=== PATIENT | male | born 1940 | race Hispanic/Latino ===

== ENCOUNTER 2020-11-02 17:38 | Emergency (ER) | payer OTHER ==
--- OUTSIDE RECORDS SUMMARY | 2020-11-02 17:40 | XMS REPORT | Clinical Summary ---
:1940 Author Organization [facility] Address [address] [place] [address] Care Team Providers Name Role Phone Juliana Snell DO Primary Care Provider Allergies No Known Active Allergies Medications Medication Sig Dispensed Refills Start Date End Date Status amIODarone (PACERONE) Take 200 mg by 0 Active 200 MG tablet mouth daily. aspirin (ECOTRIN) 81 MG Take 81 mg by 0 Active enteric coated tablet mouth. clopidogrel (PLAVIX) 75 Take 75 mg by 0 Active mg tablet mouth daily. sacubitril-valsartan Take 1 tablet by 0 Active (ENTRESTO) 24-26 mg mouth 2 (two) tablet per tablet times a day. isosorbide mononitrate Take 10 mg by 0 Active (ISMO,MONOKET) 10 MG mouth daily. tablet metoprolol tartrate Take 100 mg by 0 Active (LOPRESSOR) 50 mg mouth 2 (two) tablet times a day. rosuvastatin (CRESTOR) Take 20 mg by 0 Active 20 MG tablet mouth daily. nitroglycerin Place 0.4 mg 0 Act yared (NITROSTAT) 0.4 MG SL under the tongue tablet every 5 (five) minutes as needed for chest pain. Active Problems No known active problems Surgical History Surgery Date Site/Laterality Comments CARDIAC SURGERY Defibrillator Me dtronic Social History Tobacco Use Types Packs/Day Years Used Date Former Smoker Alcohol Use Drinks/Week oz/Week Comments No Sex Assigned at Date Recorded Not on file Last Filed Vital Signs Not on file Plan of Treatment Health Maintenance Due Date Last Done Comments COVID-19 VACCINE (#1) 1955 SHINGLES VACCINES (#1) 1989 65+ PNEUMOCOCCAL VACCINE (1 of 1 - PPSV23) 2004 INFLUENZA VACCINE 06/16/2020 Results Not on fileafter 11/02/2019 (Home) [place] [address] Advance Directives For more information, please contact: [phone] Type Date Recorded Patient Manager Assisted Living Explanati on Advance Directives, Living Will and 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
--- OUTSIDE RECORDS SUMMARY | 2020-11-02 17:41 | XMS REPORT | Continuity of Care Document ---
:1940 Author Organization [employer] Care Team Providers Name Role Phone [employer] Unavailable Un available Problems Problem Status Onset Classification Date Comments Sourc e Date Reported CHRONIC AFIB Active [facility] [address] [facility] Medications Medication Details Route Status Patient Ordering Order Source Instructions Provider Date pantoprazole Notes: No Longer [facility] Tablet Active [facility] should not Center be chewed or crushed. (Same as: Protonix) Isosorbide Notes: (Same Inactive [facility] as:[place]) 016 Medical Take on Center empty stomach/ full glass of water Plavix Notes: (Same Inactive [facility] As: Plavix) [address] [place] [address] aspirin 81 mg Notes: Do Inactive [facility] tablet, enteric not crush or 016 Med ical coated chew. (Same Center As: Ecotrin) 24 HR Metoprolol Notes: (Same Inactive [facility] Tartrate 100 MG as: Toprol 016 Medic al Extended Release XL) May Center Tablet [Toprol] split tab, but do not crush. Lipitor Notes: (Same No Longer [facility] as: Lipitor) Active [address] [place] [address] Crestor 20 mg, Inactive [facility] Route: PO, [facility] Drug form: Center TAB, Bedtime, Dosing Weight 83.636, kg, Start date: 10/17/16 21:00:00 HEALTHCARE ADMINISTRATIVE ASSISTANT, Duration: 30 day, Stop date: 11/15/16 21:00:00 HEALTHCARE ADMINISTRATIVE ASSISTANT Saline Flush Notes: (Same No Longer [place] 0.9% as: BD Active [address] [place] [address] Posiflush) [place] Sucralfate Notes: May No Longer [facility] interfere Active [facility] w/enteral Center feeds - Take 1 hr before or 2 hr after antacids, dairy pdt, meals & minerals - On empty stomach. (Same As: Carafate) atorvastatin 40 40 mg = 1 Active [facility] as mg oral tablet tab, PO, 016 Medical Bedtime, 0 Center Refill(s) sacubitril 24 MG 1 tab, No Longer [place] / valsartan 26 Route: PO, Active 016 Medica l MG Oral Tablet Drug Form: Center [Entresto] TAB, Dosing Weight 83.636, kg, BID, Start date: 10/17/16 17:00:00 HEALTHCARE ADMINISTRATIVE ASSISTANT, Duration: 30 day, Stop date: 11/16/16 9:00:00 HEALTHCARE ADMINISTRATIVE ASSISTANT Furosemide 40 MG Notes: (Same No Longer [facility] Oral Tablet as: Lasix) Active 016 Medical May cause GI Center upset. Give with food or milk. Amiodarone Notes: (Same No Longer [facility] as as: Active 016 Medical Cordarone) Center Saline Flush Notes: (Same No Longer [place] 0.9% as: BD Active 016 Medical Posiflush) Center Morphine Notes: (Same No Longer [facility] as:MORPhine Active 016 Medical Sulfate) Center Ondansetron Notes: (Same Inactive [facility] as as: Zofran) [address] [place] [address] Phenergan Notes: (Same [place] Long[place] as: Active 016 [facility] Phenergan) Center Nitroglycerin Notes: (Same No Longer [facility] 0.4 MG as:Nitroquic Active 016 Medical Sublingual k, Center Tablet Nitrostat) "Do Not Crush" Sublingual tablet Ondansetron Notes: (Same Inactive [facility] as as: Zofran) 016 Medical Center MEDICATION WASTE Product Size: 4 mg Product Wasted: ___ mg AMIODarone 200 200 mg = 1 Active [facility] as mg oral tablet tab, PO, 016 Medical BID, # 180 Center tab, 0 Refill(s) Phenergan 25 mg 25 mg = 1 Active [facility] as oral tablet tab, PO, 016 Medical Q6H, PRN Center Nausea, # 15 tab, 0 Refill(s) Furosemide 40 MG 40 mg = 1 [place] Oral Tablet tab, PO, 016 Medical BID, # 30 Center tab, 0 Refill(s) sacubitril 24 MG 1 tab, PO, Active [place] / valsartan 26 BID, # 28 016 Medical MG Oral Tablet tab, 0 Center [Entresto] Refill(s) isosorbide 10 mg = 1 Active [facility] mononitrate 10 tab, PO, 016 Medical mg oral tablet Daily, # 60 Cente r tab, 0 Refill(s) pantoprazole 40 40 mg = 1 Active [facility] as mg oral enteric tab, PO, 016 Medical coated tablet Daily, # 30 Center tab, 0 Refill(s) Rosuvastatin 20 mg = 1 Active [facility] calcium 20 MG tab, PO, 016 Medical Oral Tablet Bedtime, # Center [Crestor] 30 tab, 0 Refill(s) aspirin 81 mg 81 mg = 1 Active [facility] tablet, enteric tab, PO, 016 Medical coated Daily, # 90 Center tab, 3 Refill(s) clopidogrel 75 75 mg = 1 [place] Oral Tablet tab, PO, 016 Medical [Plavix] Daily, # 30 Center tab, 0 Refill(s) Nitroglycerin 0.4 mg = 1 Active [place] 0.4 MG tab, SL, 016 Medical Sublingual Q5Min, PRN Center Tablet Chest pain, Give up to 3 doses. Call 911 if pain persists., # 100 tab, 0 Refill(s) metoprolol 100 mg = 1 Active [facility] tartrate 100 mg tab, PO, 016 Medical oral tablet BID, # 60 Center tab, 0 Refill(s) sodium chloride 1,000 mL, Inactive [place] 0.9% 1000 ml INJ Rate: 100 016 Medic al 1,000 mL ml/hr, Center Infuse over: 10 hr, Route: IV, Dosing Weight 83.636 kg, Total Volume: 1,000, Start date: 10/17/16 12:05:00 HEALTHCARE ADMINISTRATIVE ASSISTANT, Duration: 30 day, Stop date: 11/16/16 12:04:00 HEALTHCARE ADMINISTRATIVE ASSISTANT Allergies, Adverse Reactions, Alerts No Known Medication Allergies Immunizations No Data Provided for This Section Results Order Name Results Value Reference Date Interpretation Comments Leticia rce Range BLOOD BANK Antibody Negative 10/17 [facility] RESULTS Scrn (10/17/16 12:07 PM) /2016 Medic al Center BLOOD BANK ABO/Rh B POS 10/17 [place] RESULTS /[address] [facility] CHEM PANEL Magnesium 2.4 1.8 - 2.4 10/17 [place] Lvl /[address] [facility] ELECTROLYTES AGAP 13.2 10.0 - 10/17 [place] 20.0 /[address] [facility] ELECTROLYTES eGFR 28 10/17 Result Comment: The [facility] eGFR is Center calculated using the CKD-EPI formula. In most young, healthy individuals the eGFR will be >90 mL/min/1.73m2 . The eGFR declines with age. An eGFR of 60-89 may be normal in some populations, particularly the elderly, for whom the CKD-EPI formula has not been extensively validated. Use of the eGFR is not recommended in the following populations:< br/>
Beatriz viduals with unstable creatinine concentration s, including patients and those with serious co-morbid conditions.<b r/>
Patie nts with extremes in muscle mass or diet.

The data above are obtained from the National Kidney Disease Education Program (NKDEP) which additionally recommends that when the eGFR is used in patients with extremes of body mass index for purposes of drug dosing, the eGFR should be multiplied by the estimated BMI. ELECTROLYTES Calcium Lvl 8.8 8.5 - 10.5 10/[address] [place] [facility] ELECTROLYTES CO2 33 24 - 32 10/[address] [facility] ELECTROLYTES Chloride Lvl 104 95 - 109 10/17 [place] /[address] [facility] ELECTROLYTES Sodium Lvl 147 135 - 145 10/17 [place] as /[address] [facility] ELECTROLYTES Potassium 3.2 3.5 - 5.1 10/17 [place] L[place] /[address] [facility] ELECTROLYTES Glucose Lvl 77 70 - 99 10/17 [place] [facility] ELECTROLYTES BUN 38 7 - 22 10/[address] [facility] ELECTROLYTES Creatinine 2.20 0.50 - 10/17 [place] Lvl 1.40 /[address] [facility] HEMATOLOGY PTT 33.4 22.9 - 12 [place] 35.8 /[address] [facility] HEMATOLOGY INR 1.45 0.85 - 10/17 [place] 1.17 /2015 Medical [place] HEMATOLOGY PT 17.9 12.0 - 10/17 [place] 14.7 /[address] [facility] HEMATOLOGY MPV 8.4 7.4 - 10.4 10/17 Medical [place] HEMATOLOGY MCHC 32.4 32.0 - 10/17 [place] 36.0 /2015 [facility] HEMATOLOGY MCV 85.8 80.0 - 10/17 [place] 94.0 /2015 [facility] [place] HEMATOLOGY MCH 27.8 27.0 - 10/17 [place] 31.0 /2015 [facility] HEMATOLOGY Hct 42.0 42.0 - 10/17 [place] 54.0 /2015 [facility] [place] HEMATOLOGY WBC 6.8 3.7 - 10.4 10/[address] [facility] HEMATOLOGY Platelet 191 133 - 450 10/[address] [facility] HEMATOLOGY RDW 14.6 11.5 - 10/17 [place] 14.[address] [facility] HEMATOLOGY RBC 4.89 4.70 - 10/17 [place] 6.10 /[address] [facility] HEMATOLOGY Hgb 13.6 14.0 - 10/17 [place] 18.[address] [facility] HEMATOLOGY Basophils # 0.1 0.0 - 0.[address] [facility] HEMATOLOGY Eosinophils 0.1 0.0 - 0.5 10/[place] [facility] HEMATOLOGY Monocytes # 0.5 0.0 - 0.8 10/[address] [facility] HEMATOLOGY Lymphocytes 1.5 1.0 - 5.5 10/[address] [facility] HEMATOLOGY Eosinophils 1.2 0.0 - 4.0 10/[address] [facility] HEMATOLOGY Monocytes 7.5 2.0 - 12.0 10/[address] [facility] HEMATOLOGY Segs-Bands # 4.7 1.5 - 8.1 10/[address] [facility] HEMATOLOGY Basophils 1.2 0.0 - 1.0 10/[address] [facility] HEMATOLOGY Lymphocytes 21.5 20.0 - 10/17 [place] 40.[address] [facility] HEMATOLOGY Segs 68.6 45.0 - 10/[address] [place] [address] [facility] Pathology Reports No Data Provided for This Section Diagnostic Reports No Data Provided for This Section Consultation Notes No Data Provided for This Section Discharge Summaries No Data Provided for This Section History and Physicals No Data Provided for This Section Vital Signs Vital Sign Value Date Comments Source Systolic (mm Hg) 128 10/17/2016 [facility] Diastolic (mm Hg) 91 10/17/2016 [facility] Systolic (mm Hg) 127 10/17/2016 [facility] Diastolic (mm Hg) 93 10/17/2016 [facility] Systolic (mm Hg) 131 10/17/2016 [facility] Diastolic (mm Hg) 94 10/17/2016 [facility] Respitory Rate 17 10/17/2016 [facility] BMI Calculated 30.68 10/17/2016 [facility] Height 165.1 cm 10/17/2016 [facility] Weight 83.636 10/17/2016 [facility] Encounters Location Location Encounter Encounter Reason Attending ADM DC Stat us Source Details Type Number For Provider Date Date Visit [facility] [id number] [facility] 10/17 10/[address] [facility] Outpatient [facility] /2015 [facility] Procedures No Data Provided for This Section Assessment and Plan No Data Provided for This Section Plan of Care No Data Provided for This Section Social History Social History Date Source Social History TypeResponse 10/17/2016 [facility] Smoking Status Never smoker; Ready to change: No; Missy rns about tobacco use in household: No; Exposure to Tobacco Smoke None; Cigarette Smoking Last 365 Days No; Reg Smoking Cessation Counseling No Family History No Data Provided for This Section Advance Directives No Data Provided for This Section Functional Status No Data Provided for This Section
--- OUTSIDE RECORDS SUMMARY | 2020-11-02 17:41 | XMS REPORT | Clinical Summary ---
:1940 Author Organization [facility] Address [address] [place] [address] Care Team Providers Name Role Phone Danny Osuna MD Primary Care Provider Unavailable Allergies No Known Allergies Medications Medication Sig Dispensed Refills Start Date End Date Status aspirin 81 MG EC Take 81 mg by 0 Active tablet mouth daily. rosuvastatin (CRESTOR) Take 20 mg by 0 Active 20 MG tablet mouth daily. pantoprazole Take 40 mg by 0 Act yared (PROTONIX) 40 MG mouth daily. tablet promethazine Take 25 mg by 0 Act yared (PHENERGAN) 25 MG mouth every 6 tablet (six) hours as needed for Nausea. nitroglycerin Place 0.4 mg under 0 Active (NITROSTAT) 0.4 MG SL the tongue every 5 tablet (five) minutes as needed for Chest pain Put 1 pill under tongue every 5min as needed for chest pain.No more than 3 doses in 15min.Call 911 if pain is unrelieved 5min after 1st dose . clopidogrel (PLAVIX) Take 75 mg by 0 Active 75 mg tablet mouth daily. 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 Pacemaker 03/20/2017 History of atrial fibrillation 03/20/2017 Social History Tobacco Use Types Packs/Day Years Used Date Former Smoker Cigarettes 39 Quit: 11/16/19 13 Smokeless Tobacco: Never Used Tobacco Cessation: Counseling Given: Yes Alcohol Use Drinks/Week oz/Week Comments No Sex Assigned at Date Recorded Not on file Last Filed Vital Signs Not on file Plan of Treatment Not on file Implants Implanted Type Area Program Aide Group Work Device Shelf Model / Identifier Expiration Serial / Lot Date Cath Exp Silv Soak Zinc Plate Cutter 12.5cmx [id number] - [id number] Pain N/A: MONCHO 09/16/2019 [id number] / Implanted: Qty: 2 on 06/19/2017 by Hawk Rao MD at [facility] Mgmt/Stim Chest / ulator [id number] Ring Annulplsty Profile 3d 30m [id number] - [id number] Valves N/A: [employer]:STRUC 01/13/2022 [id number] / Implanted: Qty: 1 on 06/19/2017 by Hawk Rao MD at [facility] Chest TURAL HEART [id number] / Ring Semiflex 28mm Mounted [id number] - [id number] Valves N/A: [employer]:STRUC 03/15/2022 [id number] / Implanted: Qty: 1 on 06/19/2017 by Hawk Rao MD at [facility] Chest [employer]URAL HEART [id number] / [id number] [employer] Graft N/A: GORE 2020 [id number] / Implanted: Qty: 1 on 06/19/2017 by Hawk Rao MD at [facility] Chest [id number] / Results Not on fileafter 11/02/2019 Insurance Payer Benefit Plan / Subscriber ID Effective Phone Address T [facility] Group Dates MEDICAID - [facility] [id number] 2016-Katerina Najera dicaid MEDICAID MGD STAR PLAN nt Contrac [place] CARE [place] HMO [id number] 2008-Katerina Baldwin aps Contracted ALL nt MEDICAID MEDICAID OF [id number] 2017-[facility] Advance Directives For more information, please contact: [phone] Code Status Date Activated Date Inactivated Comments Full Code 06/27/2017 4:19 PM 06/29/2017 7:36 PM This code status was determined by: Patient Full Code 06/19/2017 12:50 PM 06/24/2017 2:52 PM This code status was determined by: Patient Full Code 06/19/2017 6:01 AM 06/19/2017 11:54 AM This code status was determined by: Patient Full Code 05/13/2017 9:36 AM 05/13/2017 9:00 PM This code status was determined by: Patient Full Code 03/20/2017 4:10 PM 03/25/2017 8:19 PM This code status was determined by: Patient
--- OUTSIDE RECORDS SUMMARY | 2020-11-02 17:44 | XMS REPORT | Continuity of Care Document ---
:1940 Author Organization [facility] t Address [address] [place] [address] Care Team Providers Name Role Phone Juliana Snell DO Primary Care Physician MERCEDES Attending Clinician Unavailable ADRIEL WHELAN Attending Clinician Unavailable PHYLICIA Attending Clinician Unavailable PETTY Attending Clinician Unavailable ADAM GARCIA Attending Clinician Unavailable Hematpomichele Attending Clinician Verenice NI Admitting Clinician Unavailable PHYLICIA Admitting Clinician Unavailable PETTY Admitting Clinician Unavailable ADAM GARCIA Admitting Clinician Unavailable Hematpomichele Admitting Clinician Problems Condition Condition Condition Status Onset Resolution Last Treating Co mments Source Name Details Category Date Date Treatment Clinician Date 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 8-04 S/p Jamila kes - ion ion 00:00: Tricuspid [facility] asty with Atrial appendage ligation( 06/19/2017) Stage 3 Stage 3 Disease [facility] kidney kidney 00:00: Medical disease disease 00 Center Hypertensi Hypertensi Disease Active [facility] on on 04-06 [facility] - 00:[facility] Medical 00 Center 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 04-06 [facility] - disease disease 00:00: Medical involving involving 00 Cent [place] coronary coronary artery artery Non-rheuma Non-rheuma Disease Active Overview : [facility] t[facility] mitral tic mitral 03-22 S/p Jamila kes - regurgitat regurgitat 00:00: mitral Me dical ion ion 00 valve Center repair with sling and ring procedure (06/19/2017 ) 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 00:00: Medica l (congestiv (congestiv 00 Ce nter e) and e) and diastolic diastolic (congestiv (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 Suprasella Disease Active [facility] r mass r mass 03-20 [facility] - 00:[facility]: Medical 00 Center Pacemaker Pacemaker Disease Active [facility] 03[facility]20 [facility] - [facility]: Medical 00 Center History of History of Disease Active [facility] atrial atrial 03-20 [facility] - fibrillati fibrillati 00:00: Me dical on on 00 Center CHRONIC Diagnosis Active [id number] Me moria AFIB 11 15:41:00 l CHRONIC 00:00: [place] AFIB 00 Active 09/26/2016 [facility] Allergies, Adverse Reactions, Alerts Allergy Allergy Status Severity Reaction(s) Onset Inactive Treating Comm ents Source Name Type Date Date Clinician Lisinopr Adverse Active Info Not [facility] Reaction Available [facility] Social History Social Habit Start Date Stop Date Quantity Comments Source Sex Assigned At [facility] Jamila rubin - [facility] Center Tobacco use and 2017-07-29 2017-07-29 Never used [facility] Jamila rubin - exposure 00:00:00 00:00:00 [facility] Center Alcohol intake 2017-07-29 2017-07-[address] [facility] [address] Gram[place] es - 00:00:00 00:00:00 non-drinker of Medical Ce nter alcohol (finding) History of 2012-11-16 Current smoker [facility] Rox es - tobacco use 00:00:00 Medical Mac morgan Smoking Status Start Date Stop Date Source Former smoker 2017-07-29 00:00:00 2017-07-29 00:00:[address] [facility] [address] [facility] Social History [facility] Medications Ordered Filled Start Stop Current Ordering Indication Dosage Frequency Signature Comments Components Source Medication Medication Date Date Medication? Clinician (SIG) Name Name Omeprazole Omeprazole Yes Na Snell [address] 4-24 [facility] - 00:[facility]: Memoria 00 l Outpati ent Clinics Triamcinolo Triamcinolo Yes Na Snell [address] [facility] [facility] ne ne 1-14 applicatio [facility] - Acetonide Acetonide 00:00: n to Mem oria 00 affected l area [facility] losartan 2016-[address] [facility] (COZAAR) 25 1-27 ONE-HALF Luke s - MG tablet 00:00: TABLET BY Med ical 00 MOUTH ONCE Center DAILY aspirin 81 Yes 81mg QD Take [address] MG EC 9-13 by mouth [facility] - tablet 12:51: daily. Medical 15 Center rosuvastati Yes 20mg QD Take [address] n (CRESTOR) 9-13 by mouth Luke s - 20 MG 12:51: daily. Medical tablet 15 Center pantoprazol Yes 40mg QD Take [address] e 9-13 by mouth [facility] - (PROTONIX) 12:51: daily. Medic al 40 MG 15 Center tablet promethazin Yes 25mg Take [address] e 9-13 by mouth [facility] - (PHENERGAN) 12:51: every 6 Med ical 25 MG 15 (six) Center tablet hours as needed for Nausea. nitroglycer Yes .4mg Place 0.[address] in 9-13 mg under [facility] - (NITROSTAT) 12:51: the tongue Medical 0.4 MG SL 15 every 5 Center tablet (five) minutes as needed for Chest pain Put 1 pill under tongue every 5min as needed for chest pain.No more than 3 doses in 15min.Call 911 if pain is unrelieved 5min after 1st dose . clopidogrel Yes 75mg QD Take [address] (PLAVIX) 75 9-13 by mouth Luke s - mg tablet 12:51: daily. Medica l 15 Center amIODarone 2017-0 Yes 200mg QD Take 200 [place] (PACERONE) 7-11 mg by Methodi 200 MG 09:06: mouth st tablet 30 daily. aspirin 20170 Yes 81mg Take 81 mg [place] (ECOTRIN) 7-11 by mouth. Metho di 81 MG 09:06: st enteric 30 coated tablet clopidogrel Yes 75mg QD Take 75 mg [place] (PLAVIX) 75 7-11 by mouth Meth [place] mg tablet 09:06: daily. st 30 sacubitril- 2017- Yes 1{tbl} Q.5D Take 1 [place] valsartan 7-11 tablet by Metho di (ENTRESTO) 09:06: mouth 2 st 24-26 mg 30 (two) tablet per times a tablet day. isosorbide Yes 10mg QD Take 10 mg [place] mononitrate 7-11 by mouth Meth [place] (ISMO,MONOK 09:06: daily. st ET) 10 MG 30 tablet metoprolol Yes 100mg Q.5D Take 100 [place] tartrate 7-11 mg by Methodi (LOPRESSOR) 09:06: mouth 2 st 50 mg 30 (two) tablet times a day. rosuvastati Yes 20mg QD Take 20 mg [place] n (CRESTOR) 7-11 by mouth Meth elkin 20 MG 09:06: daily. st tablet [address] 0.4 [place] in 7-11 mg under Methodi (NITROSTAT) 09:06: the tongue st 0.4 MG SL 30 every 5 tablet (five) minutes as needed for chest pain. pantoprazol 2015-11 No Notes: Torres sonia e 2-03 Tablet l 15:00: should not Ko 00 be chewed or crushed. (Same as: Protonix) Isosorbide 2015-11 No Notes: Memor ia 2-03 (Same l 15:00: as:[place] Ko 00 ) Take on empty stomach/ full glass of water Plavix 2015-11 No Notes: Memoria 2-03 (Same As: l 15:00: Plavix) [place] 00 aspirin 81 2015-11 No Notes: Do Me moria mg tablet, 2- not crush l enteric 15:00: or chew. Dennis n coated 00 (Same As: Ecotrin) 24 HR 2015-11 No Notes: Memoria Metoprolol 2-03 (Same as: l Tartrate 15:00: Toprol XL) Her wiley 100 MG 00 May split Extended tab, but Release do not Tablet crush. [Toprol] Lipitor 2015-11 No Notes: Memoria 2-03 (Same as: l 03:00: Lipitor) [place] 00 Crestor 2015-11 No 20 mg, Memoria 2- Route: PO, l 03:00: Drug form: Ko 00 TAB, Bedtime, Dosing Weight 83.636, kg, Start date: 10/17/16 21:00:00 HAND INSERTER OPERATOR, Duration: 30 day, Stop date: 11/15/16 21:00:00 HAND INSERTER OPERATOR Saline 2015-11 No Notes: Memoria Flush 0.9% -03 (Same as: l 03:00: BD [place] Posiflush) Sucralfate 2015-11 No Notes: March M emoria 2-03 interfere l 03:00: w/enteral Ko 00 feeds - Take 1 hr before or 2 hr after antacids, dairy pdt, meals & minerals - On empty stomach. (Same As: Carafate) atorvastati 2015-11 Yes 40 mg = 1 M emoria n 40 mg 2-02 tab, PO, l oral tablet 23:22: Bedtime, 0 Ko 00 Refill(s) sacubitril 2015-11 No 1 tab, Memor ia 24 MG / 2-02 Route: PO, l valsartan 23:00: Drug Form: Mahesh rmann 26 MG Oral 00 TAB, Tablet Dosing [Entresto] Weight 83.636, kg, BID, Start date: 10/17/16 17:00:00 HAND INSERTER OPERATOR, Duration: 30 day, Stop date: 11/16/16 9:00:00 HAND INSERTER OPERATOR Furosemide 2015-11 No Notes: Memor ia 40 MG Oral 2-02 (Same as: l Tablet 23:00: Lasix) Ko May cause GI upset. Give with food or milk. Amiodarone 2015-11 No Notes: Memor ia 2-02 (Same as: l 23:00: Cordarone) [place] Saline 2015-11 No Notes: Memoria Flush 0.9% 2- (Same as: l 20:40: BD [place] 00 Posiflush) Morphine 2015-11 No Notes: Memoria 2- (Same l 20:40: as:MORPhin Ko 00 e Sulfate) Ondansetron 2015-11 Yes Notes: Torres sonia 2- (Same as: l 20:38: Zofran) Phenergan 2015-11 No Notes: Memori a 2- (Same as: l 20:38: Phenergan) [place] 00 Nitroglycer 2015-11 No Notes: Torres sonia in 0.4 MG 12-18 (Same l Sublingual 20:37: as:Nitroqu H ermann Tablet 00 ick, Nitrostat) "Do Not Crush" Sublingual tablet Ondansetron 2015-11 Yes Notes: Torres sonia - (Same as: l 20:37: Zofran) MEDICATION WASTE Product Size: 4 mg Product Wasted: ___ mg AMIODarone 2015-11 Yes 200 mg = 1 M emoria 200 mg oral 2-02 tab, PO, l tablet 18:28: BID, # 180 Kavita nn 00 tab, 0 Refill(s) Phenergan 2015-11 Yes 25 mg = 1 Mem oria 25 mg oral 2-02 tab, PO, l tablet 18:28: Q6H, PRN [place] 00 Nausea, # 15 tab, 0 Refill(s) Furosemide 2015-11 Yes 40 mg = 1 Me moria 40 MG Oral 2-02 tab, PO, l Tablet 18:28: BID, # 30 Dennis n 00 tab, 0 Refill(s) sacubitril 2015-11 Yes 1 tab, PO, M emoria 24 MG / 2-02 BID, # 28 l valsartan 18:28: tab, 0 Dennis n 26 MG Oral 00 Refill(s) Tablet [Entresto] isosorbide 2015-11 Yes 10 mg = 1 Me moria mononitrate 2-02 tab, PO, l 10 mg oral 18:28: Daily, # Her wiley tablet 00 60 tab, 0 Refill(s) pantoprazol 2015-11 Yes 40 mg = 1 M emoria e 40 mg 2-02 tab, PO, l oral 18:28: Daily, # Ko enteric 00 30 tab, 0 coated Refill(s) tablet Rosuvastati 2015-11 Yes 20 mg = 1 M emoria n calcium 2-02 tab, PO, l 20 MG Oral 18:28: Bedtime, # H ermann Tablet 00 30 tab, 0 [Crestor] Refill(s) aspirin 81 2015-11 Yes 81 mg = 1 Me moria mg tablet, 2-02 tab, PO, l enteric 18:28: Daily, # Dennis n coated 00 90 tab, 3 Refill(s) clopidogrel 2015-11 Yes 75 mg = 1 M emoria 75 MG Oral 2-02 tab, PO, l Tablet 18:28: Daily, # Ko [Plavix] 00 30 tab, 0 Refill(s) Nitroglycer 2015-11 Yes 0.4 mg = 1 Memoria in 0.4 MG 2-02 tab, SL, l Sublingual 18:28: Q5Min, PRN H ermann Tablet 00 Chest pain, Give up to 3 doses. Call 911 if pain persists., # 100 tab, 0 Refill(s) metoprolol 2015-11 Yes 100 mg = 1 M emoria tartrate 2-02 tab, PO, l 100 mg oral 18:28: BID, # 60 H ermann tablet 00 tab, 0 Refill(s) sodium 2015-11 No 1,000 mL, Memori a chloride 12-18 Rate: 100 l 0.9% 1000 18:05: ml/hr, Dennis n ml INJ 00 Infuse 1,000 mL over: 10 hr, Route: IV, Dosing Weight 83.636 kg, Total Volume: 1,000, Start date: 10/17/16 12:05:00 HAND INSERTER OPERATOR, Duration: 30 day, Stop date: 11/16/16 12:04:00 HAND INSERTER OPERATOR Nitrostat Nitrostat Yes Na Snell [address] [facility] Carvedilol Carvedilol Yes Na Snell [address] [facility] Protonix Protonix Yes Na Snell [address] [facility] Potassium Potassium Yes Na Snell [address] Chloride ER Chloride ER with food [facility] Carvedilol Carvedilol Yes Na Snell TAKE ONE [facility] TABLET BY [facility] - MOUTH Memoria TWICE l DAILY [facility] Losartan Losartan Yes Na Snell [address] Potassium Potassium [facility] Tamsulosin Tamsulosin Yes Na Snell [address] HCl HCl [facility] Crestor Crestor Yes Na Snell [address] [facility] Rosuvastati Rosuvastati Yes Na Snell [address] [facility] n Calcium n Calcium [facility] Lasix Lasix Yes Na Snell [address] Losartan Losartan Yes Na Snell TAKE ONE [facility] Potassium Potassium TABLET BY [facility] - MOUTH ONCE Memoria DAILY l [facility] Coreg Coreg Yes Na Snell one tab [facility] Eliquis 2.5 Eliquis 2.5 Yes Na Snell one tablet [facility] mg mg [facility] Plavix Plavix Yes Na Snell [address] [facility] Vital Signs Vital Name Observation Time Observation Value Comments Source Systolic (mm Hg) 2016-10-17 23:00:00 Torres rial Ko Diastolic (mm Hg) 2016-10-17 23:00:00 Mem orial Ko Systolic (mm Hg) 2016-10-17 22:30:00 Torres rial Ko Diastolic (mm Hg) 2016-10-17 22:30:00 Mem orial Ko Systolic (mm Hg) 2016-10-17 22:00:00 Torres rial [place] Diastolic (mm Hg) 2016-10-17 22:00:00 Mem orial Ko Respitory Rate 2016-10-17 18:30:00 Debi Verduzco BMI Calculated 2016-10-17 18:04:00 Debi Verduzco Height 2016-10-17 18:04:00 165.1 cm [facility] Weight 2016-10-17 18:04:00 [facility] Procedures This patient has no known procedures. Plan of Care Planned Activity Planned Date Details Comments Source Future Scheduled 2020-06-16 INFLUENZA VACCINE [place] [facility] 00:00:00 [code = INFLUENZA VACCINE] Future Scheduled 2004 65+ PNEUMOCOCCAL [place] [facility] Test 00:00:00 VACCINE (1 of 1 - PPSV23) [code = 65+ PNEUMOCOCCAL VACCINE (1 of 1 - PPSV23)] Future Scheduled 1989 SHINGLES VACCINES (#1) H [place] [facility] Test 00:00:00 [code = SHINGLES VACCINES (#1)] Future Scheduled 1955 COVID-19 VACCINE (#1) Ho [place] [facility] Test 00:00:00 [code = COVID-19 VACCINE (#1)] Encounters Start End Encounter Admission Attending Care Care Encounter Source Date/Time Date/Time Type Type Clinicians Facility Department ID 2020-09-19 2020-09-19 Outpatient [facility] [id number] [facility] 2020-09-14 2020-09-14 Outpatient [facility] [id number] [facility] 2020-08-31 2020-08-31 Out[facility] [id number] [facility] 2020-08-24 2020-08-24 Out[facility] [id number] [facility] 2020-06-26 2020-06-26 [id number] [facility] 15:59[facility] 15:59:[address] [facility] - Drive [facility] Family Medicine l Medicine Outpati ent Clinics 2020-06-11 2020-06-11 [facility] [id number] 14:08:00 14:08:[address] Luke s - Drive [facility] Family Medicine l Medicine Outpati ent Clinics 2020-05-30 2020-05-30 [facility] [id number] 10:20:00 10:20:[address] Luke [facility] - Drive [facility] Family Medicine l Medicine Outpati ent Clinics 2020-04-16 2020-04-16 [facility] [id number] [address] 10:27:00 10:27:[address] Luke s - Drive [facility] Medicine Medicine Outpati ent Clinics 2020-03-09 2020-03-09 [facility] [id number] 15:00:00 15:00:00 [place] [employer] [facility] l Medicine Outpati ent Clinics 2020-02-28 2020-02-28 [facility] [id number] 08:00:00 08:00:00 [place] [employer] [facility] l Medicine Outpati ent Clinics 2020-01-12 2020-01-12 [facility] [id number] 16:30:00 16:30:00 [place] [employer] [facility] Medicine Outpati ent Clinics 2019-12-26 2019-12-26 [facility] [id number] 09:19:00 09:19:[address] [facility] Medicine Outpati ent Clinics 2019-12-23 2019-12-23 [facility] [id number] 17:21:00 17:21:[address] [place] [employer] [facility] Medicine Outpati ent Clinics 2019-11-29 2019-11-29 [facility] [id number] [address] 08:00:00 08:00:[address] [place] [employer] [facility] Medicine Outpati ent Clinics 2019-11-21 2019-11-21 [facility] [id number] [address] 16:38:00 16:38:00 [place] [employer] [facility] Medicine Outpati ent Clinics 2019-08-25 2019-08-25 [facility] [id number] 15:20:00 15:20:00 [place] [employer] [facility] Medicine Outpati ent Clinics 2019-08-08 2019-08-08 [facility] [id number] 14:59:00 14:59:00 [place] [employer] [facility] Medicine Outpati ent Clinics 2019-06-21 2019-06-21 [facility] [id number] 15:29:00 15:29:[address] [facility] Medicine Outpati ent Clinics 2019-06-03 2019-06-03 [facility] [id number] 13:40:00 13:40:00 [place] [employer] [facility] Outpati ent Clinics 2019-02-28 2019-02-28 [facility] [id number] [facility] 15:40:00 15:40:00 t [employer] [facility] Outpati ent Clinics 2019-01-03 2019-01-03 [facility] [id number] 15:15:00 15:15:00 t [employer] [facility] Outpati ent Clinics 2018-12-31 2018-12-31 [facility] [id number] 09:59:00 09:59:00 t Specialty/U Jamila kes - Specialty rology Memori a /Urology Clinic l Clinic Outpati ent Clinics 2018-12-28 2018-12-28 [facility] [id number] 13:00:00 13:00:00 t Specialty/U Jamila kes - Specialty rology Memori a /Urology Clinic l Clinic Outpati ent Clinics 2018-12-23 2018-12-23 [facility] [id number] 15:11:00 15:11:00 t Specialty/U Jamila kes - Specialty rology Memori a /Urology Clinic l Clinic Outpati ent Clinics 2018-12-20 2018-12-20 [facility] [id number] 11:04:00 11:04:00 t Urgent Urgent Care L ukes - Care Clinic [facility] Clinic l Outpati ent Clinics 2018-12-20 2018-12-20 [facility] [id number] 09:02:00 09:02:00 t [place] [employer] [facility] Outpati ent Clinics 2018-12-17 2018-12-17 [facility] [id number] 11:05:00 11:05:00 t Womens Womens Care L ukes - Care Clinic [facility] Clinic l Outpati ent Clinics 2018-12-17 2018-12-17 [facility] [id number] 10:57:00 10:57:00 t Specialty/U Jamila kes - Specialty rology Memori a /Urology Clinic l Clinic Outpati ent Clinics 2018-12-06 2018-12-06 [facility] [id number] 09:51:00 09:51:00 t [employer] [facility] Outpati ent Clinics 2018-12-01 2018-12-01 [facility] [id number] 10:00:00 10:00:00 t Specialty/U Jamila kes - Specialty rology Memori a /Urology Clinic l Clinic Outpati ent Clinics 2018-11-30 2018-11-30 [facility] [id number] 09:15:00 09:15:00 t [employer] [facility] Outpati ent Clinics 2018-08-17 2018-08-17 [facility] [id number] 14:43:00 14:43:00 t Specialty/U Jamila kes - Specialty rology Memori a /Urology Clinic l Clinic Outpati ent Clinics 2018-08-12 2018-08-12 [facility] [id number] 13:07:00 13:07:00 t Specialty/U Jamila kes - Specialty rology Memori a /Urology Clinic l Clinic Outpati ent Clinics 2018-08-12 2018-08-12 [facility] [id number] 09:15:00 09:15:00 t Specialty/U Jamila kes - Specialty rology Memori a /Urology Clinic l Clinic Outpati ent Clinics 2018-08-06 2018-08-06 [facility] [id number] 16:01:00 16:01:00 t [employer] [facility] Outpati ent Clinics 2018-06-24 2018-06-24 [facility] [id number] 14:45:00 14:45:00 t [employer] [facility] Outpati ent Clinics 2016-10-17 2016-10-17 Outpatient Hematpour, [facility] [id number] 11:55:00 17:37:00 Khashayar 00 Results Test Description Test Time Test Comments Results Result Comments Source B-TYPE NATRIURETIC FACTOR (BNP) 2017-07-29 15:05:00 Test Item Value Reference Range Interpretation Comme nts B-TYPE NATRIURETIC PEPTIDE (BEAKER) (test code = 700) 1331 pg/mL 0-100 H [id number] 14:58:00 Test Item Value Reference Range Interpretation Comments MAGNESIUM (BEAKER) (test code = 2.2 mg/dL 1.6-2.6 627) BASIC METABOLIC [id number] 14:58:00 Test Item Value Reference Range Interpretation Comments SODIUM (BEAKER) 143 meq/L 136-145 (test code = 381) POTASSIUM (BEAKER) 3.3 meq/L 3.5-5.1 L (test code = 379) CHLORIDE (BEAKER) 106 meq/L 98-107 (test code = 382) CO2 (BEAKER) (test 31 meq/L 22-29 H code = 355) BLOOD UREA NITROGEN 18 mg/dL 7-21 (BEAKER) (test code = 354) CREATININE (BEAKER) 1.08 mg/dL 0.57-1.25 (test code = 358) GLUCOSE RANDOM 80 mg/dL 70-105 (BEAKER) (test code = 652) CALCIUM (BEAKER) 9.0 mg/dL 8.4-10.2 (test code = 697) EGFR (BEAKER) (test 66 mL/min/1.73 ESTIMA SOBEIDA GFR IS code = 1092) sq m NOT ACCURATE CREATININE CLEARANCE IN PREDICTING GLOMERULAR FILTRATION RATE . ESTIMATED GFR I S NOT APPLICABLE FOR DIALYSIS PATIEN TS. POCT-GLUCOSE [id number] 12:54:00 Test Item Value Reference Range Interpretation Comments POC-GLUCOSE METER 108 mg/dL 70-[address] [facility] 6720 (BEAKER) (test code = KATHYA [place] 1538) [id number] POCT-GLUCOSE [id number] 08:45:00 Test Item Value Reference Range Interpretation Comments POC-GLUCOSE METER 114 mg/dL 70-[address] [facility] 6720 (BEAKER) (test code = KATHYA Mora [place] 1538) [id number] BASIC METABOLIC [id number] 06:04:00 Test Item Value Reference Range Interpretation Comments SODIUM (BEAKER) 142 meq/L 136-145 (test code = 381) POTASSIUM (BEAKER) 3.5 meq/L 3.5-5.1 (test code = 379) CHLORIDE (BEAKER) 108 meq/L 98-107 H (test code = 382) CO2 (BEAKER) (test 26 meq/L 22-29 code = 355) BLOOD UREA NITROGEN 24 mg/dL 7-21 H (BEAKER) (test code = 354) CREATININE (BEAKER) 0.82 mg/dL 0.57-1.25 (test code = 358) GLUCOSE RANDOM 89 mg/dL 70-105 (BEAKER) (test code = 652) CALCIUM (BEAKER) 8.2 mg/dL 8.4-10.2 L (test code = 697) EGFR (BEAKER) (test 91 mL/min/1.73 ESTIMA SOBEIDA GFR IS code = 1092) sq m NOT ACCURATE CREATININE CLEARANCE IN PREDICTING GLOMERULAR FILTRATION RATE . ESTIMATED GFR I S NOT APPLICABLE FOR DIALYSIS PATIEN TS. TROPONIN [id number] 22:40:00 Test Item Value Reference Range Interpretation Comments TROPONIN I (BEAKER) (test code = 1.42 ng/mL 0.00-0.03 HH 397) Effective 10/03/2014: Reference Range ChangeNew: 0.00-0.03 Previous 0.00- 0.15Troponin I (TnI) levels must be interpreted in the context of the presenting symptoms and the clinical findings. Elevated TnI levels indicate myocardial damage, but are not specific for ischemic heart disease. Elevated TnI levels are seen in patients with other cardiac conditions (including myocarditis and congestive heartfailure), and slight TnI elevations occur in patients with other conditions, including sepsis, renalfailure, acidosis, acute neurological disease, and persistent tachyarrhythmia.POCT-GLUCOSE [id number] 21:44:00 Test Item Value Reference Range Interpretation Comments POC-GLUCOSE METER 109 mg/dL 70-[address] [facility] 6720 ([facility]) (test code = KATHYA [place] 1538) [id number] POCT-GLUCOSE [id number] 20:16:00 Test Item Value Reference Range Interpretation Comments POC-GLUCOSE METER 113 mg/dL 70-[address] [facility] 6720 (BEAKER) (test code = KATHYA Mora [place] 1538) [id number] POCT-GLUCOSE [id number] 20:11:00 Test Item Value Reference Range Interpretation Comments POC-GLUCOSE METER 98 mg/dL 70-[address] [facility] 6720 (BEAKER) (test code = KATHYA Mora [facility] [id number] 1538) POCT-GLUCOSE [id number] 20:01:00 Test Item Value Reference Range Interpretation Comments POC-GLUCOSE METER 121 mg/dL 70-[address] [facility] 6720 (BEAKER) (test code = KATHYA Mora [facility] 1538) [id number] TROPONIN [id number] 12:06:00 Test Item Value Reference Range Interpretation Comments TROPONIN I (BEAKER) (test code = 1.72 ng/mL 0.00-0.03 HH 397) Effective 10/03/2014: Reference Range ChangeNew: 0.00-0.03 Previous 0.00- 0.15Troponin I (TnI) levels must be interpreted in the context of the presenting symptoms and the clinical findings. Elevated TnI levels indicate myocardial damage, but are not specific for ischemic heart disease. Elevated TnI levels are seen in patients with other cardiac conditions (including myocarditis and congestive heartfailure), and slight TnI elevations occur in patients with other conditions, including sepsis, renalfailure, acidosis, acute neurological disease, and persistent tachyarrhythmia.BASIC METABOLIC [id number] 12:05:00 Test Item Value Reference Range Interpretation Comments SODIUM (BEAKER) 142 meq/L 136-145 (test code = 381) POTASSIUM (BEAKER) 3.5 meq/L 3.5-5.1 (test code = 379) CHLORIDE (BEAKER) 107 meq/L 98-107 (test code = 382) CO2 (BEAKER) (test 26 meq/L 22-29 code = 355) BLOOD UREA NITROGEN 23 mg/dL 7-21 H (BEAKER) (test code = 354) CREATININE (BEAKER) 0.83 mg/dL 0.57-1.25 (test code = 358) GLUCOSE RANDOM 92 mg/dL 70-105 (BEAKER) (test code = 652) CALCIUM (BEAKER) 8.0 mg/dL 8.4-10.2 L (test code = 697) EGFR (BEAKER) (test 90 mL/min/1.73 ESTIMA SOBEIDA GFR IS code = 1092) sq m NOT ACCURATE CREATININE CLEARANCE IN PREDICTING GLOMERULAR FILTRATION RATE . ESTIMATED GFR I S NOT APPLICABLE FOR DIALYSIS PATIEN TS. CREATINE KINASE (CK), TOTAL AND [id number] 12:05:00 Test Item Value Reference Range Interpretation Comments CREATINE KINASE TOTAL (BEAKER) 43 U/L 29-200 (test code = 380) CREATINE KINASE-MB (BEAKER) (test 2.1 ng/mL 0.0-6.6 code = 750) CREATINE KINASE-MB INDEX (BEAKER) 4.9 % (test code = 395) Effective 10/03/2014: CK-MB Reference Range ChangeNew: 0.0-6.6 Previous: 0.0-4.9CK-MB Reference Range:<6.7 Normal6.7-10.0 Borderline>10.0 AbnormalCBC W/PLT COUNT & AUTO [id number] 05:21:00 Test Item Value Reference Range Interpretation Comments WHITE BLOOD CELL COUNT (BEAKER) 7.6 K/ L 3.5-10.5 (test code = 775) RED BLOOD CELL COUNT (BEAKER) 3.58 M/ L 4.63-6.08 L (test code = 761) HEMOGLOBIN (BEAKER) (test code = 9.7 GM/DL 13.7-17.5 L 410) HEMATOCRIT (BEAKER) (test code = 30.4 % 40.1-51.0 L 411) MEAN CORPUSCULAR VOLUME (BEAKER) 84.9 fL 79.0-92.2 (test code = 753) MEAN CORPUSCULAR HEMOGLOBIN 27.1 pg 25.7-32.2 (BEAKER) (test code = 751) MEAN CORPUSCULAR HEMOGLOBIN CONC 31.9 GM/DL 32.3-36.5 L (BEAKER) (test code = 752) RED CELL DISTRIBUTION WIDTH 15.9 % 11.6-14.4 H (BEAKER) (test code = 412) PLATELET COUNT (BEAKER) (test 228 K/CU MM 150-450 code = 756) MEAN PLATELET VOLUME (BEAKER) 9.1 fL 9.4-12.4 L (test code = 754) NEUTROPHILS RELATIVE PERCENT 82 % (BEAKER) (test code = 429) LYMPHOCYTES RELATIVE PERCENT 10 % (BEAKER) (test code = 430) MONOCYTES RELATIVE PERCENT 5 % (BEAKER) (test code = 431) EOSINOPHILS RELATIVE PERCENT 2 % (BEAKER) (test code = 432) BASOPHILS RELATIVE PERCENT 0 % (BEAKER) (test code = 437) NEUTROPHILS ABSOLUTE COUNT K/ L 1.78-5.38 (BEAKER) (test code = 670) LYMPHOCYTES ABSOLUTE COUNT K/ L 1.32-3.57 (BEAKER) (test code = 414) MONOCYTES ABSOLUTE COUNT (BEAKER) K/ L 0.30-0.82 (test code = 415) EOSINOPHILS ABSOLUTE COUNT K/ L 0.04-0.54 (BEAKER) (test code = 416) BASOPHILS ABSOLUTE COUNT (BEAKER) K/ L 0.01-0.08 (test code = 417) IMMATURE GRANULOCYTES-RELATIVE 1 % 0-1 PERCENT (BEAKER) (test code = 2801) URINALYSIS W/ [id number] 20:09:00 Test Item Value Reference Range Interpretation Comments COLOR (BEAKER) (test code = Yellow 470) CLARITY (BEAKER) (test code = Clear 469) SPECIFIC GRAVITY UA (BEAKER) 1.009 1.001-1.035 (test code = 468) PH UA (BEAKER) (test code = 6.0 5.0-8.0 467) PROTEIN UA (BEAKER) (test code Negative Negative = 464) GLUCOSE UA (BEAKER) (test code Negative Negative = 365) KETONES UA (BEAKER) (test code Negative Negative = 371) BILIRUBIN UA (BEAKER) (test Negative Negative code = 462) BLOOD UA (BEAKER) (test code = Negative Negative 461) NITRITE UA (BEAKER) (test code Negative Negative = 465) LEUKOCYTE ESTERASE UA (BEAKER) Negative Negative (test code = 466) UROBILINOGEN UA (BEAKER) (test 2.0 mg/dL 0.2-1.0 H code = 463) RBC UA (BEAKER) (test code = 0 /HPF 519) WBC UA (BEAKER) (test code = 0 /HPF 520) SOURCE(BEAKER) (test code = Urine, Voided 6493) TROPONIN [id number] 14:12:00 Test Item Value Reference Range Interpretation Comments TROPONIN I (BEAKER) (test code = 1.33 ng/mL 0.00-0.03 HH 397) Effective 10/03/2014: Reference Range ChangeNew: 0.00-0.03 Previous 0.00- 0.15Troponin I (TnI) levels must be interpreted in the context of the presenting symptoms and the clinical findings. Elevated TnI levels indicate myocardial damage, but are not specific for ischemic heart disease. Elevated TnI levels are seen in patients with other cardiac conditions (including myocarditis and congestive heartfailure), and slight TnI elevations occur in patients with other conditions, including sepsis, renalfailure, acidosis, acute neurological disease, and persistent tachyarrhythmia.CREATINE KINASE (CK), TOTAL AND MB 2017-06-27 13:49:00 Test Item Value Reference Range Interpretation Comments CREATINE KINASE TOTAL (BEAKER) 40 U/L 29-200 (test code = 380) CREATINE KINASE-MB (BEAKER) (test 1.7 ng/mL 0.0-6.6 code = 750) CREATINE KINASE-MB INDEX (BEAKER) 4.3 % (test code = 395) Effective 10/03/2014: CK-MB Reference Range ChangeNew: 0.0-6.6 Previous: 0.0-4.9CK-MB Reference Range:<6.7 Normal6.7-10.0 Borderline>10.0 AbnormalB-TYPE NATRIURETIC FACTOR (BNP)2017-06-27 13:44:00 Test Item Value Reference Range Interpretation Comments B-TYPE NATRIURETIC PEPTIDE 1497 pg/mL 0-100 H (BEAKER) (test code = 700) [id number] 13:42:00 Test Item Value Reference Range Interpretation Comments MAGNESIUM (BEAKER) (test code = 2.0 mg/dL 1.6-2.6 627) BASIC METABOLIC [id number] 13:42:00 Test Item Value Reference Range Interpretation Comments SODIUM (BEAKER) 142 meq/L 136-145 (test code = 381) POTASSIUM (BEAKER) 3.8 meq/L 3.5-5.1 (test code = 379) CHLORIDE (BEAKER) 105 meq/L 98-107 (test code = 382) CO2 (BEAKER) (test 28 meq/L 22-29 code = 355) BLOOD UREA NITROGEN 22 mg/dL 7-21 H (BEAKER) (test code = 354) CREATININE (BEAKER) 0.96 mg/dL 0.57-1.25 (test code = 358) GLUCOSE RANDOM 82 mg/dL 70-105 (BEAKER) (test code = 652) CALCIUM (BEAKER) 8.1 mg/dL 8.4-10.2 L (test code = 697) EGFR (BEAKER) (test 76 mL/min/1.73 ESTIMA SOBEIDA GFR IS code = 1092) sq m NOT ACCURATE CREATININE CLEARANCE IN PREDICTING GLOMERULAR FILTRATION RATE . ESTIMATED GFR I S NOT APPLICABLE FOR DIALYSIS PATIEN TS. CBC W/PLT COUNT & AUTO [id number] 13:18:00 Test Item Value Reference Range Interpretation Comments WHITE BLOOD CELL COUNT (BEAKER) 9.0 K/ L 3.5-10.5 (test code = 775) RED BLOOD CELL COUNT (BEAKER) 3.83 M/ L 4.63-6.08 L (test code = 761) HEMOGLOBIN (BEAKER) (test code = 10.6 GM/DL 13.7-17.5 L 410) HEMATOCRIT (BEAKER) (test code = 33.1 % 40.1-51.0 L 411) MEAN CORPUSCULAR VOLUME (BEAKER) 86.4 fL 79.0-92.2 (test code = 753) MEAN CORPUSCULAR HEMOGLOBIN 27.7 pg 25.7-32.2 (BEAKER) (test code = 751) MEAN CORPUSCULAR HEMOGLOBIN CONC 32.0 GM/DL 32.3-36.5 L (BEAKER) (test code = 752) RED CELL DISTRIBUTION WIDTH 16.5 % 11.6-14.4 H (BEAKER) (test code = 412) PLATELET COUNT (BEAKER) (test 232 K/CU MM 150-450 code = 756) MEAN PLATELET VOLUME (BEAKER) 9.2 fL 9.4-12.4 L (test code = 754) NUCLEATED RED BLOOD CELLS 0 /100 WBC 0-0 (BEAKER) (test code = 413) NEUTROPHILS RELATIVE PERCENT 82 % (BEAKER) (test code = 429) LYMPHOCYTES RELATIVE PERCENT 8 % (BEAKER) (test code = 430) MONOCYTES RELATIVE PERCENT 6 % (BEAKER) (test code = 431) EOSINOPHILS RELATIVE PERCENT 2 % (BEAKER) (test code = 432) BASOPHILS RELATIVE PERCENT 0 % (BEAKER) (test code = 437) NEUTROPHILS ABSOLUTE COUNT 7.40 K/ L 1.78-5.38 H (BEAKER) (test code = 670) LYMPHOCYTES ABSOLUTE COUNT 0.75 K/ L 1.32-3.57 L (BEAKER) (test code = 414) MONOCYTES ABSOLUTE COUNT (BEAKER) 0.57 K/ L 0.30-0.82 (test code = 415) EOSINOPHILS ABSOLUTE COUNT 0.18 K/ L 0.04-0.54 (BEAKER) (test code = 416) BASOPHILS ABSOLUTE COUNT (BEAKER) 0.02 K/ L 0.01-0.08 (test code = 417) IMMATURE GRANULOCYTES-RELATIVE 1 % 0-1 PERCENT (BEAKER) (test code = 2801) POCT-GLUCOSE [id number] 11:13:00 Test Item Value Reference Range Interpretation Comments POC-GLUCOSE METER 128 mg/dL 70-[address] [facility] 6720 (BEAKER) (test code = [facility] 1538) [id number] BASIC METABOLIC [id number] 05:46:00 Test Item Value Reference Range Interpretation Comments SODIUM (BEAKER) 140 meq/L 136-145 (test code = 381) POTASSIUM (BEAKER) 3.7 meq/L 3.5-5.1 (test code = 379) CHLORIDE (BEAKER) 107 meq/L 98-107 (test code = 382) CO2 (BEAKER) (test 25 meq/L 22-29 code = 355) BLOOD UREA NITROGEN 31 mg/dL 7-21 H (BEAKER) (test code = 354) CREATININE (BEAKER) 1.04 mg/dL 0.57-1.25 (test code = 358) GLUCOSE RANDOM 133 mg/dL 70-105 H (BEAKER) (test code = 652) CALCIUM (BEAKER) 7.6 mg/dL 8.4-10.2 L (test code = 697) EGFR (BEAKER) (test 69 mL/min/1.73 ESTIMA SOBEIDA GFR IS code = 1092) sq m NOT ACCURATE CREATININE CLEARANCE IN PREDICTING GLOMERULAR FILTRATION RATE . ESTIMATED GFR I S NOT APPLICABLE FOR DIALYSIS PATIEN TS. [id number] 05:40:00 Test Item Value Reference Range Interpretation Comments MAGNESIUM (BEAKER) (test code = 2.2 mg/dL 1.6-2.6 627) CBC W/PLT COUNT & AUTO [id number] 09:22:00 Test Item Value Reference Range Interpretation Comments WHITE BLOOD CELL COUNT (BEAKER) 20.7 K/ L 3.5-10.5 H (test code = 775) RED BLOOD CELL COUNT (BEAKER) 4.11 M/ L 4.63-6.08 L (test code = 761) HEMOGLOBIN (BEAKER) (test code = 11.4 GM/DL 13.7-17.5 L 410) HEMATOCRIT (BEAKER) (test code = 35.1 % 40.1-51.0 L 411) MEAN CORPUSCULAR VOLUME (BEAKER) 85.4 fL 79.0-92.2 (test code = 753) MEAN CORPUSCULAR HEMOGLOBIN 27.7 pg 25.7-32.2 (BEAKER) (test code = 751) MEAN CORPUSCULAR HEMOGLOBIN CONC 32.5 GM/DL 32.3-36.5 (BEAKER) (test code = 752) RED CELL DISTRIBUTION WIDTH 17.1 % 11.6-14.4 H (BEAKER) (test code = 412) PLATELET COUNT (BEAKER) (test code 87 K/CU MM 150-450 L = 756) MEAN PLATELET VOLUME (BEAKER) 10.2 fL 9.4-12.4 (test code = 754) NUCLEATED RED BLOOD CELLS (BEAKER) 0 /100 WBC 0-0 (test code = 413) NEUTROPHILS RELATIVE PERCENT 93 % (BEAKER) (test code = 429) LYMPHOCYTES RELATIVE PERCENT 3 % (BEAKER) (test code = 430) MONOCYTES RELATIVE PERCENT 3 % (BEAKER) (test code = 431) EOSINOPHILS RELATIVE PERCENT 0 % (BEAKER) (test code = 432) BASOPHILS RELATIVE PERCENT 0 % (BEAKER) (test code = 437) NEUTROPHILS ABSOLUTE COUNT 19.21 K/ L 1.78-5.38 H (BEAKER) (test code = 670) LYMPHOCYTES ABSOLUTE COUNT 0.55 K/ L 1.32-3.57 L (BEAKER) (test code = 414) MONOCYTES ABSOLUTE COUNT (BEAKER) 0.55 K/ L 0.30-0.82 (test code = 415) EOSINOPHILS ABSOLUTE COUNT 0.00 K/ L 0.04-0.54 L (BEAKER) (test code = 416) BASOPHILS ABSOLUTE COUNT (BEAKER) 0.02 K/ L 0.01-0.08 (test code = 417) IMMATURE GRANULOCYTES-RELATIVE 2 % 0-1 H PERCENT (BEAKER) (test code = 2801) [id number] 07:15:00 Test Item Value Reference Range Interpretation Comments MAGNESIUM (BEAKER) (test code = 1.9 mg/dL 1.6-2.6 627) BASIC METABOLIC [id number] 07:15:00 Test Item Value Reference Range Interpretation Comments SODIUM (BEAKER) 143 meq/L 136-145 (test code = 381) POTASSIUM (BEAKER) 4.0 meq/L 3.5-5.1 (test code = 379) CHLORIDE (BEAKER) 107 meq/L 98-107 (test code = 382) CO2 (BEAKER) (test 27 meq/L 22-29 code = 355) BLOOD UREA NITROGEN 22 mg/dL 7-21 H (BEAKER) (test code = 354) CREATININE (BEAKER) 0.93 mg/dL 0.57-1.25 (test code = 358) GLUCOSE RANDOM 98 mg/dL 70-105 (BEAKER) (test code = 652) CALCIUM (BEAKER) 8.2 mg/dL 8.4-10.2 L (test code = 697) EGFR (BEAKER) (test 79 mL/min/1.73 ESTIMA SOBEIDA GFR IS code = 1092) sq m NOT ACCURATE CREATININE CLEARANCE IN PREDICTING GLOMERULAR FILTRATION RATE . ESTIMATED GFR I S NOT APPLICABLE FOR DIALYSIS PATIEN TS. POCT-GLUCOSE [id number] 12:57:00 Test Item Value Reference Range Interpretation Comments POC-GLUCOSE METER 112 mg/dL 70-[address] [facility] 6720 (BEAKER) (test code = [facility] 1538) [id number] BASIC METABOLIC [id number] 04:32:00 Test Item Value Reference Range Interpretation Comments SODIUM (BEAKER) 143 meq/L 136-145 (test code = 381) POTASSIUM (BEAKER) 4.5 meq/L 3.5-5.1 (test code = 379) CHLORIDE (BEAKER) 114 meq/L 98-107 H (test code = 382) CO2 (BEAKER) (test 21 meq/L 22-29 L code = 355) BLOOD UREA NITROGEN 21 mg/dL 7-21 (BEAKER) (test code = 354) CREATININE (BEAKER) 1.18 mg/dL 0.57-1.25 (test code = 358) GLUCOSE RANDOM 133 mg/dL 70-105 H (BEAKER) (test code = 652) CALCIUM (BEAKER) 7.7 mg/dL 8.4-10.2 L (test code = 697) EGFR (BEAKER) (test 60 mL/min/1.73 ESTIMA SOBEIDA GFR IS code = 1092) sq m NOT ACCURATE CREATININE CLEARANCE IN PREDICTING GLOMERULAR FILTRATION RATE . ESTIMATED GFR I S NOT APPLICABLE FOR DIALYSIS PATIEN TS. [id number] 04:26:00 Test Item Value Reference Range Interpretation Comments PHOSPHORUS (BEAKER) (test code = 2.9 mg/dL 2.3-4.7 604) [id number] 04:26:00 Test Item Value Reference Range Interpretation Comments MAGNESIUM (BEAKER) (test code = 2.1 mg/dL 1.6-2.6 627) LACTIC ACID, ARTERIAL, WHOLE [id number] 04:18:00 Test Item Value Reference Range Interpretation Comments LACTATE BLOOD ARTERIAL (2) 1.8 mmol/L 0.5-2.2 (BEAKER) (test code = 2874) Effective 03/19/2016: Units/Reference Range ChangeNew: 0.5-2.2 mmol/L Previous: 5-20 mg/dLCBC W/PLT COUNT & AUTO [id number] 04:17:00 Test Item Value Reference Range Interpretation Comments WHITE BLOOD CELL COUNT (BEAKER) 14.5 K/ L 3.5-10.5 H (test code = 775) RED BLOOD CELL COUNT (BEAKER) 3.54 M/ L 4.63-6.08 L (test code = 761) HEMOGLOBIN (BEAKER) (test code = 9.8 GM/DL 13.7-17.5 L 410) HEMATOCRIT (BEAKER) (test code = 30.4 % 40.1-51.0 L 411) MEAN CORPUSCULAR VOLUME (BEAKER) 85.9 fL 79.0-92.2 (test code = 753) MEAN CORPUSCULAR HEMOGLOBIN 27.7 pg 25.7-32.2 (BEAKER) (test code = 751) MEAN CORPUSCULAR HEMOGLOBIN CONC 32.2 GM/DL 32.3-36.5 L (BEAKER) (test code = 752) RED CELL DISTRIBUTION WIDTH 16.5 % 11.6-14.4 H (BEAKER) (test code = 412) PLATELET COUNT (BEAKER) (test code 74 K/CU MM 150-450 L = 756) MEAN PLATELET VOLUME (BEAKER) 9.6 fL 9.4-12.4 (test code = 754) NUCLEATED RED BLOOD CELLS (BEAKER) 0 /100 WBC 0-0 (test code = 413) NEUTROPHILS RELATIVE PERCENT 93 % (BEAKER) (test code = 429) LYMPHOCYTES RELATIVE PERCENT 2 % (BEAKER) (test code = 430) MONOCYTES RELATIVE PERCENT 4 % (BEAKER) (test code = 431) EOSINOPHILS RELATIVE PERCENT 0 % (BEAKER) (test code = 432) BASOPHILS RELATIVE PERCENT 0 % (BEAKER) (test code = 437) NEUTROPHILS ABSOLUTE COUNT 13.51 K/ L 1.78-5.38 H (BEAKER) (test code = 670) LYMPHOCYTES ABSOLUTE COUNT 0.33 K/ L 1.32-3.57 L (BEAKER) (test code = 414) MONOCYTES ABSOLUTE COUNT (BEAKER) 0.56 K/ L 0.30-0.82 (test code = 415) EOSINOPHILS ABSOLUTE COUNT 0.00 K/ L 0.04-0.54 L (BEAKER) (test code = 416) BASOPHILS ABSOLUTE COUNT (BEAKER) 0.01 K/ L 0.01-0.08 (test code = 417) IMMATURE GRANULOCYTES-RELATIVE 1 % 0-1 PERCENT (BEAKER) (test code = 2804) OXYGEN SATURATION, [id number] 04:04:00 Test Item Value Reference Range Interpretation Comments O2 SATURATION (MEASURED) (BEAKER) 71.7 % (test code = 1455) [id number] 01:08:00 Test Item Value Reference Range Interpretation Comments MAGNESIUM (BEAKER) (test code = 2.2 mg/dL 1.6-2.6 627) POCT-GLUCOSE [id number] 00:49:00 Test Item Value Reference Range Interpretation Comments POC-GLUCOSE METER 128 mg/dL 70-110 H TESTED AT [place] [address] ([facility]) (test code = [facility] 1538) [address] POTASSIUM-STAT [id number] 00:22:00 Test Item Value Reference Range Interpretation Comments POTASSIUM (BEAKER) (test code = 3.0 meq/L 3.6-5.5 L 379) CALCIUM, [id number] 00:22:00 Test Item Value Reference Range Interpretation Comments CALCIUM IONIZED (AKER) (test 1.07 mmol/L 1.12-1.27 L code = 698) PH, BLOOD ([facility]) (test code = 7.36 1810) SODIUM NA-STAT [id number] 00:21:00 Test Item Value Reference Range Interpretation Comments SODIUM ([facility]) (test code = 381) 141 meq/L 135-148 POCT-GLUCOSE [id number] 23:43:00 Test Item Value Reference Range Interpretation Comments POC-GLUCOSE METER 118 mg/dL 70-110 H TESTED AT [place] [address] ([facility]) (test code = [facility] 1538) [address] POCT-GLUCOSE [id number] 22:19:00 Test Item Value Reference Range Interpretation Comments POC-GLUCOSE METER 131 mg/dL 70-110 H TESTED AT [place] [address] ([facility]) (test code = [facility]ATH[facility] 1538) [address] POCT-GLUCOSE [id number] 22:02:00 Test Item Value Reference Range Interpretation Comments POC-GLUCOSE METER 142 mg/dL 70-110 H TESTED AT [place] [address] ([facility]) (test code = [facility] 1538) [address] POCT-GLUCOSE [id number] 18:39:00 Test Item Value Reference Range Interpretation Comments POC-GLUCOSE METER 161 mg/dL 70-110 H TESTED AT [place] [address] ([facility]) (test code = [facility] 1538) [address] BLOOD GAS, [id number] 17:37:00 Test Item Value Reference Range Interpretation Comments PH ARTERIAL ([facility]) (test code = 7.37 7.35-7.45 383) PCO2 ARTERIAL ([facility]) (test code 33 mmHg 35-45 L = 384) PO2 ARTERIAL (BEAKER) (test code 149 mmHg 80-90 H = 385) O2 SATURATION ARTERIAL (BEAKER) 98.9 % 96.0-97.0 H (test code = 386) HCO3 ARTERIAL (BEAKER) (test code 19 mmol/L 21-29 L = 388) BASE EXCESS ARTERIAL (BEAKER) -5.9 mmol/L -2.0-3.0 L (test code = 387) PATIENT TEMPERATURE (BEAKER) 36.3 C (test code = 1818) FIO2 (BEAKER) (test code = 1819) 40.0 % POCT-GLUCOSE [id number] 17:12:00 Test Item Value Reference Range Interpretation Comments POC-GLUCOSE METER 163 mg/dL 70-110 H [facility] AT [place] [address] [facility] (test code = [facility] 1538) [address] POCT-GLUCOSE [id number] 16:18:00 Test Item Value Reference Range Interpretation Comments POC-GLUCOSE METER 175 mg/dL 70-110 H TESTED AT [place] [address] ([facility]) (test code = [facility] 1538) [address] POCT-GLUCOSE [id number] 14:39:00 Test Item Value Reference Range Interpretation Comments POC-GLUCOSE METER 157 mg/dL 70-110 H TESTED AT [place] [address] [facility] (test code = [facility] 1538) [address] [id number] 13:40:00 Test Item Value Reference Range Interpretation Comments PHOSPHORUS (BEAKER) (test code = 2.8 mg/dL 2.3-4.7 604) [id number] 13:40:00 Test Item Value Reference Range Interpretation Comments MAGNESIUM (BEAKER) (test code = 2.2 mg/dL 1.6-2.6 627) BASIC METABOLIC [id number] 13:40:00 Test Item Value Reference Range Interpretation Comments SODIUM (BEAKER) 142 meq/L 136-145 (test code = 381) POTASSIUM (BEAKER) 3.1 meq/L 3.5-5.1 L (test code = 379) CHLORIDE (BEAKER) 111 meq/L 98-107 H (test code = 382) CO2 (BEAKER) (test 20 meq/L 22-29 L code = 355) BLOOD UREA NITROGEN 22 mg/dL 7-21 H (BEAKER) (test code = 354) CREATININE (BEAKER) 1.22 mg/dL 0.57-1.25 (test code = 358) GLUCOSE RANDOM 161 mg/dL 70-105 H (BEAKER) (test code = 652) CALCIUM (BEAKER) 8.5 mg/dL 8.4-10.2 (test code = 697) EGFR (BEAKER) (test 58 mL/min/1.73 ESTIMA SOBEIDA GFR IS code = 1092) sq m NOT ACCURATE CREATININE CLEARANCE IN PREDICTING GLOMERULAR FILTRATION RATE . ESTIMATED GFR I S NOT APPLICABLE FOR DIALYSIS PATIEN TS. Specimen slightly ictericLACTIC ACID, ARTERIAL, WHOLE [id number] 13:32:00 Test Item Value Reference Range Interpretation Comments LACTATE BLOOD ARTERIAL (2) 3.1 mmol/L 0.5-2.2 H (BEAKER) (test code = 2874) Effective 03/19/2016: Units/Reference Range ChangeNew: 0.5-2.2 mmol/L Previous: 5-20 mg/dLCBC W/PLT COUNT & AUTO [id number] 13:14:00 Test Item Value Reference Range Interpretation Comments WHITE BLOOD CELL COUNT (BEAKER) 17.9 K/ L 3.5-10.5 H (test code = 775) RED BLOOD CELL COUNT (BEAKER) 4.37 M/ L 4.63-6.08 L (test code = 761) HEMOGLOBIN (BEAKER) (test code = 12.0 GM/DL 13.7-17.5 L 410) HEMATOCRIT (BEAKER) (test code = 37.5 % 40.1-51.0 L 411) MEAN CORPUSCULAR VOLUME (BEAKER) 85.8 fL 79.0-92.2 (test code = 753) MEAN CORPUSCULAR HEMOGLOBIN 27.5 pg 25.7-32.2 (BEAKER) (test code = 751) MEAN CORPUSCULAR HEMOGLOBIN CONC 32.0 GM/DL 32.3-36.5 L (BEAKER) (test code = 752) RED CELL DISTRIBUTION WIDTH 16.7 % 11.6-14.4 H (BEAKER) (test code = 412) PLATELET COUNT (BEAKER) (test 102 K/CU MM 150-450 L code = 756) MEAN PLATELET VOLUME (BEAKER) 9.6 fL 9.4-12.4 (test code = 754) NUCLEATED RED BLOOD CELLS 0 /100 WBC 0-0 (BEAKER) (test code = 413) NEUTROPHILS RELATIVE PERCENT 80 % (BEAKER) (test code = 429) LYMPHOCYTES RELATIVE PERCENT 14 % (BEAKER) (test code = 430) MONOCYTES RELATIVE PERCENT 4 % (BEAKER) (test code = 431) EOSINOPHILS RELATIVE PERCENT 0 % (BEAKER) (test code = 432) BASOPHILS RELATIVE PERCENT 0 % (BEAKER) (test code = 437) NEUTROPHILS ABSOLUTE COUNT 14.41 K/ L 1.78-5.38 H (BEAKER) (test code = 670) LYMPHOCYTES ABSOLUTE COUNT 2.54 K/ L 1.32-3.57 (BEAKER) (test code = 414) MONOCYTES ABSOLUTE COUNT (BEAKER) 0.66 K/ L 0.30-0.82 (test code = 415) EOSINOPHILS ABSOLUTE COUNT 0.07 K/ L 0.04-0.54 (BEAKER) (test code = 416) BASOPHILS ABSOLUTE COUNT (BEAKER) 0.08 K/ L 0.01-0.08 (test code = 417) IMMATURE GRANULOCYTES-RELATIVE 1 % 0-1 PERCENT (BEAKER) (test code = 2801) BLOOD GAS, [id number] 13:07:00 Test Item Value Reference Range Interpretation Comments PH ARTERIAL (BEAKER) (test code = 7.41 7.35-7.45 383) PCO2 ARTERIAL (BEAKER) (test code 33 mmHg 35-45 L = 384) PO2 ARTERIAL (BEAKER) (test code 216 mmHg 80-90 H = 385) O2 SATURATION ARTERIAL (BEAKER) 99.5 % 96.0-97.0 H (test code = 386) HCO3 ARTERIAL (BEAKER) (test code 21 mmol/L 21-29 = 388) BASE EXCESS ARTERIAL (BEAKER) -3.7 mmol/L -2.0-3.0 L (test code = 387) PATIENT TEMPERATURE (BEAKER) 35.1 C (test code = 1818) FIO2 (BEAKER) (test code = 1819) 60.0 % OXYGEN SATURATION, [id number] 13:06:00 Test Item Value Reference Range Interpretation Comments O2 SATURATION (MEASURED) (BEAKER) 77.4 % (test code = 1455) POTASSIUM-STAT [id number] 13:02:00 Test Item Value Reference Range Interpretation Comments POTASSIUM (BEAKER) (test code = 3.0 meq/L 3.6-5.5 L 379) GLUCOSE-STAT [id number] 13:02:00 Test Item Value Reference Range Interpretation Comments GLUCOSE RANDOM (BEAKER) (test code 155 mg/dL 70-110 H = 652) HGB/HCT (H&H) - STAT [id number] 13:02:00 Test Item Value Reference Range Interpretation Comments HEMOGLOBIN (BEAKER) (test code = 12.8 g/dL 13.0-16.8 L 410) HEMATOCRIT (BEAKER) (test code = 38.0 % 40.0-50.0 L 411) SODIUM NA-STAT [id number] 13:01:00 Test Item Value Reference Range Interpretation Comments SODIUM (BEAKER) (test code = 381) 141 meq/L 135-148 [id number] 12:21:00 Test Item Value Reference Range Interpretation Comments ACTIVATED CLOTTING TIME 125 sec TEST ED AT [place] [address] ([facility]) (test code = [place] [address]) [id number] 12:21:00 Test Item Value Reference Range Interpretation Comments ACTIVATED CLOTTING TIME 510 sec TEST ED AT [place] [address] ([facility]) (test code = [place] [address]) [id number] 12:21:00 Test Item Value Reference Range Interpretation Comments ACTIVATED CLOTTING TIME 555 sec TEST ED AT [place] [address] ([facility]) (test code = [place] [address]) [id number] 12:21:00 Test Item Value Reference Range Interpretation Comments ACTIVATED CLOTTING TIME 643 sec TEST ED AT [place] [address] ([facility]) (test code = [place] [address]) [id number] 12:21:00 Test Item Value Reference Range Interpretation Comments ACTIVATED CLOTTING TIME 692 sec TEST ED AT [place] [address] ([facility]) (test code = [place] [address]) [id number] 12:21:00 Test Item Value Reference Range Interpretation Comments ACTIVATED CLOTTING TIME 543 [address] [facility] [address] (BEAKER) (test code = [place] [address]) [address] CALCIUM, [id number] 11:29:00 Test Item Value Reference Range Interpretation Comments CALCIUM IONIZED (BEAKER) (test 1.08 mmol/L 1.12-1.27 L code = 698) PH, BLOOD (BEAKER) (test code = 7.43 1810) SODIUM NA-STAT [id number] 11:28:00 Test Item Value Reference Range Interpretation Comments SODIUM (BEAKER) (test code = 381) 141 meq/L 135-148 BLOOD GAS, [id number] 11:28:00 Test Item Value Reference Range Interpretation Comments PH ARTERIAL (BEAKER) (test code = 7.45 7.35-7.45 383) PCO2 ARTERIAL (BEAKER) (test code 32 mmHg 35-45 L = 384) PO2 ARTERIAL (BEAKER) (test code 211 mmHg 80-90 H = 385) O2 SATURATION ARTERIAL (BEAKER) 99.5 % 96.0-97.0 H (test code = 386) HCO3 ARTERIAL (BEAKER) (test code 22 mmol/L 21-29 = 388) BASE EXCESS ARTERIAL (BEAKER) -1.8 mmol/L -2.0-3.0 (test code = 387) PATIENT TEMPERATURE (BEAKER) 36.0 C (test code = 1818) FIO2 (BEAKER) (test code = 1819) 100.0 % POTASSIUM-STAT [id number] 11:28:00 Test Item Value Reference Range Interpretation Comments POTASSIUM (BEAKER) (test code = 3.2 meq/L 3.6-5.5 L 379) GLUCOSE-STAT [id number] 11:28:00 Test Item Value Reference Range Interpretation Comments GLUCOSE RANDOM (BEAKER) (test code 146 mg/dL 70-110 H = 652) HGB/HCT (H&H) - STAT [id number] 11:28:00 Test Item Value Reference Range Interpretation Comments HEMOGLOBIN (BEAKER) (test code = 10.2 g/dL 13.0-16.8 L 410) HEMATOCRIT (BEAKER) (test code = 30.0 % 40.0-50.0 L 411) GLUCOSE-STAT [id number] 10:41:00 Test Item Value Reference Range Interpretation Comments GLUCOSE RANDOM (BEAKER) (test code 109 mg/dL 70-110 = 652) SODIUM NA-STAT [id number] 10:41:00 Test Item Value Reference Range Interpretation Comments SODIUM (BEAKER) (test code = 381) 140 meq/L 135-148 POTASSIUM-STAT [id number] 10:41:00 Test Item Value Reference Range Interpretation Comments POTASSIUM (BEAKER) (test code = 4.1 meq/L 3.6-5.5 379) BLOOD GAS, [id number] 10:41:00 Test Item Value Reference Range Interpretation Comments PH ARTERIAL (BEAKER) (test code = 7.46 7.35-7.45 H 383) PCO2 ARTERIAL (BEAKER) (test code 36 mmHg 35-45 = 384) PO2 ARTERIAL (BEAKER) (test code = 321 mmHg 80-90 H 385) O2 SATURATION ARTERIAL (BEAKER) 99.8 % 96.0-97.0 H (test code = 386) HCO3 ARTERIAL (BEAKER) (test code 25 mmol/L 21-29 = 388) BASE EXCESS ARTERIAL (BEAKER) 0.6 mmol/L -2.0-3.0 (test code = 387) PATIENT TEMPERATURE (BEAKER) (test 34.4 C code = 1818) FIO2 (BEAKER) (test code = 1819) 80.0 % HGB/HCT (H&H) - STAT [id number] 10:41:00 Test Item Value Reference Range Interpretation Comments HEMOGLOBIN (BEAKER) (test code = 10.4 g/dL 13.0-16.8 L 410) HEMATOCRIT (BEAKER) (test code = 31.0 % 40.0-50.0 L 411) SODIUM NA-STAT [id number] 10:08:00 Test Item Value Reference Range Interpretation Comments SODIUM (BEAKER) (test code = 381) 141 meq/L 135-148 POTASSIUM-STAT [id number] 10:08:00 Test Item Value Reference Range Interpretation Comments POTASSIUM (BEAKER) (test code = 4.0 meq/L 3.6-5.5 379) BLOOD GAS, [id number] 10:08:00 Test Item Value Reference Range Interpretation Comments PH ARTERIAL (BEAKER) (test code = 7.44 7.35-7.45 383) PCO2 ARTERIAL (BEAKER) (test code 38 mmHg 35-45 = 384) PO2 ARTERIAL (BEAKER) (test code = 311 mmHg 80-90 H 385) O2 SATURATION ARTERIAL (BEAKER) 99.7 % 96.0-97.0 H (test code = 386) HCO3 ARTERIAL (BEAKER) (test code 26 mmol/L 21-29 = 388) BASE EXCESS ARTERIAL (BEAKER) 1.3 mmol/L -2.0-3.0 (test code = 387) PATIENT TEMPERATURE (BEAKER) (test 34.3 C code = 1818) FIO2 (BEAKER) (test code = 1819) 70.0 % GLUCOSE-STAT [id number] 10:08:00 Test Item Value Reference Range Interpretation Comments GLUCOSE RANDOM (BEAKER) (test code 112 mg/dL 70-110 H = 652) HGB/HCT (H&H) - STAT [id number] 10:08:00 Test Item Value Reference Range Interpretation Comments HEMOGLOBIN (BEAKER) (test code = 10.3 g/dL 13.0-16.8 L 410) HEMATOCRIT (BEAKER) (test code = 30.0 % 40.0-50.0 L 411) BLOOD GAS, [id number] 09:46:00 Test Item Value Reference Range Interpretation Comments PH ARTERIAL (BEAKER) (test code = 7.45 7.35-7.45 383) PCO2 ARTERIAL (BEAKER) (test code 38 mmHg 35-45 = 384) PO2 ARTERIAL (BEAKER) (test code = 316 mmHg 80-90 H 385) O2 SATURATION ARTERIAL (BEAKER) 99.7 % 96.0-97.0 H (test code = 386) HCO3 ARTERIAL (BEAKER) (test code 26 mmol/L 21-29 = 388) BASE EXCESS ARTERIAL (BEAKER) 1.3 mmol/L -2.0-3.0 (test code = 387) PATIENT TEMPERATURE (BEAKER) (test 34.3 C code = 1818) FIO2 (BEAKER) (test code = 1819) 70.0 % HGB/HCT (H&H) - STAT [id number] 09:46:00 Test Item Value Reference Range Interpretation Comments HEMOGLOBIN (BEAKER) (test code = 10.2 g/dL 13.0-16.8 L 410) HEMATOCRIT (BEAKER) (test code = 30.0 % 40.0-50.0 L 411) GLUCOSE-STAT [id number] 09:45:00 Test Item Value Reference Range Interpretation Comments GLUCOSE RANDOM (BEAKER) (test code 104 mg/dL 70-110 = 652) SODIUM NA-STAT [id number] 09:45:00 Test Item Value Reference Range Interpretation Comments SODIUM (BEAKER) (test code = 381) 140 meq/L 135-148 POTASSIUM-STAT [id number] 09:45:00 Test Item Value Reference Range Interpretation Comments POTASSIUM (BEAKER) (test code = 4.0 meq/L 3.6-5.5 379) BLOOD GAS, [id number] 09:27:00 Test Item Value Reference Range Interpretation Comments PH ARTERIAL (BEAKER) (test code = 7.45 7.35-7.45 383) PCO2 ARTERIAL (BEAKER) (test code 34 mmHg 35-45 L = 384) PO2 ARTERIAL (BEAKER) (test code 362 mmHg 80-90 H = 385) O2 SATURATION ARTERIAL (BEAKER) 99.8 % 96.0-97.0 H (test code = 386) HCO3 ARTERIAL (BEAKER) (test code 24 mmol/L 21-29 = 388) BASE EXCESS ARTERIAL (BEAKER) -0.3 mmol/L -2.0-3.0 (test code = 387) PATIENT TEMPERATURE (BEAKER) 33.9 C (test code = 1818) FIO2 (BEAKER) (test code = 1819) 75.0 % HGB/HCT (H&H) - STAT [id number] 09:27:00 Test Item Value Reference Range Interpretation Comments HEMOGLOBIN (BEAKER) (test code = 9.6 g/dL 13.0-16.8 L 410) HEMATOCRIT (BEAKER) (test code = 28.0 % 40.0-50.0 L 411) GLUCOSE-STAT [id number] 09:26:00 Test Item Value Reference Range Interpretation Comments GLUCOSE RANDOM (BEAKER) (test code = 93 mg/dL 70-110 652) SODIUM NA-STAT [id number] 09:26:00 Test Item Value Reference Range Interpretation Comments SODIUM (BEAKER) (test code = 381) 138 meq/L 135-148 POTASSIUM-STAT [id number] 09:26:00 Test Item Value Reference Range Interpretation Comments POTASSIUM (BEAKER) (test code = 4.1 meq/L 3.6-5.5 379) BLOOD GAS, [id number] 08:31:00 Test Item Value Reference Range Interpretation Comments PH ARTERIAL (BEAKER) (test code = 7.48 7.35-7.45 H 383) PCO2 ARTERIAL (BEAKER) (test code 33 mmHg 35-45 L = 384) PO2 ARTERIAL (BEAKER) (test code = 361 mmHg 80-90 H 385) O2 SATURATION ARTERIAL (BEAKER) 99.8 % 96.0-97.0 H (test code = 386) HCO3 ARTERIAL (BEAKER) (test code 25 mmol/L 21-29 = 388) BASE EXCESS ARTERIAL (BEAKER) 1.2 mmol/L -2.0-3.0 (test code = 387) PATIENT TEMPERATURE (BEAKER) (test 36.0 C code = 1818) FIO2 (BEAKER) (test code = 1819) 100.0 % POTASSIUM-STAT [id number] 08:31:00 Test Item Value Reference Range Interpretation Comments POTASSIUM (BEAKER) (test code = 3.3 meq/L 3.6-5.5 L 379) HGB/HCT (H&H) - STAT [id number] 08:31:00 Test Item Value Reference Range Interpretation Comments HEMOGLOBIN (BEAKER) (test code = 11.5 g/dL 13.0-16.8 L 410) HEMATOCRIT (BEAKER) (test code = 34.0 % 40.0-50.0 L 411) CALCIUM, [id number] 08:31:00 Test Item Value Reference Range Interpretation Comments CALCIUM IONIZED (BEAKER) (test 1.00 mmol/L 1.12-1.27 L code = 698) PH, BLOOD (BEAKER) (test code = 7.47 1810) GLUCOSE-STAT [id number] 08:29:00 Test Item Value Reference Range Interpretation Comments GLUCOSE RANDOM (BEAKER) (test code = 95 mg/dL 70-110 652) SODIUM NA-STAT [id number] 08:29:00 Test Item Value Reference Range Interpretation Comments SODIUM (BEAKER) (test code = 381) 141 meq/L 135-148 URINALYSIS W/ [id number] 13:01:00 Test Item Value Reference Range Interpretation Comments COLOR (BEAKER) (test code = 470) Yellow CLARITY (BEAKER) (test code = 469) Clear SPECIFIC GRAVITY UA (BEAKER) (test 1.020 1.001-1.035 code = 468) PH UA (BEAKER) (test code = 467) 5.5 5.0-8.0 PROTEIN UA (BEAKER) (test code = 50 mg/dL Negative A 464) GLUCOSE UA (BEAKER) (test code = Negative Negative 365) KETONES UA (BEAKER) (test code = Negative Negative 371) BILIRUBIN UA (BEAKER) (test code = Negative Negative 462) BLOOD UA (BEAKER) (test code = Negative Negative 461) NITRITE UA (BEAKER) (test code = Negative Negative 465) LEUKOCYTE ESTERASE UA (BEAKER) Negative Negative (test code = 466) UROBILINOGEN UA (BEAKER) (test 2.0 mg/dL 0.2-1.0 H code = 463) RBC UA (BEAKER) (test code = 519) 1 /HPF WBC UA (BEAKER) (test code = 520) 3 /HPF BACTERIA (BEAKER) (test code = Rare 517) MUCUS (BEAKER) (test code = 1574) Occasional HYALINE CASTS (BEAKER) (test code 7 /LPF = 514) CRYSTALS, URINE (BEAKER) (test Rare code = 1521) SOURCE(BEAKER) (test code = 2795) CBC W/PLT COUNT & AUTO [id number] 12:22:00 Test Item Value Reference Range Interpretation Comments WHITE BLOOD CELL COUNT (BEAKER) 6.9 K/ L 3.5-10.5 (test code = 775) RED BLOOD CELL COUNT (BEAKER) 4.58 M/ L 4.63-6.08 L (test code = 761) HEMOGLOBIN (BEAKER) (test code = 12.5 GM/DL 13.7-17.5 L 410) HEMATOCRIT (BEAKER) (test code = 39.8 % 40.1-51.0 L 411) MEAN CORPUSCULAR VOLUME (BEAKER) 86.9 fL 79.0-92.2 (test code = 753) MEAN CORPUSCULAR HEMOGLOBIN 27.3 pg 25.7-32.2 (BEAKER) (test code = 751) MEAN CORPUSCULAR HEMOGLOBIN CONC 31.4 GM/DL 32.3-36.5 L (BEAKER) (test code = 752) RED CELL DISTRIBUTION WIDTH 16.7 % 11.6-14.4 H (BEAKER) (test code = 412) PLATELET COUNT (BEAKER) (test 195 K/CU MM 150-450 code = 756) MEAN PLATELET VOLUME (BEAKER) 10.8 fL 9.4-12.4 (test code = 754) NUCLEATED RED BLOOD CELLS 0 /100 WBC 0-0 (BEAKER) (test code = 413) NEUTROPHILS RELATIVE PERCENT 71 % (BEAKER) (test code = 429) LYMPHOCYTES RELATIVE PERCENT 20 % (BEAKER) (test code = 430) MONOCYTES RELATIVE PERCENT 7 % (BEAKER) (test code = 431) EOSINOPHILS RELATIVE PERCENT 1 % (BEAKER) (test code = 432) BASOPHILS RELATIVE PERCENT 1 % (BEAKER) (test code = 437) NEUTROPHILS ABSOLUTE COUNT 4.85 K/ L 1.78-5.38 (BEAKER) (test code = 670) LYMPHOCYTES ABSOLUTE COUNT 1.37 K/ L 1.32-3.57 (BEAKER) (test code = 414) MONOCYTES ABSOLUTE COUNT (BEAKER) 0.47 K/ L 0.30-0.82 (test code = 415) EOSINOPHILS ABSOLUTE COUNT 0.07 K/ L 0.04-0.54 (BEAKER) (test code = 416) BASOPHILS ABSOLUTE COUNT (BEAKER) 0.09 K/ L 0.01-0.08 H (test code = 417) IMMATURE GRANULOCYTES-RELATIVE 0 % 0-1 PERCENT (BEAKER) (test code = 2801) BASIC METABOLIC [id number] 12:16:00 Test Item Value Reference Range Interpretation Comments SODIUM (BEAKER) 141 meq/L 136-145 (test code = 381) POTASSIUM (BEAKER) 3.7 meq/L 3.5-5.1 (test code = 379) CHLORIDE (BEAKER) 106 meq/L 98-107 (test code = 382) CO2 (BEAKER) (test 26 meq/L 22-29 code = 355) BLOOD UREA NITROGEN 25 mg/dL 7-21 H (BEAKER) (test code = 354) CREATININE (BEAKER) 1.36 mg/dL 0.57-1.25 H (test code = 358) GLUCOSE RANDOM 94 mg/dL 70-105 (BEAKER) (test code = 652) CALCIUM (BEAKER) 8.6 mg/dL 8.4-10.2 (test code = 697) EGFR (BEAKER) (test 51 mL/min/1.73 ESTIMA SOBEIDA GFR IS code = 1092) sq m NOT ACCURATE CREATININE CLEARANCE IN PREDICTING GLOMERULAR FILTRATION RATE . ESTIMATED GFR I S NOT APPLICABLE FOR DIALYSIS PATIEN TS. Specimen slightly [id number] 11:54:00 Test Item Value Reference Range Interpretation Comments PARTIAL THROMBOPLASTIN TIME 33.4 seconds 22.5-36.0 (BEAKER) (test code = 760) PROTHROMBIN [id number] 11:53:00 Test Item Value Reference Range Interpretation Comments PROTIME (BEAKER) (test code = 17.3 seconds 11.7-14.7 H 759) INR (BEAKER) (test code = 370) 1.4 <=5.9 RECOMMENDED COUMADIN/WARFARIN INR THERAPY RANGESSTANDARD DOSE: 2.0 - 3.0 Includes: PROPHYLAXIS forvenous thrombosis, systemic embolization; TREATMENT for venous thrombosis and/or pulmonary embolus.HIGH RISK: Target INR is 2.5-3.5 for patients with mechanical heart valves.BASIC METABOLIC [id number] 11:47:00 Test Item Value Reference Range Interpretation Comments SODIUM (BEAKER) 139 meq/L 136-145 (test code = 381) POTASSIUM (BEAKER) 3.7 meq/L 3.5-5.1 Specimen slightly (test code = 379) hemolyzed CHLORIDE (BEAKER) 101 meq/L 98-107 (test code = 382) CO2 (BEAKER) (test 32 meq/L 22-29 H code = 355) BLOOD UREA NITROGEN 16 mg/dL 7-21 (BEAKER) (test code = 354) CREATININE (BEAKER) 1.34 mg/dL 0.57-1.25 H Specimen slightly (test code = 358) hemolyzed GLUCOSE RANDOM 83 mg/dL 70-105 (BEAKER) (test code = 652) CALCIUM (BEAKER) 8.7 mg/dL 8.4-10.2 (test code = 697) EGFR (BEAKER) (test 52 mL/min/1.73 ESTIMA SOBEIDA GFR IS code = 1092) sq m NOT ACCURATE CREATININE CLEARANCE IN PREDICTING GLOMERULAR FILTRATION RATE . ESTIMATED GFR I S NOT APPLICABLE FOR DIALYSIS PATIEN TS. Specimen slightly ictericCBC W/PLT COUNT & AUTO [id number] 11:36:00 Test Item Value Reference Range Interpretation Comments WHITE BLOOD CELL COUNT (BEAKER) 6.7 K/ L 4.0-10.0 (test code = 775) RED BLOOD CELL COUNT (BEAKER) 4.78 M/ L 4.20-5.80 (test code = 761) HEMOGLOBIN (BEAKER) (test code = 13.6 GM/DL 13.0-16.8 410) HEMATOCRIT (BEAKER) (test code = 42.5 % 40.0-50.0 411) MEAN CORPUSCULAR VOLUME (BEAKER) 88.9 fL 82.0-98.0 (test code = 753) MEAN CORPUSCULAR HEMOGLOBIN 28.3 pg 27.0-33.0 (BEAKER) (test code = 751) MEAN CORPUSCULAR HEMOGLOBIN CONC 31.9 GM/DL 32.0-36.0 L (BEAKER) (test code = 752) RED CELL DISTRIBUTION WIDTH 16.4 % 10.3-14.2 H (BEAKER) (test code = 412) PLATELET COUNT (BEAKER) (test 188 K/CU MM 150-430 code = 756) MEAN PLATELET VOLUME (BEAKER) 7.1 fL 6.5-10.5 (test code = 754) NUCLEATED RED BLOOD CELLS 0 /100 WBC 0-0 (BEAKER) (test code = 413) NEUTROPHILS RELATIVE PERCENT 67 % (BEAKER) (test code = 429) LYMPHOCYTES RELATIVE PERCENT 24 % (BEAKER) (test code = 430) MONOCYTES RELATIVE PERCENT 7 % (BEAKER) (test code = 431) EOSINOPHILS RELATIVE PERCENT 2 % (BEAKER) (test code = 432) BASOPHILS RELATIVE PERCENT 1 % (BEAKER) (test code = 437) NEUTROPHILS ABSOLUTE COUNT 4.46 K/ L 1.80-8.00 (BEAKER) (test code = 670) LYMPHOCYTES ABSOLUTE COUNT 1.58 K/ L 1.48-4.50 (BEAKER) (test code = 414) MONOCYTES ABSOLUTE COUNT (BEAKER) 0.47 K/ L 0.00-1.30 (test code = 415) EOSINOPHILS ABSOLUTE COUNT 0.13 K/ L 0.00-0.50 (BEAKER) (test code = 416) BASOPHILS ABSOLUTE COUNT (BEAKER) 0.04 K/ L 0.00-0.20 (test code = 417) 0.00PT/[id number] 11:35:00 Test Item Value Reference Range Interpretation Comments PROTIME (BEAKER) (test code = 15.5 seconds 11.7-14.7 H 759) INR (BEAKER) (test code = 370) 1.2 <=5.9 PARTIAL THROMBOPLASTIN TIME 32.9 seconds 22.5-36.0 (BEAKER) (test code = 760) RECOMMENDED COUMADIN/WARFARIN INR THERAPY RANGESSTANDARD DOSE: 2.0 - 3.0 Includes: PROPHYLAXIS forvenous thrombosis, systemic embolization; TREATMENT for venous thrombosis and/or pulmonary embolus.HIGH RISK: Target INR is 2.5-3.5 for patients with mechanical heart valves.B-TYPE NATRIURETIC FACTOR (BNP)[id number] 14:43:00 Test Item Value Reference Range Interpretation Comments B-TYPE NATRIURETIC PEPTIDE 4794 pg/mL 0-100 H (BEAKER) (test code = 700) [id number] 14:35:00 Test Item Value Reference Range Interpretation Comments MAGNESIUM (BEAKER) (test code = 2.6 mg/dL 1.6-2.6 627) BASIC METABOLIC [id number] 14:35:00 Test Item Value Reference Range Interpretation Comments SODIUM (BEAKER) 143 meq/L 136-145 (test code = 381) POTASSIUM (BEAKER) 3.5 meq/L 3.5-5.1 (test code = 379) CHLORIDE (BEAKER) 103 meq/L 98-107 (test code = 382) CO2 (BEAKER) (test 31 meq/L 22-29 H code = 355) BLOOD UREA NITROGEN 16 mg/dL 7-21 (BEAKER) (test code = 354) CREATININE (BEAKER) 1.22 mg/dL 0.57-1.25 (test code = 358) GLUCOSE RANDOM 82 mg/dL 70-105 (BEAKER) (test code = 652) CALCIUM (BEAKER) 8.6 mg/dL 8.4-10.2 (test code = 697) EGFR (BEAKER) (test 58 mL/min/1.73 ESTIMA SOBEIDA GFR IS code = 1092) sq m NOT ACCURATE CREATININE CLEARANCE IN PREDICTING GLOMERULAR FILTRATION RATE . ESTIMATED GFR I S NOT APPLICABLE FOR DIALYSIS PATIEN TS. MISCELLANEOUS LAB [id number] 10:09:00 Test Item Value Reference Range Interpretation Comments SCAN RESULT (test code = 0099263) BASIC METABOLIC [id number] 11:29:00 Test Item Value Reference Range Interpretation Comments SODIUM (BEAKER) 143 meq/L 136-145 (test code = 381) POTASSIUM (BEAKER) 4.1 meq/L 3.5-5.1 (test code = 379) CHLORIDE (BEAKER) 102 meq/L 98-107 (test code = 382) CO2 (BEAKER) (test 34 meq/L 22-29 H code = 355) BLOOD UREA NITROGEN 20 mg/dL 7-21 (BEAKER) (test code = 354) CREATININE (BEAKER) 1.31 mg/dL 0.57-1.25 H (test code = 358) GLUCOSE RANDOM 91 mg/dL 70-105 (BEAKER) (test code = 652) CALCIUM (BEAKER) 9.0 mg/dL 8.4-10.2 (test code = 697) EGFR (BEAKER) (test 53 mL/min/1.73 ESTIMA SOBEIDA GFR IS code = 1092) sq m NOT ACCURATE CREATININE CLEARANCE IN PREDICTING GLOMERULAR FILTRATION RATE . ESTIMATED GFR I S NOT APPLICABLE FOR DIALYSIS PATIEN TS. [id number] 17:50:00 Test Item Value Reference Range Interpretation Comments CORTISOL, TOTAL (BEAKER) (test code 7.4 ug/dL 3.7-19.4 = 2755) [id number] 07:17:00 Test Item Value Reference Range Interpretation Comments CORTISOL, TOTAL (BEAKER) (test code 8.2 ug/dL 3.7-19.4 = 2755) PROTEIN ELECTROPHORESIS, [id number] 12:58:00 Test Item Value Reference Range Interpretation Comments ALBUMIN FRACTION 3.3 g/dL 3.5-5.5 L (BEAKER) (test code = 405) ALPHA 1 FRACTION 0.3 g/dL 0.2-0.4 (BEAKER) (test code = 389) ALPHA 2 FRACTION 0.6 g/dL 0.5-0.9 (BEAKER) (test code = 390) BETA FRACTION (BEAKER) 0.8 g/dL 0.6-1.1 (test code = 392) GAMMA GLOBULIN 1.2 g/dL 0.7-1.7 FRACTION (BEAKER) (test code = 391) INTERPRETATION-119 Slight decrease in (BEAKER) (test code = albumin; all globulin 2615) fractions are present in their expected distribution. No monoclonal bands detected. [id number] Shanthi Gee MD (BEAKER) (test code = (electronic signature) 9697) PROTEIN TOTAL SERUM, 6.1 gm/dL 6.0-8.3 SPEP (BEAKER) (test code = 2610) [id number] 06:14:00 Test Item Value Reference Range Interpretation Comments PROLACTIN (BEAKER) (test code = 17.86 ng/mL 3.46-19.40 758) [id number] 05:26:00 Test Item Value Reference Range Interpretation Comments CORTISOL, TOTAL (BEAKER) (test code 8.5 ug/dL 3.7-19.4 = 2755) T3, [id number] 05:26:00 Test Item Value Reference Range Interpretation Comments T3 FREE (BEAKER) (test code = 908) 1.88 pg/mL 1.71-3.71 TSH/FREE T4 IF [id number] 05:26:00 Test Item Value Reference Range Interpretation Comments THYROID STIMULATING HORMONE 0.47 uIU/mL 0.35-4.94 (BEAKER) (test code = 772) PROTHROMBIN [id number] 04:56:00 Test Item Value Reference Range Interpretation Comments PROTIME (BEAKER) (test code = 15.7 seconds 11.7-14.7 H 759) INR (BEAKER) (test code = 370) 1.3 <=5.9 RECOMMENDED COUMADIN/WARFARIN INR THERAPY RANGESSTANDARD DOSE: 2.0 - 3.0 Includes: PROPHYLAXIS forvenous thrombosis, systemic embolization; TREATMENT for venous thrombosis and/or pulmonary embolus.HIGH RISK: Target INR is 2.5-3.5 for patients with mechanical heart valves.[id number] 07:01:00 Test Item Value Reference Range Interpretation Comments MAGNESIUM (BEAKER) (test code = 2.0 mg/dL 1.6-2.6 627) BASIC METABOLIC [id number] 07:01:00 Test Item Value Reference Range Interpretation Comments SODIUM (BEAKER) 146 meq/L 136-145 H (test code = 381) POTASSIUM (BEAKER) 3.3 meq/L 3.5-5.1 L (test code = 379) CHLORIDE (BEAKER) 106 meq/L 98-107 (test code = 382) CO2 (BEAKER) (test 29 meq/L 22-29 code = 355) BLOOD UREA NITROGEN 22 mg/dL 7-21 H (BEAKER) (test code = 354) CREATININE (BEAKER) 1.17 mg/dL 0.57-1.25 (test code = 358) GLUCOSE RANDOM 89 mg/dL 70-105 (BEAKER) (test code = 652) CALCIUM (BEAKER) 8.6 mg/dL 8.4-10.2 (test code = 697) EGFR (BEAKER) (test 60 mL/min/1.73 ESTIMA SOBEIDA GFR IS code = 1092) sq m NOT ACCURATE CREATININE CLEARANCE IN PREDICTING GLOMERULAR FILTRATION RATE . ESTIMATED GFR I S NOT APPLICABLE FOR DIALYSIS PATIEN TS. PROTHROMBIN [id number] 06:39:00 Test Item Value Reference Range Interpretation Comments PROTIME (BEAKER) (test code = 15.8 seconds 11.7-14.7 H 759) INR (BEAKER) (test code = 370) 1.3 <=5.9 RECOMMENDED COUMADIN/WARFARIN INR THERAPY RANGESSTANDARD DOSE: 2.0 - 3.0 Includes: PROPHYLAXIS forvenous thrombosis, systemic embolization; TREATMENT for venous thrombosis and/or pulmonary embolus.HIGH RISK: Target INR is 2.5-3.5 for patients with mechanical heart valves.SEDIMENTATION [id number] 10:07:00 Test Item Value Reference Range Interpretation Comments SEDIMENTATION RATE, ERYTHROCYTE 10 mm/HR 0-40 (BEAKER) (test code = 766) [id number] 06:12:00 Test Item Value Reference Range Interpretation Comments MAGNESIUM (BEAKER) (test code = 2.1 mg/dL 1.6-2.6 627) BASIC METABOLIC [id number] 06:12:00 Test Item Value Reference Range Interpretation Comments SODIUM (BEAKER) 147 meq/L 136-145 H (test code = 381) POTASSIUM (BEAKER) 3.2 meq/L 3.5-5.1 L (test code = 379) CHLORIDE (BEAKER) 108 meq/L 98-107 H (test code = 382) CO2 (BEAKER) (test 29 meq/L 22-29 code = 355) BLOOD UREA NITROGEN 23 mg/dL 7-21 H (BEAKER) (test code = 354) CREATININE (BEAKER) 1.09 mg/dL 0.57-1.25 (test code = 358) GLUCOSE RANDOM 80 mg/dL 70-105 (BEAKER) (test code = 652) CALCIUM (BEAKER) 8.3 mg/dL 8.4-10.2 L (test code = 697) EGFR (BEAKER) (test 66 mL/min/1.73 ESTIMA SOBEIDA GFR IS code = 1092) sq m NOT ACCURATE CREATININE CLEARANCE IN PREDICTING GLOMERULAR FILTRATION RATE . ESTIMATED GFR I S NOT APPLICABLE FOR DIALYSIS PATIEN TS. Specimen slightly ictericLIPID [id number] 06:12:00 Test Item Value Reference Range Interpretation Comments TRIGLYCERIDES (BEAKER) (test code = 79 mg/dL 540) CHOLESTEROL (BEAKER) (test code = 95 mg/dL 631) HDL CHOLESTEROL (BEAKER) (test code 26 mg/dL = 976) LDL CHOLESTEROL CALCULATED (BEAKER) 53 mg/dL (test code = 633) Triglyceride Reference Range: Low Risk <150 Borderline 150-199 High Risk 200-499 Very High Risk >=500Cholesterol Reference Range: Low Risk <200 Borderline 200-239 High Risk >240HDL Cholesterol Reference Range: Low Risk >=60 High Risk <40LDL Cholesterol Reference Range: Optimal <100 Near Optimal 100-129 Borderline 130-159 High 160-189 Very High >=190 Specimen slightly ictericPROTHROMBIN [id number] 05:57:00 Test Item Value Reference Range Interpretation Comments PROTIME (BEAKER) (test code = 16.7 seconds 11.7-14.7 H 759) INR (BEAKER) (test code = 370) 1.4 <=5.9 RECOMMENDED COUMADIN/WARFARIN INR THERAPY RANGESSTANDARD DOSE: 2.0 - 3.0 Includes: PROPHYLAXIS forvenous thrombosis, systemic embolization; TREATMENT for venous thrombosis and/or pulmonary embolus.HIGH RISK: Target INR is 2.5-3.5 for patients with mechanical heart valves.POCT-GLUCOSE [id number] 21:23:00 Test Item Value Reference Range Interpretation Comments POC-GLUCOSE METER 116 mg/dL 70-[address] [facility] 67[address] (BEAKER) (test code = KATHYA [place] 1538) [address] URINALYSIS W/ [id number] 20:08:00 Test Item Value Reference Range Interpretation Comments COLOR (BEAKER) (test code = Yellow 470) CLARITY (BEAKER) (test code = Clear 469) SPECIFIC GRAVITY UA (BEAKER) 1.011 1.001-1.035 (test code = 468) PH UA (BEAKER) (test code = 6.5 5.0-8.0 467) PROTEIN UA (BEAKER) (test code 30 mg/dL Negative A = 464) GLUCOSE UA (BEAKER) (test code Negative Negative = 365) KETONES UA (BEAKER) (test code 10 mg/dL Negative A = 371) BILIRUBIN UA (BEAKER) (test Negative Negative code = 462) BLOOD UA (BEAKER) (test code = Trace Negative A 461) NITRITE UA (BEAKER) (test code Negative Negative = 465) LEUKOCYTE ESTERASE UA (BEAKER) Negative Negative (test code = 466) UROBILINOGEN UA (BEAKER) (test 2.0 mg/dL 0.2-1.0 H code = 463) RBC UA (BEAKER) (test code = < /HPF 519) WBC UA (BEAKER) (test code = 1 /HPF 520) SOURCE(BEAKER) (test code = Urine, Voided 1309) HEPATITIS B [id number] 20:06:00 Test Item Value Reference Range Interpretation Comments HEPATITIS B CORE TOTAL ANTIBODY Nonreactive Nonreactive (BEAKER) (test code = 497) HEPATITIS B SURFACE ANTIBODY < mIU/mL <8.0 (BEAKER) (test code = 647) HEPATITIS B SURFACE ANTIGEN (2) Nonreactive Nonreactive (BEAKER) (test code = 2585) HEPATITIS C [id number] 20:04:00 Test Item Value Reference Range Interpretation Comments HEPATITIS C ANTIBODY ([employer]) Nonreactive Nonreactive (test code = 367) HIV-1 ANTIGEN WITH HIV-1/2 [id number] 20:04:00 Test Item Value Reference Range Interpretation Comments HIV-1 ANTIGEN WITH HIV 1\\T\\2 Nonreactive Nonreactive ANTIBODY (2) ([facility] [employer] [facility]) (test code = 2586) HEMOGLOBIN [id number] 19:57:00 Test Item Value Reference Range Interpretation Comments HEMOGLOBIN A1C ([facility] [employer] [facility]) (test code = 5.6 % 4.3-6.1 368) T4, [id number] 19:06:00 Test Item Value Reference Range Interpretation Comments FREE T4 ([facility] [employer] [facility]) (test code = 655) 1.08 ng/dL 0.70-1.48 TSH/FREE T4 IF [id number] 18:35:00 Test Item Value Reference Range Interpretation Comments THYROID STIMULATING HORMONE 0.03 uIU/mL 0.35-4.94 L ([facility] [employer] [facility]) (test code = 772) FOLATE, [id number] 18:33:00 Test Item Value Reference Range Interpretation Comments FOLATE ([facility] [employer] [facility]) (test code = 362) 10.5 ng/mL >=7.0 Effective 10/03/2014: Folate Reference Range ChangeNew: >=7.0 Previous: >=5.4VITAMIN [id number] 18:27:00 Test Item Value Reference Range Interpretation Comments VITAMIN B12 ([facility] [employer] [facility]) (test code = 394 pg/mL 213816 774) B-TYPE NATRIURETIC FACTOR (BNP)2017-03-20 18:20:00 Test Item Value Reference Range Interpretation Comments B-TYPE NATRIURETIC PEPTIDE 8044 pg/mL 0-100 H ([facility] [employer] [facility]) (test code = 700) POCT-GLUCOSE [id number] 17:18:00 Test Item Value Reference Range Interpretation Comments POC-GLUCOSE METER 96 mg/dL 70-[address] [facility] [address] ([facility]) (test code = KATHYA PERERA [id number] 9278) [id number] 17:06:00 Test Item Value Reference Range Interpretation Comments MAGNESIUM ([facility] [employer]) (test code = 2.1 mg/dL 1.6-2.6 627) BASIC METABOLIC [id number] 17:06:00 Test Item Value Reference Range Interpretation Comments SODIUM (BEAKER) 146 meq/L 136-145 H (test code = 381) POTASSIUM (BEAKER) 2.9 meq/L 3.5-5.1 L (test code = 379) CHLORIDE (BEAKER) 103 meq/L 98-107 (test code = 382) CO2 (BEAKER) (test 32 meq/L 22-29 H code = 355) BLOOD UREA NITROGEN 23 mg/dL 7-21 H (BEAKER) (test code = 354) CREATININE (BEAKER) 1.10 mg/dL 0.57-1.25 (test code = 358) GLUCOSE RANDOM 92 mg/dL 70-105 (BEAKER) (test code = 652) CALCIUM (BEAKER) 8.4 mg/dL 8.4-10.2 (test code = 697) EGFR (BEAKER) (test 65 mL/min/1.73 ESTIMA SOBEIDA GFR IS code = 1092) sq m NOT ACCURATE CREATININE CLEARANCE IN PREDICTING GLOMERULAR FILTRATION RATE . ESTIMATED GFR I S NOT APPLICABLE FOR DIALYSIS PATIEN TS. Specimen slightly ictericCBC W/PLT COUNT & AUTO [id number] 16:55:00 Test Item Value Reference Range Interpretation Comments WHITE BLOOD CELL COUNT (BEAKER) 6.4 K/ L 4.0-10.0 (test code = 775) RED BLOOD CELL COUNT (BEAKER) 4.49 M/ L 4.20-5.80 (test code = 761) HEMOGLOBIN (BEAKER) (test code = 12.8 GM/DL 13.0-16.8 L 410) HEMATOCRIT (BEAKER) (test code = 39.6 % 40.0-50.0 L 411) MEAN CORPUSCULAR VOLUME (BEAKER) 88.2 fL 82.0-98.0 (test code = 753) MEAN CORPUSCULAR HEMOGLOBIN 28.5 pg 27.0-33.0 (BEAKER) (test code = 751) MEAN CORPUSCULAR HEMOGLOBIN CONC 32.3 GM/DL 32.0-36.0 (BEAKER) (test code = 752) RED CELL DISTRIBUTION WIDTH 16.8 % 10.3-14.2 H (BEAKER) (test code = 412) PLATELET COUNT (BEAKER) (test 143 K/CU MM 150-430 L code = 756) MEAN PLATELET VOLUME (BEAKER) 7.2 fL 6.5-10.5 (test code = 754) NUCLEATED RED BLOOD CELLS 0 /100 WBC 0-0 (BEAKER) (test code = 413) NEUTROPHILS RELATIVE PERCENT 72 % (BEAKER) (test code = 429) LYMPHOCYTES RELATIVE PERCENT 18 % (BEAKER) (test code = 430) MONOCYTES RELATIVE PERCENT 8 % (BEAKER) (test code = 431) EOSINOPHILS RELATIVE PERCENT 1 % (BEAKER) (test code = 432) BASOPHILS RELATIVE PERCENT 1 % (BEAKER) (test code = 437) NEUTROPHILS ABSOLUTE COUNT 4.62 K/ L 1.80-8.00 (BEAKER) (test code = 670) LYMPHOCYTES ABSOLUTE COUNT 1.17 K/ L 1.48-4.50 L (BEAKER) (test code = 414) MONOCYTES ABSOLUTE COUNT (BEAKER) 0.49 K/ L 0.00-1.30 (test code = 415) EOSINOPHILS ABSOLUTE COUNT 0.09 K/ L 0.00-0.50 (BEAKER) (test code = 416) BASOPHILS ABSOLUTE COUNT (BEAKER) 0.04 K/ L 0.00-0.20 (test code = 417) 0.00BLOOD BANK [id number] 18:07:00Negative (10/17/16 12:07 PM)[facility] [id number] 18:07:002.4[facility] IncqwdpFZPDAKGXMVRG9976-51-58 18:07:0013.2[facility] HryjulmLVEANZZQZYCS8161-08-72 18:07:0028[facility] UIWZKBVQOEVG9489-63-57 18:07:008.8[facility] YacvcjiUCGEQONIOEDV9249-01-54 18:07:0033[facility] LwmnsvfDLFMFXDDYITI7901-97-73 18:07:69617Ltevwikf [place] ZFCTMSFMJRMU7682-27-97 18:07:91954Ngejvkbg WnidqucXKZNAQWUNBHF0355-67-84 18:07:003.2[facility] MzohfktLQGVPSDOWGFN3882-03-27 18:07:0077[facility] [place] DKCLMCXXSZND1256-85-09 18:07:0038[facility] JohylkwBLKZNWBKZGQH8617-43-59 18:07:00 2.20[facility] ApldtwdWMBBRNZGRS3828-85-76 18:07:00 Test Item Value Reference Range Interpretation Comments PTT (test code = PTT) 33.4 s 22.9-35.8 [facility] RyqtvwnNANSMDQAMG8865-06-16 18:07:001.45[facility]ann[facility]MATOLOGY 2016-10-17 18:07:00 Test Item Value Reference Range Interpretation Comments PT (test code = PT) 17.9 s 12.0-14.7 [facility] FlayamyNKQGXWWSLG1053-86-70 18:07:008.4[facility]ann[facility]MATOLOGY 2016-10-17 18:07:0032.4[facility] ShiaqaoRFPSOAZKWP6865-68-06 18:07:0085.8[facility] VlmigrlQASTNAIECV3277-13-90 18:07:00 Test Item Value Reference Range Interpretation Comments MCH (test code = MCH) 27.8 pg 27.0-31.0 [facility] ExuigwuXXVLHPVMMU2513-22-20 18:07:0042.0[facility]ann[facility]MATOLOGY 2016-10-17 18:07:006.8[facility] AexfgvgYGNILBOHNN6503-85-72 18:07:21094Hfkuotds CxleinwSNFHALKGKG4727-75-83 18:07:0014.6[facility] SkbhodmHOEDTNEMBS9130-93-79 18:07:004.89[facility] HtctxxkEFYKNUJLPG5301-38-37 18:07:0013.6[facility] Ko DAOKKZEBYR6953-86-36 18:07:000.1[facility] VhhrhhrMXGBCZIWVZ6636-17-93 18:07:000.1 [facility] ZifnhcjFQAIURYRPD4612-93-41 18:07:000.5[facility]annHEMATOLOGY 2016-10-17 18:07:001.5[facility] OsylpotDOEKNQEKQV6659-87-17 18:07:001.2[facility] SlxnxjrODHZOZQMZT8471-29-74 18:07:007.5[facility] JhyytjiLGEYFNBOLR5669-54-82 18:07:004.7[facility] LumftgqFTEEOQEOXV8040-92-49 18:07:001.2[facility] [place] QZZJMOGZZO6058-89-84 18:07:0021.5[facility] KvthdjyUZLPNZKZXC0565-50-78 18:07:00 68.6[facility]
--- OUTSIDE RECORDS SUMMARY | 2020-11-02 17:44 | XMS REPORT ---
:1940 Author Organization [facility] Address [address] [place], [facility] [address] [place] [address] Care Team Providers Name Role Phone Juliana Snell Unavailable [phone] PROBLEMS Type Condition ICD9-CM [id number] Onset Condition SNOMED Code Notes Code Code Dates Status Problem Dizziness and R42 Active 075228628 giddiness Problem Pituitary adenoma D35.2 Active 173985553 Problem HTN (hypertension) I10 Active 52918452 Problem Mixed E78.2 Active 021486099 hyperlipidemia Problem Benign essential I10 Active 48570183 HTN Problem GERD K21.9 Active 423149644 (gastroesophageal reflux disease) Problem Blood tests for Z00.00 Active 852055186 routine general physical examination Problem Screening for Z12.5 Active 403847651 prostate cancer Problem Chronic fatigue R53.82 Active 37638189 Problem 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 Active 091125798 obs/LUTS Problem Small pleural J90 Active 94161267 effusion Problem CKD (chronic kidney N18.3 Active 660571782 disease) stage 3, GFR 30-59 ml/min Problem Visual disturbance H53.9 Active 19892618 Problem Chronic atrial I48.2 Active 472766750 fibrillation Problem 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 356506834 both eyes Problem 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 242190265 osteoarthritis involving multiple joints Problem 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 Active 324458147 failure, systolic, left NYHA class 4 Problem 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 353580609 in situ Problem Hypokalemia E87.6 Active 60002545 Problem Prostate cancer C61 Active 372788372 Problem Elevated PSA R97.20 Active 761209485 Problem Gastroesophageal K21.9 Active 407127299 reflux disease, esophagitis presence not specified ALLERGIES Allergen (clinical drug Drug/Non Drug Allergy Reaction Allergy Type Onset Date Status ingredient) documented on EMR lisinopril Lisinopril([facility] Unknown Drug Allergy Active Code:[address]-39) ENCOUNTERS from 1940 to 2020-09-16 Encounter Location Date Provider Diagnosis [facility] [address], Juliana Snell HTN (hypertension) I10 ; Family [facility] [address], [facility] [place] [address] failure, systo lic, left NYHA class 4 I5 0.20 ; Mixed hyperlipi demia E78.2 ; Chronic atrial fibrillation I4 8.2 ; CKD (chronic kidney disease) stage 3, GFR 30 -59 ml/min N18.3 ; Decreased vision in both eyes H54.3 and Pitui tary adenoma D35.2 IMMUNIZATIONS No Information SOCIAL HISTORY Tobacco Use: Social History Observation Description Date Details (start date - stop date) Former Smoker Sex Assigned At : Social History Observation Description Sex Assigned At Unknown Tobacco Use/Smoking Question Answer Notes Are you a former smoker REASON FOR REFERRAL No Information VITAL SIGNS Height 65.00 in Aug, Weight 193.4 lbs Aug, Temperature 97.8 degrees Fahrenheit Aug, BMI 32.18 kg/m2 Aug, Oximetry 96 % Aug, Respiratory Rate 18 /min Aug, Blood pressure systolic 184 mm Hg Aug, Blood pressure diastolic 108 mm Hg Aug, MEDICATIONS Medication SIG (Take, Route, Start Date End Date Status Frequency, Duration) Coreg 3.125 MG one tab Orally twice a day Active for 90 days Potassium Chloride ER 20 MEQ 2 tablets with food Orally Active Twice a day for 90 days Omeprazole 40 MG Take 1 capsule by mouth Active once daily for 90 days for 90 Lasix 20 MG 1 tablet Orally once a day A ctive for 30 days Carvedilol 12.5 MG 1 tablet Orally Twice a Active day for 90 days Losartan Potassium 100 MG 1 tablet Orally Once a day Active for 90 days Plavix 75 MG 1 tablet Orally Once a day A ctive for 90 days Triamcinolone Acetonide 0.1 % 1 application to affected Nov, 0 Active area Externally Twice a day for 90 days Losartan Potassium 25 MG TAKE ONE TABLET BY MOUTH Unknown ONCE DAILY Tamsulosin HCl 0.4 MG 1 capsule Orally Once a Active day for 90 days Crestor 20 MG 1 tablet Orally Once a day Unknown Eliquis 2.5 mg 2.5 mg one tablet by mouth twice Active daily for 90 days Protonix 40 MG 1 tablet Orally Once a day Unknown Rosuvastatin Calcium 20 MG 1 tablet Orally Once a day Active for 90 days Carvedilol 3.125 MG TAKE ONE TABLET BY MOUTH Unknown TWICE DAILY Nitrostat 0.4 MG 1 tab under tongue every 5 Active min as needed for chest pain. Do not exceed total of 3 doses in 15 min Go to ER if no improvement for 90 days PROCEDURES No Information RESULTS No Results REASON FOR VISIT 2 week f/u for blood pressure MEDICAL (GENERAL) HISTORY Type Description Date Medical History HTN (hypertension) Medical History Mixed hyperlipidemia Medical History Chronic atrial fibrillation Medical History Current use of anticoagulant therapy Medical History Cardiac pacemaker in situ Medical History Obesity Medical History Congestive heart failure, systolic, left NYHA class 4 Medical History Secondary pulmonary arterial hypertensio n Medical History Hiatal hernia Medical History GERD (gastroesophageal reflux disease) Medical History Renal disease Medical History Educational maladjustment 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 discord [facility]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 Surgical History No Surgical history information Goals Section No Information Health Concerns No Information MEDICAL EQUIPMENT No Information MENTAL STATUS No Information FUNCTIONAL STATUS No Information ASSESSMENTS Encounter Date Diagnosis Notes Aug, Mixed hyperlipidemia (ICD-10 - E78.2) Aug, Congestive heart failure, systolic, left NYHA class 4 (ICD-10 - I50.20) Aug, CKD (chronic kidney disease) stage 3, GF R 30-59 ml/min (ICD-10 - N18.3) Aug, Chronic atrial fibrillation (ICD-10 - I4 8.2) Aug, HTN (hypertension) (ICD-10 - I10) Aug, Pituitary adenoma (ICD-10 - D35.2) Aug, Decreased vision in both eyes (ICD-10 - H54.3) PLAN OF TREATMENT Medication Medication Name Sig Start Date Stop Date Plavix 75 MG 1 tablet Orally Once a day for 90 days Rosuvastatin Calcium 20 MG 1 tablet Orally Once a day for 90 days Losartan Potassium 100 MG 1 tablet Orally Once a day for 90 days Carvedilol 12.5 MG 1 tablet Orally Twice a day for 90 days Eliquis 2.5 mg 2.5 mg one tablet by mouth twice daily for 90 days Lasix 20 MG 1 tablet Orally once a day for 30 days Treatment Notes Assessment Notes Clinical Notes HTN (hypertension) Maintian a low salt DASH diet, exercise, weight loss and decrease stress recommended. Keep BP log and will review next visit. If blood pressure consistently above 140/90 return to clinic for adjustment of meds. Try to quit smoking if you currently smoke. Decrease caffeine intake if possible.- continue losartan 100mg daily for better control of BP Congestive heart failure, -low salt diet. -limit water systolic, left NYHA class 4 intake to no more than 1.5L per day - Weigh yourself daily. If increase swelling in legs and ankles or weight gain of more than 2-3 lbs in one day then call clinic because you are likely retaining fluid. - Go to ER if you develop any sob or chest pain. -May increase lasix for about 3 days to decrease edema.-- continue f/u with cardiology.-- continue potassium Mixed hyperlipidemia low fat diet, decrease fast food and fried foods. Increase fruit and vegetable intake. exercise as tolerated 30minutes per day at least 3 days a week. May take fish oil 1000mg twice daily to help increase good cholesterol (HDL). low fat diet, decrease fast food and fried foods. Increase fruit and vegetable intake. exercise as tolerated 30minutes per day at least 3 days a week. May take fish oil 1000mg twice daily to help increase good cholesterol (HDL). Chronic atrial fibrillation continue current anticoagulation. monitor HR. continue f/u with cardiology. Go to ER if your HR is above 130 consistently if you feel dizziness or sob continue current anticoagulation. monitor HR. continue f/u with cardiology. Go to ER if your HR is above 130 consistently if you feel dizziness or sob continue current anticoagulation. monitor HR. continue f/u with cardiology. Go to ER if your HR is above 130 consistently if you feel dizziness or sob continue current anticoagulation. monitor HR. continue f/u with cardiology. Go to ER if your HR is above 130 consistently if you feel dizziness or sob CKD (chronic kidney disease) will monitor kidney stage 3, GFR 30-59 ml/min function.- Avoid NSAIDs ( such as ibuprofen, motrin, aleive)- Hydrate your kidneys by drinking plenty of water. Pituitary adenoma will need to f/u wit h neurologist. Next Appt Details 4 weeks Reason: Provider Name:Juliana Snell, 2020-09-27 01:0 0:00 PM, [address], [address], [place], [address], Provider Name:Juliana Snell, 2020-11-27 09:0 0:00 AM, [address], [address], [place], [address], Provider Name:Juliana Snell, 2020-12-04 11:2 0:00 AM, [address], [address], [place], [address], Insurance Providers Payer Name Payer Payer Insured Patient Coverage Coverage End Address Phone Name Relationship to Start Date Dany e Insured [facility] [phone] [place] self [address] [facility] [id number] [place] [address]
--- OUTSIDE RECORDS SUMMARY | 2020-11-02 17:44 | XMS REPORT ---
:1940 Author Organization [facility] Address [address] [place], [facility] [address] [place] [address] Care Team Providers Name Role Phone Juliana Snell Unavailable [phone] PROBLEMS Type Condition ICD9-CM [id number] Onset Condition SNOMED Code Notes Code Code Dates Status Problem Pituitary adenoma D35.2 Active 009779523 Problem 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 513163780 in situ Problem Mixed E78.2 Active 897997101 hyperlipidemia Problem Dizziness and R42 Active 074531981 giddiness Problem GERD K21.9 Active 466052063 (gastroesophageal reflux disease) Problem HTN (hypertension) I10 Active 89678068 Problem Screening for Z12.5 Active 512907097 prostate cancer Problem Benign essential I10 Active 99834945 HTN Problem Visual disturbance H53.9 Active 86123423 Problem Chronic fatigue R53.82 Active 60681100 Problem 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 Active 486759692 obs/LUTS Problem Gastroesophageal K21.9 Active 869042913 reflux disease, esophagitis presence not specified Problem 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 843441748 osteoarthritis involving multiple joints Problem 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 Active 687498163 failure, systolic, left NYHA class 4 Problem CKD (chronic kidney N18.3 Active 778379389 disease) stage 3, GFR 30-59 ml/min Problem Blood tests for Z00.00 Active 876098076 routine general physical examination Problem Chronic atrial I48.2 Active 303200126 fibrillation Problem Small pleural J90 Active 10258595 effusion Problem Hypokalemia E87.6 Active 36697326 Problem Prostate cancer C61 Active 991688584 Problem Elevated PSA R97.20 Active 091820644 ALLERGIES Allergen (clinical drug Drug/Non Drug Allergy Reaction Allergy Type Onset Date Status ingredient) documented on EMR lisinopril Lisinopril([facility] Unknown Drug Allergy Active Code:[address]-97) ENCOUNTERS from 1940 to 2020-08-30 Encounter Location Date Provider Diagnosis [facility] [address] [facility] [address], [place] [address] IMMUNIZATIONS No Information SOCIAL HISTORY Tobacco Use: Social History Observation Description Date Details (start date - stop date) Former Smoker Sex Assigned At : Social History Observation Description Sex Assigned At Unknown Tobacco Use/Smoking Question Answer Notes Are you a former smoker REASON FOR REFERRAL No Information VITAL SIGNS No information MEDICATIONS Medication SIG (Take, Route, Start Date End Date Status Frequency, Duration) Rosuvastatin Calcium 20 MG 1 tablet Orally Once a day Active for 90 days Plavix 75 MG 1 tablet Orally Once a day A ctive for 90 days Losartan Potassium 25 MG TAKE ONE TABLET BY MOUTH Unknown ONCE DAILY Lasix 20 MG 1 tablet Orally once a day A ctive for 30 days Eliquis 2.5 mg 2.5 mg one tablet by mouth twice Active daily for 90 days Potassium Chloride ER 20 MEQ 2 tablets with food Orally Active Twice a day for 90 days Carvedilol 3.125 MG TAKE ONE TABLET BY MOUTH Unknown TWICE DAILY Tamsulosin HCl 0.4 MG 1 capsule Orally Once a Active day for 90 days Coreg 3.125 MG one tab Orally twice a day Active for 90 days Losartan Potassium 100 MG 1 tablet Orally Once a day Active for 90 days Crestor 20 MG 1 tablet Orally Once a day Unknown Protonix 40 MG 1 tablet Orally Once a day Unknown Nitrostat 0.4 MG 1 tab under tongue every 5 Active min as needed for chest pain. 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 Surgical History No Surgical history information Goals Section No Information Health Concerns No Information MEDICAL EQUIPMENT No Information MENTAL STATUS No Information FUNCTIONAL STATUS No Information ASSESSMENTS No Information PLAN OF TREATMENT Medication Medication Name Sig Start Date Stop Date Eliquis 2.5 mg 2.5 mg one tablet by mouth twice daily for 90 days Omeprazole 40 MG Take 1 capsule by mouth once daily for 90 days for 90 Losartan Potassium 100 MG 1 tablet Orally Once a day for 90 days Lasix 20 MG 1 tablet Orally once a day for 30 days Carvedilol 12.5 MG 1 tablet Orally Twice a day for 90 days Tamsulosin HCl 0.4 MG 1 capsule Orally Once a day for 90 days Rosuvastatin Calcium 20 MG 1 tablet Orally Once a day for 90 days Plavix 75 MG 1 tablet Orally Once a day for 90 days Next Appt Details Provider Name:Juliana Snell, 2020-08-31 10:0 0:00 AM, [address], [address], [place], [address], Insurance Providers Payer Name Payer Payer Insured Patient Coverage Coverage End Address Phone Name Relationship to Start Date Dany e Insured [phone] [place]remieubaldo self [address] [facility] [address] [place] [address]
--- OUTSIDE RECORDS SUMMARY | 2020-11-02 17:44 | XMS REPORT ---
:1940 Author Organization [facility] Address [address] [place], [facility] [address] [place] [address] Care Team Providers Name Role Phone Juliana Snell Unavailable [phone] PROBLEMS Type Condition ICD9-CM [id number] Onset Condition SNOMED Code Notes Code Code Dates Status Problem Pituitary adenoma D35.2 Active 988613245 Problem 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 030021265 in situ Problem Mixed E78.2 Active 143146005 hyperlipidemia Problem Dizziness and R42 Active 383098867 giddiness Problem GERD K21.9 Active 845001206 (gastroesophageal reflux disease) Problem HTN (hypertension) I10 Active 94470835 Problem Screening for Z12.5 Active 591039281 prostate cancer Problem Benign essential I10 Active 31002518 HTN Problem Visual disturbance H53.9 Active 64989170 Problem Chronic fatigue R53.82 Active 96951639 Problem 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 Active 448560723 obs/LUTS Problem Gastroesophageal K21.9 Active 081803575 reflux disease, esophagitis presence not specified Problem 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 836295037 osteoarthritis involving multiple joints Problem 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 Active 049043775 failure, systolic, left NYHA class 4 Problem CKD (chronic kidney N18.3 Active 760751633 disease) stage 3, GFR 30-59 ml/min Problem Blood tests for Z00.00 Active 304947761 routine general physical examination Problem Chronic atrial I48.2 Active 651576384 fibrillation Problem Small pleural J90 Active 77552553 effusion Problem Hypokalemia E87.6 Active 77701141 Problem Prostate cancer C61 Active 458223296 Problem Elevated PSA R97.20 Active 798390242 ALLERGIES Allergen (clinical drug Drug/Non Drug Allergy Reaction Allergy Type Onset Date Status ingredient) documented on EMR lisinopril Lisinopril([facility] Unknown Drug Allergy Active Code:[address]-66) ENCOUNTERS from 1940 to 2020-09-06 Encounter Location Date Provider Diagnosis [facility] [address] [facility] [address] [place] Aug, Juliana [facility] [address], failure , systolic, [place] [address] NYHA class 4 I 50.20 ; HTN (hypertensi on) I10 ; Mixed hyperlipi demia E78.2 ; Chronic atrial fibrillation I4 8.2 ; CKD (chronic kidney disease) stage 3, GFR 30 -59 ml/min N18.3 ; Prostate cancer C61 ; El evated PSA R97.20 ; Ed boo, unspecified typ e R60.9 ; Hypokalemia E87 .6 and Cardiac pacemak er in situ Z95.0 IMMUNIZATIONS No Information SOCIAL HISTORY Tobacco Use: Social History Observation Description Date Details (start date - stop date) Former Smoker Sex Assigned At : Social History Observation Description Sex Assigned At Unknown Tobacco Use/Smoking Question Answer Notes Are you a former smoker REASON FOR REFERRAL No Information VITAL SIGNS Height 65.00 in Aug, Weight 195.2 lbs Aug, Temperature 98.0 degrees Fahrenheit Aug, BMI 32.48 kg/m2 Aug, Oximetry 97 % Aug, Respiratory Rate 16 /min Aug, Blood pressure systolic 185 mm Hg Aug, Blood pressure diastolic 96 mm Hg Aug, MEDICATIONS Medication SIG (Take, Route, Start Date End Date Status Frequency, Duration) Losartan Potassium 100 MG 1 tablet Orally Once a day Active for 90 days Plavix 75 MG 1 tablet Orally Once a day A ctive for 90 days Triamcinolone Acetonide 0.1 % 1 application to affected Nov, 0 Active area Externally Twice a day for 90 days Crestor 20 MG 1 tablet Orally Once a day Unknown Potassium Chloride ER 20 MEQ 2 tablets with food Orally Active Twice a day for 90 days Eliquis 2.5 mg 2.5 mg one tablet by mouth twice Active daily for 90 days Rosuvastatin Calcium 20 MG 1 tablet Orally Once a day Active for 90 days Losartan Potassium 25 MG TAKE ONE TABLET BY MOUTH Unknown ONCE DAILY Tamsulosin HCl 0.4 MG 1 capsule Orally Once a Active day for 90 days Omeprazole 40 MG Take 1 capsule by mouth Active once daily for 90 days for 90 Coreg 3.125 MG one tab Orally twice a day Active for 90 days Protonix 40 MG 1 tablet Orally Once a day Unknown Carvedilol 3.125 MG TAKE ONE TABLET BY MOUTH Unknown TWICE DAILY Nitrostat 0.4 MG 1 tab under tongue every 5 Active min as needed for chest pain. 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 0) Aug, HTN (hypertension) (ICD-10 - I10) Aug, Congestive heart failure, systolic, left NYHA class 4 (ICD-10 - I50.20) Aug, Edema, unspecified type (ICD-10 - R60.9) Aug, Elevated PSA (ICD-10 - R97.20) Aug, Hypokalemia (ICD-10 - E87.6) PLAN OF TREATMENT Medication Medication Name Sig Start Date Stop Date Potassium Chloride ER 20 MEQ 2 tablets with food Orally Twice a day for 90 days Rosuvastatin Calcium 20 MG 1 tablet Orally Once a day for 90 days Lasix 20 MG 1 tablet Orally once a day for 30 days Eliquis 2.5 mg 2.5 mg one tablet by mouth twice daily for 90 days Carvedilol 12.5 MG 1 tablet Orally Twice a day for 90 days Tamsulosin HCl 0.4 MG 1 capsule Orally Once a day for 90 days Losartan Potassium 100 MG 1 tablet Orally Once a day for 90 days Plavix 75 MG 1 tablet Orally Once a day for 90 days Treatment Notes Assessment Notes Clinical Notes Congestive heart failure, -low salt diet. -limit [...] edema.-- continue f/u with cardiology.-- continue potassium HTN (hypertension) Maintian a low salt DASH diet, exercise, weight loss and decrease stress recommended. Keep BP log and will review next visit. If blood pressure consistently above 140/90 return to clinic for adjustment of meds. Try to quit smoking if you currently smoke. Decrease caffeine intake if possible.- continue losartan 100mg daily for better control of BP Mixed hyperlipidemia low fat diet, decrease fast [...] cholesterol (HDL). Chronic atrial fibrillation continue current anticoagulation . monitor HR. continue f/u with cardiology. Go [...] CKD (chronic kidney disease) will monitor kidney function.- stage 3, GFR 30-59 ml/min Avoid NSAIDs ( such as ibuprofen, motrin, aleive)- Hydrate your kidneys by drinking plenty of water. Prostate cancer Patient declining treatment with PSA inc reased from 61.5 chemo/radiation but is taking 11/2018 to 80.6 08/2019 tamsulosin. Had appt with PSA increased from 61.5 01/06/19 scheduled for 11/2018 to 80.6 08/2019 chemo and radiation bone scan on 02/02/19 but declined treatement states he does not want to go through with chemo or radiation.--monitor PSA continue f/u with urology continue tamsulosin/ Elevated PSA continue tamsulosin and f/u with urology Hypokalemia continue potassium kcl 20MEQ to twice daily as likely losing potassium due to diuretic lasix. continue potassium kcl 20MEQ to twice daily as likely losing potassium due to diuretic lasix. Cardiac pacemaker in situ f/u with cardio EP specialistDrLianne Pham [place] [facility] [address] Treatment Notes Test Name Order Date Lipid Panel w/ Chol/HDL Ratio 2020-09-06 Comp. Metabolic Panel (14) (CMP) 2020-09-06 CBC With Differential/Platelet 2020-09-06 Next Appt Details 3 Months labs 1 week Reason: Provider Name:Juliana Snell, 2020-09-14 11:4 0:00 AM, [address], [address], [place], [address], Provider Name:Juliana Snell, 2020-11-27 09:0 0:00 AM, [address], [address], [place], [address], Provider Name:Juliana Snell, 2020-12-04 11:2 0:00 AM, [address], [address], [place], [address], Insurance Providers Payer Name Payer Payer Insured Patient Coverage Coverage End Address Phone Name Relationship to Start Date Dany e Insured [facility] [phone] [place] self [address] [facility] [id number] [address] [place] [address]
--- OUTSIDE RECORDS SUMMARY | 2020-11-02 17:44 | XMS REPORT ---
:1940 Author Organization [facility] Address [address] [place], [facility] [[email or web address] [address] [place] [address] Care Team Providers Name Role Phone Juliana Snell Unavailable [phone] PROBLEMS Type Condition ICD9-CM BRE53-NR Onset Condition SNOMED Code Notes Code Code Dates Status Problem Dizziness and R42 Active 354064059 giddiness Problem Pituitary adenoma D35.2 Active 564580552 Problem HTN (hypertension) I10 Active 70812673 Problem Mixed E78.2 Active 561948646 hyperlipidemia Problem Benign essential I10 Active 25655300 HTN Problem GERD K21.9 Active 412390268 (gastroesophageal reflux disease) Problem Blood tests for Z00.00 Active 963087083 routine general physical examination Problem Screening for Z12.5 Active 664324285 prostate cancer Problem Chronic fatigue R53.82 Active 56323849 Problem 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 Active 439449669 obs/LUTS Problem Small pleural J90 Active 34408022 effusion Problem CKD (chronic kidney N18.3 Active 090456902 disease) stage 3, GFR 30-59 ml/min Problem Visual disturbance H53.9 Active 66539200 Problem Chronic atrial I48.2 Active 857786315 fibrillation Problem 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 343822095 both eyes Problem 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 869951986 osteoarthritis involving multiple joints Problem 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 Active 711811936 failure, systolic, left NYHA class 4 Problem 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 463693978 in situ Problem Hypokalemia E87.6 Active 64711660 Problem Prostate cancer C61 Active 735682107 Problem Elevated PSA R97.20 Active 755095499 Problem Gastroesophageal K21.9 Active 832922865 reflux disease, esophagitis presence not specified ALLERGIES Allergen (clinical drug Drug/Non Drug Allergy Reaction Allergy Type Onset Date Status ingredient) documented on EMR lisinopril Lisinopril([facility] Unknown Drug Allergy Active Code:[address]-40) ENCOUNTERS from 1940 to 2020-09-19 Encounter Location Date Provider Diagnosis [facility] [address] [facility] [address], [place] [address] IMMUNIZATIONS No Information SOCIAL HISTORY Tobacco Use: [...] Information RESULTS No Results REASON FOR VISIT Blood pressure machine MEDICAL (GENERAL) HISTORY Type Description Date Medical [...] Orally once a day for 30 days Next Appt Details Provider Name:Juliana Snell 2020-09-27 01:0 0:00 PM, [address], [address], [place], [address], Provider Name:Juliana Snell 2020-11-27 09:0 0:00 AM, [address], [address], [place], [address], Provider Name:Juliana Snell 2020-12-04 11:2 0:00 AM, [address], [address], [place], [address], Insurance Providers Payer Name Payer Payer Insured Patient Coverage Coverage End Address Phone Name Relationship to Start Date Dany e Insured [phone] VivianJeremieubaldo colby [address] [facility] [address] [address] o MEDICARE [facility] [phone]
[2020-11-02 19:01] LABS: Absolute Lymphocytes (CBC) 1.4 K/uL (0.7-4.9); Basophils % 1.2 % (0-1.3); Hematocrit 39.7 % (39.6-49.0); Lymphocytes % 20.8 % (15.3-44.8); MPV 7.9 fL (7.6-11.3); Protime INR 1.24; RBC Red Blood Cell Count 4.72 M/uL (4.33-5.43)
--- NOTE | 2020-11-02 19:15 | RAD REPORT ---
EXAM DESCRIPTION: CT - Head Brain Wo Cont - 11/02/2020 6:52 pm CLINICAL HISTORY: Headache COMPARISON: 2017 TECHNIQUE: Computed axial tomography of the head was obtained. IV contrast was not requested. All CT scans are performed using dose optimization technique as appropriate and may include automated exposure control or mA/KV adjustment according to patient size. FINDINGS: A sellar/ suprasellar mass is present. An intracranial bleed is not seen . The ventricles are normal in caliber. No extra-axial fluid collection is noted. Mild to moderate low-density areas within periventricular, deep and subcortical white matter likely r epresent ischemic changes secondary to small vessel disease. Fluid within the sinuses/ mastoids is not seen. IMPRESSION: Sellar/suprasellar mass. MRI pituitary gland recommended
--- NOTE | 2020-11-02 19:21 | RAD REPORT ---
EXAM DESCRIPTION: Alicia Single View11/02/2020 6:56 pm CLINICAL HISTORY: Chest pain COMPARISON: 2019 FINDINGS: Small pleural effusions. Right basilar atelectasis. Upper lobes appear clear. The heart is moderately enlarged. Pacemaker leads are in place.
[2020-11-02 19:26] LABS: ALT/SGPT 23 U/L (12-78); AST/SGOT 26 U/L (15-37); Albumin 3.4 g/dL (3.4-5.0); Alkaline Phosphatase 96 U/L (45-117); BUN Blood Urea Nitrogen 18 mg/dL (7-18); Bicarbonate 33 mmol/L (21-32); Bilirubin Direct 0.2 mg/dL (0-0.2); Glucose Level 96 mg/dL (74-106); Magnesium 2.6 mg/dL (1.8-2.4); NT PRO-BNP 2716 pg/mL (<450); Potassium 3.5 mmol/L (3.5-5.1); Protein, Total 7.2 g/dL (6.4-8.2); Sodium Level 143 mmol/L (136-145); Troponin (Emerg Dept Use Only) < 0.02 ng/mL (0.0-0.045)
--- NOTE | 2020-11-02 20:04 | EDPHYS ---
Physician Documentation [facility] Name: Giuliano Park Age: 80 yrs Sex: Male : 1940 Arrival Date: 11/02/2020 Time: 17:43 Bed 20 Private MD: ED Physician Tulio Kaur HPI: 11/02 18:52 This 80 yrs old Male presents to ER via Wheelchair with complaints of kdr Headache, Dizziness, Chest Pain. 18:52 The patient has multiple c/o including FUNEZ, CP and dizziness.. Onset: The kdr symptoms/episode began/occurred gradually, yesterday. Severity of symptoms: At their worst the symptoms were mild in the emergency department the symptoms have improved mildly. The patient has not experienced similar symptoms in the past. The patient has not recently seen a physician. The patient states that since last night, he has had bilateral chest wall pain, moderate FUNEZ, slight dizziness and blurry vision. Historical: - Allergies: 17:51 Lisinopril; aa5 - PMHx: 17:51 Atrial Fib; CHF; enlarged prostate; Hypertension; Myocardial infarction; Pacemaker; aa5 - PSHx: 17:51 pacemaker; abscess removal; aa5 - Immunization history:: Adult Immunizations unknown. - Social history:: Smoking status: Patient denies any tobacco usage or history of. ROS: 18:52 Constitutional: Negative for fever, chills, and weight loss, Eyes: Negative for injury, kdr pain, redness, and discharge, ENT: Negative for injury, pain, and discharge, Neck: Negative for injury, pain, and swelling, Respiratory: Negative for shortness of breath, cough, wheezing, and pleuritic chest pain, Abdomen/GI: Negative for abdominal pain, nausea, vomiting, diarrhea, and constipation, Back: Negative for injury and pain, : Negative for injury, bleeding, discharge, and swelling, MS/Extremity: Negative for injury and deformity, Skin: Negative for injury, rash, and discoloration, Psych: Negative for depression, anxiety, suicide ideation, homicidal ideation, and hallucinations, Allergy/Immunology: Negative for hives, rash, and allergies, Endocrine: Negative for neck swelling, polydipsia, polyuria, polyphagia, and marked weight changes, Hematologic/Lymphatic: Negative for swollen nodes, abnormal bleeding, and unusual bruising. 18:52 Cardiovascular: Positive for chest pain, with movement, of the right lateral anterior chest and left lateral anterior chest. 18:52 Neuro: Positive for dizziness, headache, visual changes, Negative for altered mental status, gait disturbance, hearing loss, loss of consciousness, numbness. Exam: 19:57 Constitutional: This is a well developed, well nourished patient who is awake, alert, mh7 and in no acute distress. Head/Face: Normocephalic, atraumatic. Eyes: Pupils equal round and reactive to light, extra-ocular motions intact. Lids and lashes normal. Conjunctiva and sclera are non-icteric and not injected. Cornea within normal limits. Periorbital areas with no swelling, redness, or edema. Neck: Trachea midline, no thyromegaly or masses palpated, and no cervical lymphadenopathy. Supple, full range of motion without nuchal rigidity, or vertebral point tenderness. No Meningismus. Chest/axilla: Normal chest wall appearance and motion. Nontender with no deformity. No lesions are appreciated. Cardiovascular: Regular rate and rhythm with a normal S1 and S2. No gallops, murmurs, or rubs. Normal PMI, no JVD. No pulse deficits. 19:57 Abdomen/GI: Soft, non-tender, with normal bowel sounds. No distension or tympany. No guarding or rebound. No evidence of tenderness throughout. Back: No spinal tenderness. No costovertebral tenderness. Full range of motion. Skin: Warm, dry with normal turgor. Normal color with no rashes, no lesions, and no evidence of cellulitis. MS/ Extremity: Pulses equal, no cyanosis. Neurovascular intact. Full, normal range of motion. Neuro: Awake and alert, GCS 15, oriented to person, place, time, and situation. Cranial nerves II-XII grossly intact. Motor strength 5/5 in all extremities. Sensory grossly intact. Cerebellar exam normal. Normal gait. Psych: Awake, alert, with orientation to person, place and time. Behavior, mood, and affect are within normal limits. 19:57 ECG was reviewed by the Attending Physician. 19:57 Respiratory: the patient does not display signs of respiratory distress, Respirations: normal, Breath sounds: rhonchi, that are mild, are scattered, Respiratory rate: 18 Vital Signs: 17:51 BP 186 / 90; Pulse 82; Resp 18 S; Temp 98.6(O); Pulse Ox 100% on R/A; Weight 82.55 kg aa5 (R); Height 5 ft. 5 in. (165.10 cm) (R); Pain 5/10; 19:58 BP 166 / 90; Pulse 68; Resp 20; Pulse Ox 99% on R/A; wh 17:51 Body Mass Index 30.29 (82.55 kg, 165.10 cm) aa5 MDM: 19:57 Differential Diagnosis Chest pain, Acute [place], CHF exacerbation, Dizziness, Vertigo, mh7 Headache. Data reviewed: vital signs, nurses notes, old medical records, lab test result(s), cardiac enzymes, CBC, electrolytes, EKG, radiologic studies, CT scan, plain films. Data interpreted: Pulse oximetry: on room air is 99 %. Interpretation: normal. Counseling: I had a detailed discussion with the patient and/or guardian regarding: the historical points, exam findings, and any diagnostic results supporting the discharge/admit diagnosis, the presence of at least one elevated blood pressure reading (>120/80) during this emergency department visit, lab results, radiology results. Counseling: I had a detailed discussion with the patient and/or guardian regarding: the need for further work-up and treatment in the hospital. Response to treatment: the patient's symptoms have markedly improved after treatment. Refusal of service: The patient/guardian displays adequate decision making capability and despite a detailed discussion of alternatives, benefits, risks, and consequences refuses: Admission to the hospital for further work-up and treatment. 20:[address] [facility] 11/03 03:44 ED course: Patient was signed out to me at change of shift to check pending studies and [facility] reevaluate for disposition. NAD, VSS, no focal neurological deficits. Discussed all test results and findings with the patient and recommended admission for further care and evaluation. Patient declined and wanted to leave against medical advice. He has a normal mental status and neurological exam. Explained the possibility of permanent disability and/or if serious condition is present and goes untreated. He verbalized that he understood this information as presented. He knows that he can return to the ED if he has any concerns.. 11/02 18:30 Order name: Basic Metabolic Panel; Complete Time: 19:44 kdr 12/18 18:30 Order name: CBC with Diff; Complete Time: 19:22 kdr 1218 18:30 Order name: LFT's; Complete Time: 19:44 kdr 18 18:30 Order name: Magnesium; Complete Time: 19:44 kdr 18 18:30 Order name: NT PRO-BNP; Complete Time: 19:44 kdr 1218 18:30 Order name: PT-INR; Complete Time: 19:22 kdr 18 18:30 Order name: Troponin (emerg Dept Use Only); Complete Time: 19:44 kdr 18 18:30 Order name: XRAY Chest (1 view); Complete Time: 19:22 kdr 1218 18:30 Order name: EKG; Complete Time: 18:31 kdr 18 18:30 Order name: Cardiac monitoring; Complete Time: 19:00 kdr 1218 18:30 Order name: EKG - Nurse/Tech; Complete Time: 19:00 kdr 1218 18:30 Order name: IV Saline Lock; Complete Time: 18:36 kdr 11/02 18:30 Order name: Labs collected and sent; Complete Time: 18:36 kdr 18 18:30 Order name: CT Head Brain wo Cont; Complete Time: 19:22 kdr 1218 18:30 Order name: O2 Per Protocol; Complete Time: 18:36 kdr 18 18:30 Order name: O2 Sat Monitoring; Complete Time: 18:36 kdr EC/18 19:57 Rate is 75 beats/min. Rhythm is regular. Clinical impression: Paced rhythm. mh7 Administered Medications: No medications were administered Disposition: 11/02/20 20:04 Patient has left against medical advice. Impression: Chest pain, unspecified, Dizziness and giddiness, Headache, Suprasellar Brain Mass-Chronic. - Patients states they are going to Home. - Condition is Stable. - Discharge Instructions: Dizziness, General Headache Without Cause, Nonspecific Chest Pain, [id number]. Follow up: Juliana Snell MD; When: 24 Hours; Reason: Worsening of condition, Recheck today's complaints, Continuance of care, Re-evaluation by your physician. Follow up: Wayne Ferguson MD; When: 24 Hours; Reason: Worsening of condition, Recheck today's complaints. - Problem is new. - Symptoms have improved. Signatures: Dispatcher [employer] EDDuncan Levine MD MD [facility] Arianna Barton, RN RN aa5 Pavan Cornejo Maurice, MD MD 7 Corrections: (The following items were deleted from the chart) 20:25 20:04 11/02/2020 20:04 Patients has left against medical advice. Impression: Chest wh pain, unspecified; Dizziness and giddiness; Headache; Suprasellar Brain Mass-Chronic. Patient states they are going to Home. Condition is Stable. Follow up: Juliana Snell; When: 24 Hours; Reason: Worsening of condition, Recheck today's complaints, Continuance of care, Re-evaluation by your physician. Follow up: Wayne Ferguson; When: 24 Hours; Reason: Worsening of condition, Recheck today's complaints. Problem is new. Symptoms have improved. mh7
--- NOTE | 2020-11-02 20:04 | ER ---
Nurse's Notes [facility] Name: Giuliano Park Age: 80 yrs Sex: Male : 1940 Arrival Date: 11/02/2020 Time: 17:43 Bed 20 Private MD: Diagnosis: Chest pain, unspecified;Dizziness and giddiness;Headache;Suprasellar Brain Mass-Chronic Presentation: 11/02 17:51 Onset of symptoms was October 2020. aa5 17:51 Acuity: CALEB 2 aa5 17:51 Chief complaint: Patient states: headache to back of head, dizziness, nausea, blurry aa5 vision, and aleksandra shoulder pain radiating to chest. Pt denies cough, denies vomiting, denies diarrhea. 17:51 Coronavirus screen: headache, nausea, Client presents with at least one sign or symptom aa5 that may indicate coronavirus-19. Standard/surgical mask placed on the client. Provider contacted for isolation considerations. Ebola Screen: Patient negative for fever greater than or equal to 101.5 degrees Fahrenheit, and additional compatible Ebola Virus Disease symptoms. Initial Sepsis Screen: Does the patient meet any 2 criteria? No. Patient's initial sepsis screen is negative. Does the patient have a suspected source of infection? No. Patient's initial sepsis screen is negative. Risk Assessment: Do you want to hurt yourself or someone else? Patient reports no desire to harm self or others. 17:51 Method Of Arrival: Wheelchair aa5 Triage Assessment: 18:46 General: Appears in no apparent distress. Behavior is calm, cooperative. Pain: ll1 Complains of pain in head Pain currently is 5 out of 10 on a pain scale. Pain began 1 day ago. Also complains of nausea. Neuro: Level of Consciousness is awake, alert, obeys commands, Oriented to person, place, time, situation, Appropriate for age [employer] are equal bilaterally Moves all extremities. Full function Gait is steady, Speech is normal, Facial symmetry appears normal, Reports blurred vision dizziness, headache. Cardiovascular: Reports chest pain, Heart tones S1 S2 Capillary refill < 3 seconds Clubbing of nail beds is absent JVD is absent Patient's skin is warm and dry. Pulses are all present. Rhythm is regular. Respiratory: Reports pain with movement Airway is patent Trachea midline Respiratory effort is even, unlabored, Respiratory pattern is regular, symmetrical, Breath sounds are clear bilaterally. GI: Abdomen is flat, Bowel sounds present X 4 quads. Abd is soft and non tender X 4 quads. Reports nausea. Musculoskeletal: Circulation, motion, and sensation intact. Capillary refill < 3 seconds, Range of motion: intact in all extremities, Reports pain in shoulders. 18:49 Headache History: The patient has had previous headaches and this one is similar to ll1 previous episodes. Historical: - Allergies: 17:51 Lisinopril; aa5 - PMHx: 17:51 Atrial Fib; CHF; enlarged prostate; Hypertension; Myocardial infarction; Pacemaker; aa5 - PSHx: 17:51 pacemaker; abscess removal; aa5 - Immunization history:: Adult Immunizations unknown. - Social history:: Smoking status: Patient denies any tobacco usage or history of. Screenin:46 Abuse screen: Denies threats or abuse. Nutritional screening: No deficits noted. ll1 Tuberculosis screening: No symptoms or risk factors identified. Fall Risk IV access (20 points). Total Stout Fall Scale indicates No Risk (0-24 pts). Assessment: 18:51 Reassessment: Patient appears in no apparent distress at this time. No changes from [facility] previously documented assessment. Patient and/or family updated on plan of care and expected duration. Pain level reassessed. to CT via stretcher. 19:15 General: Appears in no apparent distress. Behavior is calm, cooperative, appropriate wh for age. Pain: Complains of pain in chest and shoulder. Neuro: Level of Consciousness is awake, alert, obeys commands, Oriented to person, place, time, situation, Appropriate for age Reports blurred vision dizziness, headache. Cardiovascular: Capillary refill < 3 seconds. Cardiovascular: Heart tones S1 S2. Respiratory: Airway is patent Respiratory effort is even, unlabored, Respiratory pattern is regular, symmetrical. Respiratory: Breath sounds are clear bilaterally. Respiratory: Reports cough that is. GI: Abdomen is flat, non-distended. : No signs and/or symptoms were reported regarding the genitourinary system. EENT: No signs and/or symptoms were reported regarding the EENT system. Derm: Skin is intact, Skin is pink, warm \T\ dry. Musculoskeletal: Circulation, motion, and sensation intact. 19:55 Reassessment: Patient appears in no apparent distress at this time. No changes from previously documented assessment. Patient and/or family updated on plan of care and expected duration. Pain level reassessed. Patient is alert, oriented x 3, equal unlabored respirations, skin warm/dry/pink. MD at bedside explaining POC need for admit but Pt refusing and will sign out AMA. Vital Signs: 17:51 BP 186 / 90; Pulse 82; Resp 18 S; Temp 98.6(O); Pulse Ox 100% on R/A; Weight 82.55 kg aa5 (R); Height 5 ft. 5 in. (165.10 cm) (R); Pain 5/10; 19:58 BP 166 / 90; Pulse 68; Resp 20; Pulse Ox 99% on R/A; wh 17:51 Body Mass Index 30.29 (82.55 kg, 165.10 cm) aa5 ED Course: 17:43 Patient arrived in ED. rg4 17:51 Arm band placed on. aa5 17:52 Triage completed. aa5 18:01 Alex Peters, RN is Primary Nurse. ll1 18:29 Duncan Daniel MD is Attending Physician. kdr 18:46 Inserted saline lock: 20 gauge in right antecubital area, using aseptic technique. ll1 Blood collected. 18:48 Patient has correct armband on for positive identification. Bed in low position. Call ll1 light in reach. Side rails up X 1. Pulse ox on. NIBP on. 18:52 CT Head Brain wo Cont In Process Unspecified. EDMS 18:56 XRAY Chest (1 view) In Process Unspecified. EDMS 19:22 Attending Physician role handed off by Duncan Daniel MD [facility] 19:22 Tulio Kaur MD is Attending Physician. 7 20:02 Juliana Snell MD is Referral Physician. 7 20:02 Wayne Ferguson MD is Referral Physician. [facility] 20:24 No provider procedures requiring assistance completed. IV discontinued, intact, bleeding controlled, No redness/swelling at site. Administered Medications: No medications were administered Outcome: 20:24 AMA AMA form signed 20:24 Condition: stable 20:24 Discharge instructions given to patient, family, Instructed on discharge instructions, follow up and referral plans. POC Demonstrated understanding of instructions, follow-up care, POC 20:25 Patient left the ED. Signatures: Dispatcher [employer] EDMS Duncan Daniel MD MD [facility] Arianna Barton RN RN aa5 Angie Perez 4 Pavan Cornejo Alex Peters RN RN ll1 Tulio Kaur MD MD [email or web address] Corrections: (The following items were deleted from the chart) 17:54 17:51 Acuity: CALEB 3 aa5 aa5
--- NOTE | 2020-11-03 13:59 | EKG ---
Test Date: 2020-11-02 Test Time: 18:03:09 Assistant Hall Director: ROJAS MEASUREMENT RESULTS: Intervals: Rate: 75 DE: QRSD: 176 QT: 480 QTc: 536 Orwell: P: DE: QRS: 241 T: 70 INTERPRETIVE STATEMENTS: Electronic ventricular pacemaker Compared to ECG 03/20/2017 10:26:45 No significant changes Electronically Signed On 11-03-20 13:58:23 BLOCKING MACHINE OPERATOR by Wayne Ferguson
[2020-11-05 18:17] VITALS: BP 166/90; O2SAT 99
== END 2020-11-02 20:25 | disposition left against medical advice (07) ==
LOC: ER 17:38
DX: R07.9 Chest pain, unspecified (principal); R42 Dizziness and giddiness; G93.9 Disorder of brain, unspecified; I10 Essential (primary) hypertension; I50.9 Heart failure, unspecified; Z88.8 Allergy status to other drugs, medicaments and biological substances; Z95.0 Presence of cardiac pacemaker
CPT/HCPCS: 36415; 70450; 71045; 80048; 80076; 83735; 83880; 84484; 85025; 85610; 93005; 99284

== ENCOUNTER 2021-07-10 19:17 | Observation (INO) | payer OTHER ==
--- OUTSIDE RECORDS SUMMARY | 2021-07-10 19:22 | XMS REPORT | Continuity of Care Document ---
:1940 Author Organization [facility] t Address [address] [place] [address] Care Team Providers Name Role Phone Juliana Snell DO Primary Care Physician HEMATPOUR Attending Clinician Unavailable DANDRE Attending Clinician Unavailable SELENA Attending Clinician Unavailable Selena CHO Attending Clinician Laura CHO Attending Clinician Yoan CHO Attending Clinician Tiff CHO Attending Clinician Unavailable MERCEDES Attending Clinician Unavailable ADRIEL WHELAN Attending Clinician Unavailable PHYLICIA Attending Clinician Unavailable PETTY Attending Clinician Unavailable ADAM GARCIA Attending Clinician Unavailable Verenice NI Admitting Clinician Unavailable PHYLICIA Admitting Clinician Unavailable PETTY Admitting Clinician Unavailable ADAM GARCIA Admitting Clinician Unavailable Payers Payer Name Policy Type Policy Number Effective Date Expiration Date Prieto pina [facility] COMMUNITY PLAN [id number] 2020 MEDICARE SNP 00:00:00 DUAL COMPLETE SNP [id number] [facility]-MEDICAID - [id number] MEDICAID RICARDO OLSON O [id number] 2018 - SE* SELECTCARE 00:00:00 [place] [employer] [place] [id number] 2008 HMO-GABRIEL PCP 00:00:00 WELLCARE [place] [id number] 2018 HMO-WELLCARE 00:00:00 Problems Condition Condition Condition Status Onset Resolution Last Treating Co mments Source Name Details Category Date Date Treatment Clinician Date Tricuspid Tricuspid Disease Active Overview: [facility] reg[facility] regurgitat 8-04 S/p Jamila kes - ion ion 00:00: Tricuspid Medical 00 valvulopl Center asty with Atrial appendage ligation( 06/19/2017) 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 00:00: Medical disease disease 00 Center Hypertensi Hypertensi Disease Active [facility] on on 04-06 [facility] - 00:[facility]: Medical 00 Center 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 04-06kes - disease disease 00:00: Medical involving involving 00 Cent er kashia kashia coronary coronary artery artery Non-rheuma Non-rheuma Disease [...] (congestiv e) heart e) heart failure failure Pacemaker Pacemaker Disease Active [facility] - 00:[facility]: Medical 00 Center History of History of Disease Active [facility] atrial atrial 03-20 [facility] - fibrillati fibrillati 00:00: Me dical on on 00 [place] Suprasella Suprasella Disease Active [facility] r mass r mass 5-05 [facility] - 00:00: Medical 00 [place] No known No known Disease Metho di active active st problems problems Hospit a l Allergies, Adverse Reactions, Alerts Allergy Allergy Status Severity Reaction(s) Onset Inactive Treating Comm ents Source Name Type Date Date Clinician Lisinopr Adverse Active Info Not [facility] Reaction Available [facility] Social History Social Habit Start Date Stop Date Quantity Comments Source Sex Assigned At [facility] Tobacco use and 2017-07-29 2017-07-29 Never used [facility] - exposure 00:00:00 00:00:00 [facility] Alcohol intake 2017-07-29 2017-07-29 Current [facility]k es - 00:00:00 00:00:00 non-drinker of Medical nter alcohol (finding) History of 2012-11-16 Cigarette Smoker [facility] Start Date Stop Date Source Former smoker 2017-07-29 00:00:00 2017-07-29 00:00:00 [facility] Medications Ordered Filled Start Stop Current Ordering Indication Dosage Frequency Signature Comments Components Source Medication Medication Date Date Medication? Clinician (SIG) Name Name Omeprazole Omeprazole Yes Na Snell [address] [facility] 4[facility]24 [facility] - 00:00: Memoria 00 l [facility] ent [facility] Triamcinolo Triamcinolo 0 Yes Na Snell [address] [facility] ne ne 1-14 applicatio [facility] - Acetonide Acetonide 00:00: n to Mem oria 00 affected l area [facility] ent [facility] losartan 2016-[address] [facility] (COZAAR) 25 1-27 ONE-HALF Luke s - MG tablet 00:00: TABLET BY Med ical 00 MOUTH ONCE Center DAILY losartan 2016-[address] [facility] [facility] (COZAAR) 25 1-27 ONE-HALF Luke s - MG tablet 00:00: TABLET BY Med ical 00 MOUTH ONCE Center DAILY aspirin 81 Yes 81mg QD Take [address] MG EC 13 by mouth [facility] - tablet 12:51: daily. [address] rosuvastati 2017-0 Yes 20mg QD Take [address] [facility] n (CRESTOR) 9-13 by mouth Luke s - 20 MG 12:51: daily. Medical tablet 15 Center pantoprazol 2017-0 Yes 40mg QD Take [address] [facility] e 9-13 by mouth [facility] - (PROTONIX) 12:51: daily. Medic al 40 MG 15 Center tablet promethazin 2017-0 Yes 25mg Take [address] [facility] e 9-13 by mouth [facility] - (PHENERGAN) 12:51: every 6 Med ical 25 MG 15 (six) Center tablet hours as needed for Nausea. nitroglycer [address] 0.[address] in 9-13 mg under [facility] - (NITROSTAT) 12:51: the tongue Medical 0.4 MG SL 15 every 5 Center tablet (five) minutes as needed for Chest pain Put 1 pill under tongue every 5min as needed for chest pain.No more than 3 doses in 15min.Call 911 if pain is unrelieved 5min after 1st dose . clopidogrel 20170 Yes 75mg QD Take [address] (PLAVIX) 75 9-13 by mouth Luke s - mg tablet 12:51: daily. Medica l 15 Center aspirin 81 20170 Yes 81mg QD Take [address] MG EC 9-13 by mouth [facility] - tablet 12:51: daily. Medical 15 Center rosuvastati 2017-0 Yes 20mg QD Take [address] n (CRESTOR) 9-13 by mouth Luke s - 20 MG 12:51: daily. Medical tablet 15 Center pantoprazol 2017-0 Yes 40mg QD Take [address] [facility] e 9-13 by mouth [facility] - (PROTONIX) 12:51: daily. Medic al 40 MG 15 Center tablet promethazin 20170 Yes 25mg Take [address] [facility] e 9-13 by mouth [facility] - (PHENERGAN) 12:51: every 6 Med ical 25 MG 15 (six) Center tablet hours as needed for Nausea. nitroglycer 2017-[address] 0[address] in 9-13 mg under [facility] - (NITROSTAT) 12:51: the tongue Medical 0.4 MG SL 15 every 5 Center tablet (five) minutes as needed for Chest pain Put 1 pill under tongue every 5min as needed for chest pain.No more than 3 doses in 15min.Call 911 if pain is unrelieved 5min after 1st dose . clopidogrel 2017-0 Yes 75mg QD Take [address] (PLAVIX) 75 9-13 by mouth Luke s - mg tablet 12:51: daily. Medica l 15 Center metoprolol 2017-0 Yes 100mg Q.5D Take 100 Me thodi tartrate 7-[address] (LOPRESSOR) 14:06: mouth 2 Hos vesta 50 mg 30 (two) l tablet times a day. rosuvastati 2017-0 Yes 20mg QD Take 20 mg Methodi n (CRESTOR) 7-[address] 20 MG 14:06: daily. Hospita tablet 30 l nitroglycer 2017-[address] 0.4 M ethodi in 7-[address] (NITROSTAT) 14:06: the tongue Hospita 0.4 MG SL 30 every 5 l tablet (five) minutes as needed for chest pain. amIODarone 2016-0 Yes 200mg QD Take 200 Me thodi (PACERONE) 7-[address] 200 MG 14:06: mouth Hospita tablet 30 daily. l aspirin 20170 Yes 81mg Take 81 mg Meth elkin (ECOTRIN) 7-[address] 81 MG 14:06: Hospita enteric 30 l coated tablet clopidogrel 2016-0 Yes 75mg QD Take 75 mg Methodi (PLAVIX) 75 7-[address] mg tablet 14:06: daily. Hospit a 30 l sacubitril- 2017-0 Yes 1{tbl} Q.5D Take 1 Me thodi valsartan 7-[address] (ENTRESTO) 14:06: mouth 2 Hosp eber 24-26 mg 30 (two) l tablet per times a tablet day. isosorbide 2017-0 Yes 10mg QD Take 10 mg M ethodi mononitrate 7-[address] (ISMO,MONOK 14:06: daily. Hosp eber ET) 10 MG 30 l tablet isosorbide 2017-0 Yes 10mg QD Take 10 mg M ethodi mononitrate 7-[address] (ISMO,MONOK 14:06: daily. Hosp eber ET) 10 MG 30 l tablet metoprolol 2017-0 Yes 100mg Q.5D Take 100 Me thodi tartrate 7-[address] (LOPRESSOR) 14:06: mouth 2 Hos vesta 50 mg 30 (two) l tablet times a day. rosuvastati Yes 20mg QD Take 20 mg Methodi n (CRESTOR) 7-[address] 20 MG 14:06: daily. Hospita tablet 30 l nitroglycer Yes .4mg Place 0.4 M ethodi in 7-[address] (NITROSTAT) 14:06: the tongue Hospita 0.4 MG SL 30 every 5 l tablet (five) minutes as needed for chest pain. amIODarone Yes 200mg QD Take 200 Me thodi (PACERONE) 7-[address] 200 MG 14:06: mouth Hospita tablet 30 daily. l aspirin Yes 81mg Take 81 mg Meth elkin (ECOTRIN) 7-[address] 81 MG 14:06: Hospita enteric 30 l coated tablet clopidogrel Yes 75mg QD Take 75 mg Methodi (PLAVIX) 75 7-[address] mg tablet 14:06: daily. Hospit a 30 l sacubitril- Yes 1{tbl} Q.5D Take 1 Me thodi valsartan 7-[address] (ENTRESTO) 14:06: mouth 2 Hosp eber 24-26 mg 30 (two) l tablet per times a tablet day. Nitrostat Nitrostat Yes Na Snell [address] [facility] Carvedilol Carvedilol Yes Na Snell [address] [facility] Protonix Protonix Yes Na Snell [address] [facility] Potassium Potassium Yes Na Snell [address] Chloride ER Chloride ER with food [facility] Carvedilol Carvedilol Yes Na Snell TAKE ONE [facility] TABLET BY [facility] - MOUTH Memoria TWICE l DAILY [facility] Losartan Losartan Yes Na Snell [address] Potassium Potassium [facility] Tamsulosin Tamsulosin Yes Na Snell [address] HCl HCl [facility] Crestor Crestor Yes Na Snell [address] [facility] Rosuvastati Rosuvastati Yes Na Snell [address] [facility] n Calcium n Calcium [facility] Lasix Lasix Yes Na Snell [address] [facility] Losartan Losartan Yes Na Snell TAKE ONE [facility] Potassium Potassium TABLET BY [facility]ukes - MOUTH ONCE Memoria DAILY l [facility] Coreg Coreg Yes Na Snell one tab [facility] Eliquis 2.5 Eliquis 2.5 Yes Na Snell one tablet [facility] mg mg [facility] Plavix Plavix Yes Na Snell [address] [facility] Procedures This patient has no known procedures. Plan of Care Planned Activity Planned Date Details Comments Source Future Scheduled Test COVID-19 VACCINE (1) [facility] [code = COVID-19 VACCINE (1)] Future Scheduled Test SHINGLES VACCINES (#1) [facility] [code = SHINGLES VACCINES (#1)] Future Scheduled Test 65+ PNEUMOCOCCAL [facility] VACCINE (1 of 1 - PPSV23) [code = 65+ PNEUMOCOCCAL VACCINE (1 of 1 - PPSV23)] Future Scheduled Test INFLUENZA VACCINE [code [facility] = INFLUENZA VACCINE] Future Scheduled Test COVID-19 VACCINE (1) [facility] [code = COVID-19 VACCINE (1)] Future Scheduled Test SHINGLES VACCINES (#1) [facility] [code = SHINGLES VACCINES (#1)] Future Scheduled Test 65+ PNEUMOCOCCAL [facility] VACCINE (1 of 1 - PPSV23) [code = 65+ PNEUMOCOCCAL VACCINE (1 of 1 - PPSV23)] Future Scheduled Test INFLUENZA VACCINE [code [facility] = INFLUENZA VACCINE] Encounters Start End Encounter Admission Attending Care Care Encounter Source Date/Time Date/Time Type Type Clinicians Facility Department ID 2021-06-28 Outpatient HEMATPO, [facility] [id number] [place] 09:28:52 [facility] 2021-06-06 Outpatient HEMATPOUR, [facility] [id number] [place] 13:47:44 [facility] 2021-05-22 Outpatient DANDRE [facility] [id number] [place] 11:06:44 [facility] 2021-04-17 Outpatient HEMATPOUR, [facility] [id number] [place] 10:37:30 [facility] 2021-04-17 Outpatient DANDRE, [facility] [id number] [place] 09:48:55 [facility] 2021-04-01 Outpatient HEMATPOUR, [facility] [id number] [place] 16:21:00 [facility] 2021-06-28 2021-06-28 Office Mick, UTP 6400 [id number] 08:50:46 09:29:[address] [id number] 2021-06-06 2021-06-06 Outpatient [facility] [id number] [facility] St 00:00:00 00:00:00 [facility] ent Clinics 2021-05-31 2021-05-31 Outpatient [facility] CAR [id number] [facility] 07:09:00 07:09:00 2021-05-22 2021-05-22 Office Dandre, ELIER 6400 [id number] 11:06:33 12:28:[address] [id number] [id number] 2021-05-22 2021-05-22 Orders Dandre, [facility]TP 6400 [id number] [id number] 00:00:00 00:00:[address] [id number] 9.2.7.2.686 [id number] 2021-05-09 2021-05-09 Telephone Mick, [facility] 6400 [id number] 00:00:00 00:00:[address] [id number] [id number] 2021-05-03 2021-05-03 Telephone Mick, [facility] [id number] 00:00:00 00:00:00 [facility] 350.1.13.58 PLAZA 2 9.2.7.2.686 [id number] 2021-04-23 2021-04-23 Outpatient [facility] [id number] [facility] 2021-03-22 2021-03-22 Outpatient HERRERA WALTERS [facility] [id number] [facility] 08:23:03 16:25:[facility] 2021-03-22 2021-03-22 Office Herrera Walters [facility] 1.2.840.114 [id number] 08:23:03 08:53:03 Visit AMBULATOR 350.1.13.21 Y 0.2.7.2.686 [id number] 2021-03-13 2021-03-13 Out[facility] [id number] [facility]00 [facility] 2021-03-12 2021-03-12 Office Laura [facility] 1.2.840.114 [id number] 14:47:34 15:46:56 Visit Jace AMBULATOR 350.1.13.21 Y 0.2.7.2.686 [id number] 2021-03-11 2021-03-11 Outpatient [facility] [id number] [facility]00 00[facility]:00 [facility] 2021-03-05 2021-03-05 Office Yoan, BC 1.2.840.114 [id number] 11:21:44 12:13:02 Visit Bahar AMBULATOR 350.1.13.21 Y 0.2.7.2.686 [id number] 2020-12-18 2020-12-18 Office Rowdy Matthew BCM 1.2.840.114 [id number] 11:32:56 12:45:59 Visit AMBULATOR 350.1.13.21 Y 0.2.7.2.686 [id number] 2020-12-062020-12-06 Outpatient [facility] [id number] [facility] 2020-12-04 2020-12-04 Outpatient [facility] [id number] [facility] 2020-11-26 2020-11-26 Outpatient [facility] [id number] [facility] 2020-11-14 2020-11-14 Outpatient [facility] [id number] [facility] 2020-11-08 2020-11-08 Outpatient [facility] [id number] [facility] 2020-11-06 2020-11-06 Outpatient [facility] [id number] [facility] 2020-09-19 2020-09-19 Outpatient [facility] [id number] [facility] 2020-09-14 2020-09-14 Outpatient [facility] [id number] [facility] 2020-08-31 2020-08-31 Outpatient [facility] [id number] [facility] 2020-08-24 2020-08-24 Outpatient [facility] [id number] [facility] 2020-06-26 2020-06-26 [facility] [id number] 15:59:00 15:59:00 t [employer] [facility] Outpati ent Clinics 2020-06-11 2020-06-11 [facility] [id number] 14:08:00 14:08:00 t [email or web address] [facility] Medicine Medicine Outpati ent Clinics 2020-05-30 2020-05-30 [facility] [id number] 10:20:00 10:20:00 t [email or web address] [facility] l Medicine Outpati ent Clinics 2020-04-16 2020-04-16 [facility] [id number] 10:27:00 10:27:00 t [email or web address] [facility] Medicine l Medicine Outpati ent Clinics 2020-03-09 2020-03-09 [facility] [id number] 15:00:00 15:00:00 t [email or web address] [facility] Medicine Outpati ent Clinics 2020-02-28 2020-02-28 [facility] [id number] 08:00:00 08:00:00 t [email or web address] [facility] Medicine Outpati ent Clinics 2020-01-12 2020-01-12 [facility] [id number] 16:30:00 16:30:00 t [email or web address] [facility] Medicine Outpati ent Clinics 2019-12-26 2019-12-26 [facility] [id number] 09:19:00 09:19:00 t [email or web address] [facility] Medicine Outpati ent Clinics 2019-12-23 2019-12-23 [facility] [id number] 17:21:00 17:21:00 t [email or web address] [facility] Medicine Outpati ent Clinics 2019-11-29 2019-11-29 [facility] [id number] 08:00:00 08:00:00 [email or web address] [facility] Medicine Outpati ent Clinics 2019-11-21 2019-11-21 [facility] [id number] 16:38:00 16:38:00 t [email or web address] [facility] Medicine Outpati ent Clinics 2019-08-25 2019-08-25 [facility] [id number] 15:20:00 15:20:00 [place] [employer] s - Drive [facility] Medicine Outpati ent Clinics 2019-08-08 2019-08-08 [facility] [id number] 14:59:00 14:59:00 [place] [employer] s - Drive [facility] Outpati ent Clinics 2019-06-21 2019-06-21 [facility] [id number] 15:29:00 15:29:00 t [place] [employer] s - Drive [facility] Medicine Outpati ent Clinics 2019-06-03 2019-06-03 [facility] [id number] 13:40:00 13:40:00 [place] [employer] s - Drive [facility] Outpati ent Clinics 2019-02-28 2019-02-28 [facility] [id number] 15:40:00 15:40:00 t [place] [employer] s - Drive [facility] Medicine Outpati ent Clinics 2019-01-03 2019-01-03 [facility] [id number] 15:15:00 15:15:00 t [place] [employer] s - Drive [facility] Medicine Outpati ent Clinics 2018-12-31 2018-12-31 [facility] [id number] 09:59:00 09:59:00 t Specialty/U Jamila kes - Specialty rology Memori a /Urology Clinic l Clinic Outpati ent Clinics 2018-12-28 2018-12-28 [facility] [id number] 13:00:00 13:00:00 t Specialty/U Jamila kes - Specialty rology Memori a /Urology Clinic l Clinic Outpati ent Clinics 2018-12-23 2018-12-23 [facility] [id number] 15:11:00 15:11:00 t Specialty/U Jamila kes - Specialty rology Memori a /Urology Clinic l Clinic Outpati ent Clinics 2018-12-20 2018-12-20 [facility] [id number] 11:04:00 11:04:00 t Urgent Urgent Care L ukes - Care Clinic Memoria Clinic l Outpati ent Clinics 2018-12-20 2018-12-20 [facility] [id number] 09:02:00 09:02:00 t [email or web address] [facility] 2018-12-17 2018-12-17 [facility] [id number] 11:05:00 11:05:00 t [facility] Outpati ent Clinics 2018-12-17 2018-12-17 [facility] [id number] 10:57:00 10:57:00 t Specialty/U Jamila kes - Specialty rology Memori a /Urology Clinic l Clinic Outpati ent Clinics 2018-12-06 2018-12-06 [facility] [id number] 09:51:00 09:51:00 t [email or web address] [facility] 2018-12-01 2018-12-01 [facility] [id number] 10:00:00 10:00:00 t Specialty/U Jamila kes - Specialty rology Memori a /Urology Clinic l Clinic Outpati ent Clinics 2018-11-30 2018-11-30 [facility] [id number] 09:15:00 09:15:00 t [email or web address] [facility] Outpati ent [facility] 2018-08-17 2018-08-17 [facility] [id number] 14:43:00 14:43:00 t Specialty/U Jamila kes - Specialty rology Memori a /Urology Clinic l Clinic Outpati ent Clinics 2018-08-12 2018-08-12 [facility] [id number] 13:07:00 13:07:00 t Specialty/U Jamila kes - Specialty rology Memori a /Urology Clinic l Clinic Outpati ent Clinics 2018-08-12 2018-08-12 [facility] [id number] 09:15:00 09:15:00 t Specialty/U Jamila kes - Specialty rology Memori a /Urology Clinic l Clinic Outpati ent Clinics 2018-08-06 2018-08-06 Outpatient Chantal Alvarez [id number] 16:01:00 16:01:00 [facility] 2018-06-24 2018-06-24 Outpatient Chantal Alvarez [id number] 14:45:00 14:45:00 [facility] Results Test Description Test Time Test Comments Results Result Comments Source B-TYPE NATRIURETIC FACTOR (BNP) 2017-07-29 15:05:00 Test Item Value Reference Range Interpretation Comme nts B-TYPE NATRIURETIC PEPTIDE (BEAKER) (test code = 700) 1331 pg/mL 0-100 H [id number] 14:58:00 Test Item Value Reference Range Interpretation Comments MAGNESIUM (BEAKER) (test code = 2.2 mg/dL 1.6-2.6 627) BASIC METABOLIC [id number] 14:58:00 Test Item Value Reference Range Interpretation [...] NOT APPLICABLE FOR DIALYSIS PATIEN TS. POCT-GLUCOSE [id number] 12:54:00 Test Item Value Reference Range Interpretation Comments POC-GLUCOSE METER 108 mg/dL 70-[address] [facility] 6720 (BEAKER) (test code = KATHYA Mora [facility] 1538) 45075 POCT-GLUCOSE [id number] 08:45:00 Test Item Value Reference Range Interpretation Comments POC-GLUCOSE METER 114 mg/dL 70-[address] [facility] 6720 (DANA) (test code = KATHYA Mora [facility] 1538) [id number] BASIC METABOLIC [id number] 06:04:00 Test Item Value Reference Range Interpretation [...] NOT APPLICABLE FOR DIALYSIS PATIEN TS. TROPONIN [id number] 22:40:00 Test Item Value Reference Range Interpretation Comments TROPONIN I (MARSHALAKER) (test code = 1.42 ng/mL 0.00-0.03 397) Effective 10/03/2014: Reference Range ChangeNew: 0.00-0.03 [...] acidosis, acute neurological disease, and persistent tachyarrhythmia.POCT-GLUCOSE [id number] 21:44:00 Test Item Value Reference Range Interpretation Comments POC-GLUCOSE METER 109 mg/dL 70-110 TESTED AT [place] [address] ([facility]) (test code = KATHYA Mora [facility] 1538) [id number] POCT-GLUCOSE [id number] 20:16:00 Test Item Value Reference Range Interpretation Comments POC-GLUCOSE METER 113 mg/dL 70-110 H TESTED AT [place] [address] ([facility]) (test code = KATHYA Mora [facility] 1538) 42078 POCT-GLUCOSE [id number] 20:11:00 Test Item Value Reference Range Interpretation Comments POC-GLUCOSE METER 98 mg/dL 70-110 TESTED AT [place] [address] ([facility]) (test code = KATHYA Mora [facility] 25927 1538) POCT-GLUCOSE [id number] 20:01:00 Test Item Value Reference Range Interpretation Comments POC-GLUCOSE METER 121 mg/dL 70-110 H TESTED AT [place] [address] ([facility]) (test code = KATHYA Mora [facility] 1538) [id number] TROPONIN [id number] 12:06:00 Test Item Value Reference Range Interpretation Comments TROPONIN I (AKER) (test code = 1.72 ng/mL 0.00-0.03 397) Effective 10/03/2014: Reference Range ChangeNew: 0.00-0.03 [...] acute neurological disease, and persistent tachyarrhythmia.BASIC METABOLIC [id number] 12:05:00 Test Item Value Reference Range Interpretation [...] PATIEN TS. CREATINE KINASE (CK), TOTAL AND [id number] 12:05:00 Test Item Value Reference Range Interpretation Comments CREATINE KINASE TOTAL (BEAKER) 43 U/L 29-200 (test code = 380) CREATINE KINASE-MB (BEAKER) (test 2.1 ng/mL 0.0-6.6 code = 750) CREATINE KINASE-MB INDEX (BEAKER) 4.9 % (test code = 395) Effective 10/03/2014: CK-MB Reference Range ChangeNew: 0.0-6.6 Previous: 0.0-4.9CK-MB Reference Range:<6.7 Normal6.7-10.0 Borderline>10.0 AbnormalCBC W/PLT COUNT & AUTO [id number] 05:21:00 Test Item Value Reference Range Interpretation [...] (BEAKER) (test code = 2801) URINALYSIS W/ [id number] 20:09:00 Test Item Value Reference Range Interpretation [...] 520) SOURCE(BEAKER) (test code = Urine, Voided 9955) TROPONIN [id number] 14:12:00 Test Item Value Reference Range Interpretation [...] 0-100 H (BEAKER) (test code = 700) [id number] 13:42:00 Test Item Value Reference Range Interpretation Comments MAGNESIUM (BEAKER) (test code = 2.0 mg/dL 1.6-2.6 627) BASIC METABOLIC [id number] 13:42:00 Test Item Value Reference Range Interpretation [...] PATIEN TS. CBC W/PLT COUNT & AUTO [id number] 13:18:00 Test Item Value Reference Range Interpretation [...] % 0-1 PERCENT (BEAKER) (test code = 2806) POCT-GLUCOSE [id number] 11:13:00 Test Item Value Reference Range Interpretation Comments POC-GLUCOSE METER 128 mg/dL 70-[address] [facility] 6720 (BEAKER) (test code = [place]) [address] BASIC METABOLIC [id number] 05:46:00 Test Item Value Reference Range Interpretation [...] S NOT APPLICABLE FOR DIALYSIS PATIEN TS. [id number] 05:40:00 Test Item Value Reference Range Interpretation Comments MAGNESIUM (BEAKER) (test code = 2.2 mg/dL 1.6-2.6 627) CBC W/PLT COUNT & AUTO [id number] 09:22:00 Test Item Value Reference Range Interpretation [...] H PERCENT (BEAKER) (test code = 2801) [id number] 07:15:00 Test Item Value Reference Range Interpretation Comments MAGNESIUM (BEAKER) (test code = 1.9 mg/dL 1.6-2.6 627) BASIC METABOLIC [id number] 07:15:00 Test Item Value Reference Range Interpretation [...] NOT APPLICABLE FOR DIALYSIS PATIEN TS. POCT-GLUCOSE [id number] 12:57:00 Test Item Value Reference Range Interpretation Comments POC-GLUCOSE METER 112 mg/dL 70-[address] [facility] 6720 (BEAKER) (test code = [place]) [address] BASIC METABOLIC [id number] 04:32:00 Test Item Value Reference Range Interpretation [...] S NOT APPLICABLE FOR DIALYSIS PATIEN TS. [id number] 04:26:00 Test Item Value Reference Range Interpretation Comments PHOSPHORUS (BEAKER) (test code = 2.9 mg/dL 2.3-4.7 604) [id number] 04:26:00 Test Item Value Reference Range Interpretation Comments MAGNESIUM (BEAKER) (test code = 2.1 mg/dL 1.6-2.6 627) LACTIC ACID, ARTERIAL, WHOLE [id number] 04:18:00 Test Item Value Reference Range Interpretation Comments LACTATE BLOOD ARTERIAL (2) 1.8 mmol/L 0.5-2.2 (BEAKER) (test code = 2874) Effective 03/19/2016: Units/Reference Range ChangeNew: 0.5-2.2 mmol/L Previous: 5-20 mg/dLCBC W/PLT COUNT & AUTO [id number] 04:17:00 Test Item Value Reference Range Interpretation [...] % 0-1 PERCENT (BEAKER) (test code = 2800) OXYGEN SATURATION, [id number] 04:04:00 Test Item Value Reference Range Interpretation Comments O2 SATURATION (MEASURED) (BEAKER) 71.7 % (test code = 1455) [id number] 01:08:00 Test Item Value Reference Range Interpretation Comments MAGNESIUM (BEAKER) (test code = 2.2 mg/dL 1.6-2.6 627) POCT-GLUCOSE [id number] 00:49:00 Test Item Value Reference Range Interpretation Comments POC-GLUCOSE METER 128 mg/dL 70-110 H TESTED AT [place] [address] ([facility]) (test code = SHILAANGIE Mora [facility] 1538) [address] POTASSIUM-STAT [id number] 00:22:00 Test Item Value Reference Range Interpretation Comments POTASSIUM (BEAKER) (test code = 3.0 meq/L 3.6-5.5 L 379) CALCIUM, [id number] 00:22:00 Test Item Value Reference Range Interpretation Comments CALCIUM IONIZED (BEAKER) (test 1.07 mmol/L 1.12-1.27 L code = 698) PH, BLOOD (AKER) (test code = 7.36 1810) SODIUM NA-STAT [id number] 00:21:00 Test Item Value Reference Range Interpretation Comments SODIUM (BEAKER) (test code = 381) 141 meq/L 135-148 POCT-GLUCOSE [id number] 23:43:00 Test Item Value Reference Range Interpretation Comments POC-GLUCOSE METER 118 mg/dL 70-110 H TESTED AT [place] [address] ([facility]) (test code = K[place] [facility] 1538) [address] POCT-GLUCOSE [id number] 22:19:00 Test Item Value Reference Range Interpretation Comments POC-GLUCOSE METER 131 mg/dL 70-110 H TESTED AT [place] [address] ([facility]) (test code = [place] 1538) [address] POCT-GLUCOSE [id number] 22:02:00 Test Item Value Reference Range Interpretation Comments POC-GLUCOSE METER 142 mg/dL 70-110 H TESTED AT [place] [address] ([facility]) (test code = [place] 1538) [address] POCT-GLUCOSE [id number] 18:39:00 Test Item Value Reference Range Interpretation Comments POC-GLUCOSE METER 161 mg/dL 70-110 H TESTED AT [place] [address] ([facility]) (test code = [facility] 1538) [address] BLOOD GAS, [id number] 17:37:00 Test Item Value Reference Range Interpretation Comments PH ARTERIAL (BEAKER) (test code = 7.37 7.35-7.45 383) PCO2 ARTERIAL (BEAKER) (test code [...] (test code = 1819) 40.0 % POCT-GLUCOSE [id number] 17:12:00 Test Item Value Reference Range Interpretation Comments POC-GLUCOSE METER 163 mg/dL 70-110 H TESTED AT [place] [address] ([facility]) (test code = [facility] 1538) [address] POCT-GLUCOSE [id number] 16:18:00 Test Item Value Reference Range Interpretation Comments POC-GLUCOSE METER 175 mg/dL 70-110 H TESTED AT [place] [address] ([facility]) (test code = [facility] 1538) [address] POCT-GLUCOSE [id number] 14:39:00 Test Item Value Reference Range Interpretation Comments POC-GLUCOSE METER 157 mg/dL 70-110 H TESTED AT [place] [address] ([facility]) (test code = [facility] 1538) [address] [id number] 13:40:00 Test Item Value Reference Range Interpretation Comments PHOSPHORUS (BEAKER) (test code = 2.8 mg/dL 2.3-4.7 604) [id number] 13:40:00 Test Item Value Reference Range Interpretation Comments MAGNESIUM (BEAKER) (test code = 2.2 mg/dL 1.6-2.6 627) BASIC METABOLIC [id number] 13:40:00 Test Item Value Reference Range Interpretation [...] TS. Specimen slightly ictericLACTIC ACID, ARTERIAL, WHOLE [id number] 13:32:00 Test Item Value Reference Range Interpretation Comments LACTATE BLOOD ARTERIAL (2) 3.1 mmol/L 0.5-2.2 H (BEAKER) (test code = 2874) Effective 03/19/2016: Units/Reference Range ChangeNew: 0.5-2.2 mmol/L Previous: 5-20 mg/dLCBC W/PLT COUNT & AUTO [id number] 13:14:00 Test Item Value Reference Range Interpretation [...] (BEAKER) (test code = 2801) BLOOD GAS, [id number] 13:07:00 Test Item Value Reference Range Interpretation [...] code = 1819) 60.0 % OXYGEN SATURATION, [id number] 13:06:00 Test Item Value Reference Range Interpretation Comments O2 SATURATION (MEASURED) (BEAKER) 77.4 % (test code = 1455) POTASSIUM-STAT [id number] 13:02:00 Test Item Value Reference Range Interpretation Comments POTASSIUM (BEAKER) (test code = 3.0 meq/L 3.6-5.5 L 379) GLUCOSE-STAT [id number] 13:02:00 Test Item Value Reference Range Interpretation Comments GLUCOSE RANDOM (BEAKER) (test code 155 mg/dL 70-110 H = 652) HGB/HCT (H&H) - STAT [id number] 13:02:00 Test Item Value Reference Range Interpretation Comments HEMOGLOBIN (BEAKER) (test code = 12.8 g/dL 13.0-16.8 L 410) HEMATOCRIT (BEAKER) (test code = 38.0 % 40.0-50.0 L 411) SODIUM NA-STAT [id number] 13:01:00 Test Item Value Reference Range Interpretation Comments SODIUM (BEAKER) (test code = 381) 141 meq/L 135-148 [id number] 12:21:00 Test Item Value Reference Range Interpretation Comments ACTIVATED CLOTTING TIME 125 sec TEST ED AT [place] [address] ([facility]) (test code = [place] [address]) [address] [id number] 12:21:00 Test Item Value Reference Range Interpretation Comments ACTIVATED CLOTTING TIME 510 sec TEST ED AT [place] [address] ([facility]) (test code = [place] [address]) [address] [id number] 12:21:00 Test Item Value Reference Range Interpretation Comments ACTIVATED CLOTTING TIME 555 sec TEST ED AT [place] [address] ([facility]) (test code = [place] [address]) [address] [id number] 12:21:00 Test Item Value Reference Range Interpretation Comments ACTIVATED CLOTTING TIME 643 sec TEST ED AT [place] [address] ([facility]) (test code = [place] [address]) [address] [id number] 12:21:00 Test Item Value Reference Range Interpretation Comments ACTIVATED CLOTTING TIME 692 sec TEST ED AT [place] [address] (BEAKER) (test code = [place] [address]) [address] [id number] 12:21:00 Test Item Value Reference Range Interpretation Comments ACTIVATED CLOTTING TIME 543 sec TEST ED AT [place] [address] (BEAKER) (test code = [place] [address]) [address] CALCIUM, [id number] 11:29:00 Test Item Value Reference Range Interpretation Comments CALCIUM IONIZED (BEAKER) (test 1.08 mmol/L 1.12-1.27 L code = 698) PH, BLOOD (BEAKER) (test code = 7.43 1810) SODIUM NA-STAT [id number] 11:28:00 Test Item Value Reference Range Interpretation Comments SODIUM (BEAKER) (test code = 381) 141 meq/L 135-148 BLOOD GAS, [id number] 11:28:00 Test Item Value Reference Range Interpretation [...] (test code = 1819) 100.0 % POTASSIUM-STAT [id number] 11:28:00 Test Item Value Reference Range Interpretation Comments POTASSIUM (BEAKER) (test code = 3.2 meq/L 3.6-5.5 L 379) GLUCOSE-STAT [id number] 11:28:00 Test Item Value Reference Range Interpretation Comments GLUCOSE RANDOM (BEAKER) (test code 146 mg/dL 70-110 H = 652) HGB/HCT (H&H) - STAT [id number] 11:28:00 Test Item Value Reference Range Interpretation Comments HEMOGLOBIN (BEAKER) (test code = 10.2 g/dL 13.0-16.8 L 410) HEMATOCRIT (BEAKER) (test code = 30.0 % 40.0-50.0 L 411) GLUCOSE-STAT [id number] 10:41:00 Test Item Value Reference Range Interpretation Comments GLUCOSE RANDOM (BEAKER) (test code 109 mg/dL 70-110 = 652) SODIUM NA-STAT [id number] 10:41:00 Test Item Value Reference Range Interpretation Comments SODIUM (BEAKER) (test code = 381) 140 meq/L 135-148 POTASSIUM-STAT [id number] 10:41:00 Test Item Value Reference Range Interpretation Comments POTASSIUM (BEAKER) (test code = 4.1 meq/L 3.6-5.5 379) BLOOD GAS, [id number] 10:41:00 Test Item Value Reference Range Interpretation [...] 1819) 80.0 % HGB/HCT (H&H) - STAT [id number] 10:41:00 Test Item Value Reference Range Interpretation Comments HEMOGLOBIN (BEAKER) (test code = 10.4 g/dL 13.0-16.8 L 410) HEMATOCRIT (BEAKER) (test code = 31.0 % 40.0-50.0 L 411) SODIUM NA-STAT [id number] 10:08:00 Test Item Value Reference Range Interpretation Comments SODIUM (BEAKER) (test code = 381) 141 meq/L 135-148 POTASSIUM-STAT [id number] 10:08:00 Test Item Value Reference Range Interpretation Comments POTASSIUM (BEAKER) (test code = 4.0 meq/L 3.6-5.5 379) BLOOD GAS, [id number] 10:08:00 Test Item Value Reference Range Interpretation [...] (test code = 1819) 70.0 % GLUCOSE-STAT [id number] 10:08:00 Test Item Value Reference Range Interpretation Comments GLUCOSE RANDOM (BEAKER) (test code 112 mg/dL 70-110 H = 652) HGB/HCT (H&H) - STAT [id number] 10:08:00 Test Item Value Reference Range Interpretation Comments HEMOGLOBIN (BEAKER) (test code = 10.3 g/dL 13.0-16.8 L 410) HEMATOCRIT (BEAKER) (test code = 30.0 % 40.0-50.0 L 411) BLOOD GAS, [id number] 09:46:00 Test Item Value Reference Range Interpretation [...] 1819) 70.0 % HGB/HCT (H&H) - STAT [id number] 09:46:00 Test Item Value Reference Range Interpretation Comments HEMOGLOBIN (BEAKER) (test code = 10.2 g/dL 13.0-16.8 L 410) HEMATOCRIT (BEAKER) (test code = 30.0 % 40.0-50.0 L 411) GLUCOSE-STAT [id number] 09:45:00 Test Item Value Reference Range Interpretation Comments GLUCOSE RANDOM (BEAKER) (test code 104 mg/dL 70-110 = 652) SODIUM NA-STAT [id number] 09:45:00 Test Item Value Reference Range Interpretation Comments SODIUM (BEAKER) (test code = 381) 140 meq/L 135-148 POTASSIUM-STAT [id number] 09:45:00 Test Item Value Reference Range Interpretation Comments POTASSIUM (BEAKER) (test code = 4.0 meq/L 3.6-5.5 379) BLOOD GAS, [id number] 09:27:00 Test Item Value Reference Range Interpretation [...] 1819) 75.0 % HGB/HCT (H&H) - STAT [id number] 09:27:00 Test Item Value Reference Range Interpretation Comments HEMOGLOBIN (BEAKER) (test code = 9.6 g/dL 13.0-16.8 L 410) HEMATOCRIT (BEAKER) (test code = 28.0 % 40.0-50.0 L 411) GLUCOSE-STAT [id number] 09:26:00 Test Item Value Reference Range Interpretation Comments GLUCOSE RANDOM (BEAKER) (test code = 93 mg/dL 70-110 652) SODIUM NA-STAT [id number] 09:26:00 Test Item Value Reference Range Interpretation Comments SODIUM (BEAKER) (test code = 381) 138 meq/L 135-148 POTASSIUM-STAT [id number] 09:26:00 Test Item Value Reference Range Interpretation Comments POTASSIUM (BEAKER) (test code = 4.1 meq/L 3.6-5.5 379) BLOOD GAS, [id number] 08:31:00 Test Item Value Reference Range Interpretation [...] (test code = 1819) 100.0 % POTASSIUM-STAT [id number] 08:31:00 Test Item Value Reference Range Interpretation Comments POTASSIUM (BEAKER) (test code = 3.3 meq/L 3.6-5.5 L 379) HGB/HCT (H&H) - STAT [id number] 08:31:00 Test Item Value Reference Range Interpretation Comments HEMOGLOBIN (BEAKER) (test code = 11.5 g/dL 13.0-16.8 L 410) HEMATOCRIT (BEAKER) (test code = 34.0 % 40.0-50.0 L 411) CALCIUM, [id number] 08:31:00 Test Item Value Reference Range Interpretation Comments CALCIUM IONIZED (BEAKER) (test 1.00 mmol/L 1.12-1.27 L code = 698) PH, BLOOD (BEAKER) (test code = 7.47 1810) GLUCOSE-STAT [id number] 08:29:00 Test Item Value Reference Range Interpretation Comments GLUCOSE RANDOM (BEAKER) (test code = 95 mg/dL 70-110 652) SODIUM NA-STAT [id number] 08:29:00 Test Item Value Reference Range Interpretation Comments SODIUM (BEAKER) (test code = 381) 141 meq/L 135-148 URINALYSIS W/ [id number] 13:01:00 Test Item Value Reference Range Interpretation [...] = 2795) CBC W/PLT COUNT & AUTO [id number] 12:22:00 Test Item Value Reference Range Interpretation [...] (BEAKER) (test code = 2801) BASIC METABOLIC [id number] 12:16:00 Test Item Value Reference Range Interpretation [...] APPLICABLE FOR DIALYSIS PATIEN TS. Specimen slightly [id number] 11:54:00 Test Item Value Reference Range Interpretation Comments PARTIAL THROMBOPLASTIN TIME 33.4 seconds 22.5-36.0 (BEAKER) (test code = 760) PROTHROMBIN [id number] 11:53:00 Test Item Value Reference Range Interpretation Comments PROTIME (BEAKER) (test code = 17.3 seconds 11.7-14.7 H 759) INR (BEAKER) (test code = 370) 1.4 <=5.9 RECOMMENDED COUMADIN/WARFARIN INR THERAPY RANGESSTANDARD DOSE: 2.0 - 3.0 Includes: PROPHYLAXIS forvenous thrombosis, systemic embolization; TREATMENT for venous thrombosis and/or pulmonary embolus.HIGH RISK: Target INR is 2.5-3.5 for patients with mechanical heart valves.BASIC METABOLIC [id number] 11:47:00 Test Item Value Reference Range Interpretation [...] Specimen slightly ictericCBC W/PLT COUNT & AUTO [id number] 11:36:00 Test Item Value Reference Range Interpretation [...] K/ L 0.00-0.20 (test code = 417) 0.00PT/[id number] 11:35:00 Test Item Value Reference Range Interpretation [...] 0-100 H (BEAKER) (test code = 700) [id number] 14:35:00 Test Item Value Reference Range Interpretation Comments MAGNESIUM (BEAKER) (test code = 2.6 mg/dL 1.6-2.6 627) BASIC METABOLIC [id number] 14:35:00 Test Item Value Reference Range Interpretation [...] APPLICABLE FOR DIALYSIS PATIEN TS. MISCELLANEOUS LAB [id number] 10:09:00 Test Item Value Reference Range Interpretation Comments SCAN RESULT (test code = 5248394) BASIC METABOLIC [id number] 11:29:00 Test Item Value Reference Range Interpretation [...] S NOT APPLICABLE FOR DIALYSIS PATIEN TS. [id number] 17:50:00 Test Item Value Reference Range Interpretation Comments CORTISOL, TOTAL (BEAKER) (test code 7.4 ug/dL 3.7-19.4 = 2755) [id number] 07:17:00 Test Item Value Reference Range Interpretation Comments CORTISOL, TOTAL (BEAKER) (test code 8.2 ug/dL 3.7-19.4 = 2755) PROTEIN ELECTROPHORESIS, [id number] 12:58:00 Test Item Value Reference Range Interpretation [...] their expected distribution. No monoclonal bands detected. [id number] Shanthi Gee MD (BEAKER) (test code = (electronic signature) 5841) PROTEIN TOTAL SERUM, 6.1 gm/dL 6.0-8.3 SPEP (BEAKER) (test code = 2660) [id number] 06:14:00 Test Item Value Reference Range Interpretation Comments PROLACTIN (BEAKER) (test code = 17.86 ng/mL 3.46-19.40 758) [id number] 05:26:00 Test Item Value Reference Range Interpretation Comments CORTISOL, TOTAL (BEAKER) (test code 8.5 ug/dL 3.7-19.4 = 2755) T3, [id number] 05:26:00 Test Item Value Reference Range Interpretation Comments T3 FREE (BEAKER) (test code = 908) 1.88 pg/mL 1.71-3.71 TSH/FREE T4 IF [id number] 05:26:00 Test Item Value Reference Range Interpretation Comments THYROID STIMULATING HORMONE 0.47 uIU/mL 0.35-4.94 (BEAKER) (test code = 772) PROTHROMBIN [id number] 04:56:00 Test Item Value Reference Range Interpretation Comments PROTIME (BEAKER) (test code = 15.7 seconds 11.7-14.7 H 759) INR (BEAKER) (test code = 370) 1.3 <=5.9 RECOMMENDED COUMADIN/WARFARIN INR THERAPY RANGESSTANDARD DOSE: 2.0 - 3.0 Includes: PROPHYLAXIS forvenous thrombosis, systemic embolization; TREATMENT for venous thrombosis and/or pulmonary embolus.HIGH RISK: Target INR is 2.5-3.5 for patients with mechanical heart valves.[id number] 07:01:00 Test Item Value Reference Range Interpretation Comments MAGNESIUM (BEAKER) (test code = 2.0 mg/dL 1.6-2.6 627) BASIC METABOLIC [id number] 07:01:00 Test Item Value Reference Range Interpretation [...] NOT APPLICABLE FOR DIALYSIS PATIEN TS. PROTHROMBIN [id number] 06:39:00 Test Item Value Reference Range Interpretation Comments PROTIME (BEAKER) (test code = 15.8 seconds 11.7-14.7 H 759) INR (BEAKER) (test code = 370) 1.3 <=5.9 RECOMMENDED COUMADIN/WARFARIN INR THERAPY RANGESSTANDARD DOSE: 2.0 - 3.0 Includes: PROPHYLAXIS forvenous thrombosis, systemic embolization; TREATMENT for venous thrombosis and/or pulmonary embolus.HIGH RISK: Target INR is 2.5-3.5 for patients with mechanical heart valves.SEDIMENTATION [id number] 10:07:00 Test Item Value Reference Range Interpretation Comments SEDIMENTATION RATE, ERYTHROCYTE 10 mm/HR 0-40 (BEAKER) (test code = 766) [id number] 06:12:00 Test Item Value Reference Range Interpretation Comments MAGNESIUM (BEAKER) (test code = 2.1 mg/dL 1.6-2.6 627) BASIC METABOLIC [id number] 06:12:00 Test Item Value Reference Range Interpretation [...] FOR DIALYSIS PATIEN TS. Specimen slightly ictericLIPID [id number] 06:12:00 Test Item Value Reference Range Interpretation [...] 160-189 Very High >=190 Specimen slightly ictericPROTHROMBIN [id number] 05:57:00 Test Item Value Reference Range Interpretation Comments PROTIME (BEAKER) (test code = 16.7 seconds 11.7-14.7 H 759) INR (BEAKER) (test code = 370) 1.4 <=5.9 RECOMMENDED COUMADIN/WARFARIN INR THERAPY RANGESSTANDARD DOSE: 2.0 - 3.0 Includes: PROPHYLAXIS forvenous thrombosis, systemic embolization; TREATMENT for venous thrombosis and/or pulmonary embolus.HIGH RISK: Target INR is 2.5-3.5 for patients with mechanical heart valves.POCT-GLUCOSE [id number] 21:23:00 Test Item Value Reference Range Interpretation Comments POC-GLUCOSE METER 116 mg/dL 70-[address] [facility] 6720 (BEAKER) (test code = [place] [address]) [address] URINALYSIS W/ [id number] 20:08:00 Test Item Value Reference Range Interpretation [...] 520) SOURCE(BEAKER) (test code = Urine, Voided 9853) HEPATITIS B [id number] 20:06:00 Test Item Value Reference Range Interpretation Comments HEPATITIS B CORE TOTAL ANTIBODY Nonreactive Nonreactive (BEAKER) (test code = 497) HEPATITIS B SURFACE ANTIBODY < mIU/mL <8.0 (BEAKER) (test code = 647) HEPATITIS B SURFACE ANTIGEN (2) Nonreactive Nonreactive (BEAKER) (test code = 2585) HEPATITIS C [id number] 20:04:00 Test Item Value Reference Range Interpretation Comments HEPATITIS C ANTIBODY (BEAKER) Nonreactive Nonreactive (test code = 367) HIV-1 ANTIGEN WITH HIV-1/2 [id number] 20:04:00 Test Item Value Reference Range Interpretation Comments HIV-1 ANTIGEN WITH HIV 1\T\2 Nonreactive Nonreactive ANTIBODY (2) (BEAKER) (test code = 2586) HEMOGLOBIN [id number] 19:57:00 Test Item Value Reference Range Interpretation Comments HEMOGLOBIN A1C (BEAKER) (test code = 5.6 % 4.3-6.1 368) T4, [id number] 19:06:00 Test Item Value Reference Range Interpretation Comments FREE T4 (BEAKER) (test code = 655) 1.08 ng/dL 0.70-1.48 TSH/FREE T4 IF [id number] 18:35:00 Test Item Value Reference Range Interpretation Comments THYROID STIMULATING HORMONE 0.03 uIU/mL 0.35-4.94 L (BEAKER) (test code = 772) FOLATE, [id number] 18:33:00 Test Item Value Reference Range Interpretation Comments FOLATE (BEAKER) (test code = 362) 10.5 ng/mL >=7.0 Effective 10/03/2014: Folate Reference Range ChangeNew: >=7.0 Previous: >=5.4VITAMIN [id number] 18:27:00 Test Item Value Reference Range Interpretation Comments VITAMIN B12 (BEAKER) (test code = 394 pg/mL 213-318 493) B-TYPE NATRIURETIC FACTOR (BNP)2017-03-20 18:20:00 Test Item Value Reference Range Interpretation Comments B-TYPE NATRIURETIC PEPTIDE 8044 pg/mL 0-100 H (BEAKER) (test code = 700) POCT-GLUCOSE [id number] 17:18:00 Test Item Value Reference Range Interpretation Comments POC-GLUCOSE METER 96 mg/dL 70-[address] [facility] [address] (BEAKER) (test code = [place] [address] 1538) [id number] 17:06:00 Test Item Value Reference Range Interpretation Comments MAGNESIUM (BEAKER) (test code = 2.1 mg/dL 1.6-2.6 627) BASIC METABOLIC [id number] 17:06:00 Test Item Value Reference Range Interpretation [...] Specimen slightly ictericCBC W/PLT COUNT & AUTO [id number] 16:55:00 Test Item Value Reference Range Interpretation [...] K/ L 0.00-0.20 (test code = 417) 0.00
[2021-07-10 20:14] LABS: Protime INR 1.46
[2021-07-10] MEDS ORDERED: ONDANSETRON 4 MG/2 ML VIAL ONE (20:20)
[2021-07-10] MEDS ORDERED: MORPHINE 2 MG/ML SYR ONE (20:20)
[2021-07-10] MEDS ORDERED: NA CHLORIDE 0.9% 1,000 ML ONE (20:20)
[2021-07-10 20:22] LABS: Absolute Lymphocytes (CBC) 1.3 K/uL (0.7-4.9); Basophils % 1.1 % (0-1.3); Hematocrit 37.6 % (39.6-49.0); Lymphocytes % 13.8 % (15.3-44.8); MPV 7.4 fL (7.6-11.3); RBC Red Blood Cell Count 4.48 M/uL (4.33-5.43)
--- NOTE | 2021-07-10 21:10 | RAD REPORT ---
EXAM DESCRIPTION: RAD - Chest Single View - 07/10/2021 8:35 pm CLINICAL HISTORY: CHEST PAIN Chest pain. COMPARISON: Chest Single View dated 11/02/2020; Chest Pa And Lat (2 Views) dated 04/10/2017; Chest Si ngle View dated 03/20/2017; Chest Single View dated 08/08/2016 FINDINGS: Portable technique limits examination quality. Mild to moderate pulmonary edema. Bilateral pleural effusions are suspected, larger on the left. Hear t is significantly enlarged multilead pacer/defibrillator device. No displaced fractures. IMPRESSION: Moderate CHF.
--- NOTE | 2021-07-10 22:07 | RAD REPORT ---
EXAM DESCRIPTION: CT - Chest For Pe Angio - 07/10/2021 9:57 pm CLINICAL HISTORY: Chest pain. DYSPNEA COMPARISON: No comparisons TECHNIQUE: CT angiogram of the pulmonary arteries was performed with MIP. All CT scans are performed using dose optimization technique as appropriate and may include automated exposure control or mA/KV adjustment according to patient size. FINDINGS: Small filling defects are seen in the right upper lobe and right lower lobe pulmonary clemente rial subsegmental branches suggesting small pulmonary emboli. No acute aortic finding demonstrated. Mild interstitial pulmonary edema suspected. The heart is enlarged with a small pericardial effusion. Small pleural effusions are present bilaterally with atelectasis in the left lower lobe. No concerning bony finding. IMPRESSION: Small subsegmental branch pulmonary emboli are suspected in the right upper lobe and low er lobe branches. Mild to moderate CHF pattern.
--- NOTE | 2021-07-10 22:18 | EDPHYS ---
Physician Documentation [facility] Name: Giuliano Park Age: 80 yrs Sex: Male : 1940 Arrival Date: 07/10/2021 Time: 19:19 Bed 5 Private MD: Juliana Snell ED Physician Dipesh Rocha HPI: 07/10 19:47 This 80 yrs old Male presents to ER via Unassigned with complaints of Chest pkl Pain, High Blood Pressure. 19:47 The patient or guardian reports chest pain that is located primarily in the substernal pkl area. Onset: 2 day(s) ago. The pain does not radiate. Associated signs and symptoms: Pertinent positives: headache, shortness of breath. The chest pain is described as a pressure. Historical: - Allergies: 19:49 Lisinopril; sh9 - PMHx: 19:49 Atrial Fib; CHF; enlarged prostate; Hypertension; Myocardial infarction; Pacemaker; sh9 - Immunization history:: Client reports having NOT received the Covid vaccine. - Social history:: Smoking status: Patient denies any tobacco usage or history of. Patient/guardian denies using. ROS: 19:47 Eyes: Negative for injury, pain, redness, and discharge, ENT: Negative for injury, pkl pain, and discharge, Neck: Negative for injury, pain, and swelling. 19:47 Cardiovascular: Positive for chest pain. 19:47 Respiratory: Positive for shortness of breath, at rest. Negative for cough. 19:47 Abdomen/GI: Negative for abdominal pain, nausea, vomiting, and diarrhea. 19:47 Back: Negative for acute changes. 19:47 : Negative for urinary symptoms. 19:47 MS/extremity: Negative for acute changes. 19:47 Skin: Negative for rash. 19:47 Neuro: Negative for altered mental status, loss of consciousness. Exam: 19:47 Head/Face: Normocephalic, atraumatic. Eyes: Pupils equal round and reactive to light, pkl extra-ocular motions intact. Lids and lashes normal. Conjunctiva and sclera are non-icteric and not injected. Cornea within normal limits. Periorbital areas with no swelling, redness, or edema. ENT: Nares patent. No nasal discharge, no septal abnormalities noted. Tympanic membranes are normal and external auditory canals are clear. Oropharynx with no redness, swelling, or masses, exudates, or evidence of obstruction, uvula midline. Mucous membranes moist. Neck: Trachea midline, no thyromegaly or masses palpated, and no cervical lymphadenopathy. Supple, full range of motion without nuchal rigidity, or vertebral point tenderness. No Meningismus. Chest/axilla: Normal chest wall appearance and motion. Nontender with no deformity. No lesions are appreciated. 19:47 Cardiovascular: Rate: normal, Rhythm: regular. 19:47 ECG was reviewed by the Attending Physician. 19:47 Respiratory: mild respiratory distress is noted, Respirations: labored breathing, that is mild, Breath sounds: bronchial sounds, that are mild, are scattered. 19:47 Abdomen/GI: Bowel sounds: normal, Palpation: abdomen is soft and non-tender, in all quadrants. 19:47 Back: Exam negative for acute changes. 19:47 : Exam negative for acute changes. 19:47 Musculoskeletal/extremity: Exam is negative for acute changes. 19:47 Skin: Exam negative for rash. 19:47 Neuro: Orientation: appropriate for stated age, Mentation: is normal, Cranial nerves: grossly normal, Motor: is normal. Vital Signs: 19:46 BP 184 / 97; Pulse 75; Resp 26; Temp 98.1; Pulse Ox 93% on R/A; Weight 81.65 kg; Height sh9 5 ft. 4 in. (162.56 cm); Pain 9/10; 20:05 BP 140 / 75; Pulse 90; Resp 26; Pulse Ox 95% ; sh9 20:54 BP 136 / 67; Pulse 72; Resp 24; Pulse Ox 94% ; sh9 23:22 BP 185 / 101; Pulse 86; Resp 22; Pulse Ox 93% on R/A; Pain 3/10; sh9 19:46 Body Mass Index 30.90 (81.65 kg, 162.56 cm) sh9 Solomon Coma Score: 20:05 Eye Response: spontaneous(4). Verbal Response: oriented(5). Motor Response: obeys sh9 commands(6). Total: 15. MDM: 19:23 Patient medically screened. pkl 22:15 Data reviewed: vital signs, nurses notes, lab test result(s), EKG, radiologic studies, pkl CT scan, plain films. ED course: Talked to Janak LOO ) Admit to Dr. Aragon. 07/10 19:42 Order name: Basic Metabolic Panel pkl 07/10 19:42 Order name: CBC with Diff pkl 07/10 19:42 Order name: LFT's pkl 07/10 19:42 Order name: Magnesium; Complete Time: 13:04 pkl 07/10 19:42 Order name: NT PRO-BNP; Complete Time: 13:04 pkl 07/10 19:42 Order name: PT-INR; Complete Time: 20:24 pkl 07/10 19:42 Order name: Troponin (emerg Dept Use Only); Complete Time: 13:04 pkl 07/10 19:42 Order name: Blood Culture Adult (2) pkl 07/10 19:42 Order name: D-Dimer; Complete Time: 20:24 pkl 07/10 19:42 Order name: ABG; Complete Time: 13:04 pkl 07/10 19:42 Order name: Basic Metabolic Panel; Complete Time: 13:04 EDMS 07/10 19:42 Order name: CBC with Automated Diff; Complete Time: 20:24 EDMS 07/10 19:42 Order name: Liver (Hepatic) Function; Complete Time: 13:04 EDMS 07/10 19:42 Order name: XRAY Chest (1 view); Complete Time: 21:21 pkl 07/10 19:46 Order name: CRP; Complete Time: 22:04 pkl 07/10 21:32 Order name: SARS-COV-2 RT PCR; Complete Time: 21:32 EDMS 07/10 21:39 Order name: CT Chest For PE Angio; Complete Time: 22:09 pkl 07/10 23:23 Order name: Urine Dipstick-Ancillary; Complete Time: 13:04 EDMS 07/11 02:59 Order name: CBC with Automated Diff; Complete Time: 13:04 EDMS 07/11 03:14 Order name: Comprehensive Metabolic Panel; Complete Time: 13:04 EDMS 07/11 03:14 Order name: Phosphorus; Complete Time: 13: EDMS 07/11 03:14 Order name: Lipid Profile; Complete Time: 13:04 EDMS 07/11 03:14 Order name: T4 Free; Complete Time: 13: EDMS 07/11 03:14 Order name: Magnesium; Complete Time: 13:04 EDMS 07/11 03:14 Order name: Thyroid Stimulating Hormone; Complete Time: 13:04 EDMS 07/11 03:49 Order name: CREATININE WHOLE BLOOD; Complete Time: 13:04 EDMS 07/11 11:54 Order name: CT; Complete Time: 13:04 EDMS 07/10 19:42 Order name: EKG; Complete Time: 19:43 pkl 07/10 19:42 Order name: Cardiac monitoring; Complete Time: 20:05 pkl 07/10 19:42 Order name: EKG - Nurse/Tech; Complete Time: 20:05 pkl 07/10 19:42 Order name: IV Saline Lock; Complete Time: 20:05 pkl 07/10 19:42 Order name: Labs collected and sent; Complete Time: 20:05 pkl 07/10 19:42 Order name: O2 Per Protocol; Complete Time: 20:05 pkl 07/10 19:42 Order name: O2 Sat Monitoring; Complete Time: 20:05 pkl 07/10 23:22 Order name: Urine Dipstick-Ancillary (obtain specimen); Complete Time: 23:22 sh9 Administered Medications: 20:03 Drug: Zofran (Ondansetron) 4 mg Route: IVP; Site: right antecubital; sh9 20:04 Follow up: Response: No adverse reaction sh9 20:04 Drug: NS 0.9% 1000 ml Route: IV; Rate: 100 ml/hr; Site: right antecubital; sh9 20:04 Drug: morphine 2 mg Route: IVP; Site: right antecubital; sh9 20:04 Follow up: Response: No adverse reaction sh9 22:53 Drug: Lasix (furosemide) 80 mg Route: IVP; Site: right antecubital; bs2 Disposition Summary: 07/10/21 22:18 Hospitalization Ordered Hospitalization Status: Inpatient Admission pkl Provider: Hawk Aragon Condition: Stable pkl Problem: new pkl Symptoms: are unchanged pkl Bed/Room Type: Standard pkl Location: [facility] ER HOLD(07/10/21 23:27) bb Room Assignment: ERHOLD-(07/10/21 23:27) bb Diagnosis - Acute dyspnea. Moderate CHF. Pulmonary emboli right upper and lower lobes pkl Forms: - Medication Reconciliation Form pkl - SBAR form pkl Signatures: Dispatcher [employer] EDMS Dipesh Rocha MD MD pkl Vladimir Toro PA PA jmm Ballard, Brenda RN RN bb Gema Diaz RN RN bs2 Kala Claudio RN RN sh9 Corrections: (The following items were deleted from the chart) 20:32 19:44 CORONAVIRUS+BRZ ordered. EDMS EDMS 23: 22:18 Telemetry/MedSurg (Inpatient) pkl bb 23:27 22:18 pkl bb
--- NOTE | 2021-07-10 22:18 | ER ---
Nurse's Notes [facility] Name: Giuliano Park Age: 80 yrs Sex: Male : 1940 Arrival Date: 07/10/2021 Time: 19:19 Bed 5 Private MD: Juliana Snell Diagnosis: Acute dyspnea. Moderate CHF. Pulmonary emboli right upper and lower lobes Presentation: 07/10 19:46 Chief complaint: Patient states: Pt states he is having trouble breathing with chest 9 pain. Coronavirus screen: Client denies travel out of the [place] in the last 14 days. Client presents with at least one sign or symptom that may indicate coronavirus-19. Standard/surgical mask placed on the client. Provider contacted for isolation considerations. The client denies any previous COVID testing. Ebola Screen: Patient negative for fever greater than or equal to 101.5 degrees Fahrenheit, and additional compatible Ebola Virus Disease symptoms Patient denies exposure to infectious person. Patient denies travel to an Ebola-affected area in the 21 days before illness onset. No symptoms or risks identified at this time. Initial Sepsis Screen: Does the patient meet any 2 criteria? RR > 20 per min. No. Patient's initial sepsis screen is negative. Does the patient have a suspected source of infection? No. Patient's initial sepsis screen is negative. Risk Assessment: Do you want to hurt yourself or someone else? Patient reports no desire to harm self or others. Onset of symptoms was June 30, 2021. 19:46 Method Of Arrival: Ambulatory [facility] 19:46 Acuity: CALEB 3 9 Triage Assessment: 19:51 General: Appears distressed, uncomfortable, Behavior is cooperative, Smells of. 9 General:. Pain: Complains of pain in head, chest, abdomen and left arm Pain currently is 9 out of 10 on a pain scale. Cardiovascular: Reports chest pain, shortness of breath, Respiratory: Reports shortness of breath labored breathing Breath sounds are diminished bilaterally. Breath sounds with wheezes bilaterally. GI: Reports upper abdominal pain. Historical: - Allergies: 19:49 Lisinopril; sh9 - PMHx: 19:49 Atrial Fib; CHF; enlarged prostate; Hypertension; Myocardial infarction; Pacemaker; 9 - Immunization history:: Client reports having NOT received the Covid vaccine. - Social history:: Smoking status: Patient denies any tobacco usage or history of. Patient/guardian denies using. Screenin:05 Abuse screen: Denies threats or abuse. Abuse screen: Denies injuries from another. sh9 Nutritional screening: No deficits noted. Tuberculosis screening: No symptoms or risk factors identified. Fall Risk None identified. Assessment: 20:05 Pain: Complains of pain in head, chest, abdomen and left arm Pain currently is 9 out of sh9 10 on a pain scale. Pain began ten days ago. Neuro: No deficits noted. Cardiovascular: Reports chest pain, shortness of breath, Rhythm is Cardiovascular: Reports chest pain, shortness of breath. Respiratory: Reports shortness of breath at rest on exertion Airway is patent Denies cough. GI: Reports upper abdominal pain. : No deficits noted. EENT: No deficits noted. Derm: No deficits noted. Musculoskeletal: No deficits noted. Vital Signs: 19:46 BP 184 / 97; Pulse 75; Resp 26; Temp 98.1; Pulse Ox 93% on R/A; Weight 81.65 kg; Height sh9 5 ft. 4 in. (162.56 cm); Pain 9/10; 20:05 BP 140 / 75; Pulse 90; Resp 26; Pulse Ox 95% ; sh9 20:54 BP 136 / 67; Pulse 72; Resp 24; Pulse Ox 94% ; sh9 23:22 BP 185 / 101; Pulse 86; Resp 22; Pulse Ox 93% on R/A; Pain 3/10; sh9 19:46 Body Mass Index 30.90 (81.65 kg, 162.56 cm) sh9 [place] Coma Score: 20:05 Eye Response: spontaneous(4). Verbal Response: oriented(5). Motor Response: obeys sh9 commands(6). Total: 15. ED Course: 19:19 Patient arrived in ED. mr 19:19 Juliana Snell MD is Private Physician. mr 19:23 Dipesh Rocha MD is Attending Physician. pkl 19:46 Kala Claudio, MARY LOU is Primary Nurse. sh9 19:49 Triage completed. sh9 19:53 Arm band placed on right wrist. sh9 20:04 CRP Sent. sh9 20:05 Patient has correct armband on for positive identification. Placed in gown. Bed in low sh9 position. Call light in reach. die set up worker on. Pulse ox on. NIBP on. 20:05 Basic Metabolic Panel Sent. sh9 20:05 CBC with Diff Sent. sh9 20:05 LFT's Sent. sh9 20:05 Inserted saline lock: 20 gauge in right antecubital area, using aseptic technique. sh9 Patient maintains SpO2 saturation greater than 95% on room air. 20:22 Notified ED physician of a critical lab result(s). ddimer 6224. ms4 20:35 XRAY Chest (1 view) In Process Unspecified. EDMS 21:57 CT Chest For PE Angio In Process Unspecified. EDMS 22:16 Hawk Aragon is Hospitalizing Provider. pkl Administered Medications: 20:03 Drug: Zofran (Ondansetron) 4 mg Route: IVP; Site: right antecubital; sh9 20:04 Follow up: Response: No adverse reaction sh9 20:04 Drug: NS 0.9% 1000 ml Route: IV; Rate: 100 ml/hr; Site: right antecubital; sh9 20:04 Drug: morphine 2 mg Route: IVP; Site: right antecubital; sh9 20:04 Follow up: Response: No adverse reaction sh9 22:53 Drug: Lasix (furosemide) 80 mg Route: IVP; Site: right antecubital; bs2 Outcome: 22:18 Decision to Hospitalize by Provider. pkl 07/11 21:22 Patient left the ED. bb Signatures: Dispatcher [employer] EDAR Dipesh Rocha MD MD pkl ConnellySonia mr Adrianne Hobbs RN RN bb Gema Diaz RN RN bs2 Fani Lagos RN RN ms4 Kala Claudio RN RN sh9
[2021-07-10 22:32] LABS: ALT/SGPT 50 U/L (12-78); AST/SGOT 48 U/L (15-37); Albumin 3.2 g/dL (3.4-5.0); Alkaline Phosphatase 217 U/L (45-117); BUN Blood Urea Nitrogen 17 mg/dL (7-18); Bicarbonate 30 mmol/L (21-32); Bilirubin Direct 0.2 mg/dL (0-0.2); Bilirubin Total 0.6 mg/dL (0.2-1.0); Glucose Level 109 mg/dL (74-106); Magnesium 2.3 mg/dL (1.8-2.4); NT PRO-BNP 5412 pg/mL (<450); Potassium 4.2 mmol/L (3.5-5.1); Protein, Total 7.6 g/dL (6.4-8.2); Sodium Level 141 mmol/L (136-145); Troponin (Emerg Dept Use Only) < 0.02 ng/mL (0.0-0.045)
[2021-07-10] MEDS ORDERED: FUROSEMIDE 100 MG/10 ML VIAL IV ONE (22:57)
[2021-07-10 23:22] LABS: Urine Blood Trace-lysed (Negative); Urine Glucose Negative (Negative); Urine Protein Trace (Negative)
--- NOTE | 2021-07-10 23:32 | P.HP ---
Certification for Inpatient Patient admitted to: Inpatient With expected LOS: >2 Midnights Patient will require the following post-hospital care: None Practitioner: I am a practitioner with admitting privileges, knowledge of patient current condition, hospital course, and medical plan of care. Services: Services provided to patient in accordance with Admission requirements found in Title 42 Section 412.3 of the Code of Federal Regulations Patient History Date of Service: 07/11/21 Reason for admission: PE, CHF exacerbation History of Present Illness: Mr. Park is an 80 yo M with CAD h/o [place], CHF s/p pacemaker with recent battery change a week ago in [place], HTN, HLD, afib, BPH who presents with a week of intermittent sternal chest pain radiating to the neck as well as abdominal pain and headache. He describes pain as stabbing, itching, and burning. He reports onset at rest. He says SOB began a week ago but became worse today. Ddimer 6228. GFR 54. Glu 109. Ca 8.2. AST 48. alk phos 217. CRP 151. BNP 5412. CTPE shows small subsegmental branch pulmonary emboli in the right upper and lower lobe branches as well as mild to moderate CHF with small bilateral pleural effusions. CT A/P shows 1.5 cm sclerotic lesion in the right T9 vertebral body, 8mm sclerotic lesion in the right ilium, findings are new ocmpared to prior exam, correlate with h/o malignancy/concern for metastatic disease. Allergies lisinopril Allergy (Verified 09/11/16 15:53) Unknown none Allergy (Uncoded 01/19/17 13:51) Unknown Home Medications: Potassium Chloride 10 meq PO DAILY 09/15/16 Spironolactone [Aldactone*] 25 mg PO DAILY 09/15/16 Amiodarone HCl [Cordarone*] 200 mg PO DAILY tab 09/16/16 Clopidogrel Bisulfate [Plavix*] 75 mg PO DAILY #30 tablet 09/16/16 Furosemide [Lasix*] 40 mg PO DAILY tab 09/16/16 Metoprolol Succinate [Toprol Xl*] 25 mg PO [id number] tab 09/16/16 Nitroglycerin [Nitrostat*] 0 mg SL UD PRN #0 tab 09/16/16 Pantoprazole [Protonix Tab] 40 mg PO DAILY #30 tab 09/16/16 Rosuvastatin [Crestor*] 20 mg PO BEDTIME #30 tab 09/16/16 Sacubitril/Valsartan [Entresto 24 mg-26 mg Tablet] 1 tab PO BID tab 09/16/16 - Past Medical/Surgical History Diabetic: No -: htn -: cardiomyopathy -: afib -: chf -: cardiac cath -: Atrial fibrillation -: Chronic anti coagulation -: Chronic renal disease -: Pulmonary hypertension -: Abscess removed from the back of his head. -: pacemaker Psychosocial/ Personal History: The patient is . He has several children. He does not work. - Family History dad -: Heart disease - Social History Smoking Status: Former smoker Alcohol use: No CD- Drugs: No Caffeine use: Yes Place of Residence: Home Review of Systems 10-point ROS is otherwise unremarkable General: Malaise Respiratory: Shortness of Breath Cardiovascular: Chest Pain Gastrointestinal: Abdominal Pain, Constipation Physical Examination - Physical Exam General: Alert, In no apparent distress, Oriented x3, Cooperative HEENT: Atraumatic, PERRLA, Mucous membr. moist/pink, EOMI, Sclerae nonicteric Neck: Supple, 2+ carotid pulse no bruit, No LAD, Without JVD or thyroid abnormality Respiratory: Diminished, Crackles/rales Cardiovascular: Normal pulses, Regular rate/rhythm, Normal S1 S2 Capillary refill: <2 Seconds Gastrointestinal: Normal bowel sounds, Non-distended, No ascites, No tenderness, No masses, No rebound, No guarding Musculoskeletal: No clubbing, No swelling, No contractures, No erythema, No tenderness, No warmth Integumentary: No rashes, No breakdown, No significant lesion, No tenderness/swelling, No erythema, No warmth, No cyanosis Neurological: Normal speech, Normal strength at 5/5 x4 extr, Normal tone, Sensation intact, Normal affect Lymphatics: No axilla or inguinal lymphadenopathy - Studies Laboratory Data (last 24 hrs) 07/10/21 19:58: PT 16.9 H, INR 1.46 07/10/21 19:58: WBC 9.30, Hgb 12.5 L, Hct 37.6 L, Plt Count 311 07/10/21 19:58: Sodium 141, Potassium 4.2, BUN 17, Creatinine 1.27, Glucose 109 H, Magnesium 2.3, Total Bilirubin 0.6, AST 48 H, ALT 50, Alkaline Phosphatase 217 H Assessment and Plan - Problems (Diagnosis) (1) Pulmonary embolism Current Visit: Yes Status: Acute Qualifiers: Pulmonary embolism type: multiple subsegmental (without acute cor pulmonale) Qualified Code(s): I26.94 - Multiple subsegmental pulmonary emboli without acute cor pulmonale (2) Acute exacerbation of CHF (congestive heart failure) Onset Date: 12/05/14 Current Visit: No Status: Acute Qualifiers: Heart failure type: unspecified Qualified Code(s): I50.9 - Heart failure, unspecified (3) CAD (coronary artery disease) Onset Date: 09/16/16 Current Visit: No Status: Chronic Qualifiers: Coronary Disease-Associated Artery/Lesion type: [place] artery [place] vs. transplanted heart: [place] heart Associated angina: with unspecified form of angina Qualified Code(s): I25.119 - Atherosclerotic heart disease of [place] coronary artery with unspecified angina pectoris (4) Chest pain Onset Date: 10/09/14 Current Visit: No Status: Acute Qualifiers: Chest pain type: unspecified Qualified Code(s): R07.9 - Chest pain, unspecified (5) Atrial fibrillation Onset Date: 12/05/14 Current Visit: No Status: Chronic Qualifiers: Atrial fibrillation type: unspecified Qualified Code(s): I48.91 - Unspecified atrial fibrillation (6) Chronic renal disease Current Visit: No Status: Chronic Qualifiers: Chronic kidney disease stage: stage 3 (moderate) Chronic kidney disease stage 3 subtype: stage 3a (GFR 45-59) Qualified Code(s): N18.31 - Chronic kidney disease, stage 3a (7) History of pacemaker Current Visit: No Status: Chronic (8) Hypertension Onset Date: 12/05/14 Current Visit: No Status: Chronic Qualifiers: Hypertension type: primary hypertension Qualified Code(s): I10 - Essential (primary) hypertension - Plan on telemetry continue eliquis 10mg BID x7 days continue IV Lasix BID, fluid restrict 1500 cc daily, low salt diet ECHO pending hydralazine PRN for BP spikes reconcile and continue home medications O2 as needed will call family in the AM to see if bone mets are known to them, patient is poor historian, unknown primary source of ca, will consult heme/onc for further recommendations Discharge Plan: Home Plan to discharge in: 48 Hours - Advance Directives Does patient have a Living Will: No Does patient have a Durable POA for Healthcare: No - Code Status/Comfort Care Code Status Assessed: Yes (full code ) Critical Care: No Time Spent Managing Pts Care (In Minutes): 70
[2021-07-11] MEDS: APIXABAN 5 MG TABLET PO SCH ×2 (00:11→09:00)
[2021-07-11] MEDS ORDERED: HYDRALAZINE HCL 20 MG/ML VIAL IV PRN (00:11)
[2021-07-11] MEDS ORDERED: ACETAMINOPHEN 500 MG TAB PO PRN (00:11)
[2021-07-11 00:36] LABS: Arterial Blood Carboxyhemoglob 1.2 % (0-1.5); Blood Gas Oxyhemoglobin 86.8 % (94-97); Blood O2 Saturation 88.6 % (92-98.5)
[2021-07-11] MEDS ORDERED: POLYETHYL GLY 3350 17 GM/DOSE PO PRN (01:20)
[2021-07-11] MEDS ORDERED: DOCUSATE NA 100 MG CAP PO PRN (01:20)
[2021-07-11] MEDS ORDERED: APIXABAN 5 MG TABLET ONE ×2 (01:37→12:20)
[2021-07-11] MEDS ORDERED: ONDANSETRON 4 MG/2 ML VIAL IV PRN (02:00)
[2021-07-11 02:51] LABS: Absolute Lymphocytes (CBC) 1.1 K/uL (0.7-4.9); Basophils % 0.9 % (0-1.3); Hematocrit 34.2 % (39.6-49.0); Lymphocytes % 13.7 % (15.3-44.8); MPV 6.9 fL (7.6-11.3)
[2021-07-11 03:07] LABS: Albumin 3.1 g/dL (3.4-5.0); Bilirubin Total 0.7 mg/dL (0.2-1.0); Magnesium 2.1 mg/dL (1.8-2.4); Phosphorus 4.5 mg/dL (2.5-4.9); Potassium 3.9 mmol/L (3.5-5.1); Thyroid Stimulating Hormone 0.685 uIU/mL (0.360-3.740)
[2021-07-11 05:08] VITALS: BMI 30.9
[2021-07-11] MEDS ORDERED: POTASSIUM 25 MEQ EFFERV TAB PO ONE (06:06)
--- NOTE | 2021-07-11 11:53 | RAD REPORT ---
EXAM DESCRIPTION: CT Abdomen and Pelvis Without Intravenous Contrast CLINICAL HISTORY: The patient is 80 years old and is Male; abdominal pain TECHNIQUE: Axial computed tomography images of the abdomen and pelvis without intravenous contrast. Sagittal and coronal reformatted images were created and reviewed. This CT exam was performed usi ng one or more of the following dose reduction techniques: automated exposure control, adjustment o f the mA and/or kV according to patient size, and/or use of iterative reconstruction technique. COMPARISON: CT chest abdomen and pelvis December 16, 2018. FINDINGS: Lung bases: See below. Pleural space: Small right pleural effusion. Partially visualized left pleural effusion. Left ba silar consolidation or atelectasis. Heart: Small pericardial effusion. The heart appears enlarged. ABDOMEN: Liver: Numerous low-density lesions in the liver measuring up to 1.2 cm in diameter which likely represent cysts. Gallbladder and bile ducts: Unremarkable. No calcified stones. No ductal dilation. Pancreas: Unremarkable. No ductal dilation. Spleen: Unremarkable. No splenomegaly. Adrenals: Unremarkable. No mass. Kidneys and ureters: Bilateral perinephric stranding which may be chronic. No obstructing stones. No hydronephrosis. Stomach and bowel: Unremarkable. No obstruction. No mucosal thickening. PELVIS: Appendix: No findings to suggest acute appendicitis. Bladder: Hyperdensity within the bladder lumen which may be related to recent contrast administr ation. No stones. Reproductive: The prostate is enlarged. ABDOMEN and PELVIS: Intraperitoneal space: Scattered nonspecific sclerotic lesions in the pelvis. No free air. No significant fluid collection. Bones/joints: 1.5 cm sclerotic lesion in the right T9 vertebral body. 8mm sclerotic lesion in th e right ilium. No acute fracture. No dislocation. Soft tissues: Unremarkable. Vasculature: Scattered atherosclerotic vascular calcifications including at the origins of the m esenteric and renal arteries. No abdominal aortic aneurysm. Lymph nodes: Unremarkable. No enlarged lymph nodes. IMPRESSION: 1. Small right pleural effusion. Partially visualized left pleural effusion. Left basi lar consolidation or atelectasis. 2. Small pericardial effusion. 3. The heart appears enlarged. 4. 1.5 cm sclerotic lesion in the right T9 vertebral body. 8mm sclerotic lesion in the right ilium. Findings are new compared to the prior exam. Correlate with any history of malignancy/concern for metastatic disease. Electronically signed by: Tal Lutz MD 07/11/2021 12:28 AM CDT Due to temporary technical issues with the PACS/Fluency reporting system, reports are being signed by the in house radiologist without review as a courtesy to ensure prompt reporting. The interpreting r adiologist is fully responsible for the content of the report.
[2021-07-11] MEDS: FUROSEMIDE 40 MG/4 ML VIAL IV SCH ×2 (12:01→17:00)
[2021-07-11] MEDS ORDERED: FUROSEMIDE 40 MG/4 ML VIAL ONE (12:20)
--- NOTE | 2021-07-11 14:08 | P.DS ---
Admission Date: 07/10/21 Discharge Date: 07/12/21 Disposition: ROUTINE DISCHARGE Discharge Condition: FAIR Reason for Admission: PE, CHF exacerbation - Problems (1) Lesion of thoracic vertebra Status: Acute (2) Atrial fibrillation Onset Date: 12/05/14 Status: Chronic Qualifiers: Atrial fibrillation type: unspecified Qualified Code(s): I48.91 - Unspecified atrial fibrillation Brief History of Present Illness: 80 yo M with CAD h/o MS, CHF s/p pacemaker with recent battery change a week ago in [place], HTN, HLD, afib, BPH who presents with a week of intermittent sternal chest pain radiating to the neck as well as abdominal pain and headache. He royal cribes pain as stabbing, itching, and burning. He reports onset at rest. He says SOB began a week pior but became worse today. Ddimer 6228. GFR 54. Glu 109. Ca 8.2. AST 48. alk phos 217. CRP 151. BNP 5412. CTPE showed small subsegmental branch pulmonary emboli in the right upper and lower lobe branches as well as mild to moderate CHF with small bilateral pleural effusions. CT A/P shows 1.5 cm sclerotic lesion in the right T9 vertebral body, 8mm sclerotic lesion in the right ilium, findings are new compared to prior exam. Patient hospitalized for further management. Hospital Course: Patient placed under observation on the medical floor. His troponin was negative. Patient started on liquids for pulmonary embolus. Patient noted to have sclerotic lesion on T9 vertebra. Given that patient has pulmonary embolism makes malignancy likely. Patient informed to follow with his PCP for arrangement for biopsy. She is [place]-speaking and encounter was done through an family lawyer. Patient voiced understanding to follow with his PCP for further evaluation. I attempted to reach his PCP Dr. Snell by phone to discuss the follow ups. Dr. Snell was seeing a patient. I left my name and number for a call back but did not receive any call back. Will attempt to reach Dr. Snell tomorrow to discuss patient followup. He is discharged with Eliquis dose for acute pulmonary embolism. Vital Signs/Physical Exam: Temp Pulse Resp BP Pulse Ox 76 18 166/100 H 93 07/11/21 04:00 07/11/21 04:00 07/11/21 04:00 07/11/21 04:00 General: Alert, In no apparent distress, Oriented x3 HEENT: Mucous membr. moist/pink Neck: JVD not distended Respiratory: Clear to auscultation bilaterally, Normal air movement Cardiovascular: No edema, Regular rate/rhythm, Normal S1 S2 Gastrointestinal: Soft and benign, Non-distended Musculoskeletal: No swelling Integumentary: No rashes Neurological: Normal strength at 5/5 x4 extr Laboratory Data at Discharge: WBC 8.20 K/uL (4.3-10.9) 07/11/21 02:29 Hgb 11.4 g/dL (13.6-17.9) L 07/11/21 02:29 Hct 34.2 % (39.6-49.0) L 07/11/21 02:29 Plt Count 282 K/uL (152-406) 07/11/21 02:29 PT 16.9 SECONDS (9.5-12.5) H 07/10/21 19:58 INR 1.46 07/10/21 19:58 Sodium 140 mmol/L (136-145) 07/11/21 02:29 Potassium 3.9 mmol/L (3.5-5.1) 07/11/21 02:29 BUN 17 mg/dL (7-18) 07/11/21 02:29 Creatinine 1.11 mg/dL (0.55-1.3) 07/11/21 02:29 Glucose 108 mg/dL (74-106) H 07/11/21 02:29 Phosphorus 4.5 mg/dL (2.5-4.9) 07/11/21 02:29 Magnesium 2.1 mg/dL (1.8-2.4) 07/11/21 02:29 Total Bilirubin 0.7 mg/dL (0.2-1.0) 07/11/21 02:29 AST 33 U/L (15-37) 07/11/21 02:29 ALT 41 U/L (12-78) 07/11/21 02:29 Alkaline Phosphatase 182 U/L (45-117) H 07/11/21 02:29 Triglycerides 88 mg/dL (<150) 07/11/21 02:29 Cholesterol 98 mg/dL (<200) 07/11/21 02:29 HDL Cholesterol 32 mg/dL (40-60) L 07/11/21 02:29 Cholesterol/HDL Ratio 3.06 07/11/21 02:29 Home Medications: Potassium Chloride 10 meq PO DAILY 09/15/16 Spironolactone [Aldactone*] 25 mg PO DAILY 09/15/16 Amiodarone HCl [Cordarone*] 200 mg PO DAILY tab 09/16/16 Clopidogrel Bisulfate [Plavix*] 75 mg PO DAILY #30 tablet 09/16/16 Furosemide [Lasix*] 40 mg PO DAILY tab 09/16/16 Metoprolol Succinate [Toprol Xl*] 25 mg PO [id number] tab 09/16/16 Nitroglycerin [Nitrostat*] 0 mg SL UD PRN #0 tab 09/16/16 Pantoprazole [Protonix Tab*] 40 mg PO DAILY #30 tab 09/16/16 Rosuvastatin [Crestor*] 20 mg PO BEDTIME #30 tab 09/16/16 Sacubitril/Valsartan [Entresto 24 mg-26 mg Tablet] 1 tab PO BID tab 09/16/16 Apixaban [Eliquis] 5 mg PO BID #70 tab.ds.pk 07/11/21 New Medications: Apixaban [Eliquis] 5 mg PO BID #70 tab.ds.pk Diet: AHA Activity: Fall precautions Followup: Juliana Snell DO [Primary Care Provider] - 1 Week
[2021-07-11 16:46] VITALS: O2SAT 94
[2021-07-11 19:02] VITALS: BP 155/87
[2021-07-11 21:40] VITALS: TEMP 98.1
== END 2021-07-11 20:00 | disposition home or self-care (01) ==
LOC: ER 19:17 → ERHOLD 22:37 → INTOOBSV 22:37 → ERHOLD 22:52
PROVIDERS: ADMIT Internal Medicine; ATTEND Internal Medicine
DX: I26.94 Multiple subsegmental thrombotic pulmonary emboli without acute cor pulmonale (principal); G54.3 Thoracic root disorders, not elsewhere classified; I48.91 Unspecified atrial fibrillation; I13.0 Hypertensive heart and chronic kidney disease with heart failure and stage 1 through stage 4 chronic kidney disease, or unspecified chronic kidney disease; I50.9 Heart failure, unspecified; N18.31 Chronic kidney disease, stage 3a; I25.10 Atherosclerotic heart disease of native coronary artery without angina pectoris; I27.20 Pulmonary hypertension, unspecified; I42.9 Cardiomyopathy, unspecified; I25.2 Old myocardial infarction; E78.5 Hyperlipidemia, unspecified; N40.0 Benign prostatic hyperplasia without lower urinary tract symptoms; Z95.0 Presence of cardiac pacemaker; Z20.822 Contact with and (suspected) exposure to COVID-19; Z79.02 Long term (current) use of antithrombotics/antiplatelets; Z79.01 Long term (current) use of anticoagulants; Z88.8 Allergy status to other drugs, medicaments and biological substances; Z87.891 Personal history of nicotine dependence; Z82.49 Family history of ischemic heart disease and other diseases of the circulatory system
CPT/HCPCS: 93005; 87040 ×2; 85025 ×2; 80048; 36415; 83735 ×2; 84100; 85610; 80061; 82565; 85379; 80076; 84443; 81003; 84484; 84439; 80053; 83880; 86140; 71275; 74176; 71045; 82805; 94760 ×2; 96375; 96374; 99285; U0003; Q9967; J1940; J2270; J7030; J2405; G0378 ×2

== ENCOUNTER 2023-05-19 08:43 | Emergency (ER) | payer OTHER ==
--- OUTSIDE RECORDS SUMMARY | 2023-05-19 08:50 | XMS REPORT | Continuity of Care Document ---
:[address] [facility] [place], [place] t Address [address] [facility] [address] [place] [address] Care Team Providers Name Role Phone Juliana Snell DO Primary Care Physician Brandin Luna Attending Clinician Unavailable Emilia Banegas Attending Clinician Unavailable Juliana Snell Attending Clinician Unavailable ROSE BARTON Attending Clinician Unavailable Yahaira Amos APRN Attending Clinician ROSE BARTON Attending Clinician Unavailable Dori Sierra MA Attending Clinician Unavailable Selena CHO, Herrera Attending Clinician Jace Sanchez MD Attending Clinician William Milton MD Attending Clinician Rowdy Matthew MD Attending Clinician Unavailable GENESIS LONG Attending Clinician Unavailable ZAID WHELAN Attending Clinician Unavailable MERCEDES WHATLEY Attending Clinician Unavailable JOSLYN DOVE Attending Clinician Unavailable ANNY GARCIA Attending Clinician Unavailable EUSEBIA NI Admitting Clinician Unavailable MERCEDES WHATLEY Admitting Clinician Unavailable JOSLYN DOVE Admitting Clinician Unavailable ANNY GARCIA Admitting Clinician Unavailable Payers Payer Name Policy Type Policy Number Effective Date Expiration Date S silvana [facility] [id number] 2020 STARPLUS OON 00:00:00 EXCEPT [facility] [id number] 2020 PLAN MEDICARE 00:00:00 [place] [id number] 2020 Common [facility] 00:00:00 [place] [id number] Common HEALTHCARE DUAL [facility] Problems Condition Condition Condition Status Onset Resolution Last Treating Co mments Source Name Details Category Date Date Treatment Clinician Date 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 04-12 Health systolic systolic 00:00: and and 00 diastolic diastolic heart heart failure failure Cardiomyop Cardiomyop Disease Active U T athy athy 04-12 Health 00:00: 00 Presence 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 ion ion 00:00: g of this Medical 00 note Center might be different from the original. S/p Tricuspid valvulopl asty with Atrial appendage ligation( 06/19/2017) 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06 [facility] disease disease 00:[facility]: Medical involving involving 00 Cent [place] coronary coronary artery artery Stage 3 Stage [address] [facility] chronic chronic nce 04-06 [facility] kidney kidney 00:00: Medical disease disease 00 Center Hypertensi Hypertensi Disease Recurre [facility] on nce 04-06 [facility] 00:00: Medical 00 Center Coronary Coronary Disease Recurre [facility] artery artery nce 04-06 [facility] disease disease 00:00: Medical involving involving 00 Cent [place] coronary coronary artery artery Non-rheuma Non-rheuma Disease Recurre Overvie w: [facility] tic mitral tic mitral nce 03-22 [facility] regurgitat regurgitat 00:00: g of this Medical ion ion 00 note Center might be different from the original. S/p mitral valve repair with sling and ring procedure (06/19/2017 ) Chronic Chronic Disease Recurre [facility] combined combined nce 03-21 [facility] systolic systolic 00:00: Medica l (congestiv (congestiv 00 Ce nter e) and e) and diastolic diastolic (congestiv (congestiv e) heart e) heart failure failure History of History of Disease Recurre [facility] atrial atrial nce 03-20 [facility] fibrillati fibrillati 00:00: Me dical on on Center Suprasella Suprasella Disease Recurre [facility] r mass r mass nce 03-20 [facility] 00:00: Medical 00 Center Pacemaker Pacemaker Disease Recurre [facility] nce 05 [facility] 00:00: Medical 00 Center No known No known Disease Metho di active active st problems problems Hospit a l [id number] Other Problem Common chronic Spirit pain - [facility] Malignant Prostate Problem Comm on tumor of cancer Spirit prostate - [facility] 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 [facility] Adenocarci Adenocarci Problem 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 prostate - [facility] Systolic Congestive Problem Com mon heart heart Spirit failure failure, - [facility] systolic, St left NYHA [facility] class 4 Medical Center 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 [facility] [id number] Hypokalemi Problem Com mon a [facility] [id number] BPH loc Problem Commo n w/o ur Spirit obs/LUTS [facility] 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 [facility] Gastroesop Gastroesop Problem C ommon hageal hageal [facility] reflux reflux - [facility] disease disease, esophagiti [facility] s presence Medica l not Center specified [id number] Screening Problem Com mon for [facility] prostate [facility] cancer [facility] Essential Benign Problem Common hypertensi essential Spi rit on HTN [facility] Primary Primary Problem 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 [facility] joints [facility] [id number] Blood Problem Common tests for [facility] routine [facility] general [facility] examinatio Medica l [facility] [id number] Chronic Problem Common fatigue [facility] [id number] Visual Problem Common disturbanc [facility] e [facility] Pleural Small Problem Common effusion pleural [facility] effusion [facility] [id number] Elevated Problem Comm on PSA [facility] Chronic +5th digit Problem Comm on atrial eff Spirit fibrillati 08/16/19*Ch - CHI on ronic atrial [facility] fibrillati Medica l on Center Dizziness Dizziness Problem Com mon and and Spirit giddiness giddiness - I [facility] Mixed Mixed Problem Common hyperlipid hyperlipid Sp john emia emia [facility] [id number] Decreased Problem Com mon vision in Spirit both eyes [facility] [id number] Atrial Problem Common fibrillati Spirit on, - CHI unspecifie [facility] Allergies, Adverse Reactions, Alerts Allergy Allergy Status Severity Reaction(s) Onset Inactive Treating Comm ents Source Name Type Date Date Clinician Lisinopr Allergy Active Unknown 2020- Other [place] to 12-18 reaction( Health substanc 00:00: s): Info e 00 Not Available Other reaction( s): Info Not Available lisinopr lisinopr Active Unknown Commo n il il [facility] Social History Social Habit Start Date Stop Date Quantity Comments Source History [facility] Health Alcohol Std Drinks History [facility] Health Alcohol Binge History [facility] Health Alcohol Comment History of Tobacco Common Spirit - Use [facility] Gender identity [facility] Sexual orientation [facility] Tobacco use and 2021-06-28 2021-06-28 Smokeless [facility] exposure 00:00:00 00:00:00 tobacco non-user History SDTX 2021-04-04 2021-04-04 1 [facility] Alcohol Frequency 00:00:00 00:00:00 Alcohol intake 2017-07-29 2017-07-[address] [facility] [address] Rox es 00:00:00 00:00:00 non-drinker of Medical Ce nter alcohol (finding) History of Social 2017-05-01 2017-05-[address] function 00:00:00 00:00:00 Hospital Sex Ass[birth year] At [birth year] SHANTEL Mccauley kes 00:00:00 00:00:00 [facility] Smoking Status Start Date Stop Date Source Never Smoker [facility] Spirit [facility] Former Smoker 2022-01-28 00:00:00 2022-01-28 00:00:00 Common S pirit [facility] Medications Ordered Filled Start Stop Current Ordering Indication Dosage Frequency Signature Comments Components Source Medication Medication Date Date Medication? Clinician (SIG) Name Name aspirin 81 Yes 81mg QD Take 81 mg U T MG EC 9-10 by mouth 1 Health tablet 09:18: (one) time 09 each day. rosuvastati Yes 20mg QD Take 20 mg UT n (Crestor) 9-10 by mouth 1 He alth 20 MG 09:18: (one) time tablet 09 each day. apixaban Yes 2.5mg Q.5D Take 2.5 UT (Eliquis) 9-10 mg by Health 2.5 MG 09:18: mouth 2 tablet 09 (two) times a day. Potassium Yes Take by UT Chloride 9-10 mouth. Health (Klor-Con) 09:18: 25 MEQ pack 09 furosemide Yes Take by UT (Lasix) 20 9-10 mouth. Health MG tablet 09:18: 09 losartan Yes 25mg QD Take 25 mg UT (Cozaar) 25 9-10 by mouth 1 He alth MG tablet 09:18: (one) time 09 each day. nitroglycer 2020-0 Yes 1{patch QD Place 1 UT in 9-10 } patch on Health (Nitrodur) 09:18: the skin 1 0.4 MG/HR 09 (one) time patch each day. PRN pantoprazol 2020-0 Yes 40mg Infuse 40 U T e 40 mg in 9-10 mg into a Heal th sodium 09:18: venous chloride 09 catheter 0.9 % 100 every mL IVPB night. clopidogrel 2020-0 Yes QD Take by UT (Plavix) 75 9-10 mouth 1 Healt h MG tablet 09:18: (one) time 09 each day. tamsulosin 2020-0 Yes QD Take by UT (Flomax) 9-10 mouth 1 Health 0.4 MG 24 09:18: (one) time hr capsule 09 each day. traMADol 2020-0 Yes 50mg Take 50 mg UT (Ultram) 50 9-10 by mouth Heal th MG tablet 09:18: if needed 09 for severe pain. promethazin 2020-0 Yes 25mg Take 25 mg UT e 9-10 by mouth Health (Phenergan) 09:18: if needed 25 MG 09 for nausea tablet or vomiting. nitroglycer 2020-[address] 0.4 U T in 9-10 mg under Health (Nitrostat) 09:18: the tongue 0.4 MG SL 09 every 5 tablet (five) minutes if needed for chest pain. minocycline 2021-0 Yes 100mg Q.5D Take 100 U T 100 MG 9-10 mg by Health capsule 09:18: mouth 2 09 (two) times a day. potassium 2021-0 Yes 40meq Q.5D Take 40 UT chloride CR 9-10 mEq by Health (K-Tab) 20 09:18: mouth 2 MEQ ER 09 (two) tablet times a day. Do not crush, chew, or split. losartan 2021-0 Yes 100mg QD Take 100 UT (Cozaar) 9-10 mg by Health 100 MG 09:18: mouth 1 tablet 09 (one) time each day. ACETAMINOPH 2021-0 Yes 300mg Take 300 U T EN-CODEINE 9-10 mg by Health PO 09:18: mouth. 09 carvedilol Yes Take by UT (Coreg) 9-10 mouth 2 Health 12.5 MG 09:18: (two) tablet 09 times a day with meals. Omeprazole Omeprazole Yes Na Snell 1 capsule Common 4-24 Spirit 00:00: - CHI 00 [facility] Triamcinolo Triamcinolo Yes Na Snell 1 Common ne ne 1-14 applicatio Spirit Acetonide Acetonide 00:00: n to - C HI 00 affected area [facility] losartan 2016-[address] (COZAAR) 25 1-27 ONE-HALF Luke s MG tablet 00:00: TABLET BY Med ical 00 MOUTH ONCE Center DAILY losartan 2016-[address] [facility] (COZAAR) 25 1-27 ONE-HALF Luke s MG tablet 00:00: TABLET BY Med ical 00 MOUTH ONCE Center DAILY losartan 2016-[address] [facility] (COZAAR) 25 1-27 ONE-HALF Luke s MG tablet 00:00: TABLET BY Med ical 00 MOUTH ONCE Center DAILY losartan 2016-[address] [facility] (COZAAR) 25 1-27 ONE-HALF Luke s MG tablet 00:00: TABLET BY Med ical 00 MOUTH ONCE Center DAILY aspirin 81 Yes 81mg QD Take [address] MG EC -13 by mouth [facility]ukes tablet 12:51: daily. Medical 15 Center rosuvastati Yes 20mg QD Take [address] n (CRESTOR) 9-13 by mouth Luke s 20 MG 12:51: daily. Medical tablet 15 Center pantoprazol Yes 40mg QD Take [address] e 9-13 by mouth [facility]ukes (PROTONIX) 12:51: daily. Medic al 40 MG 15 Center tablet promethazin Yes 25mg Take [address] e 9-13 by mouth [facility]ukes (PHENERGAN) 12:51: every 6 Med ical 25 MG 15 (six) Center tablet hours as needed for Nausea. nitroglycer Yes .4mg Place 0.[address] in 9-13 mg under [facility]ukes (NITROSTAT) 12:51: the tongue Medical 0.4 MG [...] (PLAVIX) 75 9-13 by mouth Luke s mg tablet 12:51: daily. Medica l [address] [place] aspirin 81 2017-0 Yes 81mg QD Take [address] MG EC 9-13 by mouth [facility]ukes tablet 12:51: daily. [address] rosuvastati 2017-0 Yes 20mg QD Take [address] n (CRESTOR) 9-13 by mouth Luke s 20 MG 12:51: daily. Medical tablet 15 [place] pantoprazol 2017-0 Yes 40mg QD Take [address] e 9-13 by mouth [facility]ukes (PROTONIX) 12:51: daily. Medic al 40 MG 15 Center tablet promethazin 2017-0 Yes 25mg Take [address] e 9-13 by mouth [facility]ukes (PHENERGAN) 12:51: every 6 Med ical 25 MG 15 (six) Center tablet hours as needed for Nausea. nitroglycer 2017-[address] 0[address] in 9-13 mg under [facility]ukes (NITROSTAT) 12:51: the tongue Medical 0.4 MG [...] (PLAVIX) 75 9-13 by mouth Luke s mg tablet 12:51: daily. [facility] [address] [place] aspirin 81 2017-0 Yes 81mg QD Take [address] MG EC 9-13 by mouth [facility]ukes tablet 12:51: daily. [address] rosuvastati 2017-0 Yes 20mg QD Take [address] n (CRESTOR) 9-13 by mouth Luke s 20 MG 12:51: daily. Medical tablet 15 Center pantoprazol 2017-0 Yes 40mg QD Take [address] e 9-13 by mouth [facility]ukes (PROTONIX) 12:51: daily. Medic al 40 MG 15 Center tablet promethazin 2017-0 Yes 25mg Take [address] e 9-13 by mouth [facility]ukes (PHENERGAN) 12:51: every 6 Med ical 25 MG 15 (six) Center tablet hours as needed for Nausea. nitroglycer [address] 0.[address] in 9-13 mg under Lukes (NITROSTAT) 12:51: the tongue Medical 0.4 MG SL 15 every 5 Center tablet (five) minutes as needed for Chest pain Put 1 pill under tongue every 5min as needed for chest pain.No more than 3 doses in 15min.Call 911 if pain is unrelieved 5min after 1st dose . clopidogrel 2017 Yes 75mg QD Take [address] (PLAVIX) 75 9-13 by mouth Luke s mg tablet 12:51: daily. Medica l 15 Center aspirin 81 2017-0 Yes 81mg QD Take [address] MG EC 9-13 by mouth [facility]ukes tablet 12:51: daily. Medical 15 Center rosuvastati 20170 Yes 20mg QD Take [address] n (CRESTOR) 9-13 by mouth Luke s 20 MG 12:51: daily. Medical tablet 15 Center pantoprazol 0 Yes 40mg QD Take [address] e 9-13 by mouth [facility]ukes (PROTONIX) 12:51: daily. Medic al 40 MG 15 Center tablet promethazin Yes 25mg Take [address] e 9-13 by mouth [facility]ukes (PHENERGAN) 12:51: every 6 Med ical 25 MG 15 (six) Center tablet hours as needed for Nausea. nitroglycer [address] in 9-13 mg under [facility]ukes (NITROSTAT) 12:51: the tongue Medical 0.4 MG [...] (PLAVIX) 75 9-13 by mouth Luke s mg tablet 12:51: daily. Medica l 15 Center amIODarone 2017-0 Yes 200mg QD Take 200 Me thodi (PACERONE) 7-[address] 200 MG 14:06: mouth Hospita tablet 30 daily. l aspirin 2017-0 Yes 81mg Take 81 mg Meth elkin (ECOTRIN) 7-[address] 81 MG 14:06: Hospita enteric 30 l coated tablet clopidogrel 2016-0 Yes 75mg QD Take 75 mg Methodi (PLAVIX) 75 7-[address] mg tablet 14:06: daily. Hospit a 30 l sacubitril- 2017- Yes 1{tbl} Q.5D Take 1 Me thodi valsartan 7-[address] (ENTRESTO) 14:06: mouth 2 Hosp eber 24-26 mg 30 (two) l tablet per times a tablet day. isosorbide Yes 10mg QD Take 10 mg M ethodi mononitrate 7-[address] (ISMO,MONOK 14:06: daily. Hosp eber ET) 10 MG 30 l tablet metoprolol Yes 100mg Q.5D Take 100 Me thodi [...] (PACERONE) 7-[address] 200 MG 09:06: mouth Hospita tablet 30 daily. l aspirin 2017-0 Yes 81mg Take 81 mg Meth [place] (ECOTRIN) 7-[address] 81 MG 09:06: Hospita enteric 30 l coated tablet clopidogrel 2016-0 Yes 75mg QD Take 75 mg [facility] (PLAVIX) 75 7-[address] mg tablet 09:06: daily. Hospit a 30 l sacubitril- 2017-0 Yes 1{tbl} Q.5D Take 1 Me thodi valsartan 7-[address] (ENTRESTO) 09:06: mouth 2 Hosp eber 24-26 mg 30 (two) l tablet per times a tablet day. isosorbide 2017-0 Yes 10mg QD Take 10 mg M ethodi mononitrate 7-[address] (ISMO,MONOK 09:06: daily. Hosp eber ET) 10 MG 30 l tablet metoprolol 2017-0 Yes 100mg Q.5D Take 100 Me thodi tartrate 7-[address] (LOPRESSOR) 09:06: mouth 2 Hos vesta 50 mg 30 (two) l tablet times a day. rosuvastati 2017-0 Yes 20mg QD Take 20 mg Methodi n (CRESTOR) 7-[address] 20 MG 09:06: daily. Hospita tablet 30 l nitroglycer 2017-[address] 0.4 M ethodi in 7-[address] (NITROSTAT) 09:06: the tongue Hospita 0.4 MG SL 30 every 5 l tablet (five) minutes as needed for chest pain. aspirin 2017-0 Yes 81mg Take 81 mg Meth [place] (ECOTRIN) 7-[address] 81 MG 09:06: Hospita enteric 30 l coated tablet clopidogrel 2017-0 Yes 75mg QD Take 75 mg [facility]i (PLAVIX) 75 7-[address] mg tablet 09:06: daily. Hospit a 30 l sacubitril- 2017-0 Yes 1{tbl} Q.5D Take 1 Me thodi valsartan 7-[address] (ENTRESTO) 09:06: mouth 2 Hosp eber 24-26 mg 30 (two) l tablet per times a tablet day. isosorbide 2017-0 Yes 10mg QD Take 10 mg M ethodi mononitrate 7-[address] (ISMO,MONOK 09:06: daily. Hosp eber ET) 10 MG 30 l tablet metoprolol 2017-0 Yes 100mg Q.5D Take 100 Me thodi tartrate 7-[address] (LOPRESSOR) 09:06: mouth 2 Hos vesta 50 mg 30 (two) l tablet times a day. rosuvastati 2017-0 Yes 20mg QD Take 20 mg Methodi n (CRESTOR) 7-[address] 20 MG 09:06: daily. Hospita tablet 30 l nitroglycer 2017-[address] 0.4 M ethodi in 7-[address] (NITROSTAT) 09:06: the tongue Hospita 0.4 MG SL 30 every 5 l tablet (five) minutes as needed for chest pain. amIODarone 2017-0 Yes 200mg QD Take 200 Me thodi (PACERONE) 7-[address] 200 MG 09:06: mouth Hospita tablet 30 daily. l Nitrostat Nitrostat Yes Na Snell 1 tab C ommon [facility] Carvedilol Carvedilol Yes Na Snell 1 tablet Common [facility] Protonix Protonix Yes Na Snell 1 tablet Common [facility] Potassium Potassium Yes Na Snell 2 tablets Common Chloride ER Chloride ER with food [facility] Carvedilol Carvedilol Yes Na Snell TAKE ONE Common TABLET BY [facility] MOUTH [facility] TWICE DAILY [facility] Losartan Losartan Yes Na Snell 1 tablet Common Potassium Potassium [facility] Tamsulosin Tamsulosin Yes Na Snell 1 capsule Common HCl HCl [facility] Crestor Crestor Yes Na Snell 1 tablet Co mmon [facility] Rosuvastati Rosuvastati Yes Na Snell 1 tablet Common n Calcium n Calcium [facility] Lasix Lasix Yes Na Snell 1 tablet [facility] Losartan Losartan Yes Na Snell TAKE ONE Common Potassium Potassium TABLET BY [facility] MOUTH ONCE - CHI DAILY [facility] Coreg Coreg Yes Na Snell one tab Common [facility] Eliquis 2.5 Eliquis 2.5 Yes Na Snell one tablet Common mg mg [facility] Plavix Plavix Yes Na Snell 1 tablet Comm on [facility] Rosuvastati Rosuvastati No 1{table QD Rosuvastat n Calcium n Calcium t} in Calcium 20 MG 20 MG 20 MG Lasix 20 MG Lasix 20 MG No 1{table QD Lasix 20 t} MG Aspir-Low Aspir-Low No 1{table QD Aspir-Low 81 MG 81 MG t} 81 MG Plavix 75 Plavix 75 No 1{table QD Plavix 75 MG MG t} MG Tylenol # 3 Tylenol # 3 No 2{table 6xD Tylenol # 300/30mg 300/30mg ts_as_n 3 300/30mg eeded} Plavix 75 Plavix 75 No 1{table QD Plavix 75 MG MG t} MG Losartan Losartan No 1{table QD Losartan Potassium Potassium t} Potassium 100 MG 100 MG 100 MG Carvedilol Carvedilol No 1{table BID Carvedilol 25 MG 25 MG t_with_ 25 MG food} Nitrostat Nitrostat No Nitrostat 0.4 MG 0.4 MG 0.4 MG Rosuvastati Rosuvastati No 1{table QD Rosuvastat n Calcium n Calcium t} in Calcium 20 MG 20 MG 20 MG Lasix 20 MG Lasix 20 MG No 1{table QD Lasix 20 t} MG Aspir-Low Aspir-Low No 1{table QD Aspir-Low 81 MG 81 MG t} 81 MG Plavix 75 Plavix 75 No 1{table QD Plavix 75 MG MG t} MG Tylenol # 3 Tylenol # 3 No 2{table 6xD Tylenol # 300/30mg 300/30mg ts_as_n 3 300/30mg eeded} Plavix 75 Plavix 75 No 1{table QD Plavix 75 MG MG t} MG Losartan Losartan No 1{table QD Losartan Potassium Potassium t} Potassium 100 MG 100 MG 100 MG Losartan Losartan No 1{table QD Losartan Potassium Potassium t} Potassium 100 MG 100 MG 100 MG Plavix 75 Plavix 75 No 1{table QD Plavix 75 MG MG t} MG Tylenol # 3 Tylenol # 3 No 2{table 6xD Tylenol # 300/30mg 300/30mg ts_as_n 3 300/30mg eeded} Carvedilol Carvedilol No 1{table BID Carvedilol 25 MG 25 MG t_with_ 25 MG food} Rosuvastati Rosuvastati No 1{table QD Rosuvastat n Calcium n Calcium t} in Calcium 20 MG 20 MG 20 MG Nitrostat Nitrostat No Nitrostat 0.4 MG 0.4 MG 0.4 MG Eliquis 2.5 Eliquis 2.5 No Eliquis mg 2.5 mg mg 2.5 mg 2.5 mg 2.5 mg Lasix 20 MG Lasix 20 MG No 1{table QD Lasix 20 t} MG Tamsulosin Tamsulosin No 1{capsu QD Tamsulosin HCl 0.4 MG HCl 0.4 MG le} HCl 0.4 MG Aspir-Low Aspir-Low No 1{table QD Aspir-Low 81 MG 81 MG t} 81 MG Losartan Losartan No 1{table QD Losartan Potassium Potassium t} Potassium 100 MG 100 MG 100 MG Plavix 75 Plavix 75 No 1{table QD Plavix 75 MG MG t} MG Tylenol # 3 Tylenol # 3 No 2{table 6xD Tylenol # 300/30mg 300/30mg ts_as_n 3 300/30mg eeded} Rosuvastati Rosuvastati No 1{table QD Rosuvastat n Calcium n Calcium t} in Calcium 20 MG 20 MG 20 MG Carvedilol Carvedilol No 1{table BID Carvedilol 25 MG 25 MG t_with_ 25 MG food} Nitrostat Nitrostat No Nitrostat 0.4 MG 0.4 MG 0.4 MG Eliquis 2.5 Eliquis 2.5 No Eliquis mg 2.5 mg mg 2.5 mg 2.5 mg 2.5 mg Lasix 20 MG Lasix 20 MG No 1{table QD Lasix 20 t} MG Aspir-Low Aspir-Low No 1{table QD Aspir-Low 81 MG 81 MG t} 81 MG Nitrostat Nitrostat No Nitrostat 0.4 MG 0.4 MG 0.4 MG Rosuvastati Rosuvastati No 1{table QD Rosuvastat n Calcium n Calcium t} in Calcium 20 MG 20 MG 20 MG Tylenol # 3 Tylenol # 3 No 2{table 6xD Tylenol # 300/30mg 300/30mg ts_as_n 3 300/30mg eeded} Losartan Losartan No 1{table QD Losartan Potassium Potassium t} Potassium 100 MG 100 MG 100 MG Eliquis 2.5 Eliquis 2.5 No Eliquis mg 2.5 mg mg 2.5 mg 2.5 mg 2.5 mg Carvedilol Carvedilol No 1{table BID Carvedilol 25 MG 25 MG t_with_ 25 MG food} Plavix 75 Plavix 75 No 1{table QD Plavix 75 MG MG t} MG Aspir-Low Aspir-Low No 1{table QD Aspir-Low 81 MG 81 MG t} 81 MG Lasix 20 MG Lasix 20 MG No 1{table QD Lasix 20 t} MG Carvedilol Carvedilol No 1{table BID Carvedilol 25 MG 25 MG t_with_ 25 MG food} Rosuvastati Rosuvastati No 1{table QD Rosuvastat n Calcium n Calcium t} in Calcium 20 MG 20 MG 20 MG Nitrostat Nitrostat No Nitrostat 0.4 MG 0.4 MG 0.4 MG Lasix 20 MG Lasix 20 MG No 1{table QD Lasix 20 t} MG Tylenol # 3 Tylenol # 3 No 2{table 6xD Tylenol # 300/30mg 300/30mg ts_as_n 3 300/30mg eeded} Aspir-Low Aspir-Low No 1{table QD Aspir-Low 81 MG 81 MG t} 81 MG Plavix 75 Plavix 75 No 1{table QD Plavix 75 MG MG t} MG Losartan Losartan No 1{table QD Losartan Potassium Potassium t} Potassium 100 MG 100 MG 100 MG Eliquis 2.5 Eliquis 2.5 No Eliquis mg 2.5 mg mg 2.5 mg 2.5 mg 2.5 mg Losartan Losartan No 1{table QD Losartan Potassium Potassium t} Potassium 100 MG 100 MG 100 MG Aspir-Low Aspir-Low No 1{table QD Aspir-Low 81 MG 81 MG t} 81 MG Eliquis 2.5 Eliquis 2.5 No Eliquis mg 2.5 mg mg 2.5 mg 2.5 mg 2.5 mg Tylenol # 3 Tylenol # 3 No 2{table 6xD Tylenol # 300/30mg 300/30mg ts_as_n 3 300/30mg eeded} Rosuvastati Rosuvastati No 1{table QD Rosuvastat n Calcium n Calcium t} in Calcium 20 MG 20 MG 20 MG Carvedilol Carvedilol No 1{table BID Carvedilol 25 MG 25 MG t_with_ 25 MG food} Lasix 20 MG Lasix 20 MG No 1{table QD Lasix 20 t} MG Plavix 75 Plavix 75 No 1{table QD Plavix 75 MG MG t} MG Nitrostat Nitrostat No Nitrostat 0.4 MG 0.4 MG 0.4 MG Losartan Losartan No 1{table QD Losartan Potassium Potassium t} Potassium 100 MG 100 MG 100 MG Aspir-Low Aspir-Low No 1{table QD Aspir-Low 81 MG 81 MG t} 81 MG Rosuvastati Rosuvastati No 1{table QD Rosuvastat n Calcium n Calcium t} in Calcium 20 MG 20 MG 20 MG Eliquis 2.5 Eliquis 2.5 No 1{table BID Eliquis mg 2.5 mg mg 2.5 mg t} 2.5 mg 2.5 mg Nitrostat Nitrostat No Nitrostat 0.4 MG 0.4 MG 0.4 MG Carvedilol Carvedilol No 1{table BID Carvedilol 25 MG 25 MG t_with_ 25 MG food} Lasix 20 MG Lasix 20 MG No 1{table QD Lasix 20 t} MG Plavix 75 Plavix 75 No 1{table QD Plavix 75 MG MG t} MG Tylenol # 3 Tylenol # 3 No 2{table 6xD Tylenol # 300/30mg 300/30mg ts_as_n 3 300/30mg eeded} Losartan Losartan No 1{table QD Losartan Potassium Potassium t} Potassium 100 MG 100 MG 100 MG Aspir-Low Aspir-Low No 1{table QD Aspir-Low 81 MG 81 MG t} 81 MG Tylenol # 3 Tylenol # 3 No 2{table 6xD Tylenol # 300/30mg 300/30mg ts_as_n 3 300/30mg eeded} Rosuvastati Rosuvastati No 1{table QD Rosuvastat n Calcium n Calcium t} in Calcium 20 MG 20 MG 20 MG Nitrostat Nitrostat No Nitrostat 0.4 MG 0.4 MG 0.4 MG Carvedilol Carvedilol No 1{table BID Carvedilol 25 MG 25 MG t_with_ 25 MG food} Lasix 20 MG Lasix 20 MG No 1{table QD Lasix 20 t} MG Eliquis 2.5 Eliquis 2.5 No 1{table BID Eliquis mg 2.5 mg mg 2.5 mg t} 2.5 mg 2.5 mg Plavix 75 Plavix 75 No 1{table QD Plavix 75 MG MG t} MG Losartan Losartan No 1{table QD Losartan Potassium Potassium t} Potassium 100 MG 100 MG 100 MG Nitrostat Nitrostat No Nitrostat 0.4 MG 0.4 MG 0.4 MG Tylenol # 3 Tylenol # 3 No 2{table 6xD Tylenol # 300/30mg 300/30mg ts_as_n 3 300/30mg eeded} Rosuvastati Rosuvastati No 1{table QD Rosuvastat n Calcium n Calcium t} in Calcium 20 MG 20 MG 20 MG Aspir-Low Aspir-Low No 1{table QD Aspir-Low 81 MG 81 MG t} 81 MG Carvedilol Carvedilol No 1{table BID Carvedilol 25 MG 25 MG t_with_ 25 MG food} Lasix 20 MG Lasix 20 MG No 1{table QD Lasix 20 t} MG Eliquis 2.5 Eliquis 2.5 No 1{table BID Eliquis mg 2.5 mg mg 2.5 mg t} 2.5 mg 2.5 mg Plavix 75 Plavix 75 No 1{table QD Plavix 75 MG MG t} MG Carvedilol Carvedilol No 1{table BID Carvedilol 25 MG 25 MG t_with_ 25 MG food} Nitrostat Nitrostat No Nitrostat 0.4 MG 0.4 MG 0.4 MG Rosuvastati Rosuvastati No 1{table QD Rosuvastat n Calcium n Calcium t} in Calcium 20 MG 20 MG 20 MG Lasix 20 MG Lasix 20 MG No 1{table QD Lasix 20 t} MG Aspir-Low Aspir-Low No 1{table QD Aspir-Low 81 MG 81 MG t} 81 MG Plavix 75 Plavix 75 No 1{table QD Plavix 75 MG MG t} MG Tylenol # 3 Tylenol # 3 No 2{table 6xD Tylenol # 300/30mg 300/30mg ts_as_n 3 300/30mg eeded} Plavix 75 Plavix 75 No 1{table QD Plavix 75 MG MG t} MG Losartan Losartan No 1{table QD Losartan Potassium Potassium t} Potassium 100 MG 100 MG 100 MG Carvedilol Carvedilol No 1{table BID Carvedilol 25 MG 25 MG t_with_ 25 MG food} Nitrostat Nitrostat No Nitrostat 0.4 MG 0.4 MG 0.4 MG Rosuvastati Rosuvastati No 1{table QD Rosuvastat n Calcium n Calcium t} in Calcium 20 MG 20 MG 20 MG Lasix 20 MG Lasix 20 MG No 1{table QD Lasix 20 t} MG Aspir-Low Aspir-Low No 1{table QD Aspir-Low 81 MG 81 MG t} 81 MG Plavix 75 Plavix 75 No 1{table QD Plavix 75 MG MG t} MG Tylenol # 3 Tylenol # 3 No 2{table 6xD Tylenol # 300/30mg 300/30mg ts_as_n 3 300/30mg eeded} Plavix 75 Plavix 75 No 1{table QD Plavix 75 MG MG t} MG Losartan Losartan No 1{table QD Losartan Potassium Potassium t} Potassium 100 MG 100 MG 100 MG Carvedilol Carvedilol No 1{table BID Carvedilol 25 MG 25 MG t_with_ 25 MG food} Nitrostat Nitrostat No Nitrostat 0.4 MG 0.4 MG 0.4 MG Rosuvastati Rosuvastati No 1{table QD Rosuvastat n Calcium n Calcium t} in Calcium 20 MG 20 MG 20 MG Lasix 20 MG Lasix 20 MG No 1{table QD Lasix 20 t} MG Aspir-Low Aspir-Low No 1{table QD Aspir-Low 81 MG 81 MG t} 81 MG Plavix 75 Plavix 75 No 1{table QD Plavix 75 MG MG t} MG Tylenol # 3 Tylenol # 3 No 2{table 6xD Tylenol # 300/30mg 300/30mg ts_as_n 3 300/30mg eeded} Plavix 75 Plavix 75 No 1{table QD Plavix 75 MG MG t} MG Losartan Losartan No 1{table QD Losartan Potassium Potassium t} Potassium 100 MG 100 MG 100 MG Carvedilol Carvedilol No 1{table BID Carvedilol 25 MG 25 MG t_with_ 25 MG food} Nitrostat Nitrostat No Nitrostat 0.4 MG 0.4 MG 0.4 MG Rosuvastati Rosuvastati No 1{table QD Rosuvastat n Calcium n Calcium t} in Calcium 20 MG 20 MG 20 MG Lasix 20 MG Lasix 20 MG No 1{table QD Lasix 20 t} MG Aspir-Low Aspir-Low No 1{table QD Aspir-Low 81 MG 81 MG t} 81 MG Plavix 75 Plavix 75 No 1{table QD Plavix 75 MG MG t} MG Tylenol # 3 Tylenol # 3 No 2{table 6xD Tylenol # 300/30mg 300/30mg ts_as_n 3 300/30mg eeded} Plavix 75 Plavix 75 No 1{table QD Plavix 75 MG MG t} MG Losartan Losartan No 1{table QD Losartan Potassium Potassium t} Potassium 100 MG 100 MG 100 MG Carvedilol Carvedilol No 1{table BID Carvedilol 25 MG 25 MG t_with_ 25 MG food} Nitrostat Nitrostat No Nitrostat 0.4 MG 0.4 MG 0.4 MG Tamsulosin Tamsulosin 2022- No 1{capsu QD Tamsulosin HCl 0.4 MG HCl 0.4 MG 02-14} HCl 0.4 MG 00:00 :00 Tamsulosin Tamsulosin 2022- No 1{capsu QD Tamsulosin HCl 0.4 MG HCl 0.4 MG 02-14} HCl 0.4 MG 00:00 :00 Tamsulosin Tamsulosin 2022- No 1{capsu QD Tamsulosin HCl 0.4 MG HCl 0.4 MG 02-14} HCl 0.4 MG 00:00 :00 Eliquis 2.5 Eliquis 2.5 2022- No 1{table BID Eliquis mg 2.5 mg mg 2.5 mg 01-28} 2.5 mg 2.5 00:00 mg :00 Eliquis 2.5 Eliquis 2.5 2022- No 1{table BID Eliquis mg 2.5 mg mg 2.5 mg 01-28} 2.5 mg 2.5 00:00 mg :00 Eliquis 2.5 Eliquis 2.5 2022- No 1{table BID Eliquis mg 2.5 mg mg 2.5 mg 01-28} 2.5 mg 2.5 00:00 mg :00 Eliquis 2.5 Eliquis 2.5 2022- No 1{table BID Eliquis mg 2.5 mg mg 2.5 mg 01-28} 2.5 mg 2.5 00:00 mg :00 Eliquis 2.5 Eliquis 2.5 2022- No 1{table BID Eliquis mg 2.5 mg mg 2.5 mg 03-15 t} 2.5 mg 2.5 00:00 mg :00 Eliquis 2.5 Eliquis 2.5 2022- No 1{table BID Eliquis mg 2.5 mg mg 2.5 mg 01-28 t} 2.5 mg 2.5 00:00 mg :00 Tamsulosin Tamsulosin 2021- No 1{capsu QD Tamsulosin HCl 0.4 MG HCl 0.4 MG 07-14 le} HCl 0.4 MG 00:00 :00 Tamsulosin Tamsulosin 2021- No 1{capsu QD Tamsulosin HCl 0.4 MG HCl 0.4 MG 07-14 le} HCl 0.4 MG 00:00 :00 Tamsulosin Tamsulosin 2021- No 1{capsu QD Tamsulosin HCl 0.4 MG HCl 0.4 MG 07-14 le} HCl 0.4 MG 00:00 :00 Tamsulosin Tamsulosin 2021- No 1{capsu QD Tamsulosin HCl 0.4 MG HCl 0.4 MG 07-14 le} HCl 0.4 MG 00:00 :00 Tamsulosin Tamsulosin 2021- No 1{capsu QD Tamsulosin HCl 0.4 MG HCl 0.4 MG 07-14 le} HCl 0.4 MG 00:00 :00 Vital Signs Vital Name Observation Time Observation Value Comments Source height 2022-08-01 15:00:00 65.00 [in_i] [facility] weight 2022-08-01 15:00:00 182.6 [lb_av] [facility] temperature 2022-08-01 15:00:00 98.8 [degF] [facility] bmi 2022-08-01 15:00:00 30.38 kg/m2 [facility] oximetry 2022-08-01 15:00:00 99 % [facility] respiratory rate 2022-08-01 15:00:00 17 /min Comm on [facility] blood pressure 2022-08-01 15:00:00 130 mm[Hg] [facility] blood pressure 2022-08-01 15:00:00 64 mm[Hg] [facility] height 2022-08-01 15:20:00 65 [in_i] [facility] weight 2022-08-01 15:20:00 180 [lb_av] [facility] temperature 2022-08-01 15:20:00 98.8 [degF] [facility] bmi 2022-08-01 15:20:00 29.95 kg/m2 [facility] oximetry 2022-08-01 15:20:00 99 % [facility] respiratory rate 2022-08-01 15:20:00 17 /min Comm on [facility] blood pressure 2022-08-01 15:20:00 130 mm[Hg] [facility] - systolic [facility] blood pressure 2022-08-01 15:20:00 64 mm[Hg] [facility] height 2022-04-28 15:00:00 65.00 [in_i] [facility] weight 2022-04-28 15:00:00 179.4 [lb_av] [facility] temperature 2022-04-28 15:00:00 97.8 [degF] [facility] bmi 2022-04-28 15:00:00 29.85 kg/m2 [facility] oximetry 2022-04-28 15:00:00 95 % [facility] respiratory rate 2022-04-28 15:00:00 16 /min Comm on [facility] blood pressure 2022-04-28 15:00:00 132 mm[Hg] [facility] blood pressure 2022-04-28 15:00:00 60 mm[Hg] [facility] height 2022-01-21 13:00:00 65.00 [in_i] [facility] weight 2022-01-21 13:00:00 183 [lb_av] [facility] temperature 2022-01-21 13:00:00 97.8 [degF] [facility] bmi 2022-01-21 13:00:00 30.45 kg/m2 [facility] oximetry 2022-01-21 13:00:00 98 % [facility] respiratory rate 2022-01-21 13:00:00 20 /min [facility] on [facility] blood pressure 2022-01-21 13:00:00 130 mm[Hg] [facility] blood pressure 2022-01-21 13:00:00 88 mm[Hg] [facility] - diastolic [facility] height 2021-11-04 10:00:00 65.00 [in_i] [facility] weight 2021-11-04 10:00:00 183 [lb_av] [facility] temperature 2021-11-04 10:00:00 97.8 [degF] [facility] bmi 2021-11-04 10:00:00 30.45 kg/m2 [facility] oximetry 2021-11-04 10:00:00 98 % [facility] blood pressure 2021-11-04 10:00:00 150 mm[Hg] [facility] blood pressure 2021-11-04 10:00:00 90 mm[Hg] [facility] - diastolic [facility] Procedures This patient has no known procedures. Plan of Care Planned Activity Planned Date Details Comments Source Future Scheduled 2023-05-01 COVID-19 VACCINE (#1) [facility] Test 09:26:45 [code = COVID-19 VACCINE (#1)] Future Scheduled 2023-05-01 SHINGLES VACCINES (1 Met [facility] Test 09:26:45 of 2) [code = SHINGLES VACCINES (1 of 2)] Future Scheduled 2023-05-01 65+ [facility] 09:26:45 VACCINE (1 - PCV) [code = 65+ PNEUMOCOCCAL VACCINE (1 - PCV)] Future Scheduled 2023-05-01 [facility]ACCINE [facility] 09:26:45 [code = INFLUENZA VACCINE] Future Scheduled 2023-02-20 COVID-19 VACCINE (#1) [facility] 21:00:49 [code = COVID-19 VACCINE (#1)] Future Scheduled 2023-02-20 SHINGLES VACCINES ([facility] 21:00:49 of 2) [code = SHINGLES VACCINES (1 of 2)] Future Scheduled 2023-02-20 65+ [facility]CCAL [facility] 21:00:49 VACCINE (1 - PCV) [code = 65+ PNEUMOCOCCAL VACCINE (1 - PCV)] Future Scheduled 2023-02-20 [facility]ZA [facility]ACCINE [facility] 21:00:49 [code = INFLUENZA VACCINE] Future Scheduled COVID-19 VACCINE (1) Met [facility] Test [code = COVID-19 VACCINE (1)] Future Scheduled [facility] [code = SHINGLES VACCINES (#1)] Future Scheduled 65+ [facility]UMOCOCCAL [facility] VACCINE (1 of 1 - PPSV23) [code = 65+ PNEUMOCOCCAL VACCINE (1 of 1 - PPSV23)] Future Scheduled INFLUENZA VACCINE [facility] [code = INFLUENZA VACCINE] Encounters Start End Encounter Admission Attending Care Care Encounter Source Date/Time Date/Time Type Type Clinicians Facility Department ID 2023-05-18 Outpatient [facility] [id number] [place] 10:57:00 [id number] [facility] 2023-04-17 Outpatient [facility] [id number] [place] 10:55:01 [id number] [facility] 2023-04-[address] [facility] [id number] Common 14:06:00 [facility] [id number] [facility] 2023-03-18 Outpatient [facility] [id number] [place] 10:55:00 [id number] [facility] 2023-02-16 Outpatient [facility] [id number] [place] 14:25:29 [id number] [facility] 2023-01-23 Outpatient Makenzie, STLMLC STLMLC [id number] Common 14:31:01 Emilia [id number] [facility] 2023-01-17 Outpatient [facility] [id number] [place] 10:03:06 [id number] [facility] 2022-12-19 Outpatient [facility] [id number] [place] 16:49:34 [id number] [facility] 2022-11-06 Outpatient Snell, Na STLMLC STLMLC [id number] 2 Common 13:41:01 [facility] 2022-09-19 Outpatient [facility] [id number] [place] 09:11:35 [id number] [facility] 2022-07-30 Outpatient Snell, Na STLMLC STLMLC [id number] 2 Common 09:57:00 [id number] [facility] 2022-04-24 Outpatient Snell, Na STLMLC STLMLC [id number] 2 Common 11:24:00 [facility] 2022-01-24 Outpatient HEMATPOUR, [facility] [id number] [place] 09:03:58 [facility] 2022-01-17 Outpatient Snell, Na STLMLC STLMLC [id number] 2 Common 10:15:01 [facility] 2021-12-11 Outpatient Snell, Na STLMLC STLMLC [id number] 2 Common 14:25:49 [id number] [facility] 2021-12-11 Outpatient Snell, Na STLMLC STLMLC [id number] 2 Common 14:22:05 [id number] [facility] 2021-12-11 Outpatient Snell, Na STLMLC STLMLC [id number] 2 Common 14:16:57 [id number] [facility] 2021-12-11 Outpatient Snell, Na STLMLC STLMLC [id number] 2 Common 13:29:54 [id number] [facility] 2021-12-11 Outpatient Snell, Na STLMLC STLMLC [id number] 2 Common 13:22:40 [id number] [facility] 2021-12-11 Outpatient Snell, Na STLMLC STLMLC [id number] 2 Common 13:10:56 [id number] [facility] 2021-12-11 Outpatient Snell, Na STLMLC STLMLC [id number] 2 Common 12:26:10 [id number] [facility] 2021-12-11 Outpatient Snell, Na STLMLC STLMLC [id number] 2 Common 12:22:44 [id number] [facility] 2021-12-11 Outpatient Snell, Na STLMLC STLMLC [id number] 2 Common 12:21:39 [id number] [facility] 2021-12-11 Outpatient Snell, Na STLMLC STLMLC [id number] 2 Common 12:19:40 [id number] [facility] 2021-12-11 Outpatient Snell, Na STLMLC STLMLC [id number] 2 Common 12:07:48 [id number] [facility] 2021-12-11 Outpatient Snell, Na STLMLC STLMLC [id number] 2 Common 12:07:15 [id number] [facility] 2021-12-11 Outpatient Snell, Na STLMLC STLMLC [id number] 2 Common 11:55:01 [id number] [facility] 2021-12-11 Outpatient Snell, Na STLMLC STLMLC [id number] 2 Common 11:33:15 [id number] [facility] 2021-12-11 Outpatient Snell, Na STLMLC STLMLC [id number] 2 Common 11:31:00 [id number] [facility] 2021-12-11 Outpatient Snell, Na STLMLC STLMLC [id number] 2 Common 11:19:27 [id number] [facility] 2021-12-11 Outpatient Snell, Na STLMLC STLMLC [id number] 2 Common 11:17:39 [id number] [facility] 2021-12-11 Outpatient Snell, Na STLMLC STLMLC [id number] 2 Common 11:17:20 [id number] [facility] 2021-12-11 Outpatient Snell, Na STLMLC STLMLC [id number] 2 Common 11:17:07 [id number] [facility] 2021-12-11 Outpatient Snell, Na STLMLC STLMLC [id number] 2 Common 11:00:35 [id number] [facility] 2021-07-26 Outpatient HEMATPOUR, [facility] [id number] [place] 09:46:46 [facility] 2021-06-28 Outpatient HEMATPOUR, [facility] [id number] [place] 09:28:52 [facility] 2021-04-17 Outpatient HEMATPOUR, [facility] [id number] [place] 10:37:30 [facility] 2021-04-01 Outpatient HEMATPOUR, [facility] [id number] [place] 16:21:00 [facility] 2022-10-15 2022-10-15 (TEL) STLMLC STLMLC [id number] Co mmon 00:00:00 00:00:00 [facility] 2022-08-18 2022-08-18 (TEL) STLMLC STLMLC [id number] Co mmon 00:00:00 00:00:00 [facility] 2022-08-01 2022-08-01 SUB ANNUAL STLMLC STLMLC [id number] Common 00:00:00 00:00:00 [facility] VISIT [facility] 2022-08-01 2022-08-01 OFFICE STLMLC STLMLC [id number] Co mmon 00:00:00 00:00:00 VISIT EST Spir it PT LEVEL 3 - [facility] 2022-07-24 2022-07-24 (TEL) STLMLC STLMLC [id number] Co mmon 00:00:00 00:00:00 [facility] 2022-06-30 2022-06-30 (TEL) STLMLC STLMLC [id number] Co mmon 00:00:00 00:00:00 [facility] 2022-05-13 2022-05-13 (TEL) STLMLC STLMLC [id number] Co mmon 00:00:00 00:00:00 [facility] - [facility] 2022-04-28 2022-04-28 OFFICE STLMLC STLMLC [id number] Co mmon 00:00:00 00:00:00 VISIT Spirit ESTAB PT - CHI LEVEL 4 [facility] 2022-04-02 2022-04-02 (TEL) STLMLC STLMLC [id number] Co mmon 00:00:00 00:00:00 [facility] - [facility] 2022-01-21 2022-01-21 OFFICE STLMLC STLMLC [id number] Co mmon 00:00:00 00:00:00 VISIT [facility] ESTAB PT - CHI LEVEL 4 [facility] 2022-01-15 2022-01-15 (TEL) STLMLC STLMLC [id number] Co mmon 00:00:00 00:00:00 [facility] 2021-12-31 2021-12-31 Telephone ELIER Barton 6400 1.2.840.114 [id number] [place] 00:00:00 00:00:[address] [id number] Health [id number] 1 2021-11-04 2021-11-04 OFFICE STLMLC STLMLC [id number] Co mmon 00:00:00 00:00:00 VISIT [facility] PT - CHI LEVEL 4 [facility] 2021-07-31 2021-07-31 Outpatient STLMLC STLMLC [id number] Common 00:00:00 00:00:00 [facility] 2021-07-26 2021-07-26 Office ELIER Amos 6400 1.2.840.114 [id number] [place] 10:19:28 10:19:[address] [id number] Health [id number] [id number] 1 2021-07-25 2021-07-25 Outpatient STLMLC STLMLC [id number] Common 00:00:00 00:00:00 [facility] 2021-07-12 2021-07-12 Telephone Hematpour, ELIER 6400 1.2.840.114 [id number] [place] 00:00:00 00:00:[address] [id number] Health [id number] [id number] 1 2021-07-10 2021-07-10 Outpatient STLC STLC [id number] Common 00:00:00 00:00:00 [facility] 2021-06-28 2021-06-28 Office Hematpour, [facility] 6400 1.2.840.114 12 [id number] 08:50:46 09:29:[address] [id number] [id number] 1 2021-06-28 2021-06-28 Office Hematpomichele, ELIER 6400 1.2.840.114 12 [id number] [place] 08:50:46 09:29:[address] [id number] Health [id number] [id number] 1 2021-06-06 2021-06-06 [facility] [id number] Common 00:00:00 00:00:00 [facility] 2021-05-31 2021-06-01 Outpatient HEMATPOUR, [facility] CAR [id number] [facility] 07:09:00 09:47:00 DOYLEISABELLAMorgan 2021-05-22 2021-05-22 Office ELIER Amos 6400 1.2.840.114 12 [id number] 11:06:33 12:28:[address] [id number] [id number] 1 2021-05-22 2021-05-22 Office ELIER Amos 6400 1.2.840.114 12 [id number] [place] 11:06:33 12:28:[address] [id number] Health 9.2.7.2.686 [id number] 1 2021-05-22 2021-05-22 Orders ELIER Amos 6400 1.2.840.114 12 [id number] 00:00:00 00:00:[address] [id number] 9.2.7.2.686 [id number] 1 2021-05-22 2021-05-22 Orders ELIER Amos 6400 1.2.840.114 12 [id number] [place] 00:00:00 00:00:[address] [id number] Health 9.2.7.2.686 [id number] 1 2021-05-09 2021-05-09 Telephone Hematpour, UTP 6400 1.2.840.114 [id number] 00:00:00 00:00:[address] [id number] 9.2.7.2.686 [id number] 1 2021-05-09 2021-05-09 Telephone Hematpour, [facility]TP 6400 1.2.840.114 [id number] [place] 00:00:00 00:00:[address] [id number] Health 9.2.7.2.686 [id number] 1 2021-05-03 2021-05-03 Telephone Hematpour, [facility]TP [facility] 1.2.840.114 1 [id number] 00:00:00 00:00:00 [address] MED [id number] PLAZA 2 9.2.7.2.686 [id number] 2 2021-05-03 2021-05-03 Telephone Hematpour, UTP [facility] 1.2.840.114 1 [id number] [place] 00:00:00 00:00:00 Khashayar SE MED [id number] Health PLAZA 2 [id number] [id number] 2 2021-04-23 2021-04-23 [facility] [id number] [facility] 00:00:00 00:00:00 [facility] 2021-04-17 2021-04-17 Office ELIER Amos 6400 1.2.840.114 12 [id number] [place] 09:48:45 10:37:[address] [id number] Health 9.2.7.2.686 [id number] 1 2021-04-09 2021-04-09 Telephone ELIER Barton 6400 1.2.840.114 [id number] [place] 00:00:00 00:00:[address] 350.1.13.58 Health 9.2.7.2.686 [id number] 1 2021-04-04 2021-04-04 Abstract Dori Sierra [facility] 1.2.840.11 4 [id number] [place] 00:00:00 00:00:00 Daniella Sierraiana [facility] 350.1.13.58 Health PLAZA 2 9.2.7.2.686 [id number] 2 2021-03-22 2021-03-22 Office Herrera Walters 1.2.840.114 [id number] 08:23:03 08:53:03 Visit AMBULATOR 350.1.13.21 Y 0.2.7.2.686 [id number] 300 2021-03-13 2021-03-13 [facility] [id number] Common 00:00:00 00:00:00 [facility] 2021-03-12 2021-03-12 Office JERE Sanchez 1.2.840.114 [id number] 14:47:34 15:46:56 Visit Jace AMBULATOR 350.1.13.21 Y 0.2.7.2.686 [id number] 300 2021-03-11 2021-03-11 Outpatient ST[facility] STLC [id number] Common 00:00:00 00:00:00 [facility] 2021-03-05 2021-03-05 Office JERE Milton 1.2.840.114 [id number] 11:21:44 12:13:02 Visit Bahar AMBULATOR 350.1.13.21 Y 0.2.7.2.686 [id number] 2020-12-18 2020-12-18 Office Rowdy Matthew [facility] 1.2.840.114 [id number] 11:32:56 12:45:59 Visit AMBULATOR 350.1.13.21 Y 0.2.7.2.686 [id number] 300 2020-12-06 2020-12-06 Outpatient STLMLC STLMLC [id number] Common 00:00:00 00:00:00 [facility] 2020-12-04 2020-12-04 Outpatient STLMLC STLMLC [id number] Common 00:00:00 00:00:00 [facility] 2020-11-26 2020-11-26 Outpatient STLMLC STLMLC [id number] Common 00:00:00 00:00:00 [facility] 2020-11-14 2020-11-14 Outpatient STLMLC STLMLC [id number] Common 00:00:00 00:00:00 [facility] 2020-11-08 2020-11-08 Outpatient STLMLC STLMLC [id number] Common 00:00:00 00:00:00 [facility] 2020-11-06 2020-11-06 Outpatient STLMLC STLMLC [id number] Common 00:00:00 00:00:00 [facility] 2020-09-19 2020-09-19 Outpatient STLMLC STLMLC [id number] Common 00:00:00 00:00:00 [facility] 2020-09-14 2020-09-14 Outpatient STLMLC STLMLC [id number] Common 00:00:00 00:00:00 [facility] 2020-08-31 2020-08-31 Outpatient STLMLC STLMLC [id number] Common 00:00:00 00:00:00 [facility] 2020-08-24 2020-08-24 Outpatient STLMLC STLMLC [id number] Common 00:00:00 00:00:00 [facility] 2020-06-26 2020-06-26 [facility] [id number] Common 15:59:00 15:59:00 [facility] niid[facility]to [facility] 2020-06-11 2020-06-11 [facility] [id number] Common 14:08:00 14:08:[address] [facility] 2020-05-30 2020-05-30 [facility] [id number] Common 10:20:00 10:20:[address] [facility] 2020-04-16 2020-04-16 [facility] [id number] Common 10:27:00 10:27:[address] [facility] 2020-03-09 2020-03-09 [facility] [id number] Common 15:00:00 15:00:[address] [facility] 2020-02-28 2020-02-28 [facility] [id number] Common 08:00:00 08:00:[address] [facility] 2020-01-12 2020-01-12 [facility] [id number] Common 16:30:00 16:30:[address] [facility] 2019-12-26 2019-12-26 [facility] [id number] Common 09:19:00 09:19:[address] [facility] 2019-12-23 2019-12-23 [facility] [id number] Common 17:21:00 17:21:[address] [facility] 2019-11-29 2019-11-29 [facility] [id number] Common 08:00:00 08:00:[address] [facility] 2019-11-21 2019-11-21 [facility] [id number] Common 16:38:00 16:38:[address] [facility] 2019-08-25 2019-08-25 [facility] [id number] Common 15:20:00 15:20:[address] [facility] 2019-08-08 2019-08-08 [facility] [id number] Common 14:59:00 14:59:[address] [facility] 2019-06-21 2019-06-21 [facility] [id number] Common 15:29:00 15:29:[address] [facility] 2019-06-03 2019-06-03 [facility] [id number] Common 13:40:00 13:40:[address] [facility] 2019-02-28 2019-02-28 [facility] [id number] Common 15:40:00 15:40:[address] [facility] 2019-01-03 2019-01-03 [facility] [id number] Common 15:15:00 15:15:[address] [facility] 2018-12-31 2018-12-31 [facility] [id number] Common 09:59:00 09:59:00 t Specialty/U Sp john Specialty rology - [facility] /Urology Clinic [facility] 2018-12-28 2018-12-28 [facility] 24 [id number] Common 13:00:00 13:00:00 t Specialty/U Sp john Specialty rology - [facility] Clinic [facility] 2018-12-23 2018-12-23 [facility] [id number] Common 15:11:00 15:11:00 t Specialty/U Sp john Specialty rology - [facility] /Urology Clinic [facility] 2018-12-20 2018-12-20 [facility] [id number] Common 11:04:00 11:04:00 t Urgent Urgent Care S [facility] 2018-12-20 2018-12-20 [facility] [id number] Common 09:02:00 09:02:00 t [employer] [address] [facility] 2018-12-17 2018-12-17 [facility] 24 [id number] Common 11:05:00 11:05:00 t [facility] 2018-12-17 2018-12-17 [facility] [id number] Common 10:57:00 10:57:00 t Specialty/U Sp john Specialty rology - [facility] Clinic [facility] 2018-12-06 2018-12-06 [facility] 23 [id number] Common 09:51:00 09:51:00 t [employer] [address] [facility] 2018-12-01 2018-12-01 [facility] 23 [id number] Common 10:00:00 10:00:00 t Specialty/U Sp john Specialty rology - [facility] 2018-11-30 2018-11-30 [facility] [id number] Common 09:15:00 09:15:00 t [employer] [address] [facility] 2018-08-17 2018-08-17 [facility] [id number] Common 14:43:00 14:43:00 t Specialty/U Sp john Specialty rology - [facility] 2018-08-12 2018-08-12 [facility] [id number] Common 13:07:00 13:07:00 t Specialty/U Sp john Specialty rology - [facility] 2018-08-12 2018-08-12 [facility] 21 [id number] Common 09:15:00 09:15:00 t Specialty/U Sp john Specialty rology - [facility] /Urology Clinic [facility] 2018-08-06 2018-08-06 [facility] [id number] Common 16:01:00 16:01:00 t [employer] [address] [facility] 2018-06-24 2018-06-24 [facility] 13 [id number] Common 14:45:00 14:45:00 t [employer] [facility] Results Test Description Test Time Test Comments Results Result Comments Source B-TYPE NATRIURETIC FACTOR (BNP) 2017-07-29 15:05:00 Test Item Value Reference Range Interpretation Comme nts B-TYPE NATRIURETIC PEPTIDE (BEAKER) (test code = 700) 1331 pg/mL 0-100 H [id number] 14:58:00 Test Item Value Reference Range Interpretation Comments MAGNESIUM (BEAKER) (test code = 2.2 mg/dL 1.6-2.6 627) BASIC METABOLIC [id number] 14:58:00 Test Item Value Reference Range Interpretation [...] NOT APPLICABLE FOR DIALYSIS PATIEN TS. POCT-GLUCOSE [id number] 12:54:00 Test Item Value Reference Range Interpretation Comments POC-GLUCOSE METER 108 mg/dL 70-[address] [facility] [address] (BEAKER) (test code = [place]) [address] POCT-GLUCOSE [id number] 08:45:00 Test Item Value Reference Range Interpretation Comments POC-GLUCOSE METER 114 mg/dL 70-[address] [facility] [address] (BEAKER) (test code = KATHYA Mora [facility] 1538) [address] BASIC METABOLIC [id number] 06:04:00 Test Item Value Reference Range Interpretation [...] NOT APPLICABLE FOR DIALYSIS PATIEN TS. TROPONIN [id number] 22:40:00 Test Item Value Reference Range Interpretation Comments TROPONIN I (MARSHALAKER) (test code = 1.42 ng/mL 0.00-0.03 HH 397) Effective 10/03/2014: Reference Range ChangeNew: 0.00-0.03 Previous 0.00- 0.15Troponin I (TnI) levelsmust be interpreted in the context of the presenting symptoms and the clinical findings. Elevated TnI levels indicate myocardial damage, but are not specific for ischemic heart disease. Elevated TnI levels are seen in patients with other cardiac conditions (including myocarditis and congestive heart failure), and slight TnI elevations occur in patients with other conditions, including sepsis, renal failure, acidosis, acute neurological disease, and persistent tachyarrhythmia.POCT-GLUCOSE [id number] 21:44:00 Test Item Value Reference Range Interpretation Comments POC-GLUCOSE METER 109 mg/dL 70-[address] [facility] [address] (BEJOSE) (test code = KATHYA Mora [facility] 1538) [address] POCT-GLUCOSE [id number] 20:16:00 Test Item Value Reference Range Interpretation Comments POC-GLUCOSE METER 113 mg/dL 70-[address] [facility] [address] (BEAKER) (test code = KATHYA Mora [place] 1538) [address] POCT-GLUCOSE [id number] 20:11:00 Test Item Value Reference Range Interpretation Comments POC-GLUCOSE METER 98 mg/dL 70-[address] [facility] [address] (BEAKER) (test code = KATHYA Mora [facility] [address] 1538) POCT-GLUCOSE [id number] 20:01:00 Test Item Value Reference Range Interpretation Comments POC-GLUCOSE METER 121 mg/dL 70-[address] [facility] [address] (BEAKER) (test code = KATHYA Mora [facility] 1538) [address] TROPONIN [id number] 12:06:00 Test Item Value Reference Range Interpretation Comments TROPONIN I (BEAKER) (test code = 1.72 ng/mL 0.00-0.03 397) Effective 10/03/2014: Reference Range ChangeNew: 0.00-0.03 Previous 0.00- 0.15Troponin I (TnI) levelsmust be interpreted in the context of the presenting symptoms and the clinical findings. Elevated TnI levels indicate myocardial damage, but are not specific for ischemic heart disease. Elevated TnI levels are seen in patients with other cardiac conditions (including myocarditis and congestive heart failure), and slight TnI elevations occur in patients with other conditions, including sepsis, renal failure, acidosis, acute neurological disease, and persistent tachyarrhythmia.BASIC METABOLIC [id number] 12:05:00 Test Item Value Reference Range Interpretation [...] PATIEN TS. CREATINE KINASE (CK), TOTAL AND [id number] 12:05:00 Test Item Value Reference Range Interpretation Comments CREATINE KINASE TOTAL (BEAKER) 43 U/L 29-200 (test code = 380) CREATINE KINASE-MB (BEAKER) (test 2.1 ng/mL 0.0-6.6 code = 750) CREATINE KINASE-MB INDEX (BEAKER) 4.9 % (test code = 395) Effective 10/03/2014: CK-MB Reference Range ChangeNew: 0.0-6.6 Previous: 0.0-4.9CK-MB Reference Range:<6.7 Normal6.7-10.0 Borderline>10.0 Abnormal CBC W/PLT COUNT & AUTO [id number] 05:21:00 Test Item Value Reference Range Interpretation [...] (BEAKER) (test code = 2801) URINALYSIS W/ [id number] 20:09:00 Test Item Value Reference Range Interpretation [...] 520) SOURCE(BEAKER) (test code = Urine, Voided 8419) TROPONIN [id number] 14:12:00 Test Item Value Reference Range Interpretation Comments TROPONIN I (BEAKER) (test code = 1.33 ng/mL 0.00-0.03 HH 397) Effective 10/03/2014: Reference Range ChangeNew: 0.00-0.03 Previous 0.00- 0.15Troponin I (TnI) levelsmust be interpreted in the context of the presenting symptoms and the clinical findings. Elevated TnI levels indicate myocardial damage, but are not specific for ischemic heart disease. Elevated TnI levels are seen in patients with other cardiac conditions (including myocarditis and congestive heart failure), and slight TnI elevations occur in patients with other conditions, including sepsis, renal failure, acidosis, acute neurological disease, and persistent tachyarrhythmia.CREATINE [...] 0.0-6.6 Previous: 0.0-4.9CK-MB Reference Range:<6.7 Normal6.7-10.0 Borderline>10.0 Abnormal B-TYPE NATRIURETIC FACTOR (BNP)2017-06-27 13:44:00 Test Item Value Reference Range Interpretation Comments B-TYPE NATRIURETIC PEPTIDE 1497 pg/mL 0-100 H (BEAKER) (test code = 700) [id number] 13:42:00 Test Item Value Reference Range Interpretation Comments MAGNESIUM (BEAKER) (test code = 2.0 mg/dL 1.6-2.6 627) BASIC METABOLIC [id number] 13:42:00 Test Item Value Reference Range Interpretation [...] PATIEN TS. CBC W/PLT COUNT & AUTO [id number] 13:18:00 Test Item Value Reference Range Interpretation [...] PERCENT (BEAKER) (test code = 2801) POCT-GLUCOSE [id number] 11:13:00 Test Item Value Reference Range Interpretation Comments POC-GLUCOSE METER 128 mg/dL 70-[address] [facility] [address] (BEAKER) (test code = SHILAANGIE Mora [facility] 1538) [address] BASIC METABOLIC [id number] 05:46:00 Test Item Value Reference Range Interpretation [...] S NOT APPLICABLE FOR DIALYSIS PATIEN TS. [id number] 05:40:00 Test Item Value Reference Range Interpretation Comments MAGNESIUM (BEAKER) (test code = 2.2 mg/dL 1.6-2.6 627) CBC W/PLT COUNT & AUTO [id number] 09:22:00 Test Item Value Reference Range Interpretation [...] H PERCENT (BEAKER) (test code = 2801) [id number] 07:15:00 Test Item Value Reference Range Interpretation Comments MAGNESIUM (BEAKER) (test code = 1.9 mg/dL 1.6-2.6 627) BASIC METABOLIC [id number] 07:15:00 Test Item Value Reference Range Interpretation [...] NOT APPLICABLE FOR DIALYSIS PATIEN TS. POCT-GLUCOSE [id number] 12:57:00 Test Item Value Reference Range Interpretation Comments POC-GLUCOSE METER 112 mg/dL 70-[address] [facility] [address] (BEAKER) (test code = [place] 1538) [address] BASIC METABOLIC [id number] 04:32:00 Test Item Value Reference Range Interpretation [...] S NOT APPLICABLE FOR DIALYSIS PATIEN TS. [id number] 04:26:00 Test Item Value Reference Range Interpretation Comments PHOSPHORUS (BEAKER) (test code = 2.9 mg/dL 2.3-4.7 604) [id number] 04:26:00 Test Item Value Reference Range Interpretation Comments MAGNESIUM (BEAKER) (test code = 2.1 mg/dL 1.6-2.6 627) LACTIC ACID, ARTERIAL, WHOLE [id number] 04:18:00 Test Item Value Reference Range Interpretation Comments LACTATE BLOOD ARTERIAL (2) 1.8 mmol/L 0.5-2.2 (BEAKER) (test code = 2874) Effective 03/19/2016: Units/Reference Range ChangeNew: 0.5-2.2 mmol/L Previous: 5- 20 mg/dLCBC W/PLT COUNT & AUTO [id number] 04:17:00 Test Item Value Reference Range Interpretation [...] 0-1 PERCENT (BEAKER) (test code = 2801) OXYGEN SATURATION, [id number] 04:04:00 Test Item Value Reference Range Interpretation Comments O2 SATURATION (MEASURED) (BEAKER) 71.7 % (test code = 1455) [id number] 01:08:00 Test Item Value Reference Range Interpretation Comments MAGNESIUM (BEAKER) (test code = 2.2 mg/dL 1.6-2.6 627) POCT-GLUCOSE [id number] 00:49:00 Test Item Value Reference Range Interpretation Comments POC-GLUCOSE METER 128 mg/dL 70-110 H TESTED AT [place] [address] ([facility]) (test code = KATHYA Mora [facility] 1538) [address] POTASSIUM-STAT [id number] 00:22:00 Test Item Value Reference Range Interpretation Comments POTASSIUM (BEAKER) (test code = 3.0 meq/L 3.6-5.5 L 379) CALCIUM, [id number] 00:22:00 Test Item Value Reference Range Interpretation Comments CALCIUM IONIZED (AKER) (test 1.07 mmol/L 1.12-1.27 L code = 698) PH, BLOOD ([facility]) (test code = 7.36 1810) SODIUM NA-STAT [id number] 00:21:00 Test Item Value Reference Range Interpretation Comments SODIUM ([facility]) (test code = 381) 141 meq/L 135-148 POCT-GLUCOSE [id number] 23:43:00 Test Item Value Reference Range Interpretation Comments POC-GLUCOSE METER 118 mg/dL 70-110 H TESTED AT [place] [address] ([facility]) (test code = KATHYA Mora [facility] 1538) [address] POCT-GLUCOSE [id number] 22:19:00 Test Item Value Reference Range Interpretation Comments POC-GLUCOSE METER 131 mg/dL 70-110 H TESTED AT [place] [address] ([facility]) (test code = KATHYA Mora [facility] 1538) [address] POCT-GLUCOSE [id number] 22:02:00 Test Item Value Reference Range Interpretation Comments POC-GLUCOSE METER 142 mg/dL 70-110 H TESTED AT [place] [address] ([facility]) (test code = KATHYA Mora [facility] 1538) [address] POCT-GLUCOSE [id number] 18:39:00 Test Item Value Reference Range Interpretation Comments POC-GLUCOSE METER 161 mg/dL 70-110 H TESTED AT [place] [address] ([facility]) (test code = KATHYA Mora [facility] 1538) [address] BLOOD GAS, [id number] 17:37:00 Test Item Value Reference Range Interpretation Comments PH ARTERIAL ([facility]) (test code = 7.37 7.35-7.45 383) PCO2 ARTERIAL ([facility]) (test code 33 mmHg 35-45 [...] (test code = 1819) 40.0 % POCT-GLUCOSE [id number] 17:12:00 Test Item Value Reference Range Interpretation Comments POC-GLUCOSE METER 163 mg/dL 70-110 H TEST[facility] AT [place] [address] [facility] (test code = KATHYA Mora [facility] 1538) [address] POCT-GLUCOSE [id number] 16:18:00 Test Item Value Reference Range Interpretation Comments POC-GLUCOSE METER 175 mg/dL 70-110 H TESTED AT [place] [address] ([facility]) (test code = [facility] Morgan [facility] 1538) [address] POCT-GLUCOSE [id number] 14:39:00 Test Item Value Reference Range Interpretation Comments POC-GLUCOSE METER 157 mg/dL 70-110 H TESTED AT [place] [address] ([facility]) (test code = [facility] Morgan [facility] 1538) [address] [id number] 13:40:00 Test Item Value Reference Range Interpretation Comments PHOSPHORUS (BEAKER) (test code = 2.8 mg/dL 2.3-4.7 604) [id number] 13:40:00 Test Item Value Reference Range Interpretation Comments MAGNESIUM (BEAKER) (test code = 2.2 mg/dL 1.6-2.6 627) BASIC METABOLIC [id number] 13:40:00 Test Item Value Reference Range Interpretation [...] TS. Specimen slightly ictericLACTIC ACID, ARTERIAL, WHOLE [id number] 13:32:00 Test Item Value Reference Range Interpretation Comments LACTATE BLOOD ARTERIAL (2) 3.1 mmol/L 0.5-2.2 H (BEAKER) (test code = 2874) Effective 03/19/2016: Units/Reference Range ChangeNew: 0.5-2.2 mmol/L Previous: 5- 20 mg/dLCBC W/PLT COUNT & AUTO [id number] 13:14:00 Test Item Value Reference Range Interpretation [...] (BEAKER) (test code = 2801) BLOOD GAS, [id number] 13:07:00 Test Item Value Reference Range Interpretation [...] code = 1819) 60.0 % OXYGEN SATURATION, [id number] 13:06:00 Test Item Value Reference Range Interpretation Comments O2 SATURATION (MEASURED) (BEAKER) 77.4 % (test code = 1455) POTASSIUM-STAT [id number] 13:02:00 Test Item Value Reference Range Interpretation Comments POTASSIUM (BEAKER) (test code = 3.0 meq/L 3.6-5.5 L 379) GLUCOSE-STAT [id number] 13:02:00 Test Item Value Reference Range Interpretation Comments GLUCOSE RANDOM (BEAKER) (test code 155 mg/dL 70-110 H = 652) HGB/HCT (H&H) - STAT [id number] 13:02:00 Test Item Value Reference Range Interpretation Comments HEMOGLOBIN (BEAKER) (test code = 12.8 g/dL 13.0-16.8 L 410) HEMATOCRIT (BEAKER) (test code = 38.0 % 40.0-50.0 L 411) SODIUM NA-STAT [id number] 13:01:00 Test Item Value Reference Range Interpretation Comments SODIUM (BEAKER) (test code = 381) 141 meq/L 135-148 [id number] 12:21:00 Test Item Value Reference Range Interpretation Comments ACTIVATED CLOTTING TIME 125 sec TEST ED AT [place] [address] ([facility]) (test code = [place] [address]) [address] [id number] 12:21:00 Test Item Value Reference Range Interpretation Comments ACTIVATED CLOTTING TIME 510 sec TEST ED AT [place] [address] ([facility]) (test code = [place] [address]) [address] [id number] 12:21:00 Test Item Value Reference Range Interpretation Comments ACTIVATED CLOTTING TIME 555 sec TEST ED AT [place] [address] ([facility]) (test code = [place] [address]) [address] [id number] 12:21:00 Test Item Value Reference Range Interpretation Comments ACTIVATED CLOTTING TIME 643 sec TEST ED AT [place] [address] ([facility]) (test code = [place] [address]) [address] [id number] 12:21:00 Test Item Value Reference Range Interpretation Comments ACTIVATED CLOTTING TIME 692 sec TEST ED AT [place] [address] ([facility]) (test code = [place] [address]) [address] [id number] 12:21:00 Test Item Value Reference Range Interpretation Comments ACTIVATED CLOTTING TIME 543 sec TEST ED [address] [facility] [address] (BEAKER) (test code = [place] [address]) [address] CALCIUM, [id number] 11:29:00 Test Item Value Reference Range Interpretation Comments CALCIUM IONIZED (BEAKER) (test 1.08 mmol/L 1.12-1.27 L code = 698) PH, BLOOD (BEAKER) (test code = 7.43 1810) SODIUM NA-STAT [id number] 11:28:00 Test Item Value Reference Range Interpretation Comments SODIUM (BEAKER) (test code = 381) 141 meq/L 135-148 BLOOD GAS, [id number] 11:28:00 Test Item Value Reference Range Interpretation [...] (test code = 1819) 100.0 % POTASSIUM-STAT [id number] 11:28:00 Test Item Value Reference Range Interpretation Comments POTASSIUM (BEAKER) (test code = 3.2 meq/L 3.6-5.5 L 379) GLUCOSE-STAT [id number] 11:28:00 Test Item Value Reference Range Interpretation Comments GLUCOSE RANDOM (BEAKER) (test code 146 mg/dL 70-110 H = 652) HGB/HCT (H&H) - STAT [id number] 11:28:00 Test Item Value Reference Range Interpretation Comments HEMOGLOBIN (BEAKER) (test code = 10.2 g/dL 13.0-16.8 L 410) HEMATOCRIT (BEAKER) (test code = 30.0 % 40.0-50.0 L 411) GLUCOSE-STAT [id number] 10:41:00 Test Item Value Reference Range Interpretation Comments GLUCOSE RANDOM (BEAKER) (test code 109 mg/dL 70-110 = 652) SODIUM NA-STAT [id number] 10:41:00 Test Item Value Reference Range Interpretation Comments SODIUM (BEAKER) (test code = 381) 140 meq/L 135-148 POTASSIUM-STAT [id number] 10:41:00 Test Item Value Reference Range Interpretation Comments POTASSIUM (BEAKER) (test code = 4.1 meq/L 3.6-5.5 379) BLOOD GAS, [id number] 10:41:00 Test Item Value Reference Range Interpretation [...] 1819) 80.0 % HGB/HCT (H&H) - STAT [id number] 10:41:00 Test Item Value Reference Range Interpretation Comments HEMOGLOBIN (BEAKER) (test code = 10.4 g/dL 13.0-16.8 L 410) HEMATOCRIT (BEAKER) (test code = 31.0 % 40.0-50.0 L 411) SODIUM NA-STAT [id number] 10:08:00 Test Item Value Reference Range Interpretation Comments SODIUM (BEAKER) (test code = 381) 141 meq/L 135-148 POTASSIUM-STAT [id number] 10:08:00 Test Item Value Reference Range Interpretation Comments POTASSIUM (BEAKER) (test code = 4.0 meq/L 3.6-5.5 379) BLOOD GAS, [id number] 10:08:00 Test Item Value Reference Range Interpretation [...] (test code = 1819) 70.0 % GLUCOSE-STAT [id number] 10:08:00 Test Item Value Reference Range Interpretation Comments GLUCOSE RANDOM (BEAKER) (test code 112 mg/dL 70-110 H = 652) HGB/HCT (H&H) - STAT [id number] 10:08:00 Test Item Value Reference Range Interpretation Comments HEMOGLOBIN (BEAKER) (test code = 10.3 g/dL 13.0-16.8 L 410) HEMATOCRIT (BEAKER) (test code = 30.0 % 40.0-50.0 L 411) BLOOD GAS, [id number] 09:46:00 Test Item Value Reference Range Interpretation [...] 1819) 70.0 % HGB/HCT (H&H) - STAT [id number] 09:46:00 Test Item Value Reference Range Interpretation Comments HEMOGLOBIN (BEAKER) (test code = 10.2 g/dL 13.0-16.8 L 410) HEMATOCRIT (BEAKER) (test code = 30.0 % 40.0-50.0 L 411) GLUCOSE-STAT [id number] 09:45:00 Test Item Value Reference Range Interpretation Comments GLUCOSE RANDOM (BEAKER) (test code 104 mg/dL 70-110 = 652) SODIUM NA-STAT [id number] 09:45:00 Test Item Value Reference Range Interpretation Comments SODIUM (BEAKER) (test code = 381) 140 meq/L 135-148 POTASSIUM-STAT [id number] 09:45:00 Test Item Value Reference Range Interpretation Comments POTASSIUM (BEAKER) (test code = 4.0 meq/L 3.6-5.5 379) BLOOD GAS, [id number] 09:27:00 Test Item Value Reference Range Interpretation [...] 1819) 75.0 % HGB/HCT (H&H) - STAT [id number] 09:27:00 Test Item Value Reference Range Interpretation Comments HEMOGLOBIN (BEAKER) (test code = 9.6 g/dL 13.0-16.8 L 410) HEMATOCRIT (BEAKER) (test code = 28.0 % 40.0-50.0 L 411) GLUCOSE-STAT [id number] 09:26:00 Test Item Value Reference Range Interpretation Comments GLUCOSE RANDOM (BEAKER) (test code = 93 mg/dL 70-110 652) SODIUM NA-STAT [id number] 09:26:00 Test Item Value Reference Range Interpretation Comments SODIUM (BEAKER) (test code = 381) 138 meq/L 135-148 POTASSIUM-STAT [id number] 09:26:00 Test Item Value Reference Range Interpretation Comments POTASSIUM (BEAKER) (test code = 4.1 meq/L 3.6-5.5 379) BLOOD GAS, [id number] 08:31:00 Test Item Value Reference Range Interpretation [...] (test code = 1819) 100.0 % POTASSIUM-STAT [id number] 08:31:00 Test Item Value Reference Range Interpretation Comments POTASSIUM (BEAKER) (test code = 3.3 meq/L 3.6-5.5 L 379) HGB/HCT (H&H) - STAT [id number] 08:31:00 Test Item Value Reference Range Interpretation Comments HEMOGLOBIN (BEAKER) (test code = 11.5 g/dL 13.0-16.8 L 410) HEMATOCRIT (BEAKER) (test code = 34.0 % 40.0-50.0 L 411) CALCIUM, [id number] 08:31:00 Test Item Value Reference Range Interpretation Comments CALCIUM IONIZED (BEAKER) (test 1.00 mmol/L 1.12-1.27 L code = 698) PH, BLOOD (BEAKER) (test code = 7.47 1810) GLUCOSE-STAT [id number] 08:29:00 Test Item Value Reference Range Interpretation Comments GLUCOSE RANDOM (BEAKER) (test code = 95 mg/dL 70-110 652) SODIUM NA-STAT [id number] 08:29:00 Test Item Value Reference Range Interpretation Comments SODIUM (BEAKER) (test code = 381) 141 meq/L 135-148 URINALYSIS W/ [id number] 13:01:00 Test Item Value Reference Range Interpretation [...] = 2795) CBC W/PLT COUNT & AUTO [id number] 12:22:00 Test Item Value Reference Range Interpretation [...] (BEAKER) (test code = 2801) BASIC METABOLIC [id number] 12:16:00 Test Item Value Reference Range Interpretation [...] APPLICABLE FOR DIALYSIS PATIEN TS. Specimen slightly [id number] 11:54:00 Test Item Value Reference Range Interpretation Comments PARTIAL THROMBOPLASTIN TIME 33.4 seconds 22.5-36.0 (BEAKER) (test code = 760) PROTHROMBIN [id number] 11:53:00 Test Item Value Reference Range Interpretation Comments PROTIME (BEAKER) (test code = 17.3 seconds 11.7-14.7 H 759) INR (BEAKER) (test code = 370) 1.4 <=5.9 RECOMMENDED COUMADIN/WARFARIN INR THERAPY RANGESSTANDARD DOSE: 2.0 - 3.0 Includes: PROPHYLAXIS for venous thrombosis, systemic embolization; TREATMENT for venous thrombosis and/or pulmonary embolus.HIGH RISK: Target INR is 2.5-3.5 for patients with mechanical heart valves.BASIC METABOLIC [id number] 11:47:00 Test Item Value Reference Range Interpretation [...] Specimen slightly ictericCBC W/PLT COUNT & AUTO [id number] 11:36:00 Test Item Value Reference Range Interpretation [...] K/ L 0.00-0.20 (test code = 417) 0.00PT/[id number] 11:35:00 Test Item Value Reference Range Interpretation Comments PROTIME (BEAKER) (test code = 15.5 seconds 11.7-14.7 H 759) INR (BEAKER) (test code = 370) 1.2 <=5.9 PARTIAL THROMBOPLASTIN TIME 32.9 seconds 22.5-36.0 (BEAKER) (test code = 760) RECOMMENDED COUMADIN/WARFARIN INR THERAPY RANGESSTANDARD DOSE: 2.0 - 3.0 Includes: PROPHYLAXIS for venous thrombosis, systemic embolization; TREATMENT for venous thrombosis and/or pulmonary embolus.HIGH RISK: Target INR is 2.5-3.5 for patients with mechanical heart valves.B-TYPE NATRIURETIC FACTOR (BNP) 2017-04-06 14:43:00 Test Item Value Reference Range Interpretation Comments B-TYPE NATRIURETIC PEPTIDE 4794 pg/mL 0-100 H (BEAKER) (test code = 700) [id number] 14:35:00 Test Item Value Reference Range Interpretation Comments MAGNESIUM (BEAKER) (test code = 2.6 mg/dL 1.6-2.6 627) BASIC METABOLIC [id number] 14:35:00 Test Item Value Reference Range Interpretation [...] APPLICABLE FOR DIALYSIS PATIEN TS. MISCELLANEOUS LAB [id number] 10:09:00 Test Item Value Reference Range Interpretation Comments SCAN RESULT (test code = 8914959) BASIC METABOLIC [id number] 11:29:00 Test Item Value Reference Range Interpretation [...] S NOT APPLICABLE FOR DIALYSIS PATIEN TS. [id number] 17:50:00 Test Item Value Reference Range Interpretation Comments CORTISOL, TOTAL (BEAKER) (test code 7.4 ug/dL 3.7-19.4 = 2755) [id number] 07:17:00 Test Item Value Reference Range Interpretation Comments CORTISOL, TOTAL (BEAKER) (test code 8.2 ug/dL 3.7-19.4 = 2755) PROTEIN ELECTROPHORESIS, [id number] 12:58:00 Test Item Value Reference Range Interpretation [...] their expected distribution. No monoclonal bands detected. [id number] Shanthi Gee MD (BEAKER) (test code = (electronic signature) 0673) PROTEIN TOTAL SERUM, 6.1 gm/dL 6.0-8.3 SPEP (BEAKER) (test code = 9780) [id number] 06:14:00 Test Item Value Reference Range Interpretation Comments PROLACTIN (BEAKER) (test code = 17.86 ng/mL 3.46-19.40 758) [id number] 05:26:00 Test Item Value Reference Range Interpretation Comments CORTISOL, TOTAL (BEAKER) (test code 8.5 ug/dL 3.7-19.4 = 2755) T3, [id number] 05:26:00 Test Item Value Reference Range Interpretation Comments T3 FREE (BEAKER) (test code = 908) 1.88 pg/mL 1.71-3.71 TSH/FREE T4 IF [id number] 05:26:00 Test Item Value Reference Range Interpretation Comments THYROID STIMULATING HORMONE 0.47 uIU/mL 0.35-4.94 (BEAKER) (test code = 772) PROTHROMBIN [id number] 04:56:00 Test Item Value Reference Range Interpretation Comments PROTIME (BEAKER) (test code = 15.7 seconds 11.7-14.7 H 759) INR (BEAKER) (test code = 370) 1.3 <=5.9 RECOMMENDED COUMADIN/WARFARIN INR THERAPY RANGESSTANDARD DOSE: 2.0 - 3.0 Includes: PROPHYLAXIS for venous thrombosis, systemic embolization; TREATMENT for venous thrombosis and/or pulmonary embolus.HIGH RISK: Target INR is 2.5-3.5 for patients with mechanical heart valves.[id number] 07:01:00 Test Item Value Reference Range Interpretation Comments MAGNESIUM (BEAKER) (test code = 2.0 mg/dL 1.6-2.6 627) BASIC METABOLIC [id number] 07:01:00 Test Item Value Reference Range Interpretation [...] NOT APPLICABLE FOR DIALYSIS PATIEN TS. PROTHROMBIN [id number] 06:39:00 Test Item Value Reference Range Interpretation Comments PROTIME (BEAKER) (test code = 15.8 seconds 11.7-14.7 H 759) INR (BEAKER) (test code = 370) 1.3 <=5.9 RECOMMENDED COUMADIN/WARFARIN INR THERAPY RANGESSTANDARD DOSE: 2.0 - 3.0 Includes: PROPHYLAXIS for venous thrombosis, systemic embolization; TREATMENT for venous thrombosis and/or pulmonary embolus.HIGH RISK: Target INR is 2.5-3.5 for patients with mechanical heart valves.SEDIMENTATION [id number] 10:07:00 Test Item Value Reference Range Interpretation Comments SEDIMENTATION RATE, ERYTHROCYTE 10 mm/HR 0-40 (BEAKER) (test code = 766) [id number] 06:12:00 Test Item Value Reference Range Interpretation Comments MAGNESIUM (BEAKER) (test code = 2.1 mg/dL 1.6-2.6 627) BASIC METABOLIC [id number] 06:12:00 Test Item Value Reference Range Interpretation [...] FOR DIALYSIS PATIEN TS. Specimen slightly ictericLIPID [id number] 06:12:00 Test Item Value Reference Range Interpretation Comments TRIGLYCERIDES (BEAKER) (test code = 79 mg/dL 540) CHOLESTEROL (BEAKER) (test code = 95 mg/dL 631) HDL CHOLESTEROL (BEAKER) (test code 26 mg/dL = 976) LDL CHOLESTEROL CALCULATED (BEAKER) 53 mg/dL (test code = 633) Triglyceride Reference Range: Low Risk <150 Borderline 150-199 High Risk 200- 499 Very High Risk >=500Cholesterol Reference Range: Low Risk <200 Borderline 200-239 High Risk >240HDL Cholesterol Reference Range: Low Risk >=60 High Risk <40LDL Cholesterol Reference Range: Optimal <100 Near Optimal 100-129 Borderline 130-159 High 160-189 Very High >=190 Specimen slightly ictericPROTHROMBIN [id number] 05:57:00 Test Item Value Reference Range Interpretation Comments PROTIME (BEAKER) (test code = 16.7 seconds 11.7-14.7 H 759) INR (BEAKER) (test code = 370) 1.4 <=5.9 RECOMMENDED COUMADIN/WARFARIN INR THERAPY RANGESSTANDARD DOSE: 2.0 - 3.0 Includes: PROPHYLAXIS for venous thrombosis, systemic embolization; TREATMENT for venous thrombosis and/or pulmonary embolus.HIGH RISK: Target INR is 2.5-3.5 for patients with mechanical heart valves.POCT-GLUCOSE [id number] 21:23:00 Test Item Value Reference Range Interpretation Comments POC-GLUCOSE METER 116 mg/dL 70-[address] [facility] (BEAKER) (test code = [place] ID [id number]) [address] URINALYSIS W/ [id number] 20:08:00 Test Item Value Reference Range Interpretation [...] 520) SOURCE(BEAKER) (test code = Urine, Voided 2733) HEPATITIS B [id number] 20:06:00 Test Item Value Reference Range Interpretation Comments HEPATITIS B CORE TOTAL ANTIBODY Nonreactive Nonreactive (BEAKER) (test code = 497) HEPATITIS B SURFACE ANTIBODY < mIU/mL <8.0 (BEAKER) (test code = 647) HEPATITIS B SURFACE ANTIGEN (2) Nonreactive Nonreactive (BEAKER) (test code = 2585) HEPATITIS C [id number] 20:04:00 Test Item Value Reference Range Interpretation Comments HEPATITIS C ANTIBODY ([employer]) Nonreactive Nonreactive (test code = 367) HIV-1 ANTIGEN WITH HIV-1/2 [id number] 20:04:00 Test Item Value Reference Range Interpretation Comments HIV-1 ANTIGEN WITH HIV 1\T\2 Nonreactive Nonreactive ANTIBODY (2) ([employer]) (test code = 2586) HEMOGLOBIN [id number] 19:57:00 Test Item Value Reference Range Interpretation Comments HEMOGLOBIN A1C ([employer]) (test code = 5.6 % 4.3-6.1 368) T4, [id number] 19:06:00 Test Item Value Reference Range Interpretation Comments FREE T4 ([employer]) (test code = 655) 1.08 ng/dL 0.70-1.48 TSH/FREE T4 IF [id number] 18:35:00 Test Item Value Reference Range Interpretation Comments THYROID STIMULATING HORMONE 0.03 uIU/mL 0.35-4.94 L ([employer]) (test code = 772) FOLATE, [id number] 18:33:00 Test Item Value Reference Range Interpretation Comments FOLATE ([employer]) (test code = 362) 10.5 ng/mL >=7.0 Effective 10/03/2014: Folate Reference Range ChangeNew: >=7.0 Previous: >=5.4VITAMIN [id number] 18:27:00 Test Item Value Reference Range Interpretation Comments VITAMIN B12 ([employer]) (test code = 394 pg/mL 213810 774) B-TYPE NATRIURETIC FACTOR (BNP)2017-03-20 18:20:00 Test Item Value Reference Range Interpretation Comments B-TYPE NATRIURETIC PEPTIDE 8044 pg/mL 0-100 H ([employer]) (test code = 700) POCT-GLUCOSE [id number] 17:18:00 Test Item Value Reference Range Interpretation Comments POC-GLUCOSE METER 96 mg/dL 70-[address] [facility] ([facility]) (test code = [place] [id number]) [id number] 17:06:00 Test Item Value Reference Range Interpretation Comments MAGNESIUM ([employer]) (test code = 2.1 mg/dL 1.6-2.6 627) BASIC METABOLIC [id number] 17:06:00 Test Item Value Reference Range Interpretation [...] 697) EGFR (BEAKER) (test 65 mL/min/1.73 ESTIMA SBOEIDA GFR IS code = 1092) sq m NOT ACCURATE CREATININE CLEARANCE IN PREDICTING GLOMERULAR FILTRATION RATE . ESTIMATED GFR I S NOT APPLICABLE FOR DIALYSIS PATIEN TS. Specimen slightly ictericCBC W/PLT COUNT & AUTO [id number] 16:55:00 Test Item Value Reference Range Interpretation [...]
[2023-05-19 09:23] LABS: Absolute Lymphocytes (CBC) 1.8 K/uL (0.7-4.9); Hematocrit 38.2 % (39.6-49.0); Lymphocytes % 26.3 % (15.3-44.8); MCV 83.1 fL (80-100); MPV 6.8 fL (7.6-11.3)
--- NOTE | 2023-05-19 09:23 | ER ---
Nurse's Notes [facility] Name: Giuliano Park Age: 82 yrs Sex: Male : 1940 Arrival Date: 05/19/2023 Time: 08:43 Bed 7 Private MD: Brandin Luna Diagnosis: Intracranial hemorrhage;Essential (primary) hypertension Presentation: 05/19 08:48 Chief complaint: Patient states: was up at 4 am and was watering his garden, around 5 iw am he noticed his left arm and left leg were weak, family reports he id fall but did not hit his head. Coronavirus screen: At this time, the client does not indicate any symptoms associated with coronavirus-19. Ebola Screen: Patient negative for fever greater than or equal to 101.5 degrees Fahrenheit, and additional compatible Ebola Virus Disease symptoms Patient denies exposure to infectious person. Patient denies travel to an Ebola-affected area in the 21 days before illness onset. No symptoms or risks identified at this time. Risk Assessment: Do you want to hurt yourself or someone else? Patient reports no desire to harm self or others. 08:48 Method Of Arrival: Wheelchair iw 08:48 Acuity: CALEB 2 iw 09:05 An acute neurological deficit is present. The charge nurse has been notified. iw Pre-hospital glucose is not applicable to this patient. 09:25 Initial Sepsis Screen: Does the patient meet any 2 criteria? No. Patient's initial iw sepsis screen is negative. Does the patient have a suspected source of infection? No. Patient's initial sepsis screen is negative. Onset of symptoms was May 19, 2023 at 05:00. Triage Assessment: 09:01 Neuro: Reports weakness in left arm and left leg. iw 09:15 The onset of the patients symptoms was May 19, 2023 at 05:00. General: Appears in no iw apparent distress. Behavior is calm, cooperative. Stroke Activation: Physician: Stroke Attending; Name: N/A; Notified At: 09:01; Arrived At: 09:01 Physician: Chief Stroke Resident; Name: N/A; Notified At: 09:01; Arrived At: N/A Physician: Stroke Resident; Name: N/A; Notified At: 09:01; Arrived At: N/A Physician: ED Attending; Name: Dr. Zaidi; Notified At: 09:01; Arrived At: 09:01 Physician: ED Resident; Name: N/A; Notified At: 09:01; Arrived At: N/A Historical: - Allergies: 09:19 Lisinopril; iw - Home Meds: : tamsulosin 0.4 mg oral capsule daily [Active]; amlodipine daily [Active]; rosuvastatin iw oral [Active]; Furosemide Oral [Active]; carvedilol oral [Active]; clopidogrel 75 mg oral tablet daily [Active]; aspirin 81 mg Oral capsule daily [Active]; losartan oral [Active]; Eliquis oral [Active]; - PMHx: 09:19 Atrial Fib; CHF; enlarged prostate; Hypertension; Myocardial infarction; Pacemaker; iw - Immunization history:: Adult Immunizations unknown. - Social history:: Smoking status: unknown. Screenin:32 [facility] ED Fall Risk Assessment (Adult) History of falling in the last 3 months, iw including since admission Yes- single mechanical fall (1 pt). Abuse screen: Denies threats or abuse. Denies injuries from another. Nutritional screening: No deficits noted. Tuberculosis screening: No symptoms or risk factors identified. 09:32 [place] [facility] Protocol Exclusion Criteria: NPO for medical/surgical reason by provider iw order Yes. Assessment: 09:01 VAN Scoring: Arm Drift: Minor drift Visual Disturbance: No visual disturbance noted. iw Aphasia: No aphasia noted. Neglect: No neglect noted. 09:05 Reassessment: patient to CT. db 09:08 TNKase (Tenecteplase) Screening: Contraindications: Intracranial hemorrhage and its iw risk factor and suspicion of subarachnoid bleed: Yes. Is the patient on Aspirin, Heparin, or Warfarin: Yes. 09:31 Reassessment: Patient appears in no apparent distress at this time. Patient and/or iw family updated on plan of care and expected duration. Pain level reassessed. family updated on POC, pt started on cardene drip, K Centra order sent to pharmacy. 09:49 Reassessment: pt cleaned , linens changed. iw 10:06 Pain: Denies pain. Neuro: Level of Consciousness is awake, alert, obeys commands. iw 10:07 Reassessment: [facility] at bedside to transport pt, family at beside. iw Vital Signs: 09:15 Weight 95 kg (M); iw 09:19 BP 180 / 96; Pulse 80; Resp 16; Temp 98.3(TE); Pulse Ox 100% on R/A; iw 09:31 BP 172 / 94; Pulse 71; iw 09:39 BP 180 / 85; Pulse 73; iw 09:49 BP 149 / 82; Pulse 72; iw 09:51 BP 151 / 98; Pulse 73; Resp 16; Temp 98.1; Pulse Ox 97% on R/A; Pain 0/10; iw 09:51 Pain Scale: Adult iw NIH Stroke Scale Scores: 09:01 NIHSS Score: 3 iw 09:33 NIHSS Score: 3 jmm 09:51 NIHSS Score: 3 ms3 09:52 NIHSS Score: 1 iw ED Course: 08:46 Patient arrived in ED. mr 08:46 Brandin Luna DO is Private Physician. mr 08:46 Vladimir Toro PA is PHCP. jmm 08:46 [place] Zaidi DO is Attending Physician. jmm 08:48 Patient has correct armband on for positive identification. iw 09:01 Arm band placed on. iw 09:05 Inserted saline lock: 20 gauge in right antecubital area, using aseptic technique. db 09:15 Manuela Pitt, RN is Primary Nurse. iw 09:15 CT Stroke Brain w/o Contrast In Process Unspecified. EDMS 09:23 Stroke CXR 1 View In Process Unspecified. EDMS 09:25 Triage completed. iw 09:52 Inserted saline lock: 18 gauge in left antecubital area, using aseptic technique. zm 10:10 No provider procedures requiring assistance completed. Patient transferred, IV remains iw in place. Administered Medications: 09:26 Drug: niCARdipine IV 5 mg/hr Route: IV; Rate: calculated rate; Site: right antecubital; iw 09:31 Follow up: verbal order for target BP systolic 140, per Vladimir LOO iw 09:48 Follow up: Rate change 10 mg/hr; verbal order to increase Nicardipine drip to 10 mg/hr iw to achieve goal of 140 systolic BP 10:06 Follow up: IV Status: Infusion continued upon transfer iw 10:05 Drug: Kcentra 500 unit 25 units/kg {Note: given by [facility] RN.} Route: IV; Rate: iw calculated rate; Site: left antecubital; 10:06 Follow up: IV Status: Infusion continued upon transfer iw Medication: 09:26 VIS not applicable for this client. iw Intake: Outcome: 09:22 ER care complete, transfer ordered by ms3 10:10 Transferred by helicopter to [facility], Transfer form completed. iw X-rays sent w/ patient. 10:10 Condition: stable 10:10 Discharge instructions given to patient, family, Instructed on the need for transfer, Demonstrated understanding of instructions. 10:10 Patient left the ED. NIH Stroke Scale - NIH Stroke Score Date: 05/19/2023 Time: 09:01 Total Score = 3 10. Dysarthria (speech clarity - read or repeat words) - 0(Normal) 11. Extinction and Inattention (visual/tactile/auditory/spatial/personal) - 0(No abnormality) 1a. Level of Consciousness (LOC) - 0(Alert) 1b. Level of Consciousness (LOC) (Month \T\ Age) - 0(Both) 1c. LOC Commands (Open \T\ Closes Eyes/Cig[employer] Making Machine Operator) - 0(Both) 2. Best Gaze (Lateral Gaze Paresis) - 0(Normal) 3. Visual Field Loss - 0(No visual loss) 4. Facial Palsy - 0(Normal) 5a. Left Arm: Motor (10-second hold) - 1(Drift) 5b. Right Arm: Motor (10-second hold) - 0(No drift) 6a. Left Leg: Motor (5-second hold - always test supine) - 2(Drift, some effort against gravity) 6b. Right Leg: Motor (5-second hold - always test supine) - 0(No drift) 7. Limb Ataxia (finger/nose \T\ heel/laguerre - test with eyes open) - 0(Absent) 8. Sensory Loss (pinprick arms/legs/face) - 0(Normal) 9. Best Language: Aphasia (description/naming/reading) - 0(No aphasia) Initials: NIH Stroke Scale - NIH Stroke Score Date: 05/19/2023 Time: 09:33 Total Score = 3 10. Dysarthria (speech clarity - read or repeat words) - 0(Normal) 11. Extinction and Inattention (visual/tactile/auditory/spatial/personal) - 0(No abnormality) 1a. Level of Consciousness (LOC) - 0(Alert) 1b. Level of Consciousness (LOC) (Month \T\ Age) - 0(Both) 1c. LOC Commands (Open \T\ Closes Eyes/Cig[employer] Making Machine Operator) - 0(Both) 2. Best Gaze (Lateral Gaze Paresis) - 0(Normal) 3. Visual Field Loss - 0(No visual loss) 4. Facial Palsy - 0(Normal) 5a. Left Arm: Motor (10-second hold) - 1(Drift) 5b. Right Arm: Motor (10-second hold) - 0(No drift) 6a. Left Leg: Motor (5-second hold - always test supine) - 2(Drift, some effort against gravity) 6b. Right Leg: Motor (5-second hold - always test supine) - 0(No drift) 7. Limb Ataxia (finger/nose \T\ heel/laguerre - test with eyes open) - 0(Absent) 8. Sensory Loss (pinprick arms/legs/face) - 0(Normal) 9. Best Language: Aphasia (description/naming/reading) - 0(No aphasia) Initials: [facility] NIH Stroke Scale - NIH Stroke Score Date: 05/19/2023 Time: 09:51 Total Score = 3 10. Dysarthria (speech clarity - read or repeat words) - 0(Normal) 11. Extinction and Inattention (visual/tactile/auditory/spatial/personal) - 0(No abnormality) 1a. Level of Consciousness (LOC) - 0(Alert) 1b. Level of Consciousness (LOC) (Month \T\ Age) - 0(Both) 1c. LOC Commands (Open \T\ Closes Eyes/Cigar Making Machine Operator) - 0(Both) 2. Best Gaze (Lateral Gaze Paresis) - 0(Normal) 3. Visual Field Loss - 0(No visual loss) 4. Facial Palsy - 0(Normal) 5a. Left Arm: Motor (10-second hold) - 1(Drift) 5b. Right Arm: Motor (10-second hold) - 0(No drift) 6a. Left Leg: Motor (5-second hold - always test supine) - 2(Drift, some effort against gravity) 6b. Right Leg: Motor (5-second hold - always test supine) - 0(No drift) 7. Limb Ataxia (finger/nose \T\ heel/laguerre - test with eyes open) - 0(Absent) 8. Sensory Loss (pinprick arms/legs/face) - 0(Normal) 9. Best Language: Aphasia (description/naming/reading) - 0(No aphasia) Initials: ms3 NIH Stroke Scale - NIH Stroke Score Date: 05/19/2023 Time: 09:52 Total Score = 1 10. Dysarthria (speech clarity - read or repeat words) - 0(Normal) 11. Extinction and Inattention (visual/tactile/auditory/spatial/personal) - 0(No abnormality) 1a. Level of Consciousness (LOC) - 0(Alert) 1b. Level of Consciousness (LOC) (Month \T\ Age) - 0(Both) 1c. LOC Commands (Open \T\ Closes Eyes/Cigar Making Machine Operator) - 0(Both) 2. Best Gaze (Lateral Gaze Paresis) - 0(Normal) 3. Visual Field Loss - 0(No visual loss) 4. Facial Palsy - 0(Normal) 5a. Left Arm: Motor (10-second hold) - 1(Drift) 5b. Right Arm: Motor (10-second hold) - 0(No drift) 6a. Left Leg: Motor (5-second hold - always test supine) - 0(No drift) 6b. Right Leg: Motor (5-second hold - always test supine) - 0(No drift) 7. Limb Ataxia (finger/nose \T\ heel/laguerre - test with eyes open) - 0(Absent) 8. Sensory Loss (pinprick arms/legs/face) - 0(Normal) 9. Best Language: Aphasia (description/naming/reading) - 0(No aphasia) Initials: Signatures: Dispatcher [employer] EDMS Vladimir Toro PA PA jmm Rivera, Mary mr Manuela Pitt RN RN iw Sims, Marcus, DO DO ms3 Christa Dotson Danielle, RN RN db Corrections: (The following items were deleted from the chart) 09:52 09:51 NIHSS Score: 2 iw 09:59 09:19 BP 180 / 96; Pulse 80bpm; Resp 16bpm; Pulse Ox 100% RA; iw iw 12:55 09:51 BP 151 / 98; Pulse 73bpm; Resp 16bpm; Pulse Ox 97% RA; iw iw
--- NOTE | 2023-05-19 09:23 | EDPHYS ---
Physician Documentation [facility] Name: Giuliano Park Age: 82 yrs Sex: Male : 1940 Arrival Date: 05/19/2023 Time: 08:43 Bed 7 Private MD: [facility] ED Physician Denver Zaidi HPI: 05/19 08:53 This 82 yrs old Male presents to ER via Unassigned with complaints of Fall jmm Injury, Leg weakness. 09:21 Onset: The symptoms/episode began/occurred this morning, today. [facility] 09:33 This is a 89-year-old male with history of atrial fibrillation, CHF, hypertension, jmm coronary artery disease the presents emerged department with complaints of left-sided weakness. Son states that the patient was having difficulty sleeping the entire night, got up around 4 AM to water plants. Patient then noticed that he had weakness around 5 AM. Denies chest pain or shortness of breath. Historical: - Allergies: 09:19 Lisinopril; iw - Home Meds: 09:27 tamsulosin 0.4 mg oral capsule daily [Active]; amlodipine daily [Active]; rosuvastatin iw oral [Active]; Furosemide Oral [Active]; carvedilol oral [Active]; clopidogrel 75 mg oral tablet daily [Active]; aspirin 81 mg Oral capsule daily [Active]; losartan oral [Active]; Eliquis oral [Active]; - PMHx: 09:19 Atrial Fib; CHF; enlarged prostate; Hypertension; Myocardial infarction; Pacemaker; iw - Immunization history:: Adult Immunizations unknown. - Social history:: Smoking status: unknown. ROS: 09:33 Constitutional: Negative for fever, chills, and weight loss, Cardiovascular: Negative jm for chest pain, palpitations, and edema, Respiratory: Negative for shortness of breath, cough, wheezing, and pleuritic chest pain. 09:33 Neuro: Positive for weakness. 09:33 All other systems are negative. Exam: 09:33 Radiologist reports: Right basal cannula intracranial hemorrhage [facility] 09:33 Constitutional: This is a well developed, well nourished patient who is awake, alert, and in no acute distress. Head/Face: atraumatic. Eyes: EOMI, no conjunctival erythema appreciated ENT: Moist Mucus Membranes Neck: Trachea midline, Supple Chest/axilla: Normal chest wall appearance and motion. Cardiovascular: Regular rate and rhythm. No edema appreciated Respiratory: Normal respirations, no respiratory distress appreciated Abdomen/GI: Non distended Back: Normal ROM Skin: General appearance color normal MS/ Extremity: Moves all extremities, no obvious deformities appreciated, no edema noted to the lower extremities 09:33 Neuro: Orientation: is normal, Mentation: is normal, Memory: is normal. 09:33 Psych: Behavior/mood is pleasant, cooperative. 09:52 ECG was reviewed by the Attending Physician. ms3 Vital Signs: 09:15 Weight 95 kg (M); iw 09:19 BP 180 / 96; Pulse 80; Resp 16; Temp 98.3(TE); Pulse Ox 100% on R/A; iw 09:31 BP 172 / 94; Pulse 71; iw 09:39 BP 180 / 85; Pulse 73; iw 09:49 BP 149 / 82; Pulse 72; iw 09:51 BP 151 / 98; Pulse 73; Resp 16; Temp 98.1; Pulse Ox 97% on R/A; Pain 0/10; iw 09:51 Pain Scale: Adult NIH Stroke Scale Scores: 09:01 NIHSS Score: 3 iw 09:33 NIHSS Score: 3 [facility] 09:51 NIHSS Score: 3 [facility] 09:52 NIHSS Score: 1 MDM: 08:48 Patient medically screened. [facility] 09:30 ED course: Discussed case with Dr Presley and he accepts patient to Neuro ICU. Agrees with ms3 Kate and Veronica. SBP <140 mm Hg. 09:47 Differential diagnosis: Ischemic CVA vs ICH vs Electrolyte abnormality. Data reviewed: ms3 vital signs, nurses notes, lab test result(s), EKG, radiologic studies, and as a result, I will transfer patient. Management of patient was discussed with the following: Dr Presley- Neuro ICU at [facility]. I considered the following discharge prescriptions or medication management in the emergency department Medications were administered in the Emergency Department. See MAR. Independent interpretation of the following test(s) in the Emergency Department CT Scan: My interpretation is CT head images reviewed by me show right sided ICH. Historians other than the Patient: Family Member: Son. Care significantly affected by the following chronic conditions: Hypertension, Atrial Fibrillation. Counseling: I had a detailed discussion with the patient and/or guardian regarding: the historical points, exam findings, and any diagnostic results supporting the discharge/admit diagnosis, lab results, radiology results, the need to transfer to another facility, for higher level of care. 05/19 09:12 Order name: Basic Metabolic Panel; Complete Time: :43 05/19 09:12 Order name: CBC with Diff; Complete Time: :05/19 09:12 Order name: High Sensitivity Troponin; Complete Time: :43 05/19 09:12 Order name: Protime (+inr); Complete Time: :36 05/19 09:12 Order name: Ptt, Activated; Complete Time: :36 05/19 09:12 Order name: CT Stroke Brain w/o Contrast; Complete Time: :36 05/19 09:12 Order name: Stroke CXR 1 View; Complete Time: :36 05/19 09:12 Order name: EKG; Complete Time: 09:12 05/19 09:12 Order name: Accucheck; Complete Time: :05/19 09:12 Order name: Cardiac monitoring; Complete Time: :05/19 09:12 Order name: EKG - Nurse/Tech; Complete Time: :05/19 09:12 Order name: IV Saline Lock; Complete Time: :05/19 09:12 Order name: Labs collected and sent; Complete Time: :05/19 09:12 Order name: NPO; Complete Time: :05/19 09:12 Order name: O2 Per Protocol; Complete Time: :05/19 09:12 Order name: O2 Sat Monitoring; Complete Time: :05/19 09:12 Order name: Stroke Swallow Screen; Complete Time: :39 jmm EC:52 Rate is 71 beats/min. Rhythm is regular. QRS interval is prolonged. Clinical ms3 impression: Ventricular paced. Interpreted by me. Reviewed by me. Administered Medications: 09:26 Drug: niCARdipine IV 5 mg/hr Route: IV; Rate: calculated rate; Site: right antecubital; iw 09:31 Follow up: verbal order for target BP systolic 140, per Vladimir LOO iw 09:48 Follow up: Rate change 10 mg/hr; verbal order to increase Nicardipine drip to 10 mg/hr iw to achieve goal of 140 systolic BP 10:06 Follow up: IV Status: Infusion continued upon transfer iw 10:05 Drug: Kcentra 500 unit 25 units/kg {Note: given by [employer] RN.} Route: IV; Rate: iw calculated rate; Site: left antecubital; 10:06 Follow up: IV Status: Infusion continued upon transfer iw Disposition: 09:50 Co-signature as Attending Physician, Denver Zaidi DO 82-year-old male with past medical ms3 history of atrial fibrillation, congestive heart failure, BPH, hypertension, myocardial infarction presents with his family after developing left-sided weakness at 5 AM. Patient's family states patient awoke at 4 AM and was watering his garden when he noticed his left side become weak. On exam patient is alert, in no apparent distress, nontoxic-appearing. Heart rate is regular without murmurs rubs gallops. Lungs clear to auscultation bilaterally. Abdomen nontender palpation bowel sounds present. Left upper extremity drift is noted, left lower extremity drift greater than left upper extremity. No facial droop noted.. Disposition Summary: 05/19/23 09:22 Transfer Ordered Transfer Location: [facility] ms3 Reason: Higher level of care ms3 Condition: Stable ms3 Problem: new ms3 Symptoms: are unchanged ms3 Accepting Physician: Dr Presley(05/19/23 10:10) iw Diagnosis - Intracranial hemorrhage ms3 - Essential (primary) hypertension ms3 Forms: - Medication Reconciliation Form ms3 - SBAR form ms3 Critical care time excluding procedures: 09:47 Critical care time: Bedside Care: 30 minutes, Consultation: 5 minutes, Family ms3 Intervention: 5 minutes. Total time: 40 minutes NIH Stroke Scale - NIH Stroke Score Date: 05/19/2023 Time: 09:01 Total Score = 3 10. Dysarthria (speech clarity - read or repeat words) - 0(Normal) 11. Extinction and Inattention (visual/tactile/auditory/spatial/personal) - 0(No abnormality) 1a. Level of Consciousness (LOC) - 0(Alert) 1b. Level of Consciousness (LOC) (Month \T\ Age) - 0(Both) 1c. LOC Commands (Open \T\ Closes Eyes/Metallurgist Helper) - 0(Both) 2. Best Gaze (Lateral Gaze Paresis) - 0(Normal) 3. Visual Field Loss - 0(No visual loss) 4. Facial Palsy - 0(Normal) 5a. Left Arm: Motor (10-second hold) - 1(Drift) 5b. Right Arm: Motor (10-second hold) - 0(No drift) 6a. Left Leg: Motor (5-second hold - always test supine) - 2(Drift, some effort against gravity) 6b. Right Leg: Motor (5-second hold - always test supine) - 0(No drift) 7. Limb Ataxia (finger/nose \T\ heel/laguerre - test with eyes open) - 0(Absent) 8. Sensory Loss (pinprick arms/legs/face) - 0(Normal) 9. Best Language: Aphasia (description/naming/reading) - 0(No aphasia) Initials: NIH Stroke Scale - NIH Stroke Score Date: 05/19/2023 Time: 09:33 Total Score = 3 10. Dysarthria (speech clarity - read or repeat words) - 0(Normal) 11. Extinction and Inattention (visual/tactile/auditory/spatial/personal) - 0(No abnormality) 1a. Level of Consciousness (LOC) - 0(Alert) 1b. Level of Consciousness (LOC) (Month \T\ Age) - 0(Both) 1c. LOC Commands (Open \T\ Closes Eyes/Metallurgist Helper) - 0(Both) 2. Best Gaze (Lateral Gaze Paresis) - 0(Normal) 3. Visual Field Loss - 0(No visual loss) 4. Facial Palsy - 0(Normal) 5a. Left Arm: Motor (10-second hold) - 1(Drift) 5b. Right Arm: Motor (10-second hold) - 0(No drift) 6a. Left Leg: Motor (5-second hold - always test supine) - 2(Drift, some effort against gravity) 6b. Right Leg: Motor (5-second hold - always test supine) - 0(No drift) 7. Limb Ataxia (finger/nose \T\ heel/laguerre - test with eyes open) - 0(Absent) 8. Sensory Loss (pinprick arms/legs/face) - 0(Normal) 9. Best Language: Aphasia (description/naming/reading) - 0(No aphasia) Initials: jmm NIH Stroke Scale - NIH Stroke Score Date: 05/19/2023 Time: 09:51 Total Score = 3 10. Dysarthria (speech clarity - read or repeat words) - 0(Normal) 11. Extinction and Inattention (visual/tactile/auditory/spatial/personal) - 0(No abnormality) 1a. Level of Consciousness (LOC) - 0(Alert) 1b. Level of Consciousness (LOC) (Month \T\ Age) - 0(Both) 1c. LOC Commands (Open \T\ Closes Eyes/Metallurgist Helper) - 0(Both) 2. Best Gaze (Lateral Gaze Paresis) - 0(Normal) 3. Visual Field Loss - 0(No visual loss) 4. Facial Palsy - 0(Normal) 5a. Left Arm: Motor (10-second hold) - 1(Drift) 5b. Right Arm: Motor (10-second hold) - 0(No drift) 6a. Left Leg: Motor (5-second hold - always test supine) - 2(Drift, some effort against gravity) 6b. Right Leg: Motor (5-second hold - always test supine) - 0(No drift) 7. Limb Ataxia (finger/nose \T\ heel/laguerre - test with eyes open) - 0(Absent) 8. Sensory Loss (pinprick arms/legs/face) - 0(Normal) 9. Best Language: Aphasia (description/naming/reading) - 0(No aphasia) Initials: 3 NIH Stroke Scale - NIH Stroke Score Date: 05/19/2023 Time: 09:52 Total Score = 1 10. Dysarthria (speech clarity - read or repeat words) - 0(Normal) 11. Extinction and Inattention (visual/tactile/auditory/spatial/personal) - 0(No abnormality) 1a. Level of Consciousness (LOC) - 0(Alert) 1b. Level of Consciousness (LOC) (Month \T\ Age) - 0(Both) 1c. LOC Commands (Open \T\ Closes Eyes/Metallurgist Helper) - 0(Both) 2. Best Gaze (Lateral Gaze Paresis) - 0(Normal) 3. Visual Field Loss - 0(No visual loss) 4. Facial Palsy - 0(Normal) 5a. Left Arm: Motor (10-second hold) - 1(Drift) 5b. Right Arm: Motor (10-second hold) - 0(No drift) 6a. Left Leg: Motor (5-second hold - always test supine) - 0(No drift) 6b. Right Leg: Motor (5-second hold - always test supine) - 0(No drift) 7. Limb Ataxia (finger/nose \T\ heel/laguerre - test with eyes open) - 0(Absent) 8. Sensory Loss (pinprick arms/legs/face) - 0(Normal) 9. Best Language: Aphasia (description/naming/reading) - 0(No aphasia) Initials: iw Signatures: Dispatcher [employer] Vladimir Palomo PA PA jmm Williams, Irene, RN RN iw Denver Zaidi DO DO ms3 Corrections: (The following items were deleted from the chart) 09: 09:22 Dr [email or web address] ms3 10:10 09:31 Dr Presley ms3 iw
[2023-05-19] MEDS ORDERED: Nicardipine/NS 25 MG/250 ML KIT IV ONE (09:25)
--- NOTE | 2023-05-19 09:26 | RAD REPORT ---
EXAM DESCRIPTION: CT - Ct Stroke Brain Wo Cont - 05/19/2023 9:15 am CLINICAL HISTORY: Left sided weakness COMPARISON: 2019 TECHNIQUE: Computed axial tomography of the head was obtained. All CT scans are performed using dose optimization technique as appropriate and may include automated exposure control or mA/KV adjustment according to patient size. FINDINGS: 2.3 centimeter bleed right basal ganglia. Mild surrounding edema. Sella/suprasellar mass The ventricles are normal in caliber. No extra-axial fluid collection is noted. Mild to moderate low-density within periventricular, deep and subcortical white matter likely ischemi c changes secondary to small vessel disease Fluid within the sinuses/ mastoids is not seen. IMPRESSION: 2.3 centimeter acutely right basal ganglia Sella/suprasellar mass. Nonemergent MRI recommended Vladimir of the emergency room was notified at 9:20 a.m. May 19, 2023
--- NOTE | 2023-05-19 09:29 | RAD REPORT ---
EXAM DESCRIPTION: Alicia Single View05/19/2023 9:21 am CLINICAL HISTORY: cva/left-sided weakness COMPARISON: 2020 FINDINGS: The lungs appear clear of acute infiltrate. The heart is moderately to markedly enlarged Small bilateral pleural effusions are present. Pacemaker leads in place
[2023-05-19 09:30] LABS: Protime INR 1.17
[2023-05-19 09:41] LABS: Potassium 2.9 mEq/L (3.5-5.1); Troponin High Sensitivity 14.2 pg/mL (<58.9)
[2023-05-19] MEDS ORDERED: PROTHROMBIN COMPLEX CONCENTRATE (HUMAN) 500 UNIT VIAL IV ONE (10:00)
[2023-05-19] MEDS ORDERED: ONDANSETRON 4 MG/2 ML VIAL ONE (10:11)
[2023-05-19 10:39] VITALS: TEMP 98.3
[2023-05-19 10:43] VITALS: BP 151/98; O2SAT 97
--- NOTE | 2023-05-20 12:32 | EKG ---
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
== END 2023-05-19 10:10 | disposition short-term general hospital (02) ==
LOC: ER 08:43
DX: S06.30AA Unspecified focal traumatic brain injury with loss of consciousness status unknown, initial encounter (principal); W18.30XA Fall on same level, unspecified, initial encounter; I10 Essential (primary) hypertension; R29.703 NIHSS score 3; I50.9 Heart failure, unspecified; I48.91 Unspecified atrial fibrillation; Z79.01 Long term (current) use of anticoagulants; Z95.0 Presence of cardiac pacemaker; Z79.82 Long term (current) use of aspirin; Z88.8 Allergy status to other drugs, medicaments and biological substances
CPT/HCPCS: 96365; 93005; 85025; 80048; 36415; 85610; 85730; 84484; 70450; 71045; 96375; 99285; J7168; J2405

== ENCOUNTER 2023-08-03 11:32 | Emergency (ER) | payer OTHER ==
--- OUTSIDE RECORDS SUMMARY | 2023-08-03 11:38 | XMS REPORT | Continuity of Care Document ---
:1940 Author Organization [facility] t Address [address] [facility] [address] [place] [address] Care Team Providers Name Role Phone Juliana Snell DO Primary Care Physician Brandin Luna Attending Clinician Unavailable JUDI ORTA Attending Clinician Unavailable ALEX BECK Attending Clinician Unavailable Emilia Banegas Attending Clinician Unavailable Juliana Snell Attending Clinician Unavailable KADEN DAY Attending Clinician Unavailable MADDIE JARAMILLO Attending Clinician Unavailable Aramis CHO, Scott Roberto Attending Clinician [phone] Judi Orta MD Attending Clinician Unavailable Clark CHO, Eric Pepe Attending Clinician [phone] Bernabe Roldan MD Attending Clinician Ella CHO, Maddie Nobles Attending Clinician [phone] Enrrique CHO, Danny Attending Clinician Yahaira Amos APRN Attending Clinician BARBJERADMorgan Attending Clinician Unavailable Dori Sierra MA Attending Clinician Unavailable GENESIS LONG Attending Clinician Unavailable ZAID WHELAN Attending Clinician Unavailable MERCEDES WHATLEY Attending Clinician Unavailable JOSLYN DOVE Attending Clinician Unavailable ANNY GARCIA Attending Clinician Unavailable JUDI ORTA Admitting Clinician Unavailable EUSEBIA NI Admitting Clinician Unavailable MERCEDES WHATLEY Admitting Clinician Unavailable JOSLYN DOVE Admitting Clinician Unavailable ANNY GARCIA Admitting Clinician Unavailable Payers Payer Name Policy Type Policy Number Effective Date Expiration Date S ource [facility] [id number] 2020 [employer]ON 00:00:00 EXCEPT HHS [employer] MEDICARE [id number] 2022 00:00:00 [facility] [id number] 2016 PLAN 00:00:00 [facility] [id number] 2020 PLAN MEDICARE 00:00:00 [place] [id number] 2020 [facility] 00:00:00 [facility] - [facility] 53 [id number] Common HEALTHCARE DUAL [facility] Problems Condition Condition Condition Status Onset Resolution Last Treating Co mments Source Name Details Category Date Date Treatment Clinician Date Intraparen Intraparen Disease Recurre [facility] chymal [facility]ymal [facility] 05[facility]19 [facility] hematoma hematoma 00:00: Medica l of brain of brain 00 Center Atrial Atrial Disease Recurre [facility] fibrillati fibrillati nce - Jamila kes on on 00:00: Medical 00 [place] Cerebral Cerebral Disease Recurre [facility] edema edema nce 05-19 [facility] 00:[facility]: Medical 00 [place] Hypercoagu Hypercoagu Disease Recurre [facility] lopathy lopathy nce 05-19 [facility] 00:[facility]: Medical 00 Center ICH ICH Disease Recurre [facility] (intracere (intracere nce 05-19 Jamila kes bral bral 00:00: Medical hemorrhage hemorrhage 00 Ce nter ) ) 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 04-12 Health systolic systolic 00:00: and and 00 diastolic diastolic heart heart failure failure Cardiomyop Cardiomyop Disease Active U T athy athy 04-12 Health 00:00: 00 Presence Presence Disease Active [facility] of of 04-12 Health automatic automatic 00:00: (implantab (implantab 00 le) le) cardiac cardiac defibrilla defibrilla tor tor care home care home Disease Active [facility] current current 04-12 Health use of use of 00:00: anticoagul anticoagul 00 ant ant therapy therapy Paroxysmal Paroxysmal Disease Active U T atrial atrial 04-12 Health fibrillati fibrillati 00:00: on on 00 VT VT Disease Active UT (ventricul (ventricul 04-12 He alth ar ar 00:00: tachycardi tachycardi 00 a) a) Tricuspid Tricuspid Disease Recurre Overview: [facility] regurgitat regurgitat nce 06-19 [facility] ion ion 00:00: g of this Medical 00 note Center might be different from the original. S/p Tricuspid valvulopl asty with Atrial appendage ligation( 06/19/2017) 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 04-06 [facility] disease disease 00:00: Medical involving involving 00 Cent er kletsel dehe wintun kletsel dehe wintun coronary coronary artery artery Coronary Coronary Disease Recurre [facility] artery artery nce 04-06 [facility] disease disease 00:00: Medical involving involving 00 Cent er kletsel dehe wintun kletsel dehe wintun coronary coronary artery artery Non-rheuma Non-rheuma Disease Recurre Overvie w: [facility] tic mitral tic mitral nce 03-22 [facility] regurgitat regurgitat 00:00: g of this Medical ion ion 00 note Center might be different from the original. S/p mitral valve repair with sling and ring procedure (06/19/2017 ) Chronic Chronic Disease Recurre [facility] combined combined nce 06 [facility] systolic systolic 00:00: Medica l (congestiv (congestiv 00 Ce nter e) and e) and diastolic diastolic (congestiv (congestiv e) heart e) heart failure failure Hypokalemi Hypokalemi Disease Active C [facility] a a 03-20 [facility] 00:00: Medical 00 Center Suprasella Suprasella Disease Recurre [facility] r mass r mass nce 03-20 [facility] 00:00: Medical 00 [place] History of History of Disease Recurre [facility] atrial atrial nce 03-20 [facility] fibrillati fibrillati 00:00: Me dical on on [place] No known No known Disease Metho di active active st problems problems Hospit a l [id number] Other Problem Common chronic [facility] pain - [facility] Malignant Prostate Problem Comm on tumor of cancer [facility] prostate [facility] 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 [facility] Adenocarci Adenocarci Problem C ommon noma of noma of [facility] prostate prostate [facility] Cardiac Pacemaker Problem Commo n pacemaker Spirit in situ [facility] Systolic Congestive Problem Com mon heart heart Spirit failure failure, - [facility] systolic, St left NYHA [facility] class [facility] 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 [facility] [id number] BPH loc Problem Commo n w/o ur Spirit obs/LUTS [facility] 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 [facility] Gastroesop Gastroesop Problem C ommon hageal hageal [facility] reflux reflux - [facility] disease disease, esophagiti [facility] s presence Medica l not Center specified Hypertensi HTN Problem Commo n on (hypertens Spirit ion) [facility] [id number] Screening Problem Com mon for [facility] prostate - [facility] cancer [facility] Essential Benign Problem Common hypertensi essential Spi rit on HTN [facility] Primary Primary Problem 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 [facility] joints [facility] [id number] Blood Problem Common tests for [facility] routine [facility] general [facility] examinatio Medica l [facility] [id number] Chronic Problem Common fatigue Spirit [facility] [id number] Visual Problem Common disturbanc [facility] e - [facility] Pleural Small Problem Common effusion pleural [facility] effusion [facility] [id number] Elevated Problem Comm on PSA Spirit [facility] Chronic +5th digit Problem Comm on atrial eff Spirit fibrillati 08/16/19*Ch - CHI on ronic St atrial [facility] fibrillati Medica l on Center Dizziness Dizziness Problem Com mon and and Spirit giddiness giddiness - [facility] Mixed Mixed Problem Common hyperlipid hyperlipid Sp john emia emia - [facility] [id number] +5th digit Problem Co mmon eff Spirit 08/16/20*CK - CHI D (chronic kidney [facility] disease) Medical stage 3, Center GFR 30-59 ml/min [id number] Decreased Problem Com mon vision in [facility] both eyes [facility] Allergies, Adverse Reactions, Alerts Allergy Allergy Status Severity Reaction(s) Onset Inactive Treating Comm ents Source Name Type Date Date Clinician Lisinopr Propensi Active Other (See CH I St il ty to Comments) 05-19 [facility] adverse 00:00: Medical reaction 00 Center s LISINOPR Allergy Active Med Other [facility] St [place] 05-19 [facility] 00:00: Medical 00 Center Lisinopr Allergy Active Unknown Other AR il to 2-02 reaction( Health substanc 00:00: s): Info e 00 Not Available Other reaction( s): Info Not Available NO KNOWN Allergy Active [facility] S lisinopr lisinopr Active Unknown Commo n il il [facility] Social History Social Habit Start Date Stop Date Quantity Comments Source [facility] Sexual [facility] History [facility] Health Alcohol Std Drinks History [facility] Alcohol Binge History [facility] Alcohol Comment History of Tobacco [facility] - Use [facility] Tobacco use and 2021-06-28 2021-06-28 Smokeless [facility] exposure 00:00:00 00:00:00 tobacco non-user History [facility] 2021-04-04 2021-04-04 1 [facility] Alcohol Frequency 00:00:00 00:00:00 Alcohol intake 2017-05-26 2017-05-26 Current [facility] 00:00:00 00:00:00 non-drinker of Hospital alcohol (finding) History of Social 2017-05-01 2017-05-[address] function 00:00:00 00:00:00 Hospital Sex Ass[birth year] At [birth year] [facility] 00:00:00 00:00:00 Hospital Smoking Status Start Date Stop Date Source Never Smoker [facility] Spirit [facility] Former Smoker 2022-01-28 00:00:00 2022-01-28 00:00:00 Common S pirit [facility] Medications Ordered Filled Start Stop Current Ordering Indication Dosage Frequency Signature Comments Components Source Medication Medication Date Date Medication? Clinician (SIG) Name Name aspirin 81 Yes 81mg QD Take [address] MG EC 7-13 by mouth [facility] tablet 15:05: daily. Medical 33 Center rosuvastati Yes 20mg QD Take [address] n (CRESTOR) 7-13 by mouth Luke s 20 MG 15:05: daily. Medical tablet 33 Center pantoprazol Yes 40mg QD Take [address] e 7-13 by mouth [facility] (PROTONIX) 15:05: daily. Medic al 40 MG 33 Center tablet promethazin Yes 25mg Take [address] e 7-13 by mouth [facility] (PHENERGAN) 15:05: every 6 Med ical 25 MG 33 (six) Center tablet hours as needed for Nausea. tamsulosin Yes .8mg QD Take 2 [facility]I S t (FLOMAX) -12 capsules [facility] 0.4 mg Cap 00:00: (0.8 mg Medi sophia 24 hr 00 total) by Center capsule mouth daily. losartan 2023- Yes 100mg QD Take 1 [facility]I S t (COZAAR) 05-27- tablet [facility] 100 MG 00:00: 23:59 (100 mg Medical tablet 00 :00 total) by Center mouth daily. amLODIPine 2023- Yes 10mg QD Take [address] (NORVASC) 05-27- tablet (10 Rox es 10 MG 00:00: 23:59 mg total) Medica l tablet 00 :00 by mouth Center daily. spironolact 2023- Yes 12.5mg QD Take 0.[address] one 05-27-11 tablets [facility]ukes (ALDACTONE) 00:00: 23:59 (12.5 mg M edical 25 MG 00 :00 total) by Center tablet mouth daily. nitroglycer 2022- No .4mg Place 0.[address] in 05-26 07-11 mg under [facility]ukes (NITROSTAT) 13:44: 00:00 the tongue Medical 0.4 MG SL 56 :00 every 5 Center tablet (five) minutes as needed for Chest pain Put 1 pill under tongue every 5min as needed for chest pain.No more than 3 doses in 15min.Call 911 if pain is unrelieved 5min after 1st dose . clopidogrel 2022- No 75mg QD Take [address] (PLAVIX) 75 05-2611 by mouth Rox es mg tablet 13:44: 00:00 daily. Medic al 56 :00 Center carvediloL 2023- Yes 25mg Q.5D Take [address] (COREG) 25 05-26-10 tablet (25 Jamila kes MG tablet 00:00: 23:59 mg total) Me dical 00 :00 by mouth 2 Center (two) times daily. finasteride 2023- Yes 5mg QD Take [address] (PROSCAR) 5 05-26-10 tablet (5 Jaimla kes mg tablet 00:00: 23:59 mg total) Me dical 00 :00 by mouth Center daily. aspirin 81 0 Yes 81mg QD Take [address] MG EC 7-04 by mouth [facility] tablet 10:45: daily. Medical 34 Center rosuvastati 0 Yes 20mg QD Take [address] n (CRESTOR) 7-04 by mouth Luke s 20 MG 10:45: daily. Medical tablet 34 Center pantoprazol Yes 40mg QD Take [address] e 7-04 by mouth [facility]ukes (PROTONIX) 10:45: daily. Medic al 40 MG 34 Center tablet promethazin Yes 25mg Take [address] e 7-04 by mouth [facility]ukes (PHENERGAN) 10:45: every 6 Med ical 25 MG 34 (six) Center tablet hours as needed for Nausea. nitroglycer Yes .4mg Place 0.[address] in 7-04 mg under [facility]ukes (NITROSTAT) 10:45: the tongue Medical 0.4 MG SL 34 every 5 Center tablet (five) minutes as needed for Chest pain Put 1 pill under tongue every 5min as needed for chest pain.No more than 3 doses in 15min.Call 911 if pain is unrelieved 5min after 1st dose . clopidogrel 0 Yes 75mg QD Take [address] (PLAVIX) 75 7-04 by mouth Luke s mg tablet 10:45: daily. Medica l 34 Center carvedilol Yes Take by [facility] (Coreg) 9-10 mouth 2 Health 12.5 MG 09:18: (two) tablet 09 times a day with meals. aspirin 81 Yes 81mg QD Take 81 mg U T MG EC 9-10 by mouth 1 Health tablet 09:18: (one) time 09 each day. rosuvastati Yes 20mg QD Take 20 mg UT n (Crestor) 9-10 by mouth 1 He alth 20 MG 09:18: (one) time tablet 09 each day. apixaban Yes 2.5mg Q.5D Take 2.5 UT (Eliquis) 9-10 mg by [facility] 2.5 MG 09:18: mouth 2 tablet 09 [...] 09:18: (one) time 09 each day. nitroglycer Yes 1{patch QD Place 1 UT in 9-10 } patch on [facility] (Nitrodur) 09:18: the skin 1 0.4 MG/HR 09 (one) time patch each day. PRN pantoprazol Yes 40mg Infuse 40 U T e 40 mg in 9-10 mg into a Heal th sodium 09:18: venous chloride 09 catheter 0.9 % 100 every mL IVPB night. clopidogrel 0 Yes QD Take by UT (Plavix) 75 9-10 mouth 1 Healt h MG tablet 09:18: (one) time 09 each day. tamsulosin Yes QD Take by UT (Flomax) 9-10 mouth 1 Health 0.4 MG 24 09:18: (one) time hr capsule 09 each day. traMADol Yes 50mg Take 50 mg UT (Ultram) 50 9-10 by mouth Heal th MG tablet 09:18: if needed 09 for severe pain. promethazin Yes 25mg Take 25 mg UT e 9-10 by mouth Health (Phenergan) 09:18: if needed 25 MG 09 for nausea tablet or vomiting. nitroglycer Yes .4mg Place 0.4 U T in 9-10 mg under Health (Nitrostat) 09:18: the tongue 0.4 MG SL 09 every 5 tablet (five) minutes if needed for chest pain. minocycline Yes 100mg Q.5D Take 100 U T 100 MG 9-10 mg by Health capsule 09:18: mouth 2 09 (two) times a day. potassium Yes 40meq Q.5D Take 40 UT chloride CR 9-10 mEq by Health (K-Tab) 20 09:18: mouth 2 MEQ ER 09 (two) tablet times a day. Do not crush, chew, or split. losartan Yes 100mg QD Take 100 UT (Cozaar) 9-10 mg by Health 100 MG 09:18: mouth 1 tablet 09 (one) time each day. ACETAMINOPH Yes 300mg Take 300 U T EN-CODEINE 9-10 mg by Health PO 09:18: mouth. 09 Omeprazole Omeprazole Yes Na Snell 1 capsule Common 4-24 Spirit 00:00: - CHI 00 [facility] Triamcinolo Triamcinolo 2019-0 Yes Na Snell 1 Common ne ne 1-14 applicatio Spirit Acetonide Acetonide 00:00: n to - C HI 00 affected [facility] losartan 2016-[address] (COZAAR) 25 1-27 ONE-HALF Luke s MG tablet 00:00: TABLET BY Med ical 00 MOUTH ONCE Center DAILY losartan 2016-[address] (COZAAR) 25 1-27 ONE-HALF Luke s MG tablet 00:00: TABLET BY Med ical 00 MOUTH ONCE Center DAILY losartan 2016-[address] (COZAAR) 25 12-12 ONE-HALF Luke s MG tablet 00:00: TABLET BY Med ical 00 MOUTH ONCE Center DAILY losartan 2016-[address] (COZAAR) 25 - ONE-HALF Luke s MG tablet 00:00: TABLET BY Med ical 00 MOUTH ONCE Center DAILY losartan 2016-[address] (COZAAR) 12-12 ONE-HALF Luke s MG tablet 00:00: TABLET BY Med ical 00 MOUTH ONCE Center DAILY losartan 2016-11- No TAKE [facility] (COZAAR) 25 12-12 07-11 ONE-HALF Rox es MG tablet 00:00: 00:00 TABLET BY Me dical 00 :00 MOUTH ONCE Center DAILY aspirin 81 Yes [...] daily. Medica l 15 Center aspirin 81 Yes 81mg QD Take 81 [...] mg tablet 12:51: daily. Medica l 15 [place] aspirin 81 2017-0 Yes 81mg QD Take [address] MG EC 9-13 by mouth [facility] tablet 12:51: daily. Medical 15 Center rosuvastati 20170 Yes 20mg QD Take [address] n (CRESTOR) 9-13 by mouth Luke s 20 MG 12:51: daily. Medical tablet 15 Center pantoprazol 20170 Yes 40mg QD Take 40 mg CHI [...] mg tablet 12:51: daily. Medica l 15 [place] amIODarone Yes 200mg QD Take 200 Me thodi (PACERONE) 7-[address] 200 MG 14:06: mouth Hospita tablet 30 daily. l aspirin 20170 Yes 81mg Take 81 mg Meth elkin (ECOTRIN) 7-[address] 81 MG 14:06: Hospita enteric 30 l coated tablet clopidogrel 0 Yes 75mg QD Take 75 mg Methodi [...] 09:06: mouth Hospita tablet 30 daily. l amIODarone 2017-0 Yes 200mg QD Take 200 [...] 09:06: daily. Hospit a 30 l sacubitril- Yes [...] (two) l tablet times a day. rosuvastati 2017 Yes 20mg QD Take 20 mg Methodi n (CRESTOR) 7-[address] 20 MG 09:06: daily. Hospita tablet 30 l nitroglycer [address] 0.4 M ethodi in [...] tablet per times a tablet day. isosorbide 2016-0 Yes 10mg QD Take 10 mg M ethodi mononitrate 7-[address] (ISMO,MONOK 09:06: daily. Hosp eber ET) 10 MG 30 l tablet metoprolol Yes 100mg Q.5D Take 100 Me thodi tartrate 7-[address] (LOPRESSOR) 09:06: mouth 2 Hos vesta 50 mg 30 (two) l tablet times a day. rosuvastati 2016- Yes 20mg QD Take 20 mg Methodi n (CRESTOR) 7-[address] 20 MG 09:06: daily. Hospita tablet 30 l nitroglycer Yes [...] 09:06: daily. Hospita tablet 30 l nitroglycer Yes .4mg Place 0.4 M ethodi in 7-[address] (NITROSTAT) 09:06: the tongue Hospita 0.4 MG SL 30 every 5 l tablet (five) minutes as needed for chest pain. Nitrostat Nitrostat Yes Na Snell 1 tab C ommon [facility] Carvedilol Carvedilol Yes Na Snell 1 tablet Common [facility] Protonix Protonix Yes Na Snell 1 tablet Common [facility] Potassium Potassium Yes Na Snell 2 tablets Common Chloride ER Chloride ER with food [facility] Carvedilol Carvedilol Yes Na Snell TAKE ONE Common TABLET BY Spirit MOUTH [facility] TWICE St DAILY [facility] Losartan Losartan Yes Na Snell 1 tablet Common Potassium Potassium [facility] Tamsulosin Tamsulosin Yes Na Snell 1 capsule Common HCl HCl [facility] Crestor Crestor Yes Na Snell 1 tablet Co mmon [facility] Rosuvastati Rosuvastati Yes Na Snell 1 tablet Common n Calcium n Calcium [facility] Lasix Lasix Yes Na Snell 1 tablet Common [facility] Losartan Losartan Yes Na Snell TAKE ONE Common Potassium Potassium TABLET BY Spirit MOUTH ONCE - CHI DAILY [facility] Coreg Coreg Yes Na Snell one tab Common [facility] Eliquis 2.5 Eliquis 2.5 Yes Na Snell one tablet Common mg mg [facility] Plavix Plavix Yes Na Snell 1 tablet Comm on [facility] Rosuvastati Rosuvastati No 1{table QD Rosuvastat n [...] Tamsulosin HCl 0.4 MG HCl 0.4 MG 02-14 le} HCl 0.4 MG 00:00 :00 Tamsulosin Tamsulosin 2022- No 1{capsu QD Tamsulosin HCl 0.4 MG HCl 0.4 MG 02-14} HCl 0.4 MG 00:00 :00 Tamsulosin Tamsulosin 2022- No 1{capsu QD Tamsulosin HCl 0.4 MG HCl 0.4 MG 02-14 le} HCl 0.4 MG 00:00 :00 Eliquis 2.5 [...] Eliquis mg 2.5 mg mg 2.5 mg -15 t} 2.5 mg 2.5 00:00 mg :00 Eliquis 2.5 Eliquis 2.5 2022- No 1{table BID Eliquis mg 2.5 mg mg 2.5 mg 15 t} 2.5 mg 2.5 00:00 mg :00 Eliquis 2.5 Eliquis 2.5 2022- No 1{table BID Eliquis mg 2.5 mg mg 2.5 mg -15 t} 2.5 mg 2.5 00:00 mg :00 Eliquis 2.5 Eliquis 2.5 2022- No 1{table BID Eliquis mg 2.5 mg mg 2.5 mg 15 t} 2.5 mg 2.5 00:00 mg :00 Tamsulosin Tamsulosin 2021- No 1{capsu QD Tamsulosin HCl 0.4 MG HCl 0.4 MG 07-14 le} HCl 0.4 MG 00:00 :00 Tamsulosin Tamsulosin 2021- No 1{capsu QD Tamsulosin HCl 0.4 MG HCl 0.4 MG 0829 le} HCl 0.4 MG 00:00 :00 Tamsulosin Tamsulosin 2021- No 1{capsu QD Tamsulosin HCl 0.4 MG HCl 0.4 MG 08-29 le} HCl 0.4 MG 00:00 :00 Tamsulosin Tamsulosin 2021- No 1{capsu QD Tamsulosin HCl 0.4 MG HCl 0.4 MG 0829 le} HCl 0.4 MG 00:00 :00 Tamsulosin Tamsulosin 2021- No 1{capsu QD Tamsulosin HCl 0.4 MG HCl 0.4 MG 0829 le} HCl 0.4 MG 00:00 :00 Vital Signs Vital Name Observation Time Observation Value Comments Source HEIGHT 2023-05-20 19:00:00 165.1 cm WEIGHT 2023-05-20 19:00:00 81 kg HEIGHT 2023-05-19 10:45:00 165.1 cm WEIGHT 2023-05-19 10:45:00 81 kg HEIGHT 2023-05-20 19:00:00 165.1 cm WEIGHT 2023-05-20 19:00:00 81 kg HEIGHT 2023-05-19 10:45:00 165.1 cm WEIGHT 2023-05-19 10:45:00 81 kg height 2022-08-01 15:00:00 65.00 [in_i] Common [facility] weight 2022-08-01 15:00:00 182.6 [lb_av] Common [facility] temperature 2022-08-01 15:00:00 98.8 [degF] Common [facility] bmi 2022-08-01 15:00:00 30.38 kg/m2 [facility] oximetry 2022-08-01 15:00:00 99 % [facility] respiratory rate 2022-08-01 15:00:00 17 /min Comm on [facility] blood pressure 2022-08-01 15:00:00 130 mm[Hg] Common [facility] - systolic [facility] blood pressure 2022-08-01 15:00:00 64 mm[Hg] Common [facility] - diastolic [facility] height 2022-08-01 15:20:00 65 [in_i] Common [facility] weight 2022-08-01 15:20:00 180 [lb_av] [facility] temperature 2022-08-01 15:20:00 98.8 [degF] Common S pirit [facility] bmi 2022-08-01 15:20:00 29.95 kg/m2 Common [facility] oximetry 2022-08-01 15:20:00 99 % Common [facility] respiratory rate 2022-08-01 15:20:00 17 /min Comm on [facility] blood pressure 2022-08-01 15:20:00 130 mm[Hg] Common [facility] - systolic [facility] blood pressure 2022-08-01 15:20:00 64 mm[Hg] Common [facility] - diastolic [facility] height 2022-04-28 15:00:00 65.00 [in_i] Common S [facility] weight 2022-04-28 15:00:00 179.4 [lb_av] Common [facility] temperature 2022-04-28 15:00:00 97.8 [degF] Common [facility] bmi 2022-04-28 15:00:00 29.85 kg/m2 Common S [facility] oximetry 2022-04-28 15:00:00 95 % Common S [facility] respiratory rate 2022-04-28 15:00:00 16 /min Comm on [facility] blood pressure 2022-04-28 15:00:00 132 mm[Hg] Common [facility] - systolic [facility] blood pressure 2022-04-28 15:00:00 60 mm[Hg] Common [facility] - diastolic [facility] height 2022-01-21 13:00:00 65.00 [in_i] Common S [facility] weight 2022-01-21 13:00:00 183 [lb_av] Common [facility] temperature 2022-01-21 13:00:00 97.8 [degF] [facility] bmi 2022-01-21 13:00:00 30.45 kg/m2 [facility] oximetry 2022-01-21 13:00:00 98 % Common S [facility] respiratory rate 2022-01-21 13:00:00 20 /min Comm on [facility] blood pressure 2022-01-21 13:00:00 130 mm[Hg] Common [facility] - systolic [facility] blood pressure 2022-01-21 13:00:00 88 mm[Hg] Common [facility] - diastolic [facility] height 2021-11-04 10:00:00 65.00 [in_i] Common [facility] weight 2021-11-04 10:00:00 183 [lb_av] [facility] temperature 2021-11-04 10:00:00 97.8 [degF] [facility] bmi 2021-11-04 10:00:00 30.45 kg/m2 [facility] oximetry 2021-11-04 10:00:00 98 % [facility] blood pressure 2021-11-04 10:00:00 150 mm[Hg] Common [facility] - systolic [facility] blood pressure 2021-11-04 10:00:00 90 mm[Hg] Common [facility] - diastolic [facility] Systolic blood 2023-05-28 12:00:00 119 mm[Hg] St. [facility] Diastolic blood 2023-05-28 12:00:00 66 mm[Hg] [facility] Heart rate 2023-05-28 12:00:00 70 /min [facility] Body temperature 2023-05-28 12:00:00 36.22 Krystal [facility] Respiratory rate 2023-05-28 12:00:00 18 /min [facility] Oxygen saturation in 2023-05-28 12:00:00 98 /min [facility] Arterial blood by Medical Ce nter Pulse oximetry Systolic blood 2023-05-26 07:40:00 139 mm[Hg] [facility] Diastolic blood 2023-05-26 07:40:00 71 mm[Hg] [facility] Heart rate 2023-05-26 07:40:00 71 /min [facility] Body temperature 2023-05-26 07:40:00 35.67 Krystal [facility] Respiratory rate 2023-05-26 07:40:00 18 /min [facility] Oxygen saturation in 2023-05-26 07:40:00 97 /min [facility] Arterial blood by Medical Ce nter Pulse oximetry Body height 2023-05-20 19:00:00 165.1 cm [facility] Body weight 2023-05-20 19:00:00 81 kg [facility] BMI 2023-05-20 19:00:00 29.72 kg/m2 [facility] Procedures Procedure Date / Time Performed Performing Clinician [facility] iris POCT-GLUCOSE METER 2023-05-28 11:41:00 Ella [facility] POCT-GLUCOSE METER 2023-05-28 07:24:00 Ella [facility] POCT-GLUCOSE METER 2023-05-27 21:15:00 Ella [facility] POCT-GLUCOSE METER 2023-05-27 13:33:00 Ella [facility] POCT-GLUCOSE METER 2023-05-26 21:51:00 Bernabe Hester [facility] POCT-GLUCOSE METER 2023-05-26 18:00:00 Bernabe Hester [facility] POCT-GLUCOSE METER 2023-05-26 12:52:00 Bernabe Hester [facility] POCT-GLUCOSE METER 2023-05-26 07:47:00 Bernabe Hester [facility] POCT-GLUCOSE METER 2023-05-25 20:46:00 Bernabe Hester [facility] POCT-GLUCOSE METER 2023-05-25 17:29:00 Bernabe Hester [facility] POCT-GLUCOSE METER 2023-05-25 12:13:00 Bernabe Hester [facility] POCT-GLUCOSE METER 2023-05-25 08:10:00 Bernabe Hester [facility] BASIC METABOLIC PANEL 2023-05-25 03:50:00 Bernabe Hester [facility] POCT-GLUCOSE METER 2023-05-25 00:47:00 Brenabe Hester [facility] POCT-GLUCOSE METER 2023-05-24 23:08:00 Bernabe Hester [facility] POCT-GLUCOSE METER 2023-05-24 11:17:00 Bernabe Hester [facility] POCT-GLUCOSE METER 2023-05-24 07:56:00 Bernabe Hester [facility] BASIC METABOLIC PANEL 2023-05-24 03:33:00 Rosaline Morales [facility] POCT-GLUCOSE METER 2023-05-23 21:04:00 Bernabe Hester [facility] POCT-GLUCOSE METER 2023-05-23 17:21:00 Mir [facility] POCT-GLUCOSE METER 2023-05-23 13:04:00 Bernabe Hester [facility] POCT-GLUCOSE METER 2023-05-23 08:27:00 Mir [facility] BASIC METABOLIC PANEL 2023-05-23 05:18:00 Theo [facility] POCT-GLUCOSE METER 2023-05-22 21:21:00 Bernabe Hester [facility] POCT-GLUCOSE METER 2023-05-22 17:29:00 Bernabe Hester [facility] POCT-GLUCOSE METER 2023-05-22 12:23:00 Bernabe Hester [facility] POCT-GLUCOSE METER 2023-05-22 08:01:00 Mir [facility] CBC W/PLT COUNT & AUTO 2023-05-22 04:20:00 Rosaline Morales [facility] BASIC METABOLIC PANEL 2023-05-22 04:20:00 Theo Dewayne [facility] CBC W/PLT COUNT & AUTO 2023-05-22 04:20:00 Rosaline Morales [facility] POCT-GLUCOSE METER 2023-05-22 01:11:00 Bernabe Hester [facility] VENOUS DOPPLER LEGS 2023-05-21 21:15:00 Parth Max [facility] VENOUS DOPPLER ARMS 2023-05-21 21:14:00 Parth Max [facility] POCT-GLUCOSE METER 2023-05-21 17:04:00 Bernabe Hester [facility] POTASSIUM 2023-05-21 15:14:[address] [facility] ECHO W CONTRAST & 2023-05-21 14:16:00 [facility] PO[facility]SE [facility] 2023-05-21 12:20:00 Bernabe Hester [facility] POCT-GLUCOSE METER 2023-05-21 11:27:00 Bernabe Hester [facility] POCT-GLUCOSE METER 2023-05-21 06:05:00 Eric Rodas [facility] CBC W/PLT COUNT & AUTO 2023-05-21 02:52:00 Rosaline Morales [facility] BASIC METABOLIC PANEL 2023-05-21 02:52:00 Dewayne Venegas [facility] MAGNESIUM 2023-05-21 02:52:00 Nando [facility] Morgan [facility] PHOSPHORUS 2023-05-21 02:52:00 Nando [place] Morgan [facility] CBC W/PLT COUNT & AUTO 2023-05-21 02:52:00 Nando [facility] Morgan [facility] POCT-GLUCOSE METER 2023-05-21 01:45:00 Clark [facility] POCT-GLUCOSE METER 2023-05-20 17:48:00 Clark [facility] POCT-GLUCOSE METER 2023-05-20 14:03:00 Clark [facility] CT BRAIN WITHOUT IV 2023-05-20 09:37:00 Rosaline Morales [facility] POCT-GLUCOSE METER 2023-05-20 06:13:00 Judi Orta [facility] BASIC METABOLIC PANEL 2023-05-20 03:56:[address] [facility] MAGNESIUM 2023-05-20 03:56:[address] [facility] PHOSPHORUS 2023-05-20 03:56:[address] [facility] CBC W/PLT COUNT & AUTO 2023-05-20 03:56:00 Andrew, [facility] CBC W/PLT COUNT & AUTO 2023-05-20 03:56:00 Albania Collier [facility] CT BRAIN WITHOUT IV 2023-05-20 00:31:38 Parth Max CH, I [facility] POCT-GLUCOSE METER 2023-05-19 23:36:00 Judi Orta [facility] POCT-GLUCOSE METER 2023-05-19 18:31:00 Judi Orta [facility] ECG 12-LEAD 2023-05-19 13:15:41 Unknown, [facility] ECG 12-LEAD 2023-05-19 13:15:[address] [facility] TSH/FREE T4 IF INDICATED 2023-05-19 12:54:00 Andrew, [facility] HEMOGLOBIN A1C 2023-05-19 12:54:00 Andrew, [facility] VITAMIN B12 2023-05-19 12:54:00 Andrew, [facility] RPR 2023-05-19 12:54:00 Andrew, [facility] HIGH SENSITIVITY 2023-05-19 12:05:00 Parth Max [facility] TROPONIN I [facility] HEPATIC FUNCTION PANEL 2023-05-19 11:32:00 Cheri Maxshua [facility] PROTHROMBIN TIME/INR 2023-05-19 11:32:00 Parth Max [facility] APTT 2023-05-19 11:32:[address] [facility] LIPID PANEL 2023-05-19 11:32:00 Andrew [facility] POCT-GLUCOSE METER 2023-05-19 11:31:00 Judi Orta [facility] EKG-SCANNED 2023-05-19 00:00:00 Provider, Default [facility] Plan of Care Planned Activity Planned Date Details Comments Source Future Scheduled 2023-07-20 COVID-19 [facility]ACCINE (#[facility]) [facility] 14:33:14 [code = COVID-19 VACCINE (#1)] Future Scheduled 2023-07-20 SHINGLES VACCINES (1 [facility] 14:33:14 of 2) [code = SHINGLES VACCINES (1 of 2)] Future Scheduled 2023-07-20 65+ [facility]AL [facility] 14:33:14 VACCINE (1 - PCV) [code = 65+ PNEUMOCOCCAL VACCINE (1 - PCV)] Future Scheduled 2023-07-20 INFLUENZA VACCINE (#[facility]) [facility] 14:33:14 [code = INFLUENZA VACCINE (#1)] Future Scheduled 2023-07-17 Influenza Vaccine (#1[facility]00 [code = Influenza Medical Ce nter Vaccine (#1)] Future Scheduled 2023-07-17 Influenza Vaccine (#1) [facility] 00:00:00 [code = Influenza Medical Ce nter Vaccine (#1)] Future Scheduled 2023-05-01 COVID-19 VACCINE (#1) [facility] 09:26:45 [code = COVID-19 VACCINE (#1)] Future Scheduled 2023-05-01 SHINGLES VACCINES (1 [facility] 09:26:45 of 2) [code = SHINGLES VACCINES (1 of 2)] Future Scheduled 2023-05-01 65+ [facility]OCOCCAL [facility] 09:26:45 VACCINE (1 - PCV) [code = 65+ PNEUMOCOCCAL VACCINE (1 - PCV)] Future Scheduled 2023-05-01 [facility]ENZA VACCINE [facility] 09:26:45 [code = INFLUENZA VACCINE] Future Scheduled 2023-05-01 COVID-19 VACCINE (#1) [facility] 09:26:45 [code = COVID-19 VACCINE (#1)] Future Scheduled 2023-05-01 SHINGLES VACCINES (1 [facility] 09:26:45 of 2) [code = SHINGLES VACCINES (1 of 2)] Future Scheduled 2023-05-01 65+ [facility]OCOCCAL [facility] 09:26:45 VACCINE (1 - PCV) [code = 65+ PNEUMOCOCCAL VACCINE (1 - PCV)] Future Scheduled 2023-05-01 [facility]ENZA VACCINE [facility] 09:26:45 [code = INFLUENZA VACCINE] Future Scheduled 2023-02-20 COVID-19 VACCINE (#1) Me [facility] Test 21:00:49 [code = COVID-19 VACCINE (#1)] Future Scheduled 2023-02-20 SHINGLES VACCINES (1 Met [facility] Test 21:00:49 of 2) [code = SHINGLES VACCINES (1 of 2)] Future Scheduled 2023-02-20 65+ PNEUMOCOCCAL [facility] Test 21:00:49 VACCINE (1 - PCV) [code = 65+ PNEUMOCOCCAL VACCINE (1 - PCV)] Future Scheduled 2023-02-20 INFLUENZA VACCINE [facility] Test 21:00:49 [code = INFLUENZA VACCINE] Future Scheduled 2022-11-[address] [facility] Test 00:00:00 (12+) [code = Medical Center DEPRESSION SCREENING (12+)] Future Scheduled 2022-11-16 FALLS RISK SCREENING [facility] Test 00:00:00 [code = FALLS RISK Medical C enter SCREENING] Future Scheduled 2022-11-[address] [facility] Test 00:00:00 (12+) [code = Medical Center DEPRESSION SCREENING (12+)] Future Scheduled 2022-11-16 FALLS RISK SCREENING [facility] Test 00:00:00 [code = FALLS RISK Medical C enter SCREENING] Future Scheduled 2009-11-[address] [facility] 00:00:00 WELLNESS (YEAR 2 or Medical Center FIRST YEAR if no IPPE) [code = MEDICARE ANNUAL WELLNESS (YEAR 2 or FIRST YEAR if no IPPE)] Future Scheduled 2009-11-[address] [facility] [facility] 00:00:00 WELLNESS (YEAR 2 or Medical Center FIRST YEAR if no IPPE) [code = MEDICARE ANNUAL WELLNESS (YEAR 2 or FIRST YEAR if no IPPE)] Future Scheduled 1989 SHINGLES VACCINES ([address] [facility] Test 00:00:00 of 2) [code = SHINGLES Medic al Center VACCINES (1 of 2)] Future Scheduled 1989 SHINGLES VACCINES ([address] [facility] Test 00:00:00 of 2) [code = SHINGLES Medic al Center VACCINES (1 of 2)] Future Scheduled 1958 DTAP/TDAP/TD VACCINES [facility] 00:00:00 (1 - Tdap) [code = Medical C enter DTAP/TDAP/TD VACCINES (1 - Tdap)] Future Scheduled 1958 DTAP/TDAP/TD VACCINES [facility] 00:00:00 (1 - Tdap) [code = Medical C enter DTAP/TDAP/TD VACCINES (1 - Tdap)] Future Scheduled [address] [facility] Test 00:00:00 Counseling and Medical Cente r Screening (12+) [code = Tobacco Cessation Counseling and Screening (12+)] Future Scheduled [address] [facility] Test 00:00:00 Counseling and Medical Cente r Screening (12+) [code = Tobacco Cessation Counseling and Screening (12+)] Future Scheduled 1945 PNEUMOCOCCAL 65+ YRS [facility] Test 00:00:00 (1 - PCV) [code = Medical Ce nter PNEUMOCOCCAL 65+ YRS (1 - PCV)] Future Scheduled 1945 PNEUMOCOCCAL 65+ YRS [facility] Test 00:00:00 (1 - PCV) [code = Medical Ce nter PNEUMOCOCCAL 65+ YRS (1 - PCV)] Future Scheduled 1940-01-17 COVID-19 VACCINE (#1) [facility] 00:00:00 [code = COVID-[address] VACCINE (#1)] Future Scheduled 1940-01-17 COVID-19 VACCINE (#1) [facility] 00:00:00 [code = COVID-[address] VACCINE (#1)] Future Scheduled 65+ [facility]OCOCCAL [facility] Test VACCINE (1 of 1 - PPSV23) [code = 65+ PNEUMOCOCCAL VACCINE (1 of 1 - PPSV23)] Future Scheduled INFLUENZA VACCINE [facility] Test [code = INFLUENZA VACCINE] Future Scheduled COVID-19 [facility]ACCINE (1) [facility] [code = COVID-19 VACCINE (1)] Future Scheduled SHINGLES VACCINES (#1) [facility] [code = SHINGLES VACCINES (#1)] Encounters Start End Encounter Admission Attending Care Care Encounter Source Date/Time Date/Time Type Type Clinicians Facility Department ID 2023-06-22 Outpatient [facility] [id number] Common 09:42:00 [facility] [id number] [facility] 2023-06-16 Outpatient [facility] [id number] [place] 11:43:36 [id number] [facility] 2023-05-21 Inpatient ER BERSHAD, [facility] [id number] [facility] 20:21:43 JUDI 2023-05-21 Inpatient ER BERSHAD, [facility]H [facility] [id number] [facility] 20:21:34 JUDI 2023-05-21 Inpatient ER ALAM, SLEH SLE [id number] SLEH 13:08:38 MAHBOOB 2023-05-20 Inpatient ER BERSHAD, [facility]H SLE [id number] SLEH 09:26:50 JUDI 2023-05-19 Inpatient ER BERSHAD, [facility]H SLE [id number] [facility] 21:04:34 JUDI 2023-05-18 Outpatient [facility] [id number] [place] 10:57:00 [id number] [facility] 2023-04-17 Outpatient [facility] [id number] [place] 10:55:01 [id number] [facility] 2023-04-08 Outpatient HUAN Luna [facility] [id number] Common 14:06:00 [facility] [id number] [facility] 2023-03-18 Outpatient [facility] [id number] [place] 10:55:00 [id number] [facility] 2023-02-16 Outpatient [facility] [id number] [place] 14:25:29 [id number] [facility] 2023-01-23 Outpatient MakenzieHUAN [facility] [id number] Common 14:31:01 Emilia [id number] [facility] 2023-01-17 Outpatient [facility] [id number] [place] 10:03:06 [id number] [facility] 2022-12-19 Outpatient [facility] [id number] [place] 16:49:34 [id number] [facility] 2022-11-06 Outpatient Juliana Snell [facility] [id number] 2 Common 13:41:01 [facility] 2022-09-19 Outpatient [facility] [id number] [place] 09:11:35 [id number] Health 2022-07-30 Outpatient Snell, Na STLMLC STLMLC [id number] 2 Common 09:57:00 [facility] 2022-04-24 Outpatient Snell, Na STLMLC STLMLC [id number] 2 Common 11:24:00 [facility] 2022-01-24 Outpatient HEMATPOUR, [facility] [id number] [place] 09:03:58 [facility] 2022-01-17 Outpatient Snell, Na STLMLC STLMLC [id number] 2 Common 10:15:01 [facility] 2021-12-11 Outpatient Snell, Na STLMLC STLMLC [id number] 2 Common 14:25:49 [id number] [facility] 2021-12-11 Outpatient Snell, Na STLMLC STLMLC [id number] 2 Common 14:22:05 [id number] [facility] 2021-12-11 Outpatient Snell, Na STLMLC STLMLC [id number] 2 Common 14:16:57 [id number] [facility] 2021-12-11 Outpatient Snell, Na STLMLC STLMLC [id number] 2 Common 13:29:54 [id number] [facility] 2021-12-11 Outpatient Snell, Na STLMLC STLMLC [id number] 2 Common 13:22:40 [id number] [facility] 2021-12-11 Outpatient Snell, Na STLMLC STLMLC [id number] 2 Common 13:10:56 [id number] [facility] 2021-12-11 Outpatient Snell, Na STLMLC STLMLC [id number] 2 Common 12:26:10 [id number] [facility] 2021-12-11 Outpatient Snell, Na STLMLC STLMLC [id number] 2 Common 12:22:44 [id number] [facility] 2021-12-11 Outpatient Snell, Na STLMLC STLMLC [id number] 2 Common 12:21:39 [id number] [facility] 2021-12-11 Outpatient Snell, Na STLMLC STLMLC [id number] 2 Common 12:19:40 [id number] [facility] 2021-12-11 Outpatient Snell, Na STLMLC STLMLC [id number] 2 Common 12:07:48 [id number] [facility] 2021-12-11 Outpatient Snell, Na STLMLC STLMLC [id number] 2 Common 12:07:15 [id number] [facility] 2021-12-11 Outpatient Snell, Na STLMLC STLMLC [id number] 2 Common 11:55:01 [id number] [facility] 2021-12-11 Outpatient Snell, Na STLMLC STLMLC [id number] 2 Common 11:33:15 [id number] [facility] 2021-12-11 Outpatient Snell, Na STLMLC STLMLC [id number] 2 Common 11:31:00 [id number] [facility] 2021-12-11 Outpatient Snell, Na STLMLC STLMLC [id number] 2 Common 11:19:27 [id number] [facility] 2021-12-11 Outpatient Snell, Na STLMLC STLMLC [id number] 2 Common 11:17:39 [id number] [facility] 2021-12-11 Outpatient Snell, Na STLMLC STLMLC [id number] 2 Common 11:17:20 [id number] [facility] 2021-12-11 Outpatient Snell, Na STLMLC STLMLC [id number] 2 Common 11:17:07 [id number] [facility] 2021-12-11 Outpatient Snell, Na STLMLC STLMLC [id number] 2 Common 11:00:35 [id number] [facility] 2021-07-26 Outpatient HEMATPOUR, [facility] [id number] [place] 09:46:46 KADEN Healt [facility] 2021-06-28 Outpatient HEMATPOUR, [facility] [id number] [place] 09:28:52 KHASHAYAR Healt [facility] 2021-04-17 Outpatient HEMATPOUR, [facility] [id number] [place] 10:37:30 KHASHAYAR Healt h 2021-04-01 Outpatient HEMATPOUR, [facility] [id number] [place] 16:21:00 STACIR Healt h 2023-05-19 2023-05-28 [id number] SLE 10:44:00 15:04:00 MRINALINI 2023-05-19 2023-05-28 Hospital ER Scott Self [facility] [id number] [facility] 10:44[facility] 15:04[facility]00 [facility]add[facility]itts 2023-05-20 2023-05-20 Inpatient ER [facility] [id number] [facility] 00:21:32 00:00:00 JUDI 2023-05-20 2023-05-[address] [facility] [id number] 00:00[facility]00 00:00:00 [facility] 2023-05-19 2023-05-[address] [facility] [id number] 00:00:00 00:00:00 [facility] 2022-10-15 2022-10-15 [facility] [id number] Co mmon 00:00:00 00:00:00 Spirit - [facility] 2022-08-18 2022-08-18 [facility] [id number] Co mmon 00:00:00 00:00:00 [facility] 2022-08-01 2022-08-01 [facility] [id number] Common 00:00:00 00:00:00 [facility] Spirit WELLNESS - CHI VISIT [facility] 2022-08-01 2022-08-01 OFFICE STLMLC STLMLC [id number] Co mmon 00:00:00 00:00:00 VISIT EST Spir it PT LEVEL 3 [facility] 2022-07-24 2022-07-24 (TEL) STLMLC STLMLC [id number] Co mmon 00:00:00 00:00:00 [facility] 2022-06-30 2022-06-30 (TEL) STLMLC STLMLC [id number] Co mmon 00:00:00 00:00:00 [facility] 2022-05-13 2022-05-13 (TEL) STLMLC STLMLC [id number] Co mmon 00:00:00 00:00:00 [facility] 2022-04-28 2022-04-28 OFFICE STLMLC STLMLC [id number] Co mmon 00:00:00 00:00:00 VISIT [facility] PT - CHI LEVEL 4 [facility] 2022-04-02 2022-04-02 (TEL) STLMLC STLMLC [id number] Co mmon 00:00:00 00:00:00 [facility] 2022-01-21 2022-01-21 OFFICE STLMLC STLMLC [id number] Co mmon 00:00:00 00:00:00 VISIT [facility] PT - CHI LEVEL 4 [facility] 2022-01-15 2022-01-15 (TEL) STLMLC STLMLC [id number] Co mmon 00:00:00 00:00:00 [facility] 2021-12-31 2021-12-31 Telephone Hematpour, [facility] 6400 [id number] [place] 00:00:00 00:00:00 Kaden CASTRO [id number] [facility] [id number] 1 2021-11-04 2021-11-04 OFFICE STLMLC STLMLC [id number] Co mmon 00:00:00 00:00:00 VISIT [facility] PT - CHI LEVEL 4 [facility] 2021-07-31 2021-07-31 Outpatient STLMLC STLMLC [id number] Common 00:00:00 00:00:00 [facility] 2021-07-26 2021-07-26 Office Dandre, [facility] 6400 1.2.840.114 [id number] [place] 10:19:28 10:19:[address] [id number] Health [id number] [id number] 1 2021-07-25 2021-07-25 Outpatient STLMLC STLMLC [id number] Common 00:00:00 00:00:00 [facility] 2021-07-12 2021-07-12 Telephone Hematpour, [facility] 6400 1.2.840.114 [id number] [place] 00:00:00 00:00:[address] [id number] Health [id number] [id number] 1 2021-07-10 2021-07-10 Outpatient STLMLC STLMLC [id number] Common 00:00:00 00:00:00 [facility] 2021-06-28 2021-06-28 Office Hematpour, [facility] 6400 1.2.840.114 12 [id number] [place] 08:50:46 09:29:[address] [id number] Health [id number] [id number] 1 2021-06-28 2021-06-28 Office Hematpour, [facility] 6400 1.2.840.114 12 [id number] 08:50:46 09:29:[address] [id number] [id number] 1 2021-06-06 2021-06-06 Outpatient STLMLC STLMLC [id number] Common 00:00:00 00:00:00 [facility] 2021-05-31 2021-06-01 Outpatient HEMATPOUR, [facility] CAR [id number] [facility] 07:09:00 09:47:00 KHASHAYAR 2021-05-22 2021-05-22 Office Dandre, [facility] 6400 1.2.840.114 12 [id number] [place] 11:06:33 12:28:[address] [id number] Health [id number] [id number] 1 2021-05-22 2021-05-22 Office DandreELIER 6400 1.2.840.114 12 [id number] 11:06:33 12:28:[address] [id number] [id number] 1 2021-05-22 2021-05-22 Orders DandreELIER 6400 1.2.840.114 12 [id number] [place] 00:00:00 00:00:[address] [id number] Health 9.2.7.2.686 [id number] 1 2021-05-22 2021-05-22 ELIER Muhammad 6400 1.2.840.114 12 [id number] 00:00:00 00:00:[address] [id number] 9.2.7.2.686 [id number] 1 2021-05-09 2021-05-09 Telephone Hematdagoberto, [facility]TP 6400 1.2.840.114 [id number] [place] 00:00:00 00:00:[address] [id number] Health 9.2.7.2.686 [id number] 1 2021-05-09 2021-05-09 Telephone Hematpour, [facility] 6400 1.2.840.114 [id number] 00:00:00 00:00:[address] [id number] 9.2.7.2.686 [id number] 1 2021-05-03 2021-05-03 Telephone Hematpour, [facility] 1.2.840.114 1 [id number] [place] 00:00:00 00:00:00 Khashayar SE MED [id number] Health [place] 2 [id number] [id number] 2 2021-05-03 2021-05-03 Telephone [place], [facility] 1.2.840.114 1 [id number] 00:00:00 00:00:00 Khashayar SE [facility] [id number] [place] 2 [id number] [id number] 2 2021-04-23 2021-04-23 Outpatient STLMLC STL[facility]C [id number] Common 00:00:00 00:00:00 [facility] 2021-04-17 2021-04-17 Office ELIER Amos 6400 1.2.840.114 12 [id number] [place] 09:48:45 10:37:[address] [id number] Health 9.2.7.2.686 [id number] 1 2021-04-09 2021-04-09 Telephone Barb [facility] 6400 1.2.840.114 [id number] [place] 00:00:00 00:00:[address] [id number] Health 9.2.7.2.686 [id number] 1 2021-04-04 2021-04-04 Abstract SierraDori [facility] 1.2.840.11 [id number] AR 00:00:00 00:00:00 Dori Sierra [facility] [id number] Health [place] 2 [id number] [id number] 2 2021-03-13 2021-03-13 Outpatient STLMLC STLMLC [id number] Common 00:00:00 00:00:00 [facility] 2021-03-11 2021-03-11 Outpatient STLMLC STLMLC [id number] Common 00:00:00 00:00:00 [facility] 2020-12-06 2020-12-06 Outpatient STLMLC STLMLC [id number] Common 00:00:00 00:00:00 [facility] 2020-12-04 2020-12-04 Outpatient STLMLC STLMLC [id number] Common 00:00:00 00:00:00 [facility] 2020-11-26 2020-11-26 Outpatient STLMLC STLMLC [id number] Common 00:00:00 00:00:00 [facility] 2020-11-14 2020-11-14 Outpatient STLMLC STLMLC [id number] Common 00:00:00 00:00:00 [facility] 2020-11-08 2020-11-08 Outpatient STLMLC STLMLC [id number] Common 00:00:00 00:00[facility]00 [facility] [facility] 2020-11-06 2020-11-06 Outpatient [facility] ST[facility] [id number] Common 00:00:00 00:00:00 [facility] 2020-09-19 2020-09-19 Outpatient [facility] STLMLC [id number] Common 00:00:00 00:00:00 [facility] 2020-09-14 2020-09-14 Outpatient [facility] ST[facility] [id number] Common 00:00:00 00:00:00 [facility] 2020-08-31 2020-08-31 Outpatient [facility]LMLC STLMLC [id number] Common 00:00:00 00:00:00 [facility] 2020-08-24 2020-08-24 Outpatient [facility]LMLC STLMLC [id number] Common 00:00:00 00:00:00 [facility] 2020-06-26 2020-06-26 [facility] [id number] Common 15:59:00 15:59:00 [place] [address] [facility] 2020-06-11 2020-06-11 [facility] [id number] Common 14:08:00 14:08:00 [place] [address] [facility] 2020-05-30 2020-05-30 [facility] [id number] Common 10:20:00 10:20:00 [place] [address] [facility] 2020-04-16 2020-04-16 [facility] [id number] Common 10:27:00 10:27:00 [place] [address] [facility] 2020-03-09 2020-03-09 [facility] [id number] Common 15:00:00 15:00:00 [place] [address] [facility] 2020-02-28 2020-02-28 [facility] [id number] Common 08:00:00 08:00:00 [place] [address] [facility] 2020-01-12 2020-01-12 [facility] [id number] Common 16:30:00 16:30:00 [place] [address] [facility] 2019-12-26 2019-12-26 [facility] [id number] Common 09:19:00 09:19:00 [place] [address] [facility] 2019-12-23 2019-12-23 [facility] [id number] Common 17:21:00 17:21:00 [place] [address] [facility] 2019-11-29 2019-11-29 [facility] [id number] Common 08:00:00 08:00:00 [place] [address] [facility] 2019-11-21 2019-11-21 [facility] [id number] Common 16:38:00 16:38:00 [place] [address] [facility] 2019-08-25 2019-08-25 [facility] [id number] Common 15:20:00 15:20:00 [place] [address] [facility] 2019-08-08 2019-08-08 [facility] [id number] Common 14:59:00 14:59:00 [place] [address] [facility] 2019-06-21 2019-06-21 [facility] [id number] Common 15:29:00 15:29:00 [place] [address] [facility] 2019-06-03 2019-06-03 [facility] [id number] Common 13:40:00 13:40:00 [place] [address] [facility] 2019-02-28 2019-02-28 [facility] [id number] Common 15:40:00 15:40:00 [place] [address] [facility] 2019-01-03 2019-01-03 [facility] [id number] Common 15:15:00 15:15:00 [place] [address] [facility] 2018-12-31 2018-12-31 [facility] [id number] Common 09:59:00 09:59:00 t Specialty/U Sp john Specialty rology - [facility] 2018-12-28 2018-12-28 [facility] [id number] Common 13:00:00 13:00:00 t Specialty/U Sp john Specialty rology - [facility] 2018-12-23 2018-12-23 [facility] [id number] Common 15:11:00 15:11:00 t Specialty/U Sp john Specialty rology - [facility] 2018-12-20 2018-12-20 [facility] [id number] Common 11:04:00 11:04:00 t Urgent [facility] 2018-12-20 2018-12-20 [facility] [id number] Common 09:02:00 09:02:00 [place] [address] [facility] 2018-12-17 2018-12-17 [facility] [id number] Common 11:05:00 11:05:00 t Womens [facility] - [facility] 2018-12-17 2018-12-17 [facility] [id number] Common 10:57:00 10:57:00 t Specialty/U Sp john Specialty rology - [facility] 2018-12-06 2018-12-06 [facility] [id number] Common 09:51:00 09:51:00 t [facility] 2018-12-01 2018-12-01 [facility] [id number] Common 10:00:00 10:00:00 t Specialty/U Sp john Specialty rology - [facility] 2018-11-30 2018-11-30 [facility] [id number] Common 09:15:00 09:15:00 t [facility] 2018-08-17 2018-08-17 [facility] [id number] Common 14:43:00 14:43:00 t Specialty/U Sp john Specialty rology - [facility] 2018-08-12 2018-08-12 [facility] [id number] Common 13:07:00 13:07:00 t Specialty/U Sp john Specialty rology - [facility] 2018-08-12 2018-08-12 [facility] [id number] Common 09:15:00 09:15:00 t Specialty/U Sp john Specialty rology - [facility] 2018-08-06 2018-08-06 [facility] [id number] Common 16:01:00 16:01:00 t [facility] 2018-06-24 2018-06-24 [facility] [id number] Common 14:45:00 14:45:00 t [facility] Results Test Description Test Time Test Comments Results Result Comments Source POC-Glucose meter 2023-05-28 11:55:55 Test Item Value Reference Range Interpretation Comme nts POC-Glucose Meter (test code = 101 mg/dL 70-110 : TESTED AT [facility] [address] [id number]) [facility] 30: Packager Or Packer And Weigher/Techni caro ID = [id number] for Enrique Barcenas Lab Interpretation (test code = Normal 92823-5) [facility] [id number] 11:55:55 Test Item Value Reference Range Interpretation Comments POC-GLUCOSE METER 101 mg/dL 70-110 : TESTED A T [facility] [address] (BEAKER) (test code = [facility], 153) 54930: Packager Or Packer And Weigher/Techni caro ID = [id number] for Enrique Shukla POCT-GLUCOSE [id number] 07:41:03 Test Item Value Reference Range Interpretation Comments POC-GLUCOSE METER 88 mg/dL 70-110 : TESTED A T [facility] 6720 (BEAKER) (test code = [facility], 1538) 77905: Packager Or Packer And Weigher/Techni caro ID = [id number] for Enrique Escobar POCT-GLUCOSE [id number] 21:35:41 Test Item Value Reference Range Interpretation Comments POC-GLUCOSE METER 152 mg/dL 70-110 H : TESTED A T [facility] [address] (BEAKER) (test code = [facility], 1538) 56358: Packager Or Packer And Weigher/Techni caro ID = [id number] for Ty patrick, Reshawn POCT-GLUCOSE [id number] 13:45:08 Test Item Value Reference Range Interpretation Comments POC-GLUCOSE METER 108 mg/dL 70-110 : TESTED A T [facility] [address] (BEAKER) (test code = [facility], 1538) 40173: Packager Or Packer And Weigher/Techni caro ID = [id number] for JONNA GIBBSILIA POCT-GLUCOSE [id number] 22:03:11 Test Item Value Reference Range Interpretation Comments POC-GLUCOSE METER 116 mg/dL 70-110 H : TESTED A T [facility] [address] (BEAKER) (test code = [facility], 1538) 99091: Packager Or Packer And Weigher/Techni caro ID = [id number] for Ty ler, Reshawn POCT-GLUCOSE [id number] 18:16:26 Test Item Value Reference Range Interpretation Comments POC-GLUCOSE METER 100 mg/dL 70-110 : TESTED A T [facility] [address]20 (BEAKER) (test code = [facility], 1538) 51117: Packager Or Packer And Weigher/Techni caro ID = [id number] for Um eh, Akumbu POCT-GLUCOSE [id number] 13:11:54 Test Item Value Reference Range Interpretation Comments POC-GLUCOSE METER 110 mg/dL 70-110 : TESTED A T [facility] 6720 (BEAKER) (test code = [facility], 153) 68119: Packager Or Packer And Weigher/Techni caro ID = [id number] for Um eh, Akumbu POC-Glucose [id number] 08:05:19 Test Item Value Reference Range Interpretation Comments POC-Glucose Meter (test 95 mg/dL 70-110 : TE STED AT [facility] code = 1538) [address] [facility], 770 30: Packager Or Packer And Weigher/Techni caro ID = [id number] for Umeh, Akumbu Lab Interpretation (test Normal code = 86819-7) [facility] [id number] 08:05:19 Test Item Value Reference Range Interpretation Comments POC-GLUCOSE METER 95 mg/dL 70-110 : TESTED A T [facility] 6720 (BEAKER) (test code = [facility], 153) 30739: Packager Or Packer And Weigher/Techni caro ID = [id number] for Umeh , Akumbu POCT-GLUCOSE [id number] 20:58:07 Test Item Value Reference Range Interpretation Comments POC-GLUCOSE METER 90 mg/dL 70-110 : TESTED A T [facility] 6720 (BEAKER) (test code = [facility], 153) 32715: Packager Or Packer And Weigher/Techni caro ID = [id number] for Leonides Torres POCT-GLUCOSE [id number] 17:44:52 Test Item Value Reference Range Interpretation Comments POC-GLUCOSE METER 122 mg/dL 70-110 H : TESTED A T [facility] [address]20 (BEAKER) (test code = [facility], 1538) 53366: Packager Or Packer And Weigher/Techni caro ID = [id number] for Um eh, Akumbu POCT-GLUCOSE [id number] 13:06:53 Test Item Value Reference Range Interpretation Comments POC-GLUCOSE METER 98 mg/dL 70-110 : TESTED A T [facility] 6720 (BEAKER) (test code = [facility], 1538) 64815: Packager Or Packer And Weigher/Techni caro ID = [id number] for Isai Leslie POCT-GLUCOSE [id number] 08:32:03 Test Item Value Reference Range Interpretation Comments POC-GLUCOSE METER 98 mg/dL 70-110 : TESTED A T [facility] 67[address] (BEAKER) (test code = [facility], 1538) 43684: Packager Or Packer And Weigher/Techni caro ID = [id number] for Isai Leslie BASIC METABOLIC [id number] 05:10:07 Test Item Value Reference Range Interpretation Comments SODIUM (BEAKER) 142 meq/L 136-145 (test code = 381) POTASSIUM 3.9 meq/L 3.5-5.1 (BEAKER) (test code = 379) CHLORIDE (BEAKER) 109 meq/L 98-107 H (test code = 382) CO2 (BEAKER) 26 meq/L 22-29 (test code = 355) BLOOD UREA 23 mg/dL 7-21 H NITROGEN (BEAKER) (test code = 354) CREATININE 1.14 mg/dL 0.57-1.25 (BEAKER) (test code = 358) GLUCOSE RANDOM 84 mg/dL 70-105 (BEAKER) (test code = 652) CALCIUM (BEAKER) 8.4 mg/dL 8.4-10.2 (test code = 697) EGFR (BEAKER) 65 Interpretatio n of eGFR (test code = mL/min/1.73 values Stage De scription 1092) sq m Result G1 Nereida l or high >=90 G2 Mildly decreased 60-89 G3a Mildl y to moderately 45-5 9 G3b Moderately to s everely 30-44 G4 Severl y decreased 15-29 G5 Kidney failure <15Reported eGF R is based on the CKD-EPI 2021 equation that d oes not use a race coefficientEsti mated GFR is not as accur ate as Creatinine Roxanne crane in predicting glom erular filtration rate . Estimated GFR is not appl icable for dialysis patien ts Packager Or Packer And Weigher ID - EOOPOCT-GLUCOSE [id number] 00:58:53 Test Item Value Reference Range Interpretation Comments POC-GLUCOSE METER 114 mg/dL 70-110 H : TESTED A T [facility] 6720 (BEAKER) (test code = [facility], 1538) 35585: Packager Or Packer And Weigher/Techni caro ID = [id number] for Sahil Ling POCT-GLUCOSE [id number] 23:20:05 Test Item Value Reference Range Interpretation Comments POC-GLUCOSE METER 129 mg/dL 70-110 H : TESTED A T [facility] 6720 (BEAKER) (test code = [facility], 1538) 89791: Packager Or Packer And Weigher/Techni caro ID = [id number] for Maryam Alcantara POCT-GLUCOSE [id number] 11:44:06 Test Item Value Reference Range Interpretation Comments POC-GLUCOSE METER 172 mg/dL 70-110 H : TESTED A T [facility] 6720 (BEAKER) (test code = [facility], 1538) 95646: Packager Or Packer And Weigher/Techni caro ID = [id number] for Enrique Shukla POCT-GLUCOSE [id number] 08:08:35 Test Item Value Reference Range Interpretation Comments POC-GLUCOSE METER 100 mg/dL 70-110 : TESTED A T [facility] 6720 (BEAKER) (test code = [facility], 1538) 31681: Packager Or Packer And Weigher/Techni caro ID = [id number] for Enrique Shukla BASIC METABOLIC [id number] 05:32:07 Test Item Value Reference Range Interpretation Comments SODIUM (BEAKER) 141 meq/L 136-145 (test code = 381) POTASSIUM 3.9 meq/L 3.5-5.1 (BEAKER) (test code = 379) CHLORIDE (BEAKER) 106 meq/L 98-107 (test code = 382) CO2 (BEAKER) 24 meq/L 22-29 (test code = 355) BLOOD UREA 28 mg/dL 7-21 H NITROGEN (BEAKER) (test code = 354) CREATININE 1.07 mg/dL 0.57-1.25 (BEAKER) (test code = 358) GLUCOSE RANDOM 76 mg/dL 70-105 (BEAKER) (test code = 652) CALCIUM (BEAKER) 8.5 mg/dL 8.4-10.2 (test code = 697) EGFR (BEAKER) 70 Interpretatio n of eGFR (test code = mL/min/1.73 values Stage De scription 1092) sq m Result G1 Nereida l or high >=90 G2 Mildly decreased 60-89 G3a Mildl y to moderately 45-5 9 G3b Moderately to s everely 30-44 G4 Severl y decreased 15-29 G5 Kidney failure <15Reported eGF R is based on the CKD-EPI 2020 equation that d oes not use a race coefficientEsti mated GFR is not as accur ate as Creatinine Roxanne crane in predicting glom erular filtration rate . Estimated GFR is not appl icable for dialysis patien ts Packager Or Packer And Weigher ID - MARCOPOCT-GLUCOSE [id number] 21:15:49 Test Item Value Reference Range Interpretation Comments POC-GLUCOSE METER 138 mg/dL 70-110 H : TESTED A T [facility] 6720 (BEAKER) (test code = [facility], 1538) 05854: Packager Or Packer And Weigher/Techni caro ID = [id number] for Shail Ling POCT-GLUCOSE [id number] 17:47:58 Test Item Value Reference Range Interpretation Comments POC-GLUCOSE METER 123 mg/dL 70-110 H : TESTED A T [facility] 6720 (BEAKER) (test code = [facility], 1538) 46758: Packager Or Packer And Weigher/Techni caro ID = [id number] for RO DGERS, JAMECA POCT-GLUCOSE [id number] 16:43:11 Test Item Value Reference Range Interpretation Comments POC-GLUCOSE METER 111 mg/dL 70-110 H : TESTED A T [facility] 6720 (BEAKER) (test code = [facility], 1538) 34538: Packager Or Packer And Weigher/Techni caro ID = [id number] for RO DGERS, JAMECA POCT-GLUCOSE [id number] 08:49:38 Test Item Value Reference Range Interpretation Comments POC-GLUCOSE METER 99 mg/dL 70-110 : TESTED A T [facility] 6720 (BEAKER) (test code = [facility], 1538) 05601: Packager Or Packer And Weigher/Techni caro ID = [id number] for RODG ERS, JAMECA BASIC METABOLIC [id number] 06:22:28 Test Item Value Reference Range Interpretation Comments SODIUM (BEAKER) 141 meq/L 136-145 (test code = 381) POTASSIUM 3.7 meq/L 3.5-5.1 (BEAKER) (test code = 379) CHLORIDE (BEAKER) 107 meq/L 98-107 (test code = 382) CO2 (BEAKER) 25 meq/L 22-29 (test code = 355) BLOOD UREA 28 mg/dL 7-21 H NITROGEN (BEAKER) (test code = 354) CREATININE 1.33 mg/dL 0.57-1.25 H (BEAKER) (test code = 358) GLUCOSE RANDOM 91 mg/dL 70-105 (BEAKER) (test code = 652) CALCIUM (BEAKER) 8.7 mg/dL 8.4-10.2 (test code = 697) EGFR (BEAKER) 54 Interpretatio n of eGFR (test code = mL/min/1.73 values Stage De scription 1092) sq m Result G1 Nereida l or high >=90 G2 Mildly decreased 60-89 G3a Mildl y to moderately 45-5 9 G3b Moderately to s everely 30-44 G4 Severl y decreased 15-29 G5 Kidney failure <15Reported eGF R is based on the CKD-EPI 2020 equation that d oes not use a race coefficientEsti mated GFR is not as accur ate as Creatinine Roxanne royce in predicting glom erular filtration rate . Estimated GFR is not appl icable for dialysis patien ts Packager Or Packer And Weigher ID - ADMINPOCT-GLUCOSE [id number] 21:36:25 Test Item Value Reference Range Interpretation Comments POC-GLUCOSE METER 113 mg/dL 70-110 H : TESTED A T [facility] 6720 (BEAKER) (test code = [facility], 1538) 38560: Packager Or Packer And Weigher/Techni caro ID = [id number] for KHLOE HERNANDEZ POCT-GLUCOSE [id number] 17:51:30 Test Item Value Reference Range Interpretation Comments POC-GLUCOSE METER 107 mg/dL 70-110 : TESTED A T [facility] 6720 (BEAKER) (test code = [facility] [email or web address] [facility], 1538) 55726: Packager Or Packer And Weigher/Techni caro ID = [id number] for RO DGERS, JAMECA POCT-GLUCOSE [id number] 12:35:32 Test Item Value Reference Range Interpretation Comments POC-GLUCOSE METER 118 mg/dL 70-110 H : TESTED A T [facility] 6720 (BEAKER) (test code = [facility], 1538) 39980: Packager Or Packer And Weigher/Techni caro ID = [id number] for RO DGERS, JAMECA POCT-GLUCOSE [id number] 08:18:52 Test Item Value Reference Range Interpretation Comments POC-GLUCOSE METER 87 mg/dL 70-110 : TESTED A T [facility] 67[address] (BEAKER) (test code = [facility], 1538) [address]: Packager Or Packer And Weigher/Techni caro ID = [id number] for EULALIO CRISOSTOMO BASIC METABOLIC [id number] 05:15:00 Test Item Value Reference Range Interpretation Comments SODIUM (BEAKER) 144 meq/L 136-145 (test code = 381) POTASSIUM 3.6 meq/L 3.5-5.1 (BEAKER) (test code = 379) CHLORIDE (BEAKER) 106 meq/L 98-107 (test code = 382) CO2 (BEAKER) 26 meq/L 22-29 (test code = 355) BLOOD UREA 21 mg/dL 7-21 NITROGEN (BEAKER) (test code = 354) CREATININE 1.13 mg/dL 0.57-1.25 (BEAKER) (test code = 358) GLUCOSE RANDOM 99 mg/dL 70-105 (BEAKER) (test code = 652) CALCIUM (BEAKER) 9.1 mg/dL 8.4-10.2 (test code = 697) EGFR (BEAKER) 65 Interpretatio n of eGFR (test code = mL/min/1.73 values Stage De scription 1092) sq m Result G1 Norm al or high >=90 G2 Mildly decreased 60-89 G3a Mildl y to moderately 45-5 9 G3b Moderately to s everely 30-44 G4 Severl y decreased 15-29 G5 Kidney failure <15Reported eGF R is based on the CKD-EPI 2021 equation that d oes not use a race coefficientEsti mated GFR is not as accur ate as Creatinine Roxanne crane in predicting glom erular filtration rate . Estimated GFR is not appl icable for dialysis patien ts Packager Or Packer And Weigher ID - MARCOCBC W/PLT COUNT & AUTO [id number] 04:59:22 Test Item Value Reference Range Interpretation Comments WHITE BLOOD CELL COUNT (BEAKER) 8.6 K/ L 3.5-10.5 (test code = 775) RED BLOOD CELL COUNT (BEAKER) 4.77 M/ L 4.63-6.08 (test code = 761) HEMOGLOBIN (BEAKER) (test code = 13.1 GM/DL 13.7-17.5 L 410) HEMATOCRIT (BEAKER) (test code = 40.3 % 40.1-51.0 411) MEAN CORPUSCULAR VOLUME (BEAKER) 85 fL 79-92 (test code = 753) MEAN CORPUSCULAR HEMOGLOBIN 27.5 pg 25.7-32.2 (BEAKER) (test code = 751) MEAN CORPUSCULAR HEMOGLOBIN CONC 32.5 GM/DL 32.3-36.5 (BEAKER) (test code = 752) RED CELL DISTRIBUTION WIDTH 14.7 % 11.6-14.4 H (BEAKER) (test code = 412) PLATELET COUNT (BEAKER) (test 209 K/CU MM 150-450 code = 756) MEAN PLATELET VOLUME (BEAKER) 9.0 fL 9.4-12.4 L (test code = 754) NUCLEATED RED BLOOD CELLS 0 /100 WBC 0-0 (BEAKER) (test code = 413) NEUTROPHILS RELATIVE PERCENT 58 % (BEAKER) (test code = 429) LYMPHOCYTES RELATIVE PERCENT 33 % (BEAKER) (test code = 430) MONOCYTES RELATIVE PERCENT 6 % (BEAKER) (test code = 431) EOSINOPHILS RELATIVE PERCENT 3 % (BEAKER) (test code = 432) BASOPHILS RELATIVE PERCENT 1 % (BEAKER) (test code = 437) NEUTROPHILS ABSOLUTE COUNT 4.97 K/ L 1.78-5.38 (BEAKER) (test code = 670) LYMPHOCYTES ABSOLUTE COUNT 2.79 K/ L 1.32-3.57 (BEAKER) (test code = 414) MONOCYTES ABSOLUTE COUNT (BEAKER) 0.48 K/ L 0.30-0.82 (test code = 415) EOSINOPHILS ABSOLUTE COUNT 0.21 K/ L 0.04-0.54 (BEAKER) (test code = 416) BASOPHILS ABSOLUTE COUNT (BEAKER) 0.09 K/ L 0.01-0.08 H (test code = 417) IMMATURE GRANULOCYTES-RELATIVE 0.40 % 0.00-1.00 PERCENT (BEAKER) (test code = 2801) POCT-GLUCOSE [id number] 01:23:00 Test Item Value Reference Range Interpretation Comments POC-GLUCOSE METER 95 mg/dL 70-110 : TESTED A T [facility] 6720 (BEAKER) (test code = [facility], 1538) 81602: Packager Or Packer And Weigher/Techni caro ID = [id number] for Sahil Rivero [id number] 18:40:30 Test Item Value Reference Range Interpretation Comments PHOSPHORUS (BEAKER) (test code = 3.5 mg/dL 2.3-4.7 604) POCT-GLUCOSE [id number] 17:15:47 Test Item Value Reference Range Interpretation Comments POC-GLUCOSE METER 111 mg/dL 70-110 H : TESTED A T [facility] 6720 (BEAKER) (test code = [facility], 153) 67848: Packager Or Packer And Weigher/Techni crao ID = [id number] for Ariel Ayala [id number] 15:41:51 Test Item Value Reference Range Interpretation Comments POTASSIUM (BEAKER) 4.5 meq/L 3.5-5.1 Specimen markedly (test code = 379) hemolyzed Packager Or Packer And Weigher ID - BSPOCT-GLUCOSE [id number] 12:33:07 Test Item Value Reference Range Interpretation Comments POC-GLUCOSE METER 122 mg/dL 70-110 H : TESTED A T [facility] 6720 (BEAKER) (test code = [facility], 153) 44640: Packager Or Packer And Weigher/Techni caro ID = [id number] for Barbara Dinero POCT-GLUCOSE [id number] 11:42:24 Test Item Value Reference Range Interpretation Comments POC-GLUCOSE METER 118 mg/dL 70-110 H : TESTED A T [facility] 6720 (BEAKER) (test code = [facility], 153) 51015: Packager Or Packer And Weigher/Techni caro ID = [id number] for Ariel Ayala POCT-GLUCOSE [id number] 06:18:24 Test Item Value Reference Range Interpretation Comments POC-GLUCOSE METER 102 mg/dL 70-110 : TESTED A T [facility] 6720 (BEAKER) (test code = [facility], 153) 33168: Packager Or Packer And Weigher/Techni caro ID = [id number] for Angelica Combs [id number] 06:07:45 Test Item Value Reference Range Interpretation Comments MAGNESIUM (BEAKER) (test code = 2.2 mg/dL 1.6-2.6 627) Packager Or Packer And Weigher ID - MARCOBASIC METABOLIC [id number] 03:30:32 Test Item Value Reference Range Interpretation Comments SODIUM (BEAKER) 139 meq/L 136-145 (test code = 381) POTASSIUM 3.0 meq/L 3.5-5.1 L (BEAKER) (test code = 379) CHLORIDE (BEAKER) 104 meq/L 98-107 (test code = 382) CO2 (BEAKER) 27 meq/L 22-29 (test code = 355) BLOOD UREA 20 mg/dL 7-21 NITROGEN (BEAKER) (test code = 354) CREATININE 0.95 mg/dL 0.57-1.25 (BEAKER) (test code = 358) GLUCOSE RANDOM 111 mg/dL 70-105 H (BEAKER) (test code = 652) CALCIUM (BEAKER) 8.6 mg/dL 8.4-10.2 (test code = 697) EGFR (BEAKER) 80 Interpretatio n of eGFR (test code = mL/min/1.73 values Stage De scription 1092) sq m Result G1 Nereida l or high >=90 G2 Mildly decreased 60-89 G3a Mildl y to moderately 45-5 9 G3b Moderately to s everely 30-44 G4 Severl y decreased 15-29 G5 Kidney failure <15Reported eGF R is based on the CKD-EPI 2020 equation that d oes not use a race coefficientEsti mated GFR is not as accur ate as Creatinine Roxanne royce in predicting glom erular filtration rate . Estimated GFR is not appl icable for dialysis patien ts Packager Or Packer And Weigher ID - [id number] W/PLT COUNT & AUTO [id number] 03:07:52 Test Item Value Reference Range Interpretation Comments WHITE BLOOD CELL COUNT (BEAKER) 9.8 K/ L 3.5-10.5 (test code = 775) RED BLOOD CELL COUNT (BEAKER) 4.38 M/ L 4.63-6.08 L (test code = 761) HEMOGLOBIN (BEAKER) (test code = 12.0 GM/DL 13.7-17.5 L 410) HEMATOCRIT (BEAKER) (test code = 36.4 % 40.1-51.0 L 411) MEAN CORPUSCULAR VOLUME (BEAKER) 83 fL 79-92 (test code = 753) MEAN CORPUSCULAR HEMOGLOBIN 27.4 pg 25.7-32.2 (BEAKER) (test code = 751) MEAN CORPUSCULAR HEMOGLOBIN CONC 33.0 GM/DL 32.3-36.5 (BEAKER) (test code = 752) RED CELL DISTRIBUTION WIDTH 14.4 % 11.6-14.4 (BEAKER) (test code = 412) PLATELET COUNT (BEAKER) (test 184 K/CU MM 150-450 code = 756) MEAN PLATELET VOLUME (BEAKER) 8.7 fL 9.4-12.4 L (test code = 754) NUCLEATED RED BLOOD CELLS 0 /100 WBC 0-0 (BEAKER) (test code = 413) NEUTROPHILS RELATIVE PERCENT 79 % (BEAKER) (test code = 429) LYMPHOCYTES RELATIVE PERCENT 14 % (BEAKER) (test code = 430) MONOCYTES RELATIVE PERCENT 5 % (BEAKER) (test code = 431) EOSINOPHILS RELATIVE PERCENT 1 % (BEAKER) (test code = 432) BASOPHILS RELATIVE PERCENT 1 % (BEAKER) (test code = 437) NEUTROPHILS ABSOLUTE COUNT 7.72 K/ L 1.78-5.38 H (BEAKER) (test code = 670) LYMPHOCYTES ABSOLUTE COUNT 1.37 K/ L 1.32-3.57 (BEAKER) (test code = 414) MONOCYTES ABSOLUTE COUNT (BEAKER) 0.45 K/ L 0.30-0.82 (test code = 415) EOSINOPHILS ABSOLUTE COUNT 0.10 K/ L 0.04-0.54 (BEAKER) (test code = 416) BASOPHILS ABSOLUTE COUNT (BEAKER) 0.09 K/ L 0.01-0.08 H (test code = 417) IMMATURE GRANULOCYTES-RELATIVE 0.30 % 0.00-1.00 PERCENT (BEAKER) (test code = 2801) POCT-GLUCOSE [id number] 01:56:37 Test Item Value Reference Range Interpretation Comments POC-GLUCOSE METER 115 mg/dL 70-110 H : TESTED Anderson Touss[facility] 67[facility] (BEAKER) (test code = [place], [place]) [address]: Packager Or Packer And Weigher/Techni caro ID = [id number] for CO RDLIZZIE, KEEGAN POCT-GLUCOSE [id number] 18:00:52 Test Item Value Reference Range Interpretation Comments POC-GLUCOSE METER 107 mg/dL 70-110 : TESTED A T [facility] 6720 ([facility]) (test code = KATHYA Mora [facility], 1538) [address]: Packager Or Packer And Weigher/Techni caro ID = [id number] for Elsa Mercado POCT-GLUCOSE [id number] 14:36:23 Test Item Value Reference Range Interpretation Comments POC-GLUCOSE METER 124 mg/dL 70-110 H : TESTED A T [facility] 6720 (DANA) (test code = KATHYA Mora [facility], 1538) [address]: Packager Or Packer And Weigher/Techni caro ID = [id number] for Jolie Ivory [id number] 11:27:50 Test Item Value Reference Range Interpretation Comments [facility] SCREEN ([facility]) (test code = Nonreactive Nonreactive 420) CT BRAIN WITHOUT IV [id number] 09:58:54 [facility] 1940 Sex: MCT BRAIN WITHOUT IV CONTRASTINDICATION: Stroke, follow upCOMPARISON: 05/20/2023TECHNIQUE: Noncontrast axial CT imaging of the brain and skull. DOSE REDUCTION: Dose modulation, iterative reconstruction, and/orweight-based adjustment of the mA/kV was utilized to reduce theradiation dose to as low as reasonably achiev able.FINDINGS:Unchanged previously described right basal ganglia intraparenchymalhemorrhage. No new intracranial hemorrhage.Unchanged appearance of previously described sellar and suprasellarmass, abutting the optic chiasm and the anterior communicating artery.Scattered foci of hypoattenuation are pres ent throughout theperiventricular and subcortical white matter, and, although nonspecificby imaging,statistically represent mild chronic microvascular ischemicchanges in this age group.No hydrocephalus.Orbits are within normal limits. Prior bilateral lens surgery.Atherosclerotic calcification of the i ntracranial internal carotid arteries.No obstructive paranasal sinus disease.IMPRESSION:Unchanged previously described right basal ganglia intraparenchymalhemorrhage. No significant associated mass effect. Given location, thismost certainly represents a hypertensive hemorrhage.No new intracranial hemorrhage.Unchanged appearance of previously described sellar and suprasellarmass, abutting the optic chiasm and the anterior communicating artery.This may be further characterized with MRI pituitary protocol on anonemergent outpatient basis.If there is persistent clinical concern for intracranial pathology, MRexamination is recommended for further characterization.Electronically Signed By: Sarah Pulido05/20/2023 10:01 CDTWorkstation Name: [id number] 09:00:16 Test Item Value Reference Range Interpretation Comments HEMOGLOBIN A1C 5.5 % See_Comment [Automated m essage] ELECTROPHORESIS ([facility]) The system which (test code = 3811) generated this result transmitted ref erence range: <=5.6%. The reference range was not used to int erpret this result as normal/abnormal . "The A1c is measured using a NGSP-certified method. HbA1c value equal to or greater than 6.5% as thediagnosis cutoff for diabetes. An HbA1c value of 5.7- 6.4% indicates increased risk for diabetes (prediabetes)."Packager Or Packer And Weigher ID - ADMPOCT- GLUCOSE [id number] 07:02:16 Test Item Value Reference Range Interpretation Comments POC-GLUCOSE METER 104 mg/dL 70-110 : [facility] (test code = KATHYA Mora [facility], 1538) [address]: Packager Or Packer And Weigher/Techni caro ID = [id number] for Darlene Tilley [id number] 04:29:29 Test Item Value Reference Range Interpretation Comments MAGNESIUM ([facility]) (test code = 1.9 mg/dL 1.6-2.6 627) Packager Or Packer And Weigher ID - [id number] 04:29:29 Test Item Value Reference Range Interpretation Comments PHOSPHORUS ([facility]) (test code = 3.3 mg/dL 2.3-4.7 604) Packager Or Packer And Weigher ID - bvBASIC METABOLIC [id number] 04:29:28 Test Item Value Reference Range Interpretation Comments SODIUM (BEAKER) 145 meq/L 136-145 (test code = 381) POTASSIUM 3.1 meq/L 3.5-5.1 L (BEAKER) (test code = 379) CHLORIDE (BEAKER) 108 meq/L 98-107 H (test code = 382) CO2 (BEAKER) 28 meq/L 22-29 (test code = 355) BLOOD UREA 16 mg/dL 7-21 NITROGEN (BEAKER) (test code = 354) CREATININE 1.05 mg/dL 0.57-1.25 (BEAKER) (test code = 358) GLUCOSE RANDOM 102 mg/dL 70-105 (BEAKER) (test code = 652) CALCIUM (BEAKER) 8.5 mg/dL 8.4-10.2 (test code = 697) EGFR (BEAKER) 71 Interpretati on of eGFR (test code = mL/min/1.73 values Stage De scription 1092) sq m Result G1 Nereida l or high >=90 G2 Mildly decreased 60-89 G3a Mildl y to moderately 45- 59 G3b Moderately to s everely 30-44 G4 Severl y decreased 15-29 G5 Kidney failure <15Reported eGF R is based on the CKD-EPI 2020 equation that d oes not use a race coefficientEsti mated GFR is not as accur ate as Creatinine Roxanne royce in predicting glom erular filtration rate . Estimated GFR is not appl icable for dialysis patien ts Packager Or Packer And Weigher ID - bvCBC W/PLT COUNT & AUTO [id number] 04:11:54 Test Item Value Reference Range Interpretation Comments WHITE BLOOD CELL COUNT (BEAKER) 8.3 K/ L 3.5-10.5 (test code = 775) RED BLOOD CELL COUNT (BEAKER) 4.39 M/ L 4.63-6.08 L (test code = 761) HEMOGLOBIN (BEAKER) (test code = 12.2 GM/DL 13.7-17.5 L 410) HEMATOCRIT (BEAKER) (test code = 36.6 % 40.1-51.0 L 411) MEAN CORPUSCULAR VOLUME (BEAKER) 83 fL 79-92 (test code = 753) MEAN CORPUSCULAR HEMOGLOBIN 27.8 pg 25.7-32.2 (BEAKER) (test code = 751) MEAN CORPUSCULAR HEMOGLOBIN CONC 33.3 GM/DL 32.3-36.5 (BEAKER) (test code = 752) RED CELL DISTRIBUTION WIDTH 14.2 % 11.6-14.4 (BEAKER) (test code = 412) PLATELET COUNT (BEAKER) (test 193 K/CU MM 150-450 code = 756) MEAN PLATELET VOLUME (BEAKER) 8.9 fL 9.4-12.4 L (test code = 754) NUCLEATED RED BLOOD CELLS 0 /100 WBC 0-0 (BEAKER) (test code = 413) NEUTROPHILS RELATIVE PERCENT 71 % (BEAKER) (test code = 429) LYMPHOCYTES RELATIVE PERCENT 21 % (BEAKER) (test code = 430) MONOCYTES RELATIVE PERCENT 5 % (BEAKER) (test code = 431) EOSINOPHILS RELATIVE PERCENT 2 % (BEAKER) (test code = 432) BASOPHILS RELATIVE PERCENT 1 % (BEAKER) (test code = 437) NEUTROPHILS ABSOLUTE COUNT 5.92 K/ L 1.78-5.38 H (BEAKER) (test code = 670) LYMPHOCYTES ABSOLUTE COUNT 1.71 K/ L 1.32-3.57 (BEAKER) (test code = 414) MONOCYTES ABSOLUTE COUNT (BEAKER) 0.41 K/ L 0.30-0.82 (test code = 415) EOSINOPHILS ABSOLUTE COUNT 0.15 K/ L 0.04-0.54 (BEAKER) (test code = 416) BASOPHILS ABSOLUTE COUNT (BEAKER) 0.09 K/ L 0.01-0.08 H (test code = 417) IMMATURE GRANULOCYTES-RELATIVE 0.40 % 0.00-1.00 PERCENT (BEAKER) (test code = 2801) CT BRAIN WITHOUT IV [id number] 01:23:28 [facility] 1940 Sex: MEXAM: CT BRAIN WITHOUT IV CONTRASTINDICATION: Stroke, follow up. Known right basal ganglia hemorrhage.TECHNIQUE: CT images from skull base to vertex without IV contrast.This exam was performed according to the departmental dose optimizationprogram which includes automated exposure control, adjustment of the mAand/or kV according to the patient size, and/or use of an iterativereconstruction technique.COMPARISON:03/21/17FINDINGS: Parenchyma: Acute intraparenchymal hematoma centered within theposterior putamen of the right basal ganglia with measurements of 1.4 x1.4 x 2.3 cm (2.3 cc). Mild associated vasogenic edema without midlineshift. No intraventricular extension of hemorrhage. Focal parenchymal hypoattenuation in the left cerebellum 0.6 cm indiameter without associated mass effect not present on remote prior. There is a mass within the sellar or suprasellar extension andmeasurements of 1.7 x 1.4 x 2.2 cm,previously 1.4 x 1.4 x 1.6 cm. Themass appears to abut the optic chiasm and the anterior communicatingartery although are details limited on this exam.Patchy and confluent areas of hypoattenuation are present in thecerebral white matter that are nonspecific but compatible with moderatechronic microvasc ular ischemic changes. Extra-axial Collection: NoneVentricular System: No hydrocephalusOsseous Structures: No acute osseous abnormality. Included Orbits: Prior bilateral lens surgeryParanasal Sinuses: Predominantly clearTympanomastoid Cavities: NormalOther: NoneIMPRESSION:1. Small acute hemorrhage centered within the right basal ganglia (2.3cc). No midline shift or intraventricular extension.2. Subcentimeter hyperdensity in the left cerebellum without masseffect. This may be reflect mineralization versus a cavernousmalformation although is nonspecific. Attention to on follow-up.3. 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 And Weigher/Techni caro ID = [id number] for Darlene Tilley POCT-GLUCOSE [id number] 18:43:09 Test Item Value Reference Range Interpretation Comments POC-GLUCOSE METER 103 mg/dL 70-110 : TESTED A T [facility] 6720 (BEAKER) (test code = [facility], 1538) [address]: Packager Or Packer And Weigher/Techni acro ID = [id number] for Jolie Ivory LIPID [id number] 14:44:27 Test Item Value Reference Range Interpretation Comments TRIGLYCERIDES (BEAKER) (test code = 142 mg/dL 540) CHOLESTEROL (BEAKER) (test code = 123 mg/dL 631) HDL CHOLESTEROL (BEAKER) (test code 32 mg/dL = 976) LDL CHOLESTEROL CALCULATED (MONTAJAKER) 63 mg/dL (test code = 633) Triglyceride Reference Range: Low Risk <150 Borderline 150-199 High Risk 200- 499 Very High Risk >=500Cholesterol Reference Range: Low Risk <200 Borderline 200-239 High Risk >240HDL Cholesterol Reference Range: Low Risk >=60 High Risk <40LDL Cholesterol Reference Range: Optimal <100 Near Optimal 100-129 Borderline 130-159 High 160-189 Very High >=190 Packager Or Packer And Weigher ID - EOOVITAMIN [id number] 13:46:30 Test Item Value Reference Range Interpretation Comments VITAMIN B12 (BEAKER) (test code = 446 pg/mL 213-816 774) Packager Or Packer And Weigher ID - EOOTSH/FREE T4 IF [id number] 13:46:30 Test Item Value Reference Range Interpretation Comments THYROID STIMULATING HORMONE 0.806 uIU/mL 0.350-4.940 (BEAKER) (test code = 772) Packager Or Packer And Weigher ID - EOOHIGH SENSITIVITY TROPONIN [id number] 12:50:58 Test Item Value Reference Range Interpretation Comments HIGH SENSITIVITY TROPONIN I (test 8 pg/ml <=35 code = 9333661) Packager Or Packer And Weigher ID - EOOThe INSTALLER INSPECTOR FINAL STAT High Sensitivity Troponin-I results should be used in conjunction with other diagnostic information such as ECG, clinical observations and information, and patient symptoms to aid in the diagnosis of MO.HEPATIC FUNCTION [id number] 12:14:48 Test Item Value Reference Range Interpretation Comments TOTAL PROTEIN (BEAKER) (test code = 7.0 gm/dL 6.0-8.3 770) ALBUMIN (BEAKER) (test code = 1145) 4.0 g/dL 3.5-5.0 BILIRUBIN TOTAL (BEAKER) (test code 1.0 mg/dL 0.2-1.2 = 377) BILIRUBIN DIRECT (BEAKER) (test 0.4 mg/dL 0.1-0.5 code = 706) ALKALINE PHOSPHATASE (BEAKER) (test 99 U/L 40-150 code = 346) AST (SGOT) (BEAKER) (test code = 30 U/L 5-34 353) ALT (SGPT) (BEAKER) (test code = 19 U/L 6-55 347) Packager Or Packer And Weigher ID - [id number] 12:12:49 Test Item Value Reference Range Interpretation Comments PARTIAL THROMBOPLASTIN TIME 29.5 seconds 22.5-36.0 (BEAKER) (test code = 760) PROTHROMBIN TIME/[id number] 12:12:06 Test Item Value Reference Range Interpretation Comments PROTIME (BEAKER) (test code = 13.9 seconds 11.9-14.2 759) INR (BEAKER) (test code = 370) 1.09 <=5.90 RECOMMENDED COUMADIN/WARFARIN INR THERAPY RANGESSTANDARD DOSE: 2.0 - 3.0 Includes: PROPHYLAXIS for venous thrombosis, systemic embolization; TREATMENT for venous thrombosis and/or pulmonary embolus.HIGH RISK: Target INR is 2.5-3.5 for patients with mechanical heart valves.POCT-GLUCOSE [id number] 11:44:51 Test Item Value Reference Range Interpretation Comments POC-GLUCOSE METER 98 mg/dL 70-110 : TESTED [facility] T [facility] (test code = [place], 1538) [address]: Packager Or Packer And Weigher/Techni caro ID = [id number] for Full en, Jolie B-TYPE NATRIURETIC FACTOR (BNP)2017-07-29 15:05:00 Test Item Value Reference Range Interpretation Comments B-TYPE NATRIURETIC PEPTIDE 1331 pg/mL 0-100 H (BEAKER) (test code = 700) [id number] 14:58:00 Test Item Value Reference Range Interpretation Comments MAGNESIUM (BEAKER) (test code = 2.2 mg/dL 1.6-2.6 627) BASIC METABOLIC [id number] 14:58:00 Test Item Value Reference Range Interpretation [...] NOT APPLICABLE FOR DIALYSIS PATIEN TS. POCT-GLUCOSE [id number] 12:54:00 Test Item Value Reference Range Interpretation Comments POC-GLUCOSE METER 108 mg/dL 70-[address] [facility] (BEAKER) ([facility] [place] 15[facility] [address] POCT-GLUCOSE [id number] 08:45:00 Test Item Value Reference Range Interpretation Comments POC-GLUCOSE METER 114 mg/dL 70-[address] [facility] (BEAKER) (test code = [facility] Morgan [place] 1538) [address] BASIC METABOLIC [id number] 06:04:00 Test Item Value Reference Range Interpretation [...] NOT APPLICABLE FOR DIALYSIS PATIEN TS. TROPONIN [id number] 22:40:00 Test Item Value Reference Range Interpretation Comments TROPONIN I (BEAKER) (test code = 1.42 ng/mL 0.00-0.03 397) [...] acidosis, acute neurological disease, and persistent tachyarrhythmia.POCT-GLUCOSE [id number] 21:44:00 Test Item Value Reference Range Interpretation Comments POC-GLUCOSE METER 109 mg/dL 70-[address] [facility] ([facility]) (test code = [facility] 1538) [address] POCT-GLUCOSE [id number] 20:16:00 Test Item Value Reference Range Interpretation Comments POC-GLUCOSE METER 113 mg/dL 70-[address] [facility] ([facility]) (test code = [facility] 1538) [address] POCT-GLUCOSE [id number] 20:11:00 Test Item Value Reference Range Interpretation Comments POC-GLUCOSE METER 98 mg/dL 70-[address] [facility] ([facility]) (test code = KATHYA Mora [facility] [address] 1538) POCT-GLUCOSE [id number] 20:01:00 Test Item Value Reference Range Interpretation Comments POC-GLUCOSE METER 121 mg/dL 70-[address] [facility] ([facility]) (test code = KATHYA Mora [facility] 1538) [address] TROPONIN [id number] 12:06:00 Test Item Value Reference Range Interpretation [...] acute neurological disease, and persistent tachyarrhythmia.BASIC METABOLIC [id number] 12:05:00 Test Item Value Reference Range Interpretation [...] PATIEN TS. CREATINE KINASE (CK), TOTAL AND [id number] 12:05:00 Test Item Value Reference Range Interpretation Comments CREATINE KINASE TOTAL (BEAKER) 43 U/L 29-200 (test code = 380) CREATINE KINASE-MB (BEAKER) (test 2.1 ng/mL 0.0-6.6 code = 750) CREATINE KINASE-MB INDEX (BEAKER) 4.9 % (test code = 395) Effective 10/03/2014: CK-MB Reference Range ChangeNew: 0.0-6.6 Previous: 0.0-4.9CK-MB Reference Range:<6.7 Normal6.7-10.0 Borderline>10.0 Abnormal CBC W/PLT COUNT & AUTO [id number] 05:21:00 Test Item Value Reference Range Interpretation [...] (BEAKER) (test code = 2801) URINALYSIS W/ [id number] 20:09:00 Test Item Value Reference Range Interpretation [...] 520) SOURCE(BEAKER) (test code = Urine, Voided 9879) TROPONIN [id number] 14:12:00 Test Item Value Reference Range Interpretation [...] 0-100 H (BEAKER) (test code = 700) [id number] 13:42:00 Test Item Value Reference Range Interpretation Comments MAGNESIUM (BEAKER) (test code = 2.0 mg/dL 1.6-2.6 627) BASIC METABOLIC [id number] 13:42:00 Test Item Value Reference Range Interpretation [...] PATIEN TS. CBC W/PLT COUNT & AUTO [id number] 13:18:00 Test Item Value Reference Range Interpretation [...] PERCENT (BEAKER) (test code = 2801) POCT-GLUCOSE [id number] 11:13:00 Test Item Value Reference Range Interpretation Comments POC-GLUCOSE METER 128 mg/dL 70-[address] [facility] (BEAKER) (test code = [place] 1538) [address] BASIC METABOLIC [id number] 05:46:00 Test Item Value Reference Range Interpretation [...] S NOT APPLICABLE FOR DIALYSIS PATIEN TS. [id number] 05:40:00 Test Item Value Reference Range Interpretation Comments MAGNESIUM (BEAKER) (test code = 2.2 mg/dL 1.6-2.6 627) CBC W/PLT COUNT & AUTO [id number] 09:22:00 Test Item Value Reference Range Interpretation [...] H PERCENT (BEAKER) (test code = 2801) [id number] 07:15:00 Test Item Value Reference Range Interpretation Comments MAGNESIUM (BEAKER) (test code = 1.9 mg/dL 1.6-2.6 627) BASIC METABOLIC [id number] 07:15:00 Test Item Value Reference Range Interpretation [...] NOT APPLICABLE FOR DIALYSIS PATIEN TS. POCT-GLUCOSE [id number] 12:57:00 Test Item Value Reference Range Interpretation Comments POC-GLUCOSE METER 112 mg/dL 70-[address] [facility] (BEAKER) (test code = K[place]YA [place] 1538) [address] BASIC METABOLIC [id number] 04:32:00 Test Item Value Reference Range Interpretation [...] S NOT APPLICABLE FOR DIALYSIS PATIEN TS. [id number] 04:26:00 Test Item Value Reference Range Interpretation Comments PHOSPHORUS (BEAKER) (test code = 2.9 mg/dL 2.3-4.7 604) [id number] 04:26:00 Test Item Value Reference Range Interpretation Comments MAGNESIUM (BEAKER) (test code = 2.1 mg/dL 1.6-2.6 627) LACTIC ACID, ARTERIAL, WHOLE [id number] 04:18:00 Test Item Value Reference Range Interpretation Comments LACTATE BLOOD ARTERIAL (2) 1.8 mmol/L 0.5-2.2 (BEAKER) (test code = 2874) Effective 03/19/2016: Units/Reference Range ChangeNew: 0.5-2.2 mmol/L Previous: 5- 20 mg/dLCBC W/PLT COUNT & AUTO [id number] 04:17:00 Test Item Value Reference Range Interpretation [...] (BEAKER) (test code = 2800) OXYGEN SATURATION, [id number] 04:04:00 Test Item Value Reference Range Interpretation Comments O2 SATURATION (MEASURED) (BEAKER) 71.7 % (test code = 1455) [id number] 01:08:00 Test Item Value Reference Range Interpretation Comments MAGNESIUM (BEAKER) (test code = 2.2 mg/dL 1.6-2.6 627) POCT-GLUCOSE [id number] 00:49:00 Test Item Value Reference Range Interpretation Comments POC-GLUCOSE METER 128 mg/dL 70-[address] [facility] (BEAKER) (test code = [place] 1538) [address] POTASSIUM-STAT [id number] 00:22:00 Test Item Value Reference Range Interpretation Comments POTASSIUM (BEAKER) (test code = 3.0 meq/L 3.6-5.5 L 379) CALCIUM, [id number] 00:22:00 Test Item Value Reference Range Interpretation Comments CALCIUM IONIZED (BEAKER) (test 1.07 mmol/L 1.12-1.27 L code = 698) PH, BLOOD (BEAKER) (test code = 7.36 1810) SODIUM NA-STAT [id number] 00:21:00 Test Item Value Reference Range Interpretation Comments SODIUM (BEAKER) (test code = 381) 141 meq/L 135-148 POCT-GLUCOSE [id number] 23:43:00 Test Item Value Reference Range Interpretation Comments POC-GLUCOSE METER 118 mg/dL 70-110 H TESTED AT [place] [address] ([facility]) ([facility] 1538) [address] POCT-GLUCOSE [id number] 22:19:00 Test Item Value Reference Range Interpretation Comments POC-GLUCOSE METER 131 mg/dL 70-110 H TESTED AT [place] [address] ([facility]) ([facility] 1538) [address] POCT-GLUCOSE [id number] 22:02:00 Test Item Value Reference Range Interpretation Comments POC-GLUCOSE METER 142 mg/dL 70-110 H TESTED AT [place] [address] ([facility]) ([facility] 1538) [address] POCT-GLUCOSE [id number] 18:39:00 Test Item Value Reference Range Interpretation Comments POC-GLUCOSE METER 161 mg/dL 70-110 H TESTED AT [place] [address] ([facility]) (test code = [facility] Morgan [facility] 1538) [address] BLOOD GAS, [id number] 17:37:00 Test Item Value Reference Range Interpretation [...] (test code = 1819) 40.0 % POCT-GLUCOSE [id number] 17:12:00 Test Item Value Reference Range Interpretation Comments POC-GLUCOSE METER 163 mg/dL 70-110 H TESTED AT [place] [address] (BEAKER) (test code = [facility] 1538) [address] POCT-GLUCOSE [id number] 16:18:00 Test Item Value Reference Range Interpretation Comments POC-GLUCOSE METER 175 mg/dL 70-110 H TESTED AT [place] [address] ([facility]) (test code = [facility] 1538) [address] POCT-GLUCOSE [id number] 14:39:00 Test Item Value Reference Range Interpretation Comments POC-GLUCOSE METER 157 mg/dL 70-110 H [facility] [place] [address] [facility] (test code = [facility] 1538) [address] [id number] 13:40:00 Test Item Value Reference Range Interpretation Comments PHOSPHORUS (BEAKER) (test code = 2.8 mg/dL 2.3-4.7 604) [id number] 13:40:00 Test Item Value Reference Range Interpretation Comments MAGNESIUM (BEAKER) (test code = 2.2 mg/dL 1.6-2.6 627) BASIC METABOLIC [id number] 13:40:00 Test Item Value Reference Range Interpretation [...] TS. Specimen slightly ictericLACTIC ACID, ARTERIAL, WHOLE [id number] 13:32:00 Test Item Value Reference Range Interpretation Comments LACTATE BLOOD ARTERIAL (2) 3.1 mmol/L 0.5-2.2 H (BEAKER) (test code = 2874) Effective 03/19/2016: Units/Reference Range ChangeNew: 0.5-2.2 mmol/L Previous: 5- 20 mg/dLCBC W/PLT COUNT & AUTO [id number] 13:14:00 Test Item Value Reference Range Interpretation [...] (BEAKER) (test code = 2801) BLOOD GAS, [id number] 13:07:00 Test Item Value Reference Range Interpretation [...] code = 1819) 60.0 % OXYGEN SATURATION, [id number] 13:06:00 Test Item Value Reference Range Interpretation Comments O2 SATURATION (MEASURED) (BEAKER) 77.4 % (test code = 1455) POTASSIUM-STAT [id number] 13:02:00 Test Item Value Reference Range Interpretation Comments POTASSIUM (BEAKER) (test code = 3.0 meq/L 3.6-5.5 L 379) GLUCOSE-STAT [id number] 13:02:00 Test Item Value Reference Range Interpretation Comments GLUCOSE RANDOM ([facility]) (test code 155 mg/dL 70-110 H = 652) HGB/HCT (H&H) - STAT [id number] 13:02:00 Test Item Value Reference Range Interpretation Comments HEMOGLOBIN (BEAKER) (test code = 12.8 g/dL 13.0-16.8 L 410) HEMATOCRIT ([facility]) (test code = 38.0 % 40.0-50.0 L 411) SODIUM NA-STAT [id number] 13:01:00 Test Item Value Reference Range Interpretation Comments SODIUM ([facility]) (test code = 381) 141 meq/L 135-148 [id number] 12:21:00 Test Item Value Reference Range Interpretation Comments ACTIVATED CLOTTING TIME 125 sec TEST ED AT [place] [address] ([place] [facility] (test code = [place] [address] [id number] 12:21:00 Test Item Value Reference Range Interpretation Comments ACTIVATED CLOTTING TIME 510 sec TEST ED AT [place] [address] ([facility]) (test code = [place] [address]) [address] [id number] 12:21:00 Test Item Value Reference Range Interpretation Comments ACTIVATED CLOTTING TIME 555 sec TEST ED AT [place] [address] ([facility]) (test code = [place] [address]) [address] [id number] 12:21:00 Test Item Value Reference Range Interpretation Comments ACTIVATED CLOTTING TIME 643 sec TEST ED AT [place] [address] ([facility]) (test code = [place] [address]) [id number] 12:21:00 Test Item Value Reference Range Interpretation Comments ACTIVATED CLOTTING TIME 692 sec TEST ED AT [place] [address] ([facility]) (test code = [place] [address]) [id number] 12:21:00 Test Item Value Reference Range Interpretation Comments ACTIVATED CLOTTING TIME 543 sec TEST ED AT [place] [address] ([facility]) (test code = [place] [address]) [address] CALCIUM, [id number] 11:29:00 Test Item Value Reference Range Interpretation Comments CALCIUM IONIZED (BEAKER) (test 1.08 mmol/L 1.12-1.27 L code = 698) PH, BLOOD (BEAKER) (test code = 7.43 1810) SODIUM NA-STAT [id number] 11:28:00 Test Item Value Reference Range Interpretation Comments SODIUM (BEAKER) (test code = 381) 141 meq/L 135-148 BLOOD GAS, [id number] 11:28:00 Test Item Value Reference Range Interpretation [...] (test code = 1819) 100.0 % POTASSIUM-STAT [id number] 11:28:00 Test Item Value Reference Range Interpretation Comments POTASSIUM (BEAKER) (test code = 3.2 meq/L 3.6-5.5 L 379) GLUCOSE-STAT [id number] 11:28:00 Test Item Value Reference Range Interpretation Comments GLUCOSE RANDOM (BEAKER) (test code 146 mg/dL 70-110 H = 652) HGB/HCT (H&H) - STAT [id number] 11:28:00 Test Item Value Reference Range Interpretation Comments HEMOGLOBIN (BEAKER) (test code = 10.2 g/dL 13.0-16.8 L 410) HEMATOCRIT (BEAKER) (test code = 30.0 % 40.0-50.0 L 411) GLUCOSE-STAT [id number] 10:41:00 Test Item Value Reference Range Interpretation Comments GLUCOSE RANDOM (BEAKER) (test code 109 mg/dL 70-110 = 652) SODIUM NA-STAT [id number] 10:41:00 Test Item Value Reference Range Interpretation Comments SODIUM (BEAKER) (test code = 381) 140 meq/L 135-148 POTASSIUM-STAT [id number] 10:41:00 Test Item Value Reference Range Interpretation Comments POTASSIUM (BEAKER) (test code = 4.1 meq/L 3.6-5.5 379) BLOOD GAS, [id number] 10:41:00 Test Item Value Reference Range Interpretation [...] 1819) 80.0 % HGB/HCT (H&H) - STAT [id number] 10:41:00 Test Item Value Reference Range Interpretation Comments HEMOGLOBIN (BEAKER) (test code = 10.4 g/dL 13.0-16.8 L 410) HEMATOCRIT (BEAKER) (test code = 31.0 % 40.0-50.0 L 411) SODIUM NA-STAT [id number] 10:08:00 Test Item Value Reference Range Interpretation Comments SODIUM (BEAKER) (test code = 381) 141 meq/L 135-148 POTASSIUM-STAT [id number] 10:08:00 Test Item Value Reference Range Interpretation Comments POTASSIUM (BEAKER) (test code = 4.0 meq/L 3.6-5.5 379) BLOOD GAS, [id number] 10:08:00 Test Item Value Reference Range Interpretation [...] (test code = 1819) 70.0 % GLUCOSE-STAT [id number] 10:08:00 Test Item Value Reference Range Interpretation Comments GLUCOSE RANDOM (BEAKER) (test code 112 mg/dL 70-110 H = 652) HGB/HCT (H&H) - STAT [id number] 10:08:00 Test Item Value Reference Range Interpretation Comments HEMOGLOBIN (BEAKER) (test code = 10.3 g/dL 13.0-16.8 L 410) HEMATOCRIT (BEAKER) (test code = 30.0 % 40.0-50.0 L 411) BLOOD GAS, [id number] 09:46:00 Test Item Value Reference Range Interpretation [...] 1819) 70.0 % HGB/HCT (H&H) - STAT [id number] 09:46:00 Test Item Value Reference Range Interpretation Comments HEMOGLOBIN (BEAKER) (test code = 10.2 g/dL 13.0-16.8 L 410) HEMATOCRIT (BEAKER) (test code = 30.0 % 40.0-50.0 L 411) GLUCOSE-STAT [id number] 09:45:00 Test Item Value Reference Range Interpretation Comments GLUCOSE RANDOM (BEAKER) (test code 104 mg/dL 70-110 = 652) SODIUM NA-STAT [id number] 09:45:00 Test Item Value Reference Range Interpretation Comments SODIUM (BEAKER) (test code = 381) 140 meq/L 135-148 POTASSIUM-STAT [id number] 09:45:00 Test Item Value Reference Range Interpretation Comments POTASSIUM (BEAKER) (test code = 4.0 meq/L 3.6-5.5 379) BLOOD GAS, [id number] 09:27:00 Test Item Value Reference Range Interpretation [...] 1819) 75.0 % HGB/HCT (H&H) - STAT [id number] 09:27:00 Test Item Value Reference Range Interpretation Comments HEMOGLOBIN (BEAKER) (test code = 9.6 g/dL 13.0-16.8 L 410) HEMATOCRIT (BEAKER) (test code = 28.0 % 40.0-50.0 L 411) GLUCOSE-STAT [id number] 09:26:00 Test Item Value Reference Range Interpretation Comments GLUCOSE RANDOM (BEAKER) (test code = 93 mg/dL 70-110 652) SODIUM NA-STAT [id number] 09:26:00 Test Item Value Reference Range Interpretation Comments SODIUM (BEAKER) (test code = 381) 138 meq/L 135-148 POTASSIUM-STAT [id number] 09:26:00 Test Item Value Reference Range Interpretation Comments POTASSIUM (BEAKER) (test code = 4.1 meq/L 3.6-5.5 379) BLOOD GAS, [id number] 08:31:00 Test Item Value Reference Range Interpretation [...] (test code = 1819) 100.0 % POTASSIUM-STAT [id number] 08:31:00 Test Item Value Reference Range Interpretation Comments POTASSIUM (BEAKER) (test code = 3.3 meq/L 3.6-5.5 L 379) HGB/HCT (H&H) - STAT [id number] 08:31:00 Test Item Value Reference Range Interpretation Comments HEMOGLOBIN (BEAKER) (test code = 11.5 g/dL 13.0-16.8 L 410) HEMATOCRIT (BEAKER) (test code = 34.0 % 40.0-50.0 L 411) CALCIUM, [id number] 08:31:00 Test Item Value Reference Range Interpretation Comments CALCIUM IONIZED (BEAKER) (test 1.00 mmol/L 1.12-1.27 L code = 698) PH, BLOOD (BEAKER) (test code = 7.47 1810) GLUCOSE-STAT [id number] 08:29:00 Test Item Value Reference Range Interpretation Comments GLUCOSE RANDOM (BEAKER) (test code = 95 mg/dL 70-110 652) SODIUM NA-STAT [id number] 08:29:00 Test Item Value Reference Range Interpretation Comments SODIUM (BEAKER) (test code = 381) 141 meq/L 135-148 URINALYSIS W/ [id number] 13:01:00 Test Item Value Reference Range Interpretation [...] code = 1521) SOURCE(BEAKER) (test code = 2935) CBC W/PLT COUNT & AUTO [id number] 12:22:00 Test Item Value Reference Range Interpretation [...] (BEAKER) (test code = 2801) BASIC METABOLIC [id number] 12:16:00 Test Item Value Reference Range Interpretation [...] APPLICABLE FOR DIALYSIS PATIEN TS. Specimen slightly [id number] 11:54:00 Test Item Value Reference Range Interpretation Comments PARTIAL THROMBOPLASTIN TIME 33.4 seconds 22.5-36.0 (BEAKER) (test code = 760) PROTHROMBIN [id number] 11:53:00 Test Item Value Reference Range Interpretation Comments PROTIME (BEAKER) (test code = 17.3 seconds 11.7-14.7 H 759) INR (BEAKER) (test code = 370) 1.4 <=5.9 RECOMMENDED COUMADIN/WARFARIN INR THERAPY RANGESSTANDARD DOSE: 2.0 - 3.0 Includes: PROPHYLAXIS for venous thrombosis, systemic embolization; TREATMENT for venous thrombosis and/or pulmonary embolus.HIGH RISK: Target INR is 2.5-3.5 for patients with mechanical heart valves.BASIC METABOLIC [id number] 11:47:00 Test Item Value Reference Range Interpretation [...] Specimen slightly ictericCBC W/PLT COUNT & AUTO [id number] 11:36:00 Test Item Value Reference Range Interpretation [...] K/ L 0.00-0.20 (test code = 417) 0.00PT/[id number] 11:35:00 Test Item Value Reference Range Interpretation [...] 0-100 H (BEAKER) (test code = 700) [id number] 14:35:00 Test Item Value Reference Range Interpretation Comments MAGNESIUM (BEAKER) (test code = 2.6 mg/dL 1.6-2.6 627) BASIC METABOLIC [id number] 14:35:00 Test Item Value Reference Range Interpretation [...] APPLICABLE FOR DIALYSIS PATIEN TS. MISCELLANEOUS LAB [id number] 10:09:00 Test Item Value Reference Range Interpretation Comments SCAN RESULT (test code = 1781735) BASIC METABOLIC [id number] 11:29:00 Test Item Value Reference Range Interpretation [...] S NOT APPLICABLE FOR DIALYSIS PATIEN TS. [id number] 17:50:00 Test Item Value Reference Range Interpretation Comments CORTISOL, TOTAL (BEAKER) (test code 7.4 ug/dL 3.7-19.4 = 2755) [id number] 07:17:00 Test Item Value Reference Range Interpretation Comments CORTISOL, TOTAL (BEAKER) (test code 8.2 ug/dL 3.7-19.4 = 2755) PROTEIN ELECTROPHORESIS, [id number] 12:58:00 Test Item Value Reference Range Interpretation [...] their expected distribution. No monoclonal bands detected. [id number] Shanthi Gee MD (BEAKER) (test code = (electronic signature) 5964) PROTEIN TOTAL SERUM, 6.1 gm/dL 6.0-8.3 SPEP (BEAKER) (test code = 5360) [id number] 06:14:00 Test Item Value Reference Range Interpretation Comments PROLACTIN (BEAKER) (test code = 17.86 ng/mL 3.46-19.40 758) [id number] 05:26:00 Test Item Value Reference Range Interpretation Comments CORTISOL, TOTAL (BEAKER) (test code 8.5 ug/dL 3.7-19.4 = 7255) T3, [id number] 05:26:00 Test Item Value Reference Range Interpretation Comments T3 FREE (BEAKER) (test code = 908) 1.88 pg/mL 1.71-3.71 TSH/FREE T4 IF [id number] 05:26:00 Test Item Value Reference Range Interpretation Comments THYROID STIMULATING HORMONE 0.47 uIU/mL 0.35-4.94 (BEAKER) (test code = 772) PROTHROMBIN [id number] 04:56:00 Test Item Value Reference Range Interpretation Comments PROTIME (BEAKER) (test code = 15.7 seconds 11.7-14.7 H 759) INR (BEAKER) (test code = 370) 1.3 <=5.9 RECOMMENDED COUMADIN/WARFARIN INR THERAPY RANGESSTANDARD DOSE: 2.0 - 3.0 Includes: PROPHYLAXIS for venous thrombosis, systemic embolization; TREATMENT for venous thrombosis and/or pulmonary embolus.HIGH RISK: Target INR is 2.5-3.5 for patients with mechanical heart valves.[id number] 07:01:00 Test Item Value Reference Range Interpretation Comments MAGNESIUM (BEAKER) (test code = 2.0 mg/dL 1.6-2.6 627) BASIC METABOLIC [id number] 07:01:00 Test Item Value Reference Range Interpretation [...] NOT APPLICABLE FOR DIALYSIS PATIEN TS. PROTHROMBIN [id number] 06:39:00 Test Item Value Reference Range Interpretation Comments PROTIME (BEAKER) (test code = 15.8 seconds 11.7-14.7 H 759) INR (BEAKER) (test code = 370) 1.3 <=5.9 RECOMMENDED COUMADIN/WARFARIN INR THERAPY RANGESSTANDARD DOSE: 2.0 - 3.0 Includes: PROPHYLAXIS for venous thrombosis, systemic embolization; TREATMENT for venous thrombosis and/or pulmonary embolus.HIGH RISK: Target INR is 2.5-3.5 for patients with mechanical heart valves.SEDIMENTATION [id number] 10:07:00 Test Item Value Reference Range Interpretation Comments SEDIMENTATION RATE, ERYTHROCYTE 10 mm/HR 0-40 (BEAKER) (test code = 766) [id number] 06:12:00 Test Item Value Reference Range Interpretation Comments MAGNESIUM (BEAKER) (test code = 2.1 mg/dL 1.6-2.6 627) BASIC METABOLIC [id number] 06:12:00 Test Item Value Reference Range Interpretation [...] FOR DIALYSIS PATIEN TS. Specimen slightly ictericLIPID [id number] 06:12:00 Test Item Value Reference Range Interpretation [...] 160-189 Very High >=190 Specimen slightly ictericPROTHROMBIN [id number] 05:57:00 Test Item Value Reference Range Interpretation Comments PROTIME (BEAKER) (test code = 16.7 seconds 11.7-14.7 H 759) INR (BEAKER) (test code = 370) 1.4 <=5.9 RECOMMENDED COUMADIN/WARFARIN INR THERAPY RANGESSTANDARD DOSE: 2.0 - 3.0 Includes: PROPHYLAXIS for venous thrombosis, systemic embolization; TREATMENT for venous thrombosis and/or pulmonary embolus.HIGH RISK: Target INR is 2.5-3.5 for patients with mechanical heart valves.POCT-GLUCOSE [id number] 21:23:00 Test Item Value Reference Range Interpretation Comments POC-GLUCOSE METER 116 mg/dL 70-[address] [facility] [address] (BEAKER) (test code = [place] [address]) [address] URINALYSIS W/ [id number] 20:08:00 Test Item Value Reference Range Interpretation [...] 520) SOURCE(BEAKER) (test code = Urine, Voided 5182) HEPATITIS B [id number] 20:06:00 Test Item Value Reference Range Interpretation Comments HEPATITIS B CORE TOTAL ANTIBODY Nonreactive Nonreactive (BEAKER) (test code = 497) HEPATITIS B SURFACE ANTIBODY < mIU/mL <8.0 (BEAKER) (test code = 647) HEPATITIS B SURFACE ANTIGEN (2) Nonreactive Nonreactive (BEAKER) (test code = 2585) HEPATITIS C [id number] 20:04:00 Test Item Value Reference Range Interpretation Comments HEPATITIS C ANTIBODY (BEAKER) Nonreactive Nonreactive (test code = 367) HIV-1 ANTIGEN WITH HIV-1/2 [id number] 20:04:00 Test Item Value Reference Range Interpretation Comments HIV-1 ANTIGEN WITH HIV 1\\T\\2 Nonreactive Nonreactive ANTIBODY (2) ([employer]) (test code = 2586) HEMOGLOBIN [id number] 19:57:00 Test Item Value Reference Range Interpretation Comments HEMOGLOBIN A1C (BEAKER) (test code = 5.6 % 4.3-6.1 368) T4, [id number] 19:06:00 Test Item Value Reference Range Interpretation Comments FREE T4 (BEAKER) (test code = 655) 1.08 ng/dL 0.70-1.48 TSH/FREE T4 IF [id number] 18:35:00 Test Item Value Reference Range Interpretation Comments THYROID STIMULATING HORMONE 0.03 uIU/mL 0.35-4.94 L (BEAKER) (test code = 772) FOLATE, [id number] 18:33:00 Test Item Value Reference Range Interpretation Comments FOLATE (BEAKER) (test code = 362) 10.5 ng/mL >=7.0 Effective 10/03/2014: Folate Reference Range ChangeNew: >=7.0 Previous: >=5.4VITAMIN [id number] 18:27:00 Test Item Value Reference Range Interpretation Comments VITAMIN B12 (BEAKER) (test code = 394 pg/mL 213816 774) B-TYPE NATRIURETIC FACTOR (BNP)2017-03-20 18:20:00 Test Item Value Reference Range Interpretation Comments B-TYPE NATRIURETIC PEPTIDE 8044 pg/mL 0-100 H (BEAKER) (test code = 700) POCT-GLUCOSE [id number] 17:18:00 Test Item Value Reference Range Interpretation Comments POC-GLUCOSE METER 96 mg/dL 70-[address] [facility] (BEAKER) (test code = [place] [facility] [id number] 0442) [id number] 17:06:00 Test Item Value Reference Range Interpretation Comments MAGNESIUM (BEAKER) (test code = 2.1 mg/dL 1.6-2.6 627) BASIC METABOLIC [id number] 17:06:00 Test Item Value Reference Range Interpretation [...] Specimen slightly ictericCBC W/PLT COUNT & AUTO [id number] 16:55:00 Test Item Value Reference Range Interpretation [...]
[2023-08-03 12:12] LABS: Absolute Lymphocytes (CBC) 2.4 K/uL (0.7-4.9); Hematocrit 36.3 % (39.6-49.0); Lymphocytes % 33.5 % (15.3-44.8); MCV 84.7 fL (80-100); MPV 7.1 fL (7.6-11.3); Platelets 160 thou/uL (152-406); RBC Red Blood Cell Count 4.28 M/uL (4.33-5.43)
[2023-08-03 12:15] LABS: Protime INR 1.36
--- NOTE | 2023-08-03 12:20 | RAD REPORT ---
EXAM DESCRIPTION: Alicia Single View08/03/2023 12:13 pm CLINICAL HISTORY: Coronary artery disease. Hypotension COMPARISON May 2023 FINDINGS: The lungs appear clear of acute infiltrate. The heart is moderately to markedly enlarged. Pacemaker leads in place IMPRESSION: No acute abnormalities displayed
[2023-08-03 12:33] LABS: Magnesium 2.5 mg/dL (1.6-2.4); Potassium 4.4 mEq/L (3.5-5.1); Troponin High Sensitivity 8.8 pg/mL (<58.9)
--- NOTE | 2023-08-03 13:05 | ER ---
Nurse's Notes [facility] Name: Giuliano Park Age: 83 yrs Sex: Male : 1940 Arrival Date: 08/03/2023 Time: 11:32 Bed 15 Private MD: Brandin Luna Diagnosis: Syncope Near;Orthostatic hypotension Presentation: 08/03 11:43 Chief complaint: Patient states: Urdu speaking, daughter at bedside and reports low jl7 BP, 80/60, Dr. Luna sent for eval. Pt reports intermittent left leg weakness x 2 months. Coronavirus screen: At this time, the client does not indicate any symptoms associated with coronavirus-19. Ebola Screen: No symptoms or risks identified at this time. Initial Sepsis Screen: Does the patient meet any 2 criteria? No. Patient's initial sepsis screen is negative. Does the patient have a suspected source of infection? No. Patient's initial sepsis screen is negative. Risk Assessment: Do you want to hurt yourself or someone else? Patient reports no desire to harm self or others. Onset of symptoms is unknown. 11:43 Method Of Arrival: Ambulatory jl7 11:43 Acuity: CALEB 3 jl7 Triage Assessment: 11:46 General: Appears in no apparent distress. uncomfortable, Behavior is calm, cooperative, jl7 appropriate for age. Pain: Denies pain. Historical: - Allergies: 11:46 Lisinopril; jl7 - PMHx: 11:46 Atrial Fib; CHF; enlarged prostate; Hypertension; Myocardial infarction; Pacemaker; jl7 - Immunization history:: Adult Immunizations unknown. - Social history:: Smoking status: unknown. - Family history:: not pertinent. - Hospitalizations: : The patient was recently seen at [facility], Patient was recently seen at [facility]. Screenin:05 [facility] ED Fall Risk Assessment (Adult) History of falling in the last 3 months, kc6 including since admission No falls in past 3 months (0 pts) Confusion or Disorientation No (0 pts) Intoxicated or Sedated No (0 pts) Impaired Gait No (0 pts) Mobility Assist Device Used No (0 pt) Altered Elimination No (0 pt) Score/Fall Risk Level 0 - 2 = Low Risk. Abuse screen: Denies threats or abuse. Denies injuries from another. Nutritional screening: No deficits noted. Tuberculosis screening: No symptoms or risk factors identified. Assessment: 12:05 General: Appears in no apparent distress. comfortable, Behavior is calm, cooperative, kc6 appropriate for age. Pain: Denies pain. Neuro: Level of Consciousness is awake, alert, obeys commands, Oriented to person, place, time, situation, Appropriate for age General Cargo Clerk are equal bilaterally Moves all extremities. Weakness in left arm(s) leg(s) Gait is unsteady, Speech is normal, Facial symmetry appears normal, Pupils are PERRLA, Intact. Cardiovascular: Heart tones S1 S2 present Capillary refill < 3 seconds Rhythm is atrial pacer Chest pain is denied. Respiratory: Airway is patent Trachea midline Respiratory effort is even, unlabored, Respiratory pattern is regular, symmetrical, Denies shortness of breath. GI: No signs and/or symptoms were reported involving the gastrointestinal system. : No signs and/or symptoms were reported regarding the genitourinary system. EENT: No signs and/or symptoms were reported regarding the EENT system. Derm: No signs and/or symptoms reported regarding the dermatologic system. Skin is intact, is healthy with good turgor, Skin is dry, Skin is pale, Skin temperature is warm. Musculoskeletal: No signs and/or symptoms reported regarding the musculoskeletal system. Circulation, motion, and sensation intact. Capillary refill < 3 seconds, Range of motion: intact in all extremities. 13:06 Reassessment: Patient appears in no apparent distress at this time. No changes from kc6 previously documented assessment. Patient and/or family updated on plan of care and expected duration. Pain level reassessed. Patient is alert, oriented x 3, equal unlabored respirations, skin warm/dry/pink. d/c pending bolus completion. Vital Signs: 11:43 BP 105 / 71; Pulse 88; Resp 15; Temp 97.9; Pulse Ox 98% ; Pain 0/10; jl7 12:04 BP 123 / 67 LA Supine (auto/reg); Pulse 73; kc6 12:04 BP 109 / 71 LA Sitting (auto/reg); Pulse 71; kc6 12:04 BP 100 / 76 LA Standing (auto/reg); Pulse 78; kc6 13:06 BP 111 / 67; Pulse 70; Resp 16 S; Pulse Ox 100% on R/A; kc6 11:43 Pain Scale: Adult 7 ED Course: 11:34 Patient arrived in ED. rg4 11:34 Brandin Luna DO is Private Physician. rg4 11:36 Andreas Rodriguez MD is Attending Physician. cp3 11:41 Madeleine Estrada, RN is Primary Nurse. kc6 11:46 Triage completed. jl7 11:46 Arm band placed on right wrist. jl7 12:05 Patient has correct armband on for positive identification. Placed in gown. Bed in low kc6 position. Call light in reach. Side rails up X2. Adult w/ patient. Client placed on continuous cardiac and pulse oximetry monitoring. NIBP monitoring applied. 12:05 Patient maintains SpO2 saturation greater than 95% on room air. kc6 12:15 XRAY Chest (1 view) In Process Unspecified. EDMS 12:16 Inserted saline lock: 20 gauge in right antecubital area, using aseptic technique. sm8 Blood collected. 13:04 Branidn Luna DO is Referral Physician. cp3 13:41 No provider procedures requiring assistance completed. IV discontinued, intact, kc6 bleeding controlled, No redness/swelling at site. Pressure dressing applied. Administered Medications: 12:58 CANCELLED (Physician Discretion): ns0.45 % 1000 ml IV at 125 ml/hr continuous kc6 13:04 Drug: NS 0.9% IV 250 ml IV at bolus once Route: IV; Rate: bolus; Site: right kc6 antecubital; 13:41 Follow up: Response: No adverse reaction; IV Status: Completed infusion; IV Intake: kc6 250ml Medication: 13:41 VIS not applicable for this client. kc6 Intake: 13:41 IV: 250ml; Total: 250ml. kc6 Outcome: 13:05 Discharge ordered by . cp3 13:41 Discharged to home ambulatory, with family, kc6 13:41 Condition: improved 13:41 Discharge instructions given to patient, Instructed on discharge instructions, follow up and referral plans. Demonstrated understanding of instructions, follow-up care, 13:41 Patient left the ED. kc6 Signatures: Dispatcher [employer] EDMS Andreas Rodriguez MD MD cp3 Angie Perez rg4 Nicho Power RN RN jl7 Madeleine Estrada RN RN kc6 Sandi Gan sm8 Corrections: (The following items were deleted from the chart) 12:18 12:05 Inserted saline lock: 20 gauge in right antecubital area, using aseptic sm8 technique. Blood collected. kc6
--- NOTE | 2023-08-03 13:05 | EDPHYS ---
Physician Documentation [facility] Name: Giuliano Park Age: 83 yrs Sex: Male : 1940 Arrival Date: 08/03/2023 Time: 11:32 Bed 15 Private MD: Jeremy [facility] ED Physician Andreas Rodriguez HPI: 08/03 13:08 This 83 yrs old Male presents to ER via Ambulatory with complaints of Low BP. cp3 12:14 Patient is a 83-year-old male with a history of A-fib, CHF, hypertension, NC, pacemaker cp3 who presents to the ED for generalized weakness and near syncope. The patient endorses that he had a stroke last year with improved left-sided upper extremity and lower extremity weakness who has been seen by his physical therapist and was noted to have a blood pressure in the 80s. Patient has been taking his blood pressure medicine as scheduled. Patient denies chest pain, shortness of breath and endorses generalized weakness. . Historical: - Allergies: 11:46 Lisinopril; jl7 - PMHx: 11:46 Atrial Fib; CHF; enlarged prostate; Hypertension; Myocardial infarction; Pacemaker; jl7 - Immunization history:: Adult Immunizations unknown. - Social history:: Smoking status: unknown. - Family history:: not pertinent. - Hospitalizations: : The patient was recently seen at [facility], Patient was recently seen at [facility]. ROS: 12:14 Eyes: Negative for injury, pain, redness, and discharge, ENT: Negative for injury, cp3 pain, and discharge, Neck: Negative for injury, pain, and swelling, Respiratory: Negative for shortness of breath, cough, wheezing, and pleuritic chest pain, Abdomen/GI: Negative for abdominal pain, nausea, vomiting, diarrhea, and constipation, Back: Negative for injury and pain, MS/Extremity: Negative for injury and deformity, Skin: Negative for injury, rash, and discoloration, Neuro: Negative for headache, weakness, numbness, tingling, and seizure, Psych: Negative for depression, anxiety, suicide ideation, homicidal ideation, and hallucinations, Allergy/Immunology: Negative for hives, rash, and allergies, Endocrine: Negative for neck swelling, polydipsia, polyuria, polyphagia, and marked weight changes, Hematologic/Lymphatic: Negative for swollen nodes, abnormal bleeding, and unusual bruising, 12:14 Constitutional: Positive for Generalized weakness, 12:14 Cardiovascular: Positive for Near syncope, Exam: 12:14 Constitutional: This is a well developed, well nourished patient who is awake, alert, cp3 and in no acute distress. Head/Face: Normocephalic, atraumatic. Eyes: Pupils equal round and reactive to light, extra-ocular motions intact. Lids and lashes normal. Conjunctiva and sclera are non-icteric and not injected. Cornea within normal limits. Periorbital areas with no swelling, redness, or edema. ENT: Nares patent. No nasal discharge, no septal abnormalities noted. Tympanic membranes are normal and external auditory canals are clear. Oropharynx with no redness, swelling, or masses, exudates, or evidence of obstruction, uvula midline. Mucous membranes moist. Neck: Trachea midline, no thyromegaly or masses palpated, and no cervical lymphadenopathy. Supple, full range of motion without nuchal rigidity, or vertebral point tenderness. No Meningismus. Chest/axilla: Normal chest wall appearance and motion. Nontender with no deformity. No lesions are appreciated. Cardiovascular: Regular rate and rhythm with a normal S1 and S2. No gallops, murmurs, or rubs. Normal PMI, no JVD. No pulse deficits. Respiratory: Lungs have equal breath sounds bilaterally, clear to auscultation and percussion. No rales, rhonchi or wheezes noted. No increased work of breathing, no retractions or nasal flaring. Abdomen/GI: Soft, non-tender, with normal bowel sounds. No distension or tympany. No guarding or rebound. No evidence of tenderness throughout. Male : Normal genitalia with no discharge or lesions. Skin: Warm, dry with normal turgor. Normal color with no rashes, no lesions, and no evidence of cellulitis. MS/ Extremity: Pulses equal, no cyanosis. Neurovascular intact. Full, normal range of motion. Neuro: Awake and alert, GCS 15, oriented to person, place, time, and situation. Cranial nerves II-XII grossly intact. Motor strength 5/5 in all extremities. Sensory grossly intact. Cerebellar exam normal. Normal gait. Psych: Awake, alert, with orientation to person, place and time. Behavior, mood, and affect are within normal limits. Vital Signs: 11:43 BP 105 / 71; Pulse 88; Resp 15; Temp 97.9; Pulse Ox 98% ; Pain 0/10; jl7 12:04 BP 123 / 67 LA Supine (auto/reg); Pulse 73; kc6 12:04 BP 109 / 71 LA Sitting (auto/reg); Pulse 71; kc6 12:04 BP 100 / 76 LA Standing (auto/reg); Pulse 78; kc6 13:06 BP 111 / 67; Pulse 70; Resp 16 S; Pulse Ox 100% on R/A; kc6 11:43 Pain Scale: Adult jl7 Procedures: 12:14 Performed EKG interpreted by me: Pacemaker, rate 80, no evidence of acute NC. cp3 MDM: 12:10 Patient medically screened. cp3 12:14 Differential Diagnosis The differential diagnosis includes hypotension, medication cp3 induced hypotension, arrhythmia, pacemaker failure, worsening cardiomyopathy, infection. Data reviewed: vital signs, nurses notes. Consideration of Admission/Observation Escalation of care including admission/observation considered. 12:45 Historians other than the Patient: Daughter/Son: advised of history from physical cp3 therapy- patient's daughter and at bedside. External Records Reviewed: Inpatient record: patient admitted to [facility] in April for ich. ED course: patient orthostatic. 250cc bolus ns ordered. 13:08 Response to treatment: the patient's symptoms have markedly improved after treatment. 3 08/03 11:57 Order name: Basic Metabolic Panel; Complete Time: 12:40 3 08/03 12:41 Interpretation: Abnormal: NA 137; K 4.4; CL 107; CO2 27; ANION GAP 7.4; GLUC 112; BUN cp3 32; CRE 1.97; GFR 33; CA 8.6. 08/03 11:57 Order name: CBC with Diff; Complete Time: 12:40 cp3 08/03 12:40 Interpretation: WBC 7.10; RBC 4.28; HGB 12.3; HCT 36.3; MCV 84.7; MCH 28.8; MCHC 34.0; cp3 PLT 160; RDW 16.5; MPV 7.1; TATYANA% 54.0; LYM% 33.5; MN% 8.1; EOSINOPHIL % 3.4; BASO% 1.0; NEUT A 3.8; LYMA 2.4; MNA 0.6; EOSA 0.2; BASOA 0.1. 08/03 11:57 Order name: Magnesium; Complete Time: 12:40 cp3 08/03 12:40 Interpretation: MG 2.5. cp3 08/03 11:57 Order name: NT PRO-BNP; Complete Time: 12:40 cp3 08/03 12:40 Interpretation: NT PRO-BNP 1062. cp3 08/03 11:57 Order name: PT-INR; Complete Time: 12:40 cp3 08/03 12:40 Interpretation: PT 15.0; INR <p>1.36</p>. cp3 08/03 11:57 Order name: Troponin HS; Complete Time: 12:40 cp3 08/03 12:40 Interpretation: Troponin HS 8.8. cp3 08/03 11:57 Order name: XRAY Chest (1 view); Complete Time: 12:40 cp3 08/03 12:41 Interpretation: Chest x-ray interpreted by al- no acute cardiopulmonary process. lungs cp3 clear, no edema. 08/03 11:57 Order name: EKG; Complete Time: 11:58 cp3 08/03 11:57 Order name: Cardiac monitoring; Complete Time: 11:58 cp3 08/03 11:57 Order name: EKG - Nurse/Tech; Complete Time: 11:58 cp3 08/03 11:57 Order name: IV Saline Lock; Complete Time: 11:58 cp3 08/03 11:57 Order name: Labs collected and sent; Complete Time: 11:58 cp3 08/03 11:57 Order name: O2 Per Protocol; Complete Time: 11:58 cp3 08/03 11:57 Order name: O2 Sat Monitoring; Complete Time: 11:58 cp3 08/03 11:57 Order name: Orthostatic Blood Pressure; Complete Time: 12:04 cp3 Administered Medications: 12:58 CANCELLED (Physician Discretion): ns0.45 % 1000 ml IV at 125 ml/hr continuous kc6 13:04 Drug: NS 0.9% IV 250 ml IV at bolus once Route: IV; Rate: bolus; Site: right kc6 antecubital; 13:41 Follow up: Response: No adverse reaction; IV Status: Completed infusion; IV Intake: kc6 250ml Disposition Summary: 08/03/23 13:05 Discharge Ordered Problem: new cp3 Condition: Stable cp3 Diagnosis - Syncope Near cp3 - Orthostatic hypotension cp3 Followup: cp3 - With: Brandin Luna, DO - When: 48 Hours - Reason: Recheck today's complaints, Re-evaluation by your physician Discharge Instructions: - Discharge Summary Sheet cp3 - Near-Syncope cp3 - Orthostatic Hypotension cp3 Forms: - Medication Reconciliation Form cp3 - Thank You Letter cp3 - Antibiotic Education cp3 - Prescription Opioid Use cp3 - Patient Portal Instructions cp3 - Leadership Thank You Letter cp3 Signatures: Dispatcher [employer] Andreas Crystal MD MD cp3 Nicho Power RN RN jl7 Madeleine Estrada RN RN kc6 Corrections: (The following items were deleted from the chart) 12:41 12:40 NA 137; K 4.4; CL 107; CO2 27; ANION GAP 7.4; GLUC 112; BUN 32; CRE 1.97; GFR 33; cp3 CA 8.6. cp3 12:58 12:44 NS IV 0.45 % 1000 ml IV at 125 ml/hr continuous ordered. cp3 kc6 12:58 12:58 NS IV 0.45 % 1000 ml IV at 125 ml/hr continuous ordered. kc6 kc6
[2023-08-03] MEDS ORDERED: NA CHLORIDE 0.9% 250 ML ONE (13:10)
[2023-08-03 14:26] VITALS: TEMP 97.9
[2023-08-03 14:29] VITALS: BP 111/67; O2SAT 100
--- NOTE | 2023-08-05 14:40 | EKG ---
Test Date: 2023-08-03 Test Time: 11:50:42 Mechanist: JAE MEASUREMENT RESULTS: Intervals: Rate: 80 NM: QRSD: 180 QT: 462 QTc: 532 [place]: P: NM: QRS: 240 T: 66 INTERPRETIVE STATEMENTS: Electronic ventricular pacemaker Compared to ECG 08/03/2023 11:50:13 No significant changes Electronically Signed On 08-05-23 14:34:02 CDT by Harish Jenkins
--- NOTE | 2023-08-05 14:41 | EKG ---
Test Date: 2023-08-03 Test Time: 11:50:13 Lip Cutter: JAE MEASUREMENT RESULTS: Intervals: Rate: 82 MD: QRSD: 180 QT: 468 QTc: 546 [place]: P: MD: QRS: 241 T: 69 INTERPRETIVE STATEMENTS: Electronic ventricular pacemaker Compared to ECG 05/19/2023 09:38:43 No significant changes Electronically Signed On 08-05-23 14:34:04 CDT by Harish Jenkins
== END 2023-08-03 13:41 | disposition home or self-care (01) ==
LOC: ER 11:32
DX: I95.1 Orthostatic hypotension (principal); I50.9 Heart failure, unspecified; I10 Essential (primary) hypertension; Z95.0 Presence of cardiac pacemaker; Z88.8 Allergy status to other drugs, medicaments and biological substances
CPT/HCPCS: 96365; 93005 ×2; 85025; 80048; 36415; 83735; 85610; 84484; 83880; 71045; 99285; J7050

== ENCOUNTER → 2023-12-15 | Emergency (ER) | payer OTHER ==
--- NOTE | 2023-12-15 15:32 | RAD REPORT ---
EXAM DESCRIPTION: RAD - Chest Single View - 12/15/2023 3:11 pm CLINICAL HISTORY: PAIN Chest pain. COMPARISON: Chest Single View dated 08/03/2023; Chest Single View dated 05/19/2023; Chest Single View d ated 07/10/2021; Chest Single View dated 11/02/2020 FINDINGS: Portable technique limits examination quality. Mild interstitial pulmonary edema. The heart is moderately enlarged with multilead pacer/defibrillato r device. No displaced fractures. IMPRESSION: Mild CHF.
[2023-12-15 15:34] LABS: Specific Gravity 1.006 (1.005-1.030); Urine Bacteria None Seen /HPF (<20); Urine Bilirubin NEGATIVE (Negative); Urine Blood 3+ (OVER) (Negative); Urine Clarity Clear (Clear); Urine Color Colorless (Yellow); Urine Glucose NEGATIVE (Negative); Urine Mucus Slight /HPF (None Seen); Urine Protein NEGATIVE (Negative); Urine RBC >50 /HPF (None Seen); Urine Urobilinogen Normal (Normal)
[2023-12-15 15:38] LABS: Absolute Lymphocytes (CBC) 2.3 K/uL (0.7-4.9); Hematocrit 42.8 % (39.6-49.0); Lymphocytes % 30.9 % (15.3-44.8); MCV 85.9 fL (80-100); MPV 6.9 fL (7.6-11.3); Platelets 198 thou/uL (152-406); RBC Red Blood Cell Count 4.98 M/uL (4.33-5.43)
[2023-12-15 15:46] LABS: Albumin 3.8 g/dL (3.4-5.0); Potassium 3.9 mEq/L (3.5-5.1); Protein, Total 7.5 g/dL (6.4-8.2); Troponin High Sensitivity 9.7 pg/mL (<58.9)
--- NOTE | 2023-12-15 16:36 | RAD REPORT ---
EXAM DESCRIPTION: CTAbdomen Pelvis W Contrast - 12/15/2023 4:05 pm CLINICAL HISTORY: Abdominal pain. ABD PAIN COMPARISON: No comparisons TECHNIQUE: Biphasic CT imaging of the abdomen and pelvis was performed with 100 ml non-ionic IV cont rast. All CT scans are performed using dose optimization technique as appropriate and may include automated exposure control or mA/KV adjustment according to patient size. FINDINGS: The lung bases are clear.Small hiatal hernia. Multiple small hepatic cysts are present of varying sizes. No intra or extrahepatic biliary tree dila tation. The spleen, pancreas, adrenal glands and kidneys are within normal limits. No bowel obstruction, free air, free fluid or abscess. Moderate retained stool in the rectosigmoid co mely. Sigmoid diverticulosis coli without diverticulitis. The appendix is normal. Prostate gland is pr ominent in size and projects into the bladder base. No evidence of significant lymphadenopathy. Small bilateral fat inguinal hernias. No suspicious bony findings. IMPRESSION: Proximal sigmoid colon diverticulosis is present without evidence of acute diverticuliti s. There is moderate retained colonic stool noted. Prostate gland appears nodular enlarged and projects into the bladder base. Nonemergent PSA correlati on suggested.
--- NOTE | 2023-12-15 16:44 | ER ---
Nurse's Notes [facility] Name: Giuliano Park Age: 83 yrs Sex: Male : 1940 Arrival Date: 12/15/2023 Time: 13:54 Bed 18 Private MD: Diagnosis: Abdominal pain, Generalized Presentation: 12/15 14:30 Chief complaint: Patient states: Pt c/o left shoulder and left side abdominal pain, tl4 dizziness, and nausea x 4 days. Pt denies vomiting, diarrhea, fever/chills. Coronavirus screen: At this time, the client does not indicate any symptoms associated with coronavirus-19. Ebola Screen: No symptoms or risks identified at this time. Initial Sepsis Screen: Does the patient meet any 2 criteria? No. Patient's initial sepsis screen is negative. Does the patient have a suspected source of infection? No. Patient's initial sepsis screen is negative. Risk Assessment: Do you want to hurt yourself or someone else? Patient reports no desire to harm self or others. Onset of symptoms was December 11, 2023. 14:30 Method Of Arrival: Ambulatory tl4 14:30 Acuity: CALEB 3 tl4 Triage Assessment: 14:36 General: Appears in no apparent distress. Behavior is calm, cooperative. Pain: tl4 Complains of pain in back, abdomen and left arm. EENT: No deficits noted. No signs and/or symptoms were reported regarding the EENT system. Neuro: Reports dizziness. Cardiovascular: No deficits noted. Denies chest pain, diaphoresis, fatigue, lightheadedness, palpitations, Chest pain is denied. Respiratory: No deficits noted. Denies cough, shortness of breath. GI: Reports nausea. : No deficits noted. No signs and/or symptoms were reported regarding the genitourinary system. Derm: No deficits noted. No signs and/or symptoms reported regarding the dermatologic system. Historical: - Allergies: 14:35 Lisinopril; tl4 - PMHx: 14:35 Atrial Fib; CHF; enlarged prostate; Hypertension; Myocardial infarction; Pacemaker; tl4 - Immunization history:: Adult Immunizations unknown. - Social history:: Smoking status: Patient denies any tobacco usage or history of. Screenin:02 [facility] ED Fall Risk Assessment (Adult) History of falling in the last 3 months, cm10 including since admission No falls in past 3 months (0 pts) Confusion or Disorientation No (0 pts) Intoxicated or Sedated No (0 pts) Impaired Gait No (0 pts) Mobility Assist Device Used No (0 pt) Altered Elimination No (0 pt) Score/Fall Risk Level 0 - 2 = Low Risk Oriented to surroundings, Maintained a safe environment, Hourly rounding (assess needs \T\ fall precautionary measures) done. Abuse screen: Denies threats or abuse. Denies injuries from another. Nutritional screening: No deficits noted. Tuberculosis screening: No symptoms or risk factors identified. Assessment: 15:55 Reassessment: Patient is alert, oriented x 3, equal unlabored respirations, skin cm10 warm/dry/pink. Assumed care of patient at this time. Pt states that the pain in his back has resolved. Pt placed on monitor at this time. Pt updated on plan of care. Respirations even and unlabored, Pt A\T\Ox4, family at bedside. Call light in reach. General: Appears in no apparent distress. comfortable, Behavior is calm, cooperative. Pain: Complains of pain in left subscapular area and left upper quadrant and left lateral posterior chest and left arm. Neuro: No deficits noted. Level of Consciousness is awake, alert, obeys commands, Oriented to person, place, time, situation. Cardiovascular: No deficits noted. Patient's skin is warm and dry. Respiratory: No deficits noted. Airway is patent Respiratory effort is even, unlabored, Respiratory pattern is regular, symmetrical. GI: No deficits noted. No signs and/or symptoms were reported involving the gastrointestinal system. : No deficits noted. No signs and/or symptoms were reported regarding the genitourinary system. EENT: No deficits noted. No signs and/or symptoms were reported regarding the EENT system. Derm: No deficits noted. Skin is intact, Skin is pink, warm \T\ dry. Musculoskeletal: No deficits noted. Range of motion: intact in all extremities, Reports pain in left subscapular area and left upper quadrant and left lateral posterior chest and left arm. Vital Signs: 14:30 BP 159 / 93; Pulse 83; Resp 18; Temp 97.9(O); Pulse Ox 99% on R/A; Weight 81.65 kg; tl4 Height 5 ft. 4 in. ; Pain 8/10; 15:58 BP 169 / 101; Pulse 73; Resp 16; Pulse Ox 97% on R/A; Pain 0/10; cm10 17:11 BP 169 / 93; Pulse 70; Resp 16; Pulse Ox 99% on R/A; cm10 14:30 Body Mass Index 30.90 (81.65 kg, 162.56 cm) tl4 14:30 Pain Scale: Adult tl4 15:58 Pain Scale: Adult cm10 ED Course: 13:55 Patient arrived in ED. ra3 13:58 Esme Scott FNP-C is PHCP. kb 13:58 Andres Leija MD is Attending Physician. kb 14:35 Triage completed. tl4 14:36 Arm band placed on right wrist. tl4 15:10 Lien Dotson, MARY LOU is Primary Nurse. cm10 15:13 Chest Single View XRAY In Process Unspecified. EDMS 15:27 CT Abd/Pelvis - IV Contrast Only Sent. mv 15:27 Initial lab(s) drawn, by nj, sent to lab. Urine collected: clean catch specimen, clear, mv Amount Voided: 10mL EKG done, by ED staff, reviewed by Esme LUCERO. Inserted saline lock: 20 gauge in right antecubital area, using aseptic technique. Blood collected. 15:[address] via wheelchair. cm10 16:02 Patient has correct armband on for positive identification. Bed in low position. Call cm10 light in reach. Side rails up X2. Provided Education on: ER process and procedures. . Pulse ox on. NIBP on. Warm blanket given. 16:07 CT Abd/Pelvis - IV Contrast Only In Process Unspecified. EDMS 17:15 No provider procedures requiring assistance completed. IV discontinued, intact, cm10 bleeding controlled, No redness/swelling at site. Pressure dressing applied. Administered Medications: No medications were administered Medication: 16:02 VIS not applicable for this client. cm10 Outcome: 16:44 Discharge ordered by . kb 17:15 Discharged to home ambulatory, with family, cm10 17:15 Condition: good 17:15 Discharge instructions given to patient, family, Instructed on discharge instructions, follow up and referral plans. Demonstrated understanding of instructions, follow-up care, 17:15 Patient left the ED. cm10 Signatures: Dispatcher [employer] EDMS Esme Scott FNP-C CAFE OPERATOR-CkLien Hernández, RN RN cm10 Oni, Lazaro tl4 Svetlana Cope ra3 Stacy Arriaga
--- NOTE | 2023-12-15 16:44 | EDPHYS ---
Physician Documentation [facility] Name: Giuliano Park Age: 83 yrs Sex: Male : 1940 Arrival Date: 12/15/2023 Time: 13:54 Bed 18 Private MD: ED Physician Andres Leija HPI: 12/15 16:01 This 83 yrs old Male presents to ER via Ambulatory with complaints of rt side kb pain x4days. 16:01 Patient is 83-year-old male who presents with left upper quadrant pain and left kb posterior rib pain that started 4 days ago. States he has had similar pain since April after a fall but the pain is normally intermittent. Pain became constant and more severe 4 days ago. Reports slight nausea, denies vomiting or diarrhea. Denies fever, shortness of breath, chest pain. Denies any recent falls or trauma.. Historical: - Allergies: 14:35 Lisinopril; tl4 - PMHx: 14:35 Atrial Fib; CHF; enlarged prostate; Hypertension; Myocardial infarction; Pacemaker; tl4 - Immunization history:: Adult Immunizations unknown. - Social history:: Smoking status: Patient denies any tobacco usage or history of. ROS: 16:00 Constitutional: Negative for fever, chills, and weight loss, kb 16:00 Abdomen/GI: Positive for abdominal pain, nausea, 16:00 Back: Positive for pain at rest, pain with movement, of the left subscapular area, 16:00 All other systems are negative, Exam: 15:27 Constitutional: This is a well developed, well nourished patient who is awake, alert, kb and in no acute distress. Head/Face: Normocephalic, atraumatic. ENT: Moist Mucous membranes Cardiovascular: Regular rate Respiratory: Respirations even and unlabored. No increased work of breathing. Talking in full sentences Skin: Warm, dry with normal turgor. Normal color. MS/ Extremity: Pulses equal, no cyanosis. Neurovascular intact. Full, normal range of motion. Neuro: Awake and alert, GCS 15, oriented to person, place, time, and situation. Moves all extremities. Normal gait. 15:27 Chest/axilla: Inspection: normal, Palpation: tenderness, that is moderate, of the left lateral posterior chest, 15:27 ECG was reviewed by the Attending Physician. 15:27 Abdomen/GI: Inspection: abdomen appears normal, Bowel sounds: normal, Palpation: soft, in all quadrants, mild abdominal tenderness, in the left upper quadrant, Vital Signs: 14:30 BP 159 / 93; Pulse 83; Resp 18; Temp 97.9(O); Pulse Ox 99% on R/A; Weight 81.65 kg; tl4 Height 5 ft. 4 in. ; Pain 8/10; 15:58 BP 169 / 101; Pulse 73; Resp 16; Pulse Ox 97% on R/A; Pain 0/10; cm10 17:11 BP 169 / 93; Pulse 70; Resp 16; Pulse Ox 99% on R/A; cm10 14:30 Body Mass Index 30.90 (81.65 kg, 162.56 cm) tl4 14:30 Pain Scale: Adult tl4 15:58 Pain Scale: Adult cm10 MDM: 14:08 Patient medically screened. kb 16:00 Data reviewed: vital signs, nurses notes. kb 16:44 Differential diagnosis: bowel obstruction, diverticulitis, non-specific abd pain, kb pancreatitis, Ureterolithiasis, urinary tract infection. Historians other than the Patient: Daughter/Son: daughter. Counseling: I had a detailed discussion with the patient and/or guardian regarding the historical points, exam findings, and any diagnostic results supporting the discharge/admit diagnosis, lab results, radiology results, the need for outpatient follow up, a family practitioner, to return to the emergency department if symptoms worsen or persist or if there are any questions or concerns that arise at home. 12/15 14:35 Order name: CBC with Diff; Complete Time: 15:44 kb 12/15 14:35 Order name: CMP; Complete Time: 15:47 kb 12/15 14:35 Order name: Lipase; Complete Time: 15:47 kb 12/15 14:35 Order name: Urinalysis w/ reflexes; Complete Time: 15:36 kb 12/15 14:35 Order name: Troponin High Sensitivity; Complete Time: 15:47 kb 12/15 14:35 Order name: CT Abd/Pelvis - IV Contrast Only; Complete Time: 16:39 kb 12/15 14:35 Order name: Chest Single View XRAY; Complete Time: 15:36 kb 12/15 14:35 Order name: EKG; Complete Time: 14:36 kb 12/15 14:35 Order name: IV Saline Lock; Complete Time: 15:27 kb 12/15 14:35 Order name: Labs collected and sent; Complete Time: 15:27 kb 12/15 14:35 Order name: EKG - Nurse/Tech; Complete Time: 15:27 kb Administered Medications: No medications were administered Disposition Summary: 12/15/23 16:44 Discharge Ordered Notes: Location: Home kb Condition: Stable kb Diagnosis - Abdominal pain, Generalized kb Followup: kb - With: Emergency Department - When: As needed - Reason: Worsening of condition Followup: kb - With: Private Physician - When: 2 - 3 days - Reason: Recheck today's complaints, Continuance of care, Re-evaluation by your physician Discharge Instructions: - Discharge Summary Sheet kb - Abdominal Pain, Adult, [id number] kb Forms: - Medication Reconciliation Form kb - Thank You Letter kb - Antibiotic Education kb - Prescription Opioid Use kb - Patient Portal Instructions kb - Leadership Thank You Letter kb Signatures: Dispatcher [employer] Esme Tolliver, JAZMINE ORTEZ-Lazaro Simmons tl4
[2023-12-16 03:03] VITALS: TEMP 97.9; O2SAT 99
[2023-12-16 03:19] VITALS: BP 169/93
--- NOTE | 2023-12-17 13:29 | EKG ---
Test Date: 2023-12-15 Test Time: 15:25:18 Circular Ripsaw Operator: MATY MEASUREMENT RESULTS: Intervals: Rate: 72 HI: QRSD: 170 QT: 496 QTc: 543 [place]: P: HI: QRS: 223 T: 55 INTERPRETIVE STATEMENTS: Ventricular-paced rhythm Abnormal ECG Compared to ECG 08/03/2023 11:50:42 No significant changes Electronically Signed On 12-17-23 13:23:17 HAND ROUTER OPERATOR by Harish Jenkins
== END ==
LOC: ER 13:54
DX: R10.84 Generalized abdominal pain (principal); R11.0 Nausea; Z88.8 Allergy status to other drugs, medicaments and biological substances; Z95.0 Presence of cardiac pacemaker
CPT/HCPCS: 85025; 81001; 36415; 84484; 83690; 80053; 74177; 71045; Q9967; 93005

== ENCOUNTER 2024-03-15 11:11 | Emergency (ER) | payer OTHER ==
[2024-03-15 12:13] LABS: Absolute Eosinophils 0.3 K/uL (0-0.5); Absolute Lymphocytes (CBC) 1.7 K/uL (0.7-4.9); Absolute Monocytes 0.4 K/uL (0.1-1.3); Absolute Neutrophil 3.9 K/uL (1.8-8.0); Basophils % 0.2 % (0-1.3); Hematocrit 35.9 % (39.6-49.0); Lymphocytes % 25.9 % (15.3-44.8); MCH 28.5 pg (27.0-35.0); MCHC 33.3 g/dL (32.0-36.0); MCV 85.5 fL (80-100); MPV 7.2 fL (7.6-11.3); Neutrophils % 61.9 % (41.7-73.7); Platelets 169 thou/uL (152-406); Red Cell Distribution Width 15.5 % (12.1-15.2)
[2024-03-15 12:43] LABS: Anion Gap 7.2 mEq/L (5.0-15.0); Potassium 4.2 mEq/L (3.5-5.1)
--- NOTE | 2024-03-15 12:59 | RAD REPORT ---
EXAM DESCRIPTION: RAD - Chest Single View - 03/15/2024 12:48 pm CLINICAL HISTORY: BLUNT CHEST TRAUMA Chest pain. COMPARISON: Chest Single View dated 12/15/2023; Chest Single View dated 08/03/2023; Chest Single View dated 05/19/2023; Chest Single View dated 07/10/2021 FINDINGS: Portable technique limits examination quality. Mild interstitial pulmonary edema. The heart is significantly enlarged in size. Multi lead pacer/defi brillator device.Aortic atherosclerosis. IMPRESSION: Mild CHF.
--- NOTE | 2024-03-15 13:01 | RAD REPORT ---
EXAM DESCRIPTION: RAD - Forearm Right - 03/15/2024 12:48 pm CLINICAL HISTORY: PAIN COMPARISON: No comparisons FINDINGS: [id number] radiocarpal arthritic changes. No acute fracture or dislocation.
--- NOTE | 2024-03-15 13:55 | ER ---
Nurse's Notes [facility] Name: Giuliano Park Age: 83 yrs Sex: Male : 1940 Arrival Date: 03/15/2024 Time: 11:11 Bed 14 Private MD: Diagnosis: Fall on same level, unspecified;Contusion of right forearm;Presence of cardiac pacemaker Presentation: 03/15 11:19 Chief complaint: Patient states: fell last night, stepped wrong off the step and fell iw forward, also feels like his pacemaker is "vibrating". 11:19 Acuity: CALEB 3 iw 11:20 Coronavirus screen: At this time, the client does not indicate any symptoms associated iw with coronavirus-19. Ebola Screen: Patient negative for fever greater than or equal to 101.5 degrees Fahrenheit, and additional compatible Ebola Virus Disease symptoms Patient denies exposure to infectious person. Patient denies travel to an Ebola-affected area in the 21 days before illness onset. No symptoms or risks identified at this time. Initial Sepsis Screen: Does the patient meet any 2 criteria? No. Patient's initial sepsis screen is negative. Does the patient have a suspected source of infection? No. Patient's initial sepsis screen is negative. Risk Assessment: Do you want to hurt yourself or someone else? Patient reports no desire to harm self or others. Onset of symptoms was March 14, 2024. 11:20 Method Of Arrival: Ambulatory iw Triage Assessment: 11:20 General: Appears in no apparent distress. Behavior is cooperative, appropriate for age. bp Pain: Complains of pain in left elbow. EENT: No deficits noted. Neuro: No deficits noted. Cardiovascular: Rhythm is Respiratory: No deficits noted. GI: No signs and/or symptoms were reported involving the gastrointestinal system. : No signs and/or symptoms were reported regarding the genitourinary system. Derm: No deficits noted. Musculoskeletal: No deficits noted. Historical: - Allergies: 11:20 Lisinopril; iw - PMHx: 11:20 Hypertension; Myocardial infarction; enlarged prostate; Pacemaker; CHF; Atrial Fib; iw - Immunization history:: Adult Immunizations up to date. - Infectious Disease History:: Denies. - Family history:: not pertinent. - Hospitalizations: : No recent hospitalization is reported. - Social history:: Smoking status: Patient denies any tobacco usage or history of. Screenin:40 [facility] ED Fall Risk Assessment (Adult) History of falling in the last 3 months, bp including since admission No falls in past 3 months (0 pts). Abuse screen: Denies threats or abuse. Denies injuries from another. Nutritional screening: No deficits noted. Tuberculosis screening: No symptoms or risk factors identified. Assessment: 11:38 Reassessment: PACERMAKER: [employer] 11/14/2015, [id number], CXRI8AK. 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 12:11 Reassessment: [employer] INTERROGATED, NOTIFIED. bp Vital Signs: 11:20 BP 128 / 79; Pulse 86; Resp 16; Temp 98.6; Pulse Ox 98% on R/A; iw 12:11 BP 125 / 78; Pulse 69; Resp 16; Pulse Ox 98% ; bp 14:25 BP 123 / 71; Pulse 80; Resp 16; Pulse Ox 99% ; bp ED Course: 11:14 Patient arrived in ED. rg4 11:17 Terry Knox MD is Attending Physician. rn 11:19 Triage completed. iw 11:22 Arm band placed on. iw 11:33 Rey Marte, MARY LOU is Primary Nurse. bp 11:40 Patient has correct armband on for positive identification. bp 12:09 CBC with Diff Sent. bp 12:09 Basic Metabolic Panel Sent. bp 12:09 Troponin High Sensitivity Sent. bp 12:09 Initial lab(s) drawn, by me, sent to lab. Missed attempt(s): 22 gauge in right forearm. bp 12:27 EKG done, by ED staff, reviewed by Terry Knox MD. bp 12:50 XRAY Forearm RIGHT In Process Unspecified. EDMS 12:50 XRAY Chest (1 view) In Process Unspecified. EDMS 14:25 Provided Education on: N/A. bp 14:25 No provider procedures requiring assistance completed. Patient did not have IV access bp during this emergency room visit. Administered Medications: No medications were administered Medication: 14:25 VIS not applicable for this client. bp Outcome: 13:54 Discharge ordered by MD. rn 14:25 Discharged to home ambulatory, with family, bp 14:25 Condition: stable 14:25 Discharge instructions given to patient, Instructed on discharge instructions, follow up and referral plans. Demonstrated understanding of instructions, follow-up care, 14:26 Patient left the ED. bp Signatures: Dispatcher [employer] Manuela Love RN RN iw Terry Knox MD MD rn Garcia, Rubi 4 Rey Marte RN RN bp Corrections: (The following items were deleted from the chart) 11:21 11:19 Chief complaint: Patient states: fell last night, stepped wrong off the step and iw fell forward iw
--- NOTE | 2024-03-15 13:55 | EDPHYS ---
Physician Documentation [facility] Name: Giuliano Park Age: 83 yrs Sex: Male : 1940 Arrival Date: 03/15/2024 Time: 11:11 Bed 14 Private MD: ED Physician Terry Knox HPI: 03/15 13:42 This 83 yrs old Male presents to ER via Ambulatory with complaints of Fall rn Injury, Pacemaker Problem. 13:42 Details of fall: The patient fell from an upright position. Onset: The symptoms/episode rn began/occurred last night. Associated injuries: The patient sustained Right arm and knees. Severity of symptoms: At their worst the symptoms were mild, in the emergency department the symptoms have improved. The patient has not experienced similar symptoms in the past. Patient reports had misstep and fell forward, landed on his knees from almost level surface. Scraped his right forearm but no injury to the head or chest. No back pain. No hip pain. Patient is ambulatory. States he is not too concerned about the fall but since the fall he has felt a little bit of vibratory sensation in the left chest. Has pacemaker that is about 4 years old so he just wanted to make sure that the pacemaker was functioning fine.. Historical: - Allergies: 11:20 Lisinopril; iw - PMHx: 11:20 Hypertension; Myocardial infarction; enlarged prostate; Pacemaker; CHF; Atrial Fib; iw - Immunization history:: Adult Immunizations up to date. - Infectious Disease History:: Denies. - Family history:: not pertinent. - Hospitalizations: : No recent hospitalization is reported. - Social history:: Smoking status: Patient denies any tobacco usage or history of. ROS: 13:42 Constitutional: Negative for fever, chills, and weight loss, Neck: Negative for injury, rn pain, and swelling, Cardiovascular: Negative for chest pain, palpitations, and edema, Respiratory: Negative for shortness of breath, cough, wheezing, and pleuritic chest pain, Abdomen/GI: Negative for abdominal pain, nausea, vomiting, diarrhea, and constipation, Back: Negative for injury and pain, MS/Extremity: Negative for injury and deformity, Skin: Negative for injury, rash, and discoloration, Neuro: Negative for headache, weakness, numbness, tingling, and seizure, Exam: 13:42 Constitutional: This is a well developed, well nourished patient who is awake, alert, rn and in no acute distress. Head/Face: Normocephalic, atraumatic. Eyes: Pupils equal round and reactive to light, extra-ocular motions intact. Chest/axilla: No contusion or crepitus surrounding pacemaker pocket or anterior chest wall. Cardiovascular: Regular rate and rhythm. No pulse deficits. Respiratory: No increased work of breathing, no retractions or nasal flaring. Abdomen/GI: Soft, non-tender MS/ Extremity: Superficial abrasions to the right forearm. No laceration. No gross deformity. Full range of motion bilateral lower extremities. Neuro: Awake and alert, GCS 15, oriented to person, place, time, and situation. Cranial nerves II-XII grossly intact. Motor strength 5/5 in all extremities. Sensory grossly intact. 16:23 ECG was reviewed by the Attending Physician. rn Vital Signs: 11:20 BP 128 / 79; Pulse 86; Resp 16; Temp 98.6; Pulse Ox 98% on R/A; iw 12:11 BP 125 / 78; Pulse 69; Resp 16; Pulse Ox 98% ; bp 14:25 BP 123 / 71; Pulse 80; Resp 16; Pulse Ox 99% ; bp MDM: 11:17 Patient medically screened. rn 13:42 Differential diagnosis: abrasion, contusion, fracture. Data reviewed: vital signs, rn nurses notes, lab test result(s), EKG, radiologic studies, plain films, and as a result, I will discharge patient. Counseling: I had a detailed discussion with the patient and/or guardian regarding the historical points, exam findings, and any diagnostic results supporting the discharge/admit diagnosis, lab results, radiology results, the need for outpatient follow up, to return to the emergency department if symptoms worsen or persist or if there are any questions or concerns that arise at home. Special discussion: I discussed with the patient/guardian in detail that at this point there is no indication for admission to the hospital. It is understood, however, that if the symptoms persist or worsen the patient needs to return immediately for re-evaluation. ED course: Had [employer] interrogate pacemaker remotely, asset protection representative states no abnormalities found on report. Pacemaker seems to be functioning normally. No reason for vibratory sensation as none of their warnings have a vibration component. No acute traumatic finding on workup today. Troponin negative. Chest x-ray negative for pacemaker lead fracture. Patient's vibratory sensation has resolved. Will discharge home. I have personally reviewed all of the results, including but not limited to blood tests and imaging deemed necessary to safely discharge this patient at this time. All results given to and printed out for patient. I personally went over all the results with the patient and answered all questions. Patient will follow-up with PCP and or specialist as discussed. Return precautions given and understood.. 03/15 11:53 Order name: CBC with Diff; Complete Time: 13:10 rn 03/15 11:53 Order name: Basic Metabolic Panel; Complete Time: 13: rn 03/15 11:53 Order name: Troponin High Sensitivity; Complete Time: 13:10 rn 03/15 11:53 Order name: XRAY Forearm RIGHT; Complete Time: 13: rn 03/15 12:06 Order name: XRAY Chest (1 view); Complete Time: 13:10 rn 03/15 11:53 Order name: EKG; Complete Time: 11:53 rn 03/15 11:53 Order name: Misc. Order: interrogate pacemaker; Complete Time: 11:59 rn 03/15 11:53 Order name: EKG - Nurse/Tech; Complete Time: 12:27 rn EC:23 Rate is 70 beats/min. Rhythm is regular. T waves are Normal. No ST changes noted. rn Clinical impression: Paced rhythm. Interpreted by me. Reviewed by me. Administered Medications: No medications were administered Disposition: 13:53 Chart complete. rn Disposition Summary: 03/15/24 13:54 Discharge Ordered Notes: Location: Home rn Problem: new rn Symptoms: have improved rn Condition: Stable rn Diagnosis - Fall on same level, unspecified rn - Contusion of right forearm rn - Presence of cardiac pacemaker rn Followup: rn - With: Private Physician - When: As needed - Reason: Recheck today's complaints, Re-evaluation by your physician Discharge Instructions: - Discharge Summary Sheet rn - Abrasion rn - Fall Prevention in the Home, Adult rn Forms: - Medication Reconciliation Form rn - Antibiotic morning show producer - Prescription Opioid Use rn - Patient Portal Instructions rn - Leadership Thank You Letter rn Signatures: Dispatcher [facility] Manuela Love RN RN iw Nieto, Roman, MD MD rn Peltier, Brian RN RN bp Corrections: (The following items were deleted from the chart) 12:07 12:07 Chest Single View+RAD.[email or web address].[email or web address] ordered. EDMS EDMS 13:54 13:42 ED course: Had [employer] interrogate pacemaker remotely, asset protection representative states no rn abnormalities found on report. Pacemaker seems to be functioning normally. No reason for vibratory sensation as none of their warnings have a vibration component. No acute traumatic finding on workup today. Troponin negative. Chest x-ray negative for pacemaker lead fracture. Patient's vibratory sensation has resolved. Will discharge home.. rn
[2024-03-15 15:04] VITALS: BP 123/71; TEMP 98.6; O2SAT 99
--- NOTE | 2024-03-16 13:10 | EKG ---
Test Date: 2024-03-15 Test Time: 12:24:37 Online Merchandising Specialist: BP MEASUREMENT RESULTS: Intervals: Rate: 70 IN: QRSD: 180 QT: 492 QTc: 531 [place]: P: IN: QRS: 223 T: 50 INTERPRETIVE STATEMENTS: Electronic ventricular pacemaker Compared to ECG 12/15/2023 15:25:18 No significant changes Electronically Signed On 03-16-24 13:06:21 CDT by Harish Jenkins
== END 2024-03-15 14:26 | disposition home or self-care (01) ==
LOC: ER 11:11
DX: S50.11XA Contusion of right forearm, initial encounter (principal); W18.30XA Fall on same level, unspecified, initial encounter; Z95.0 Presence of cardiac pacemaker; I50.9 Heart failure, unspecified; I10 Essential (primary) hypertension; Z88.8 Allergy status to other drugs, medicaments and biological substances
CPT/HCPCS: 36415; 71045; 80048; 84484; 85025; 93005; 99283

== ENCOUNTER 2024-07-07 11:47 | Emergency (ER) | payer OTHER ==
[2024-07-07 12:10] LABS: Absolute Basophils 0.1 K/uL (0-0.5); Absolute Eosinophils 0.2 K/uL (0-0.5); Absolute Lymphocytes (CBC) 2.1 K/uL (0.7-4.9); Absolute Monocytes 0.5 K/uL (0.1-1.3); Absolute Neutrophil 3.9 K/uL (1.8-8.0); Basophils % 1.1 % (0-1.3); Eosinophils % 3.5 % (0-4.4); Hematocrit 36.8 % (39.6-49.0); Lymphocytes % 31.2 % (15.3-44.8); MCHC 32.7 g/dL (32.0-36.0); MCV 88.5 fL (80-100); MPV 6.8 fL (7.6-11.3); Neutrophils % 57.2 % (41.7-73.7); Platelets 152 thou/uL (152-406); RBC Red Blood Cell Count 4.15 M/uL (4.33-5.43); Red Cell Distribution Width 14.6 % (12.1-15.2)
--- NOTE | 2024-07-07 12:20 | RAD REPORT ---
EXAM DESCRIPTION: Alicia Single View07/07/2024 12:13 pm CLINICAL HISTORY: Chest pain COMPARISON: February 2024 FINDINGS: The lungs appear clear of acute infiltrate. The heart is moderately enlarged Pacemaker leads in place. Postsurgical changes involve the chest. Stable right pleural thickening IMPRESSION: No acute abnormalities displayed
[2024-07-07 12:23] LABS: PT Prothrombin Time 13.5 SECONDS (9.4-12.5); Protime INR 1.21
[2024-07-07 12:28] LABS: Anion Gap 10.1 mEq/L (5.0-15.0); Potassium 4.1 mEq/L (3.5-5.1); Troponin High Sensitivity 11.8 pg/mL (<58.9)
--- NOTE | 2024-07-07 14:32 | ER ---
Nurse's Notes [facility] Name: Giuliano Park Age: 83 yrs Sex: Male : 1940 Arrival Date: 07/07/2024 Time: 11:47 Bed 4 Private MD: Diagnosis: Chest pain, unspecified Presentation: 07/07 11:53 Chief complaint: Patient states: came from home - chest pain, L flank pain with ld1 headache. Coronavirus screen: At this time, the client does not indicate any symptoms associated with coronavirus-19. Ebola Screen: No symptoms or risks identified at this time. Risk Assessment: Do you want to hurt yourself or someone else? Patient reports no desire to harm self or others. Onset of symptoms was July 07, 2024. 11:53 Method Of Arrival: Ambulatory ld1 11:53 Acuity: CALEB 3 ld1 12:06 Initial Sepsis Screen: Does the patient meet any 2 criteria? No. Patient's initial ld1 sepsis screen is negative. Does the patient have a suspected source of infection? No. Patient's initial sepsis screen is negative. Triage Assessment: 11:53 General: Appears in no apparent distress. comfortable, Behavior is calm, cooperative, ld1 appropriate for age. Pain: Complains of pain in chest Pain does not radiate. Pain currently is 7 out of 10 on a pain scale. Quality of pain is described as throbbing. EENT: No signs and/or symptoms were reported regarding the EENT system. Neuro: Level of Consciousness is awake, alert, obeys commands, Oriented to person, place, time, situation. Cardiovascular: Capillary refill < 3 seconds Patient's skin is warm and dry. Rhythm is sinus rhythm Chest pain is described as mild. Respiratory: Airway is patent Respiratory effort is even, unlabored. GI: Abdomen is flat, non-distended. : No signs and/or symptoms were reported regarding the genitourinary system. Derm: No signs and/or symptoms reported regarding the dermatologic system. Musculoskeletal: No signs and/or symptoms reported regarding the musculoskeletal system. Historical: - Allergies: 11:51 Lisinopril; ld1 - Home Meds: 11:51 clopidogrel 75 mg Oral tablet daily [Active]; ld1 - PMHx: 11:51 Atrial Fib; CHF; enlarged prostate; Hypertension; Myocardial infarction; Pacemaker; ld1 - Immunization history:: Adult Immunizations up to date. - Infectious Disease History:: Denies. - Social history:: Smoking status: Patient denies any tobacco usage or history of. Screenin:56 [facility] ED Fall Risk Assessment (Adult) History of falling in the last 3 months, ld1 including since admission No falls in past 3 months (0 pts) Confusion or Disorientation No (0 pts) Intoxicated or Sedated No (0 pts) Impaired Gait No (0 pts) Mobility Assist Device Used No (0 pt) Altered Elimination No (0 pt) Score/Fall Risk Level 0 - 2 = Low Risk Oriented to surroundings, Maintained a safe environment, Educated pt \T\ family on fall prevention, incl call for assistance when getting out of bed, Assessed \T\ reinforced patient's understanding of fall precautions, Provided non-skid footwear, Hourly rounding (assess needs \T\ fall precautionary measures) done, Used ambulatory aids as needed (educated on \T\ assisted with), Used gait belt as appropriate. Abuse screen: Denies threats or abuse. Denies injuries from another. Nutritional screening: No deficits noted. Tuberculosis screening: No symptoms or risk factors identified. Assessment: 11:56 Reassessment: See triage assessment. Pain: Complains of pain in left low back and chest ld1 Pain does not radiate. Pain currently is 7 out of 10 on a pain scale. Quality of pain is described as throbbing, Pain began gradually. Vital Signs: 12:06 BP 164 / 95; Pulse 76; Resp 18; Temp 97.6(TE); Pulse Ox 99% on R/A; Height 5 ft. 9 in. ld1 ; Pain 7/10; 13:57 BP 144 / 93; Pulse 70; Resp 18; Pulse Ox 98% on R/A; ld1 12:06 Pain Scale: Adult ld1 ED Course: 11:49 Patient arrived in ED. iw 11:49 Augusto Araujo MD is Attending Physician. ec2 11:53 Arm band placed on right wrist. ld1 11:54 Triage completed. ld1 11:56 Patient has correct armband on for positive identification. Placed in gown. Bed in low ld1 position. Call light in reach. Side rails up X2. threat monitoring analyst on. Pulse ox on. NIBP on. Door closed. Noise minimized. Warm blanket given. 11:56 No provider procedures requiring assistance completed. Patient maintains SpO2 ld1 saturation greater than 95% on room air. 11:57 Mirna Zaidi, RN is Primary Nurse. ld1 12:01 EKG done, by ED staff, reviewed by Augusto Araujo MD. 12:05 Inserted saline lock: 20 gauge in left forearm, using aseptic technique. Blood iw collected. Flushed with 10 mL NS. 12:14 XRAY Chest (1 view) In Process Unspecified. EDMS 14:08 Troponin HS Sent. cm10 14:46 IV discontinued, intact, bleeding controlled, No redness/swelling at site. ld1 17:04 Provided Education on: medication usage. ld1 Administered Medications: No medications were administered Medication: 14:46 VIS not applicable for this client. ld1 Outcome: 14:31 Discharge ordered by . ec2 14:46 Discharged to home ambulatory, with family, ld1 14:46 Condition: stable 14:46 Discharge instructions given to patient, family, Instructed on discharge instructions, follow up and referral plans. Demonstrated understanding of instructions, follow-up care, 14:47 Patient left the ED. ld1 Signatures: Dispatcher [employer] Manuela Love RN RN Mirna Zaidi, MARY LOU [place] Christa Dotson Clarissa, RN RN Augusto Whatley MD MD ec2
--- NOTE | 2024-07-07 14:32 | EDPHYS ---
Physician Documentation [facility] Name: Giuliano Park Age: 83 yrs Sex: Male : 1940 Arrival Date: 07/07/2024 Time: 11:47 Bed 4 Private MD: ED Physician Augusto Araujo HPI: 07/07 12:02 This 83 yrs old Male presents to ER via Ambulatory with complaints of Chest ec2 Pain. 12:02 Patient arrives today for evaluation of chest pain. Reports chest pain earlier this ec2 morning and has since resolved and is asymptomatic at this time. No difficulty breathing. History of hypertension, hyperlipidemia, pacemaker.. Historical: - Allergies: 11:51 Lisinopril; ld1 - Home Meds: 11:51 clopidogrel 75 mg Oral tablet daily [Active]; ld1 - PMHx: 11:51 Atrial Fib; CHF; enlarged prostate; Hypertension; Myocardial infarction; Pacemaker; ld1 - Immunization history:: Adult Immunizations up to date. - Infectious Disease History:: Denies. - Social history:: Smoking status: Patient denies any tobacco usage or history of. ROS: 12:02 Constitutional: as per hpi ec2 Exam: 12:02 Constitutional: GEN: NAD Head: atraumatic Eyes: EOMI Ears: External ears are ec2 normal. CV: regular rate LUNGS: no respiratory distress ABD: non-distended SKIN: no evidence of rashes MSK: no evidence of trauma Vital Signs: 12:06 BP 164 / 95; Pulse 76; Resp 18; Temp 97.6(TE); Pulse Ox 99% on R/A; Height 5 ft. 9 in. ld1 ; Pain 7/10; 13:57 BP 144 / 93; Pulse 70; Resp 18; Pulse Ox 98% on R/A; ld1 12:06 Pain Scale: Adult ld1 MDM: 11:50 Patient medically screened. ec2 12:02 Data reviewed: vital signs. ED course: Patient arrives today for evaluation of chest ec2 pain. Examination remarkable for well-appearing nontoxic individual is otherwise in no acute distress. EKG independently reviewed and interpreted by me, shows ventricular paced rhythm. Will obtain lab work, chest x-ray, lab work. Patient is back at this time we will forego giving any pain medication such as morphine at this time.. 12:32 ED course: Metabolic profile shows some renal dysfunction. CBC is reassuring. BNP is ec2 minimally elevated at 1300. INR 1.21, troponin within normal ranges, chest x-ray shows no acute thoracic process. Will obtain repeat EKG and troponin at the 2-hour mauri.. 14:08 ED course: Repeat EKG independently reviewed and interpreted me, shows ventricularly ec2 paced rhythm rate of 70... 14:31 ED course: Repeat troponin is static. Will discharge home. Return precautions given.. ec2 07/07 11:54 Order name: Basic Metabolic Panel; Complete Time: 12:32 ec2 07/07 11:54 Order name: CBC with Diff; Complete Time: 12:32 ec2 07/07 11:54 Order name: NT PRO-BNP; Complete Time: 12:32 ec2 07/07 11:54 Order name: PT-INR; Complete Time: 12:32 ec2 07/07 11:54 Order name: Troponin HS; Complete Time: 12:32 ec2 07/07 12:35 Order name: Troponin HS; Complete Time: 14:31 ld1 07/07 11:54 Order name: XRAY Chest (1 view); Complete Time: 12:32 ec2 07/07 11:54 Order name: EKG; Complete Time: 11:55 ec2 07/07 11:54 Order name: Cardiac monitoring; Complete Time: 11:57 ec2 07/07 11:54 Order name: EKG - Nurse/Tech; Complete Time: 11:57 ec2 07/07 11:54 Order name: IV Saline Lock; Complete Time: 12:04 ec2 07/07 11:54 Order name: Labs collected and sent; Complete Time: 12:04 ec2 07/07 11:54 Order name: O2 Per Protocol; Complete Time: 11:57 ec2 07/07 11:54 Order name: O2 Sat Monitoring; Complete Time: 11:57 ec2 07/07 12:33 Order name: Misc. Order: repeat ekg/trop at 1400; Complete Time: 14:08 ec2 Administered Medications: No medications were administered Disposition Summary: 07/07/24 14:31 Discharge Ordered Notes: Location: Home ec2 Condition: Stable ec2 Diagnosis - Chest pain, unspecified ec2 Followup: ec2 - With: Private Physician - When: - Reason: Re-evaluation by your physician Discharge Instructions: - Discharge Summary Sheet ec2 - Nonspecific Chest Pain, Adult, [id number] ec2 Forms: - Medication Reconciliation Form ec2 - Antibiotic Education ec2 - Prescription Opioid Use ec2 - Patient Portal Instructions ec2 - Leadership Thank You Letter ec2 Signatures: Dispatcher [employer] Mirna Pollard RN RN ld1 Augusto Araujo MD MD ec2
[2024-07-07 14:56] VITALS: TEMP 97.6
[2024-07-07 15:02] VITALS: BP 144/93; O2SAT 98
--- NOTE | 2024-07-08 13:29 | EKG ---
Test Date: 2024-07-07 Test Time: 14:06:32 Sourcing Manager: [place] SI MEASUREMENT RESULTS: Intervals: Rate: 70 AR: QRSD: 170 QT: 502 QTc: 542 [place]: P: AR: QRS: 241 T: 73 INTERPRETIVE STATEMENTS: Suspect arm lead reversal, interpretation assumes no reversal V paced Rhythm Anterior infarct, age undetermined Abnormal ECG Compared to ECG 07/07/2024 11:57:28 Right bundle-branch block now present Myocardial infarct finding now present Ventricular-paced complex(es) or rhythm no longer present Electronically Signed On 07-08-24 13:27:40 CDT by Zacarias Padilla
--- NOTE | 2024-07-08 13:30 | EKG ---
Test Date: 2024-07-07 Test Time: 11:57:28 Cash Applications Clerk: LUZ MEASUREMENT RESULTS: Intervals: Rate: 77 VT: QRSD: 168 QT: 470 QTc: 531 [place]: P: VT: QRS: 229 T: 64 INTERPRETIVE STATEMENTS: Ventricular-paced rhythm Abnormal ECG Compared to ECG 03/15/2024 12:24:37 No significant changes Electronically Signed On 07-08-24 13:27:57 CDT by Zacarias Padilla
== END 2024-07-07 14:47 | disposition home or self-care (01) ==
LOC: ER 11:47
DX: R07.9 Chest pain, unspecified (principal); I10 Essential (primary) hypertension; I50.9 Heart failure, unspecified; I25.2 Old myocardial infarction; Z95.0 Presence of cardiac pacemaker
CPT/HCPCS: 36415; 71045; 80048; 83880; 84484; 85025; 85610; 93005; 99284

== ENCOUNTER 2025-03-20 11:34 | Emergency (ER) | payer OTHER ==
--- NOTE | 2025-03-20 13:05 | RAD REPORT ---
EXAM: CT brain without contrast HISTORY: Headache COMPARISON: 2022 TECHNIQUE: Multiple contiguous axial images were obtained and a CT of the brain without contrast.. Sagittal and coronal reconstruction performed. Automated exposure control, adjustment of the mA and/or kV according to patient size, and/or iterative reconstruction. 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 It abuts the optic chiasm. No acute intracranial bleed is seen. Low-density right basal ganglia compatible with old bleed. Moderate low-density paraventricular, deep and subcortical white matter ischemic changes secondary to small vessel disease. Ventricles are normal caliber No extra-axial fluid collection noted No significant hypodensity within the brain No fluid within the visualized sinuses or mastoids noted. IMPRESSION: Mild enlargement of a 2.5 cm sellar/suprasellar mass. No acute intracranial abnormality seen. If the patient continues to have symptoms to suggest an acute intracranial abnormality then MRI of th e brain would be recommended.
--- NOTE | 2025-03-20 13:17 | RAD REPORT ---
EXAM: CT CHEST, ABDOMEN AND PELVIS WITHOUT CONTRAST CLINICAL INDICATION: Chest and abdominal pain. Cough. Abdominal swelling. Prostate cancer TECHNIQUE: CT chest, abdomen and pelvis was performed, without IV contrast, as per department protoco l. Axial, sagittal and coronal reconstructions were obtained. One or more of the following dose reduction techniques were used: Automated exposure control, adjustment of the mA and/or kV according to the patient size, and/or iterative reconstruction. Unless otherwise specified, incidental findings do not require dedicated imaging follow-up. The lack of IV and oral contrast limits evaluation of the mediastinum, tristan, vessels, organs and jeanmarie l. COMPARISON: January 2025 FINDINGS: Calcified granuloma right lung. A few areas of subsegmental atelectasis. 1 cm AP lymph node unchanged. Cardiomegaly. No pleural effusion. No pericardial effusion. Small low-density hepatic lesions unchanged probably benign. The spleen, pancreas, adrenals kidneys and bladder appear grossly normal Duodenal diverticulum. Stable prostatic enlargement. Small inguinal hernias. There is no evidence of diverticulitis. Cholelithiasis Overall no significant change in moderate sclerotic bony metastases. IMPRESSION: Stable moderately extensive bony metastases. No acute abnormality displayed
[2025-03-20 13:18] LABS: Absolute Basophils 0.1 K/uL (0-0.5); Absolute Lymphocytes (CBC) 1.1 K/uL (0.7-4.9); Absolute Monocytes 0.4 K/uL (0.1-1.3); Absolute Neutrophil 4.7 K/uL (1.8-8.0); Basophils % 1.2 % (0-1.3); Eosinophils % 0.5 % (0-4.4); Hematocrit 36.1 % (39.6-49.0); Hemoglobin 12.5 g/dL (13.6-17.9); Lymphocytes % 16.8 % (15.3-44.8); MCH 31.8 pg (27.0-35.0); MCHC 34.6 g/dL (32.0-36.0); Monocytes % 6.2 % (3.3-12.3); Neutrophils % 75.3 % (41.7-73.7); Platelets 144 thou/uL (152-406); RBC Red Blood Cell Count 3.93 M/uL (4.33-5.43); Red Cell Distribution Width 15.4 % (12.1-15.2)
[2025-03-20 13:23] LABS: PT Prothrombin Time 15.6 SECONDS (10-13.0); Protime INR 1.39
[2025-03-20 13:36] LABS: Albumin 3.3 g/dL (3.4-5.0); Albumin/Globulin Ratio 1.2 (1.1-1.8); Anion Gap 8.3 mEq/L (5.0-15.0); Bilirubin Direct 0.4 mg/dL (0-0.2); Bilirubin Indirect, Calculated 0.7 mg/dL (0.2-0.8); Bilirubin Total 1.1 mg/dL (0.2-1.0); Globulin 2.8 g/dL (2.3-3.5); Potassium 4.3 mEq/L (3.5-5.1); Protein, Total 6.1 g/dL (6.4-8.2); Troponin High Sensitivity 25.1 pg/mL (<58.9)
--- NOTE | 2025-03-20 14:23 | RAD REPORT ---
Procedure: Chest Single View HISTORY: Shortness of breath COMPARISON: 2023 FINDINGS: The lungs appear clear of acute infiltrate.. Calcified granuloma right lung Sclerotic bony metastases again demonstrated. No significant pleural effusion noted. The heart is moderately to markedly enlarged. Pacemaker leads in place.
[2025-03-20] MEDS ORDERED: NA CHLORIDE 0.9% 500 ML ONE (14:45)
--- NOTE | 2025-03-20 16:06 | EDPHYS ---
Physician Documentation [facility] Name: Giuliano Park Age: 84 yrs Sex: Male : 1940 Arrival Date: 03/20/2025 Time: 11:34 Bed 16 Private MD: ED Physician Terry Knox HPI: 03/20 13:23 This 84 yrs old Male presents to ER via Wheelchair with complaints of rn Abdominal Swelling, generalized weakness. 13:23 Patient and family report here for generalized weakness, at least 1 week, started near rn the time he started a new treatment for his prostate cancer. Patient reports increased abdominal swelling. No abdominal pain. No vomiting or diarrhea. Good appetite and eating well. No focal neurological deficit. No seizure. No chest pain. Reports sometimes his legs swell but right now they are not bad. Takes Lasix.. Onset: The symptoms/episode began/occurred 1 week(s) ago. Severity of symptoms: At their worst the symptoms were mild in the emergency department the symptoms are unchanged. The patient has not experienced similar symptoms in the past. The patient has not recently seen a physician. Daughter reports weakness and malaise comes and goes.. Historical: - Allergies: 12:20 Lisinopril; ap3 - PMHx: 12:20 Atrial Fib; CHF; enlarged prostate; Hypertension; Myocardial infarction; Pacemaker; ap3 prostate cancer (Pacemaker); - Immunization history:: Client reports having NOT received the Covid vaccine. - Infectious Disease History:: Denies. - Social history:: Smoking status: Patient denies any tobacco usage or history of. - Family history:: not pertinent. - Hospitalizations: : No recent hospitalization is reported. ROS: 13:23 Constitutional: Negative for fever, chills, and weight loss, Neck: Negative for injury, rn pain, and swelling, Cardiovascular: Negative for chest pain, palpitations, and edema, Respiratory: Negative for shortness of breath, cough, wheezing, and pleuritic chest pain, Abdomen/GI: Positive for subjective swelling in abdomen. No abdominal pain. No vomiting or diarrhea. Back: Negative for injury and pain, : Negative for injury, bleeding, discharge, and swelling, MS/Extremity: Negative for injury and deformity, Skin: Negative for injury, rash, and discoloration, Neuro: Positive for generalized weakness. No headache. No seizure. No focal neurological deficit. Exam: 13:23 Constitutional: This is a well developed, well nourished patient who is awake, alert, rn and in no acute distress. Head/Face: Normocephalic, atraumatic. ENT: Dry mucous membranes Cardiovascular: Regular rate and rhythm . No pulse deficits. Respiratory: No increased work of breathing, no retractions or nasal flaring. Abdomen/GI: Soft, non-tender, no focal tenderness or peritoneal signs MS/ Extremity: Pulses equal, no cyanosis. Neuro: Awake and alert, GCS 15, oriented to person, place, time, and situation. Cranial nerves II-XII grossly intact. Motor strength 4/5 in all extremities. Sensory grossly intact. 17:30 ECG was reviewed by the Attending Physician. rn Vital Signs: 12:18 Pulse 71; Resp 18; Temp 98.3; Pulse Ox 74% ; Weight 102.06 kg; ap3 12:22 BP 105 / 56; ap3 13:30 Pulse Ox 96% ; db 14:33 BP 107 / 57; Pulse 74; Resp 16; Pulse Ox 95% on R/A; db 15:00 BP 98 / 60; Pulse 72; Resp 18; Pulse Ox 96% on R/A; db 16:00 BP 122 / 67; Pulse 72; Resp 16; Pulse Ox 95% on R/A; db 16:30 BP 114 / 70; Pulse 70; Resp 16; Pulse Ox 95% ; db MDM: 12:00 Medical Screening Exam initiated rn 16:03 Differential Diagnosis Dehydration, medication effect from treatment, electrolyte rn disorder, malaise secondary to cancer, infection, spread of cancer, worsening of cancer. Data reviewed: vital signs, nurses notes, lab test result(s), radiologic studies, CT scan, plain films, and as a result, I will discharge patient. Consideration of Admission/Observation Escalation of care including admission/observation considered. Admission considered but no acute findings found on workup. Imaging shows stable cancer overall with metastases. Patient has suprasellar mass without visual complaints or focal neurological deficits. Patient improved with a little bit of fluids. Able to stand and urinate on his own. Will discharge home with return precautions and PCP/oncology follow-up.. Counseling: I had a detailed discussion with the patient and/or guardian regarding the historical points, exam findings, and any diagnostic results supporting the discharge/admit diagnosis, lab results, radiology results, the need for outpatient follow up, to return to the emergency department if symptoms worsen or persist or if there are any questions or concerns that arise at home. Special discussion: I discussed with the patient/guardian in detail that at this point there is no indication for admission to the hospital. It is understood, however, that if the symptoms persist or worsen the patient needs to return immediately for re-evaluation. 03/20 12:40 Order name: Basic Metabolic Panel; Complete Time: 13:56 rn 03/20 12:40 Order name: CBC with Diff; Complete Time: 13:56 rn 03/20 12:40 Order name: LFT's; Complete Time: 13:56 rn 03/20 12:40 Order name: NT PRO-BNP; Complete Time: 13:56 rn 03/20 12:40 Order name: PT-INR; Complete Time: 13:56 rn 03/20 12:40 Order name: Troponin HS; Complete Time: 13:56 rn 03/20 12:40 Order name: XRAY Chest (1 view); Complete Time: 14:28 rn 03/20 12:40 Order name: CT Chest Abdomen Pelvis W/O Contrast; Complete Time: 13:21 rn 03/20 12:40 Order name: CT Head Brain wo Cont; Complete Time: 13:21 rn 03/20 12:40 Order name: EKG; Complete Time: 12:41 rn 03/20 12:40 Order name: Cardiac monitoring; Complete Time: 14:41 rn 03/20 12:40 Order name: EKG - Nurse/Tech; Complete Time: 14:41 rn 03/20 12:40 Order name: IV Saline Lock; Complete Time: 14:41 rn 03/20 12:40 Order name: Labs collected and sent; Complete Time: 14:41 rn 03/20 12:40 Order name: O2 Per Protocol; Complete Time: 14:41 rn 03/20 12:40 Order name: O2 Sat Monitoring; Complete Time: 14:41 rn EC:30 Rate is 71 beats/min. Rhythm is regular. QRS interval is prolonged at 170 msec. QT rn interval is normal. No Q waves. T waves are Normal. No ST changes noted. Clinical impression: paced. Interpreted by me. Reviewed by me. Administered Medications: 14:30 Drug: NS 0.9% IV 500 ml 500 ml IV at 1 bolus once; to be given as a bolus over 30 db minutes Volume: 500 ml; Route: IV; Rate: 1 bolus; Site: right antecubital; 15:43 Follow up: Response: No adverse reaction; IV Status: Completed infusion; IV Intake: db 500ml Disposition Summary: 03/20/25 16:05 Discharge Ordered Notes: Location: Home rn Problem: an ongoing problem rn Symptoms: have improved rn Condition: Stable rn Diagnosis - Muscle weakness (generalized) rn - Dehydration rn - Brain mass rn Followup: rn - With: Private Physician - When: As needed - Reason: Recheck today's complaints, Re-evaluation by your physician Discharge Instructions: - Discharge Summary Sheet rn - Dehydration, Adult rn - Weakness rn Forms: - Medication Reconciliation Form rn - Antibiotic frit mixer and burner - Prescription Opioid Use rn - Patient Portal Instructions rn - Leadership Thank You Letter rn Signatures: Dispatcher [employer] EDMS Terry Knox MD MD rn Prokisch, Amanda, RN RN ap3 Dinora Alejandra RN RN db Corrections: (The following items were deleted from the chart) 12:41 12:40 BASIC METABOLIC PANEL+C.LAB.BRZ ordered. EDMS EDMS 12:41 12:40 CBC+H.LAB.BRZ ordered. EDMS EDMS 12:41 12:40 HEPATIC FUNCTION+C.LAB.BRZ ordered. EDMS EDMS 12:41 12:40 PROBNP+C.LAB.BRZ ordered. EDMS EDMS 12:41 12:41 PROTIME (+INR)+COAG.LAB.BRZ ordered. EDMS EDMS 12:41 12:41 Troponin High Sensitivity+C.LAB.BRZ ordered. EDMS EDMS
--- NOTE | 2025-03-20 16:06 | ER ---
Nurse's Notes [facility] Name: Giuliano Park Age: 84 yrs Sex: Male : 1940 Arrival Date: 03/20/2025 Time: 11:34 Bed 16 Private MD: Diagnosis: Muscle weakness (generalized);Dehydration;Brain mass Presentation: 03/20 12:18 Chief complaint: Patient states: he has been having cough, congestion, abdominal/feet ap3 swelling, headache intermittently for approx a month. patients grand daughter states the patient recently started cancer treatment. Coronavirus screen: At this time, the client does not indicate any symptoms associated with coronavirus-19. Ebola Screen: No symptoms or risks identified at this time. Initial Sepsis Screen:. Risk Assessment: Do you want to hurt yourself or someone else? Patient reports no desire to harm self or others. Onset of symptoms is unknown. 12:18 Method Of Arrival: Wheelchair ap3 12:22 Initial Sepsis Screen: Does the patient meet any 2 criteria? No. Patient's initial ap3 sepsis screen is negative. Does the patient have a suspected source of infection? No. Patient's initial sepsis screen is negative. 12:22 Acuity: CALEB 3 ap3 Triage Assessment: 12:21 General: Appears in no apparent distress. Behavior is calm, cooperative, appropriate ap3 for age. Pain: Complains of pain in head. Neuro: Level of Consciousness is awake, alert, confused, Oriented to person, place, time, Reports headache. Cardiovascular: Patient's skin is warm and dry. Respiratory: Reports cough that is productive, Airway is patent Respiratory effort is even, unlabored, Respiratory pattern is regular, symmetrical. GI: Reports nausea. Historical: - Allergies: 12:20 Lisinopril; ap3 - PMHx: 12:20 Atrial Fib; CHF; enlarged prostate; Hypertension; Myocardial infarction; Pacemaker; ap3 prostate cancer (Pacemaker); - Immunization history:: Client reports having NOT received the Covid vaccine. - Infectious Disease History:: Denies. - Social history:: Smoking status: Patient denies any tobacco usage or history of. - Family history:: not pertinent. - Hospitalizations: : No recent hospitalization is reported. Screenin:22 Abuse screen: Denies threats or abuse. Nutritional screening: No deficits noted. ap3 Tuberculosis screening: No symptoms or risk factors identified. 15:46 [facility] ED Fall Risk Assessment (Adult) History of falling in the last 3 months, db including since admission No falls in past 3 months (0 pts) Confusion or Disorientation No (0 pts) Intoxicated or Sedated No (0 pts) Impaired Gait No (0 pts) Mobility Assist Device Used No (0 pt) Altered Elimination No (0 pt) Score/Fall Risk Level 0 - 2 = Low Risk Oriented to surroundings, Maintained a safe environment. Assessment: 13:30 Reassessment: Patient appears in no apparent distress at this time. Patient and/or db family updated on plan of care and expected duration. Pain level reassessed. Patient is alert, oriented x 3, equal unlabored respirations, skin warm/dry/pink. General: Appears in no apparent distress. comfortable, Behavior is calm, cooperative. Neuro: Level of Consciousness is awake, alert, obeys commands, Oriented to person, place, time, situation. Respiratory: Airway is patent Respiratory effort is even, unlabored, Respiratory pattern is regular, symmetrical. 15:43 Reassessment: Patient appears in no apparent distress at this time. Patient and/or db family updated on plan of care and expected duration. Pain level reassessed. Patient is alert, oriented x 3, equal unlabored respirations, skin warm/dry/pink. 16:12 Reassessment: Patient appears in no apparent distress at this time. Patient and/or db family updated on plan of care and expected duration. Pain level reassessed. Patient is alert, oriented x 3, equal unlabored respirations, skin warm/dry/pink. 16:35 Reassessment: Patient appears in no apparent distress at this time. Patient and/or db family updated on plan of care and expected duration. Pain level reassessed. Patient is alert, oriented x 3, equal unlabored respirations, skin warm/dry/pink. Vital Signs: 12:18 Pulse 71; Resp 18; Temp 98.3; Pulse Ox 74% ; Weight 102.06 kg; ap3 12:22 BP 105 / 56; ap3 13:30 Pulse Ox 96% ; db 14:33 BP 107 / 57; Pulse 74; Resp 16; Pulse Ox 95% on R/A; db 15:00 BP 98 / 60; Pulse 72; Resp 18; Pulse Ox 96% on R/A; db 16:00 BP 122 / 67; Pulse 72; Resp 16; Pulse Ox 95% on R/A; db 16:30 BP 114 / 70; Pulse 70; Resp 16; Pulse Ox 95% ; db ED Course: 11:38 Patient arrived in ED. cj3 12:00 Terry Knox MD is Attending Physician. rn 12:22 Triage completed. ap3 12:22 Arm band placed on right wrist. ap3 12:44 Dinora Alejandra, RN is Primary Nurse. db 12:[address] db 12:54 CT Chest Abdomen Pelvis W/O Contrast In Process Unspecified. EDMS 12:54 CT Head Brain wo Cont In Process Unspecified. EDMS 13:06 XRAY Chest (1 view) In Process Unspecified. EDMS 13:12 Inserted saline lock: 22 gauge in left antecubital area, using aseptic technique. Blood nh2 collected. Flushed with 10 mL NS. 13:12 Basic Metabolic Panel Sent. nh2 13:12 CBC with Diff Sent. nh2 13:12 LFT's Sent. nh2 13:12 NT PRO-BNP Sent. nh2 13:12 PT-INR Sent. nh2 13:12 Troponin HS Sent. nh2 15:46 Patient has correct armband on for positive identification. Bed in low position. Call db light in reach. Side rails up X 1. Client placed on continuous cardiac and pulse oximetry monitoring. NIBP monitoring applied. potline monitor on. Pulse ox on. NIBP on. Warm blanket given. Pillow given. 16:35 Provided Education on: DISCHARGE AND FOLLOWUP. db 16:35 No provider procedures requiring assistance completed. IV discontinued, intact, db bleeding controlled, No redness/swelling at site. Administered Medications: 14:30 Drug: NS 0.9% IV 500 ml 500 ml IV at 1 bolus once; to be given as a bolus over 30 db minutes Volume: 500 ml; Route: IV; Rate: 1 bolus; Site: right antecubital; 15:43 Follow up: Response: No adverse reaction; IV Status: Completed infusion; IV Intake: db 500ml Medication: 16:35 VIS not applicable for this client. db Intake: 15:43 IV: 500ml; Total: 500ml. db Outcome: 16:05 Discharge ordered by . rn 16:35 Discharged to home via wheelchair, with family, db 16:35 Condition: stable 16:35 Discharge instructions given to patient, family, Instructed on discharge instructions, follow up and referral plans. 16:36 Patient left the ED. db Signatures: Dispatcher [employer] Terry Waterman MD MD rn Prokisch, Amanda, RN RN ap3 Dinora Alejandra RN RN db Francisco Campoverde, Asia Prater [email or web address]
[2025-03-20 20:10] VITALS: TEMP 98.3
[2025-03-20 20:17] VITALS: O2SAT 95
[2025-03-20 20:18] VITALS: BP 114/70
== END 2025-03-20 16:36 | disposition home or self-care (01) ==
LOC: ER 11:34
DX: M62.81 Muscle weakness (generalized) (principal); E86.0 Dehydration; G93.89 Other specified disorders of brain; C61 Malignant neoplasm of prostate; I10 Essential (primary) hypertension; Z95.0 Presence of cardiac pacemaker
CPT/HCPCS: 93005; 85025; 80048; 36415; 85610; 80076; 84484; 83880; 70450; 71250; 74176; 71045; J7040; 96360; 99285